=== PATIENT | female | born 1930 | race American Indian/Alaskan Native ===

== ENCOUNTER 2020-08-28 14:15 | Inpatient (IN) | payer MEDICARE ==
--- NOTE | 2020-08-28 14:42 | Emergency Department Report ---
ED General Adult HPI - General Chief complaint: Recheck/Abnormal Lab/Rx Stated complaint: COUMANDIN LEVEL HIGH Time Seen by Provider: 08/28/20 14:30 Source: patient, family Mode of arrival: Wheelchair Limitations: No Limitations - History of Present Illness Initial comments: Patient is 89 years old female with history of hypertension, Congestive heart failure and atrial fibrillation, dementia and heart valve replacement patient is currently on Coumadin. Patient brought to the emergency room by her son after patient found to have an INR of 8. Son reported that she fell twice last week. He reported that patient always confused however she became more confused recently. He denied any fever or chills. Patient is unable to communicate well because of her altered mental status and dementia. Patient found to have a heart rate of 148. Severity scale (0 -10): 0 - Related Data Home Medications Medication Instructions Recorded Confirmed Last Taken AtorvaSTATin [Lipitor] 40 mg PO QHS 08/29/20 08/29/20 Unknown Escitalopram [Lexapro Oral Liqd] 10 mg PO QDAY 08/29/20 08/29/20 Unknown Furosemide [Lasix TAB] 40 mg PO QDAY 08/29/20 08/29/20 Unknown Gabapentin [Neurontin] 100 mg PO Q8HR 08/29/20 08/29/20 Unknown Lisinopril [Zestril] 5 mg PO QDAY 08/29/20 08/29/20 Unknown Metoprolol Succinate [Kapsp[place] 100 mg PO QDAY 08/29/20 08/29/20 Unknown Sprinkle] Omeprazole 40 mg PO QDAY 08/29/20 08/29/20 Unknown Potassium Citrate [Potassium 10 meq PO QDAY 08/29/20 08/29/20 Unknown Citrate ER] Warfarin [Coumadin] 5 mg PO QDAY 08/29/20 08/29/20 Unknown traMADoL [Ultram] 50 mg PO Q6HR PRN 08/29/20 08/29/20 Unknown traZODone [Desyrel] 50 mg PO QHS 08/29/20 08/29/20 Unknown Allergies Allergy/AdvReac Type Severity Reaction Status Date / Time No Known Allergies Allergy Unverified 08/28/20 14:17 ED Review of Systems ROS: Stated complaint: COUMANDIN LEVEL HIGH Other details as noted in HPI Comment: All other systems reviewed and negative Constitutional: denies: chills, fever Respiratory: shortness of breath. denies: cough, orthopnea Cardiovascular: palpitations. denies: chest pain Gastrointestinal: denies: abdominal pain, nausea, vomiting Neurological: confusion. denies: weakness ED Past Medical Hx - Past Medical History Previous Medical History?: Yes Hx Hypertension: Yes Hx of Cancer: Yes (breast) Hx Dementia: Yes Additional medical history: afib - Surgical History Past Surgical History?: Yes Additional Surgical History: heart surgery for valves - Medications Home Medications: Home Medications Medication Instructions Recorded Confirmed Last Taken Type AtorvaSTATin [Lipitor] 40 mg PO QHS 08/29/20 08/29/20 Unknown History Escitalopram [Lexapro Oral Liqd] 10 mg PO QDAY 08/29/20 08/29/20 Unknown History Furosemide [Lasix TAB] 40 mg PO QDAY 08/29/20 08/29/20 Unknown History Gabapentin [Neurontin] 100 mg PO Q8HR 08/29/20 08/29/20 Unknown History Lisinopril [Zestril] 5 mg PO QDAY 08/29/20 08/29/20 Unknown History Metoprolol Succinate [Kapspargo 100 mg PO QDAY 08/29/20 08/29/20 Unknown History Sprinkle] Omeprazole 40 mg PO QDAY 08/29/20 08/29/20 Unknown History Potassium Citrate [Potassium 10 meq PO QDAY 08/29/20 08/29/20 Unknown History Citrate ER] Warfarin [Coumadin] 5 mg PO QDAY 08/29/20 08/29/20 Unknown History traMADoL [Ultram] 50 mg PO Q6HR PRN 08/29/20 08/29/20 Unknown History traZODone [Desyrel] 50 mg PO QHS 08/29/20 08/29/20 Unknown History ED Physical Exam - General Limitations: No Limitations General appearance: alert, in no apparent distress - Head Head exam: Present: atraumatic, normocephalic, normal inspection - Eye Eye exam: Present: normal appearance, PERRL - ENT ENT exam: Present: normal exam, normal orophraynx, mucous membranes moist - Neck Neck exam: Present: normal inspection, full ROM. Absent: tenderness, meningi smus - Respiratory Respiratory exam: Present: normal lung sounds bilaterally - Cardiovascular Cardiovascular Exam: Present: regular rate, normal rhythm, normal heart sounds - GI/Abdominal GI/Abdominal exam: Present: soft, normal bowel sounds. Absent: distended, tenderness, guarding, rebound, rigid, organomegaly, mass, bruit, pulsatile mass, hernia - Extremities Exam Extremities exam: Present: normal inspection, full ROM, normal capillary refill. Absent: tenderness - Back Exam Back exam: Present: normal inspection, full ROM. Absent: CVA tenderness (R), CVA tenderness (L) - Neurological Exam Neurological exam: Present: alert, altered, CN II-XII intact. Absent: motor sensory deficit - Psychiatric Psychiatric exam: Present: normal mood - Skin Skin exam: Present: warm, intact, normal color ED Course Vital Signs 08/28/20 08/28/20 08/28/20 14:25 14:31 14:45 Temperature 98.4 F Pulse Rate 69 148 H Respiratory 14 20 Rate Blood Pressure 106/84 Blood Pressure 108/79 [Right] O2 Sat by Pulse 71 L 70 L Oximetry 08/28/20 08/28/20 08/28/20 15:01 15:03 15:15 Temperature 98.2 F Pulse Rate 142 H 148 H 154 H Respiratory 22 18 18 Rate Blood Pressure 106/84 160/84 106/84 Blood Pressure [Right] O2 Sat by Pulse 100 Oximetry 08/28/20 08/28/20 08/28/20 15:31 15:45 15:54 Temperature Pulse Rate 130 H 142 H 137 H Respiratory 20 21 Rate Blood Pressure 106/84 106/86 106/83 Blood Pressure [Right] O2 Sat by Pulse Oximetry 08/28/20 08/28/20 08/28/20 16:01 16:15 16:31 Temperature Pulse Rate 109 H 124 H 112 H Respiratory 20 13 19 Rate Blood Pressure 106/86 101/71 101/71 Blood Pressure [Right] O2 Sat by Pulse 79 L Oximetry 08/28/20 08/28/20 08/28/20 16:45 17:01 17:15 Temperature Pulse Rate 113 H 110 H 94 H Respiratory 22 20 19 Rate Blood Pressure 101/71 101/71 50/25 Blood Pressure [Right] O2 Sat by Pulse 88 76 L Oximetry 08/28/20 08/28/20 08/28/20 17:31 17:45 18:01 Temperature Pulse Rate 106 H 99 H 96 H Respiratory 12 16 18 Rate Blood Pressure 50/25 98/80 98/80 Blood Pressure [Right] O2 Sat by Pulse 99 93 84 Oximetry 08/28/20 08/28/20 08/28/20 18:15 18:31 18:45 Temperature Pulse Rate 115 H 112 H 115 H Respiratory 15 19 16 Rate Blood Pressure 104/83 104/83 128/107 Blood Pressure [Right] O2 Sat by Pulse 89 82 L Oximetry 08/28/20 08/28/20 08/28/20 19:01 19:15 19:31 Temperature Pulse Rate 110 H 100 H 98 H Respiratory 21 18 19 Rate Blood Pressure 128/107 120/83 120/83 Blood Pressure [Right] O2 Sat by Pulse 45 L Oximetry 08/28/20 08/28/20 08/28/20 19:45 20:01 20:15 Temperature Pulse Rate 113 H 120 H 110 H Respiratory 17 15 17 Rate Blood Pressure 108/82 108/82 113/89 Blood Pressure [Right] O2 Sat by Pulse 85 93 Oximetry 08/28/20 08/28/20 08/28/20 20:31 20:45 21:01 Temperature Pulse Rate 109 H 115 H 95 H Respiratory 18 22 22 Rate Blood Pressure 113/89 113/89 112/80 Blood Pressure [Right] O2 Sat by Pulse 96 96 Oximetry 08/28/20 08/28/20 08/28/20 21:15 21:31 21:45 Temperature Pulse Rate 107 H 102 H 102 H Respiratory 20 18 19 Rate Blood Pressure 111/76 111/76 120/74 Blood Pressure [Right] O2 Sat by Pulse 93 74 L Oximetry 08/28/20 08/28/20 08/28/20 22:01 22:15 22:31 Temperature Pulse Rate 93 H 100 H 111 H Respiratory 15 15 20 Rate Blood Pressure 120/74 100/77 100/77 Blood Pressure [Right] O2 Sat by Pulse Oximetry 08/28/20 08/28/20 08/28/20 22:45 22:49 23:01 Temperature Pulse Rate 105 H 88 Respiratory 22 98 H 18 Rate Blood Pressure 100/77 100/77 Blood Pressure [Right] O2 Sat by Pulse 100 Oximetry 08/28/20 08/28/20 08/28/20 23:15 23:31 23:45 Temperature Pulse Rate 101 H 102 H 90 Respiratory 19 17 13 Rate Blood Pressure 113/80 113/80 113/80 Blood Pressure [Right] O2 Sat by Pulse 93 100 100 Oximetry 08/28/20 08/29/20 08/29/20 23:50 00:01 00:15 Temperature Pulse Rate 104 H 113 H 100 H Respiratory 16 14 15 Rate Blood Pressure 100/77 113/80 114/61 Blood Pressure [Right] O2 Sat by Pulse 100 Oximetry 08/29/20 08/29/20 08/29/20 00:31 00:45 01:00 Temperature Pulse Rate 95 H 95 H 94 H Respiratory 16 14 Rate Blood Pressure 114/61 120/72 120/72 Blood Pressure [Right] O2 Sat by Pulse 91 94 Oximetry 08/29/20 08/29/20 08/29/20 01:01 01:15 01:31 Temperature Pulse Rate 104 H 104 H 101 H Respiratory 13 24 17 Rate Blood Pressure 120/72 100/80 100/80 Blood Pressure [Right] O2 Sat by Pulse 81 L 92 Oximetry 08/29/20 08/29/20 08/29/20 01:45 02:01 02:15 Temperature Pulse Rate 104 H 109 H 96 H Respiratory 20 17 15 Rate Blood Pressure 110/62 110/62 101/64 Blood Pressure [Right] O2 Sat by Pulse 100 100 100 Oximetry 08/29/20 08/29/20 08/29/20 02:30 02:45 03:01 Temperature Pulse Rate 85 103 H 93 H Respiratory 15 15 13 Rate Blood Pressure 100/80 108/65 101/64 Blood Pressure [Right] O2 Sat by Pulse 100 100 Oximetry 08/29/20 08/29/20 08/29/20 03:15 03:31 03:45 Temperature Pulse Rate 87 98 H 104 H Respiratory 19 17 19 Rate Blood Pressure 114/70 114/70 117/72 Blood Pressure [Right] O2 Sat by Pulse 100 Oximetry 08/29/20 08/29/20 08/29/20 04:01 04:15 04:31 Temperature Pulse Rate 87 109 H 96 H Respiratory 21 21 24 Rate Blood Pressure 117/72 149/117 149/117 Blood Pressure [Right] O2 Sat by Pulse 100 100 Oximetry 08/29/20 08/29/20 08/29/20 04:45 05:01 05:15 Temperature Pulse Rate 113 H 101 H Respiratory 17 17 16 Rate Blood Pressure 149/117 98/77 108/54 Blood Pressure [Right] O2 Sat by Pulse 100 Oximetry 08/29/20 08/29/20 08/29/20 05:31 05:45 06:01 Temperature Pulse Rate 122 H Respiratory 16 18 19 Rate Blood Pressure 108/54 101/81 101/81 Blood Pressure [Right] O2 Sat by Pulse 100 100 81 L Oximetry 08/29/20 08/29/20 08/29/20 06:15 06:30 06:41 Temperature Pulse Rate 96 H 101 H 102 H Respiratory 21 21 11 L Rate Blood Pressure 109/86 109/86 Blood Pressure [Right] O2 Sat by Pulse 99 100 100 Oximetry 08/29/20 08/29/20 08/29/20 06:51 07:01 07:11 Temperature Pulse Rate 91 H 100 H 95 H Respiratory 21 18 19 Rate Blood Pressure 116/78 116/78 107/74 Blood Pressure [Right] O2 Sat by Pulse 100 100 90 Oximetry 08/29/20 08/29/20 08/29/20 07:15 07:45 07:51 Temperature Pulse Rate 106 H 95 H 103 H Respiratory 20 24 16 Rate Blood Pressure 107/74 110/68 110/68 Blood Pressure [Right] O2 Sat by Pulse 94 100 Oximetry 08/29/20 08:01 Temperature Pulse Rate 94 H Respiratory 22 Rate Blood Pressure 110/68 Blood Pressure [Right] O2 Sat by Pulse 100 Oximetry ED Medical Decision Making - Lab Data Result diagrams: 08/29/20 02:27 08/29/20 02:27 - EKG Data -: EKG Interpreted by Me - Radiology Data Radiology results: report reviewed Atrial fibrillation with RVR heart rate of 131. - Medical Decision Making Patient is 89 years old female with history of hypertension, Congestive heart failure and atrial fibrillation, dementia and heart valve replacement patient is currently on Coumadin. Patient brought to the emergency room by her son after patient found to have an INR of 8. Son reported that she fell twice last week. He reported that patient always confused however she became more confused recently. He denied any fever or chills. Patient is unable to communicate well because of her altered mental status and dementia. Patient found to have a heart rate of 148. EKG showed atrial fibrillation with RVR heart rate of 1 PAD. Patient started on Cardizem with improvement heart rate. INR is 10.6. Patient received vitamin K [address] brain showed no evidence of intracranial bleed or any other acute abnormalities. I discussed the patient with Dr. Leal, he agreed to admit the patient to medical service for further management. Critical Care Time: Yes Critical care time in (mins) excluding proc time.: 30 Critical care attestation.: If time is entered above; I have spent that time in minutes in the direct care of this critically ill patient, excluding procedure time. ED Disposition Clinical Impression: Atrial fibrillation with RVR, Acute hypernatremia, Lactic acidosis Coumadin toxicity Qualifiers: Encounter type: initial encounter Disposition: OP ADMIT IP TO THIS HOSP Is pt being admited?: Yes Condition: Stable
[2020-08-28] MEDS ORDERED: dilTIAZem 25 MG/5 ML INJ IV ONE (14:55)
[2020-08-28] MEDS: dilTIAZem/D5W 100 MG/100 ML BAG IV SCH (15:37)
[2020-08-28 15:50] LABS: Calcium 9.1 mg/dL (8.4-10.2)
--- NOTE | 2020-08-28 15:51 | Cat Scan Report ---
CT BRAIN: 08/28/2020 INDICATION / CLINICAL INFORMATION: MAIN. COMPARISON: None available. FINDINGS: BRAIN/INTRACRANIAL STRUCTURES: Unenhanced CT images of the brain demonstrate no evidence of acute int racranial abnormality. Ventricles and sulci are prominent in size, consistent with pronounced age-related atrophic change. E xtensive chronic white matter hypoattenuation is present. There is a small area of encephalomalacia in involving the inferior aspect of the right cerebellar he misphere. There is no evidence of acute ischemic injury, hemorrhage, or mass. There are no abnormal extra-axial fluid collections. Atherosclerotic vascular calcifications are present in the distal internal carotid arteries and verte bral arteries. EXTRACRANIAL STRUCTURES: Unremarkable. IMPRESSION: No acute abnormality. Extensive chronic and age-related changes. All CT scans at this location are performed using dose reduction to ALARA by means of automated expos ure control. Signer Name: Steve Ballesteros MD Signed: 08/28/2020 3:46 PM Workstation Name: [id number]
[2020-08-28 15:52] LABS: Albumin 3.7 g/dL (3.9-5); Bilirubin,Direct 1.4 mg/dL (0-0.2)
[2020-08-28] MEDS ORDERED: SODIUM CHLORIDE 0.9% 500 ML 500 ML IV ONE (15:56)
--- NOTE | 2020-08-28 16:18 | XRay Report ---
CHEST 1 VIEW 08/28/2020 3:10 PM INDICATION / CLINICAL INFORMATION: Altered Mental Status. COMPARISON: None available. FINDINGS: SUPPORT DEVICES: None. HEART / MEDIASTINUM: Normal heart size. Previous median sternotomy and aortic valve replacement. LUNGS / PLEURA: No significant pulmonary or pleural abnormality. No pneumothorax. ADDITIONAL FINDINGS: No significant additional findings. IMPRESSION: 1. No acute findings. Signer Name: Larry Leigh MD Signed: 08/28/2020 4:13 PM Workstation Name: [id number]
[2020-08-28 16:23] LABS: Partial Thromboplastin Time 48.8 Sec. (24.2-36.6)
[2020-08-28] MEDS ORDERED: PHYTONADIONE 10 MG/1 ML (ADULT ONLY)*INJECTION SUB-Q ONE (16:48)
[2020-08-28 16:52] LABS: INR 10.69 (0.87-1.13)
[2020-08-28 17:04] LABS: Hematocrit 39.5 % (30.3-42.9); Hemoglobin 12.4 gm/dl (10.1-14.3); Mean Corpuscular HGB Conc 32 % (30-34); Mean Corpuscular Volume 108 fl (79-97); Platelet Count 198 K/mm3 (140-440); Red Blood Count 3.67 M/mm3 (3.65-5.03); Red Cell Distribution Width 17.4 % (13.2-15.2)
[2020-08-28 17:46] LABS: Anisocytosis Few; Hypochromasia Few; Total Cells Counted 100
[2020-08-28 17:49] LABS: Bacteria,Urine 4+ /HPF (Negative); Bilirubin,Urine NEG (Negative); Blood,Urine MOD (Negative); Color,Urine Amber (Yellow); Hyaline Casts,Urine 20 /LPF; Mucus,Urine 3+ /HPF
--- NOTE | 2020-08-28 21:48 | History and Physical Report ---
History of Present Illness Date of examination: 08/28/20 Date of admission: 08/28/20 18:30 Chief complaint: Palpitations since a.m. High Coumadin level with high INR of work 8-10 History of present illness: 89-year-old female with history of hypertension, congestive heart failure dementia, atrial fibrillation and aortic valve replacement brought in by her son because of high Coumadin level with INR of 8. Also patient has been falling repeatedly. Further work 2 times per day for 1 week. Patient states that she has weakness in both lower extremities. Patient also more confused secondary to her dementia. No fever or chills. Patient is unable currently communicative because of her progressive dementia. In the emergency room patient was found to be in atrial fibrillation with rapid ventricular rate. - Past Medical History --Hypertension: Yes --Hx of Cancer: Yes (breast) --Dementia: Yes Additional medical history: afib - Surgical History Past Surgical History?: Yes -Social history no smoking or alcohol Review of Systems ROS: Constitutional no weight loss or weight gain no fever or chills HEENT no sore throat no post nasal drip no diplopia Neck no neck stiffness no lymph gland enlargement Chest and lungs no shortness of breath cough or wheezing CVS palpitations present GI no nausea no vomiting no diarrhea Genitourinary system no dysuria no flank pain Musculoskeletal system no muscle pains no joint pains [employer] no syncope no seizures Skin no rash no itching Psychiatric no depression no homicidal or suicidal tendencies Hematologic no lymphedema or bruising Endocrine no polydipsia no polyuria no cold intolerance no heat intolerance Medications and Allergies Allergies Allergy/AdvReac Type Severity Reaction Status Date / Time No Known Allergies Allergy Unverified 08/28/20 14:17 Active Meds: Active Medications Diltiazem HCl (Cardizem/D5w 100mg/100ml) 100 mg in 100 mls @ 5 mls/hr IV TITR [place]; Protocol Last Titration: 08/28/20 18:07 Dose: 15 mg/hr, 15 mls/hr Documented by: Exam - Constitutional Vitals: Temp Pulse Resp BP Pulse Ox 98.2 F 102 H 18 111/76 93 08/28/20 15:03 08/28/20 21:31 08/28/20 21:31 08/28/20 21:31 08/28/20 21:31 General appearance: Present: mild distress, well-nourished - EENT Eyes: Present: PERRL ENT: hearing intact, clear oral mucosa - Neck Neck: Present: supple, normal ROM - Respiratory Respiratory effort: normal Respiratory: bilateral: CTA - Cardiovascular Heart rate: 148 Rhythm: irregularly irregular Heart Sounds: Present: S1 & S2. Absent: rub, click - Extremities Extremities: pulses symmetrical, No edema Peripheral Pulses: within normal limits - Abdominal General gastrointestinal: Present: soft, non-tender, non-distended, normal bowel sounds Female genitourinary: Present: normal - Integumentary Integumentary: Present: clear, warm, dry - Musculoskeletal Musculoskeletal: gait normal, strength equal bilaterally - Psychiatric Psychiatric: appropriate mood/affect, intact judgment & insight - Neurologic Neurologic: CNII-XII intact, moves all extremities HEART Score - HEART Score History: Moderately suspicious Age: > 65 Risk factors: > 3 risk factors or hx of atherosclerotic disease Troponin: Troponin T 0.010 ng/mL (0.00-0.029) 08/28/20 17:27 Troponin: < normal limit - Critical Actions Critical Actions: 4-6 pts:12-16.6% risk of adverse cardiac event. Should be admitted Results - Labs CBC & Chem 7: 08/29/20 02:27 08/29/20 02:27 Labs: Laboratory Last Values WBC 5.9 K/mm3 (4.5-11.0) 08/28/20 15:07 RBC 3.67 M/mm3 (3.65-5.03) 08/28/20 15:07 Hgb 12.4 gm/dl (10.1-14.3) 08/28/20 15:07 Hct 39.5 % (30.3-42.9) 08/28/20 15:07 MCV 108 fl (79-97) H 08/28/20 15:07 MCH 34 pg (28-32) H 08/28/20 15:07 MCHC 32 % (30-34) 08/28/20 15:07 RDW 17.4 % (13.2-15.2) H 08/28/20 15:07 Plt Count 198 K/mm3 (140-440) 08/28/20 15:07 Add Manual Diff Complete 08/28/20 15:07 Total Counted 100 08/28/20 15:07 Seg Neuts % (Manual) 64.0 % (40.0-70.0) 08/28/20 15:07 Lymphocytes % (Manual) 23.0 % (13.4-35.0) 08/28/20 15:07 Monocytes % (Manual) 10.0 % (0.0-7.3) H 08/28/20 15:07 Eosinophils % (Manual) 2.0 % (0.0-4.3) 08/28/20 15:07 Basophils % (Manual) 1.0 % (0.0-1.8) 08/28/20 15:07 Nucleated RBC % Not Reportable 08/28/20 15:07 Seg Neutrophils # Man 3.8 K/mm3 (1.8-7.7) 08/28/20 15:07 Band Neutrophils # 0.0 K/mm3 08/28/20 15:07 Lymphocytes # (Manual) 1.4 K/mm3 (1.2-5.4) 08/28/20 15:07 Abs React Lymphs (Man) 0.0 K/mm3 08/28/20 15:07 Monocytes # (Manual) 0.6 K/mm3 (0.0-0.8) 08/28/20 15:07 Eosinophils # (Manual) 0.1 K/mm3 (0.0-0.4) 08/28/20 15:07 Basophils # (Manual) 0.1 K/mm3 (0.0-0.1) 08/28/20 15:07 Metamyelocytes # 0.0 K/mm3 08/28/20 15:07 Myelocytes # 0.0 K/mm3 08/28/20 15:07 Promyelocytes # 0.0 K/mm3 08/28/20 15:07 Blast Cells # 0.0 K/mm3 08/28/20 15:07 WBC Morphology Not Reportable 08/28/20 15:07 Hypersegmented Neuts Not Reportable 08/28/20 15:07 Hyposegmented Neuts Not Reportable 08/28/20 15:07 Hypogranular Neuts Not Reportable 08/28/20 15:07 Smudge Cells Not Reportable 08/28/20 15:07 Toxic Granulation Not Reportable 08/28/20 15:07 Toxic Vacuolation Not Reportable 08/28/20 15:07 Dohle Bodies Not Reportable 08/28/20 15:07 Pelger-Huet Anomaly Not Reportable 08/28/20 15:07 Heri Rods Not Reportable 08/28/20 15:07 Platelet Estimate Not Reportable 08/28/20 15:07 Clumped Platelets Not Reportable 08/28/20 15:07 Plt Clumps, EDTA Not Reportable 08/28/20 15:07 Large Platelets Not Reportable 08/28/20 15:07 Giant Platelets Not Reportable 08/28/20 15:07 Platelet Satelliting Not Reportable 08/28/20 15:07 Plt Morphology Comment Not Reportable 08/28/20 15:07 RBC Morphology Not Reportable 08/28/20 15:07 Dimorphic RBCs Not Reportable 08/28/20 15:07 Polychromasia Not Reportable 08/28/20 15:07 Hypochromasia Few 08/28/20 15:07 Poikilocytosis Not Reportable 08/28/20 15:07 Anisocytosis Few 08/28/20 15:07 Microcytosis Rare 08/28/20 15:07 Macrocytosis Not Reportable 08/28/20 15:07 Spherocytes Not Reportable 08/28/20 15:07 Pappenheimer Bodies Not Reportable 08/28/20 15:07 Sickle Cells Not Reportable 08/28/20 15:07 Target Cells Not Reportable 08/28/20 15:07 Tear Drop Cells Not Reportable 08/28/20 15:07 Ovalocytes Not Reportable 08/28/20 15:07 Helmet Cells Not Reportable 08/28/20 15:07 [place] Bodies Not Reportable 08/28/20 15:07 [place] Rings Not Reportable 08/28/20 15:07 [place] Cells Not Reportable 08/28/20 15:07 Bite Cells Not Reportable 08/28/20 15:07 Crenated Cell Not Reportable 08/28/20 15:07 Elliptocytes Not Reportable 08/28/20 15:07 Acanthocytes (Spur) Not Reportable 08/28/20 15:07 Rouleaux Not Reportable 08/28/20 15:07 Hemoglobin C Crystals Not Reportable 08/28/20 15:07 Schistocytes Not Reportable 08/28/20 15:07 Malaria parasites Not Reportable 08/28/20 15:07 Fercho Bodies Not Reportable 08/28/20 15:07 Hem Pathologist Commnt No 08/28/20 15:07 PT 87.2 Sec. (12.2-14.9) H 08/28/20 15:07 INR 10.69 (0.87-1.13) H* 08/28/20 15:07 APTT 48.8 Sec. (24.2-36.6) H 08/28/20 15:07 Sodium 148 mmol/L (137-145) H 08/28/20 15:07 Potassium 4.8 mmol/L (3.6-5.0) 08/28/20 15:07 Chloride 112.6 mmol/L (98-107) H 08/28/20 15:07 Carbon Dioxide 20 mmol/L (22-30) L 08/28/20 15:07 Anion Gap 20 mmol/L 08/28/20 15:07 BUN 33 mg/dL (7-17) H 08/28/20 15:07 Creatinine 1.4 mg/dL (0.6-1.2) H 08/28/20 15:07 Estimated GFR 43 ml/min 08/28/20 15:07 BUN/Creatinine Ratio 24 % 08/28/20 15:07 Glucose 152 mg/dL (65-100) H 08/28/20 15:07 Lactic Acid 4.70 mmol/L (0.7-2.0) H* 08/28/20 15:07 Calcium 9.1 mg/dL (8.4-10.2) 08/28/20 15:07 Total Bilirubin 3.20 mg/dL (0.1-1.2) H 08/28/20 15:07 Direct Bilirubin 1.4 mg/dL (0-0.2) H 08/28/20 15:07 Indirect Bilirubin 1.8 mg/dL 08/28/20 15:07 AST 432 units/L (5-40) H 08/28/20 15:07 ALT 367 units/L (7-56) H 08/28/20 15:07 Alkaline Phosphatase 189 units/L (35-129) H 08/28/20 15:07 Troponin T 0.010 ng/mL (0.00-0.029) 08/28/20 17:27 NT-Pro-B Natriuret Pep 7039 pg/mL (0-900) H 08/28/20 15:07 Total Protein 8.2 g/dL (6.3-8.2) 08/28/20 15:07 Albumin 3.7 g/dL (3.9-5) L 08/28/20 15:07 Albumin/Globulin Ratio 0.8 % 08/28/20 15:07 Urine Color Alison (Yellow) 08/28/20 Unknown Urine Turbidity Cloudy (Clear) 08/28/20 Unknown Urine pH 5.0 (5.0-7.0) 08/28/20 Unknown Ur Specific [place] 1.019 (1.003-1.030) 08/28/20 Unknown Urine Protein 100 mg/dl mg/dL (Negative) 08/28/20 Unknown Urine Glucose (UA) Neg mg/dL (Negative) 08/28/20 Unknown Urine Ketones Neg mg/dL (Negative) 08/28/20 Unknown Urine Blood Mod (Negative) 08/28/20 Unknown Urine Nitrite Neg (Negative) 08/28/20 Unknown Urine Bilirubin Neg (Negative) 08/28/20 Unknown Urine Urobilinogen 4.0 mg/dL (<2.0) 08/28/20 Unknown Ur Leukocyte Esterase Mod (Negative) 08/28/20 Unknown Urine WBC (Auto) 65.0 /HPF (0.0-6.0) H 08/28/20 Unknown Urine RBC (Auto) 12.0 /HPF (0.0-6.0) 08/28/20 Unknown Urine Bacteria (Auto) 4+ /HPF (Negative) 08/28/20 Unknown Urine WBC Clumps 2+ /HPF 08/28/20 Unknown Hyaline Casts 20 /LPF 08/28/20 Unknown Urine Mucus 3+ /HPF 08/28/20 Unknown Urine Yeast (Budding) 2+ /HPF 08/28/20 Unknown Short CBC 08/28/20 08/29/20 Range/Units 15:07 02:27 WBC 5.9 7.0 (4.5-11.0) K/mm3 Hgb 12.4 11.6 (10.1-14.3) gm/dl Hct 39.5 35.0 (30.3-42.9) % Plt Count 198 160 (140-440) K/mm3 BMP 08/28/20 08/29/20 15:07 02:27 Sodium 148 H 149 H Potassium 4.8 4.0 Chloride 112.6 H 114.1 H Carbon Dioxide 20 L 19 L BUN 33 H 31 H Creatinine 1.4 H 1.2 Glucose 152 H 130 H Calcium 9.1 9.0 Cardiac Enzymes 08/28/20 08/28/20 08/28/20 Range/Units 15:07 15:07 17:27 Troponin T 0.019 0.012 0.010 (0.00-0.029) ng/mL Liver Function 08/28/20 08/29/20 Range/Units 15:07 02:27 Total Bilirubin 3.20 H 3.10 H (0.1-1.2) mg/dL Direct Bilirubin 1.4 H (0-0.2) mg/dL AST 432 H 451 H (5-40) units/L ALT 367 H 386 H (7-56) units/L Alkaline Phosphatase 189 H 179 H (35-129) units/L Albumin 3.7 L 3.7 L (3.9-5) g/dL Urine 08/28/20 Range/Units Unknown Urine Color [place]ison (Yellow) Urine pH 5.0 (5.0-7.0) Ur Specific [place] 1.019 (1.003-1.030) Urine Protein 100 mg/dl (Negative) mg/dL Urine Glucose (UA) Neg (Negative) mg/dL Microbiology: Microbiology 08/28/20 15:07 Peripheral/Venous Blood Culture - Preliminary Culture in Progress 08/28/20 15:07 Peripheral/Venous Blood Culture - Preliminary Culture in Progress - Imaging and Cardiology EKG: report reviewed (Atrial fibrillation with RVR) Chest x-ray: report reviewed (No acute findings) Assessment and Plan Advance Directives: Yes (Full code) VTE prophylaxis?: Chemical Plan of care discussed with patient/family: Yes - Patient Problems (1) Atrial fibrillation with RVR Current Visit: Yes Status: Acute Plan to address problem: Patient on diltiazem drip IV No titration Diltiazem CD 120 mg added Cardiology consult requested (2) CHF (congestive heart failure) Current Visit: Yes Status: Chronic Qualifiers: Heart failure type: combined systolic and diastolic Plan to address problem: Echocardiogram for ejection fraction (3) Acute hypernatremia Current Visit: Yes Status: Acute Plan to address problem: Gentle IV hydration because of the CHF (4) Coumadin toxicity Current Visit: Yes Status: Acute Qualifiers: Encounter type: initial encounter Plan to address problem: Vitamin K given in the emergency room Check pro time Patient may benefit from switching to Eliquis will defer to cardiology (5) JAMI (acute kidney injury) Current Visit: Yes Status: Acute Plan to address problem: Secondary to vasomotor nephropathy Gentle IV hydration (6) DVT prophylaxis Current Visit: Yes Status: Acute Plan to address problem: Heparin and GI prophylaxis
[2020-08-28] MEDS ORDERED: MORPHINE 2 MG/1 ML INJ IV PRN (21:49)
[2020-08-28] MEDS ORDERED: ONDANSETRON 4 MG/2 ML INJ IV PRN (21:49)
[2020-08-28] MEDS ORDERED: oxyCODONE /ACETAMINOPHEN 5-325MG TAB PO PRN (21:49)
[2020-08-28] MEDS ORDERED: ACETAMINOPHEN 325 MG TAB PO PRN (21:49)
[2020-08-28] MEDS ORDERED: FAMOTIDINE 20 MG TAB PO SCH (22:00)
[2020-08-28] MEDS: FAMOTIDINE 10 MG TAB PO SCH (22:16)
[2020-08-28] MEDS: FUROSEMIDE 40 MG/4 ML INJ IV SCH (22:36)
[2020-08-29] MEDS: dilTIAZem/D5W 100 MG/100 ML BAG IV SCH ×2 (01:00→07:25)
[2020-08-29 03:10] LABS: Basophils % (Auto) 0.7 % (0.0-1.8); Eosinophils # (Auto) 0.2 K/mm3 (0.0-0.4); Eosinophils % (Auto) 2.3 % (0.0-4.3); Hemoglobin 11.6 gm/dl (10.1-14.3); Lymphocytes # (Auto) 1.2 K/mm3 (1.2-5.4); Lymphocytes % (Auto) 17.3 % (13.4-35.0); Mean Corpuscular HGB Conc 33 % (30-34); Mean Corpuscular Volume 105 fl (79-97); Monocytes # (Auto) 0.6 K/mm3 (0.0-0.8); Monocytes % (Auto) 9.3 % (0.0-7.3); Platelet Count 160 K/mm3 (140-440); Red Blood Count 3.33 M/mm3 (3.65-5.03); Red Cell Distribution Width 16.5 % (13.2-15.2)
[2020-08-29 03:35] LABS: Albumin 3.7 g/dL (3.9-5)
--- NOTE | 2020-08-29 08:51 | Progress Note ---
Assessment and Plan Assessment and plan: 89-year-old female with history of hypertension, congestive heart failure dementia, atrial fibrillation and aortic valve replacement brought in by her son because of high Coumadin level with INR of 8. Also patient has been falling repeatedly. Further work 2 times per day for 1 week. Patient states that she has weakness in both lower extremities. Patient also more confused secondary to her dementia. No fever or chills. Patient is unable currently communicative because of her progressive dementia. In the emergency room patient was found to be in atrial fibrillation with rapid ventricular rate. CT scan of the head shows no acute abnormality. 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 Will monitor INR. Agree with cardiology on discontinuing Coumadin/anticoagulation at this time. Continue to monitor renal function DVT and GI prophylaxis Anticipate discharge in 24 to 48 hours PT OT evaluation I tried calling the son but no one picked up. History Interval history: Patient seen and examined this morning remains a little lethargic but answering questions. Hospitalist Physical - Physical exam Narrative exam: VITAL SIGNS: Reviewed. GENERAL: The patient appears cachectic and extremely frail, Vital signs as documented. HEAD: No signs of head trauma. EYES: Pupils are equal. Extraocular motions intact. EARS: Hearing grossly intact. MOUTH: Oropharynx is normal. NECK: No adenopathy, no JVD. CHEST: Chest with clear breath sounds bilaterally. No wheezes, rales, or rhonchi. CARDIAC: Irregularly irregular. S1 and S2, without murmurs, gallops, or rubs. VASCULAR: No Edema. Peripheral pulses normal and equal in all extremities. ABDOMEN: Soft, non tender and non distended. No rebound or guarding, and no masses palpated. Bowel Sounds normal. MUSCULOSKELETAL: Good range of motion of all major joints. Extremities without clubbing, cyanosis or edema. NEUROLOGIC EXAM: Awake oriented to person lethargic no focal sensory or strength deficits. Speech normal. Follows commands. PSYCHIATRIC: Mood normal. SKIN: detail exam as documented in skin assessment - Constitutional Vitals: Temp Pulse Resp BP Pulse Ox 98.2 F 94 H 22 110/68 100 08/28/20 15:03 08/29/20 08:01 08/29/20 08:01 08/29/20 08:01 08/29/20 08:01 General appearance: Present: mild distress, well-nourished HEART Score - HEART Score Age: > 65 Risk factors: > 3 risk factors or hx of atherosclerotic disease Troponin: Troponin T 0.010 ng/mL (0.00-0.029) 08/28/20 17:27 Troponin: < normal limit - Critical Actions Critical Actions: 4-6 pts:12-16.6% risk of adverse cardiac event. Should be admitted Results - Labs CBC & Chem 7: 08/29/20 02:27 08/29/20 02:27 Labs: Laboratory Last Values WBC 7.0 K/mm3 (4.5-11.0) 08/29/20 02:27 RBC 3.33 M/mm3 (3.65-5.03) L 08/29/20 02:27 Hgb 11.6 gm/dl (10.1-14.3) 08/29/20 02:27 Hct 35.0 % (30.3-42.9) 08/29/20 02:27 MCV 105 fl (79-97) H 08/29/20 02:27 MCH 35 pg (28-32) H 08/29/20 02:27 MCHC 33 % (30-34) 08/29/20 02:27 RDW 16.5 % (13.2-15.2) H 08/29/20 02:27 Plt Count 160 K/mm3 (140-440) 08/29/20 02:27 Lymph % (Auto) 17.3 % (13.4-35.0) 08/29/20 02:27 [place] % (Auto) 9.3 % (0.0-7.3) H 08/29/20 02:27 Eos % (Auto) 2.3 % (0.0-4.3) 08/29/20 02:27 Baso % (Auto) 0.7 % (0.0-1.8) 08/29/20 02:27 Lymph # (Auto) 1.2 K/mm3 (1.2-5.4) 08/29/20 02:27 [place] # (Auto) 0.6 K/mm3 (0.0-0.8) 08/29/20 02:27 Eos # (Auto) 0.2 K/mm3 (0.0-0.4) 08/29/20 02:27 Baso # (Auto) 0.0 K/mm3 (0.0-0.1) 08/29/20 02:27 Add Manual Diff Complete 08/28/20 15:07 Total Counted 100 08/28/20 15:07 Seg Neutrophils % 70.4 % (40.0-70.0) H 08/29/20 02:27 Seg Neuts % (Manual) 64.0 % (40.0-70.0) 08/28/20 15:07 Lymphocytes % (Manual) 23.0 % (13.4-35.0) 08/28/20 15:07 Monocytes % (Manual) 10.0 % (0.0-7.3) H 08/28/20 15:07 Eosinophils % (Manual) 2.0 % (0.0-4.3) 08/28/20 15:07 Basophils % (Manual) 1.0 % (0.0-1.8) 08/28/20 15:07 Nucleated RBC % Not Reportable 08/28/20 15:07 Seg Neutrophils # 4.9 K/mm3 (1.8-7.7) 08/29/20 02:27 Seg Neutrophils # Man 3.8 K/mm3 (1.8-7.7) 08/28/20 15:07 Band Neutrophils # 0.0 K/mm3 08/28/20 15:07 Lymphocytes # (Manual) 1.4 K/mm3 (1.2-5.4) 08/28/20 15:07 Abs React Lymphs (Man) 0.0 K/mm3 08/28/20 15:07 Monocytes # (Manual) 0.6 K/mm3 (0.0-0.8) 08/28/20 15:07 Eosinophils # (Manual) 0.1 K/mm3 (0.0-0.4) 08/28/20 15:07 Basophils # (Manual) 0.1 K/mm3 (0.0-0.1) 08/28/20 15:07 Metamyelocytes # 0.0 K/mm3 08/28/20 15:07 Myelocytes # 0.0 K/mm3 08/28/20 15:07 Promyelocytes # 0.0 K/mm3 08/28/20 15:07 Blast Cells # 0.0 K/mm3 08/28/20 15:07 WBC Morphology Not Reportable 08/28/20 15:07 Hypersegmented Neuts Not Reportable 08/28/20 15:07 Hyposegmented Neuts Not Reportable 08/28/20 15:07 Hypogranular Neuts Not Reportable 08/28/20 15:07 Smudge Cells Not Reportable 08/28/20 15:07 Toxic Granulation Not Reportable 08/28/20 15:07 Toxic Vacuolation Not Reportable 08/28/20 15:07 Dohle Bodies Not Reportable 08/28/20 15:07 Pelger-Huet Anomaly Not Reportable 08/28/20 15:07 Heri Rods Not Reportable 08/28/20 15:07 Platelet Estimate Not Reportable 08/28/20 15:07 Clumped Platelets Not Reportable 08/28/20 15:07 Plt Clumps, EDTA Not Reportable 08/28/20 15:07 Large Platelets Not Reportable 08/28/20 15:07 Giant Platelets Not Reportable 08/28/20 15:07 Platelet Satelliting Not Reportable 08/28/20 15:07 Plt Morphology Comment Not Reportable 08/28/20 15:07 RBC Morphology Not Reportable 08/28/20 15:07 Dimorphic RBCs Not Reportable 08/28/20 15:07 Polychromasia Not Reportable 08/28/20 15:07 Hypochromasia Few 08/28/20 15:07 Poikilocytosis Not Reportable 08/28/20 15:07 Anisocytosis Few 08/28/20 15:07 Microcytosis Rare 08/28/20 15:07 Macrocytosis Not Reportable 08/28/20 15:07 Spherocytes Not Reportable 08/28/20 15:07 Pappenheimer Bodies Not Reportable 08/28/20 15:07 Sickle Cells Not Reportable 08/28/20 15:07 Target Cells Not Reportable 08/28/20 15:07 Tear Drop Cells Not Reportable 08/28/20 15:07 Ovalocytes Not Reportable 08/28/20 15:07 Helmet Cells Not Reportable 08/28/20 15:07 [place] Bodies Not Reportable 08/28/20 15:07 [place] Rings Not Reportable 08/28/20 15:07 [place] Cells Not Reportable 08/28/20 15:07 Bite Cells Not Reportable 08/28/20 15:07 Crenated Cell Not Reportable 08/28/20 15:07 Elliptocytes Not Reportable 08/28/20 15:07 Acanthocytes (Spur) Not Reportable 08/28/20 15:07 Rouleaux Not Reportable 08/28/20 15:07 Hemoglobin C Crystals Not Reportable 08/28/20 15:07 Schistocytes Not Reportable 08/28/20 15:07 Malaria parasites Not Reportable 08/28/20 15:07 Fercho Bodies Not Reportable 08/28/20 15:07 Hem Pathologist Commnt No 08/28/20 15:07 PT 87.2 Sec. (12.2-14.9) H 08/28/20 15:07 INR 10.69 (0.87-1.13) H* 08/28/20 15:07 APTT 48.8 Sec. (24.2-36.6) H 08/28/20 15:07 Sodium 149 mmol/L (137-145) H 08/29/20 02:27 Potassium 4.0 mmol/L (3.6-5.0) 08/29/20 02:27 Chloride 114.1 mmol/L (98-107) H 08/29/20 02:27 Carbon Dioxide 19 mmol/L (22-30) L 08/29/20 02:27 Anion Gap 20 mmol/L 08/29/20 02:27 BUN 31 mg/dL (7-17) H 08/29/20 02:27 Creatinine 1.2 mg/dL (0.6-1.2) 08/29/20 02:27 Estimated GFR 51 ml/min 08/29/20 02:27 BUN/Creatinine Ratio 26 % 08/29/20 02:27 Glucose 130 mg/dL (65-100) H 08/29/20 02:27 Hemoglobin A1c 5.2 % (4-6) 08/29/20 02:27 Lactic Acid 4.70 mmol/L (0.7-2.0) H* 08/28/20 15:07 Calcium 9.0 mg/dL (8.4-10.2) 08/29/20 02:27 Total Bilirubin 3.10 mg/dL (0.1-1.2) H 08/29/20 02:27 Direct Bilirubin 1.4 mg/dL (0-0.2) H 08/28/20 15:07 Indirect Bilirubin 1.8 mg/dL 08/28/20 15:07 AST 451 units/L (5-40) H 08/29/20 02:27 ALT 386 units/L (7-56) H 08/29/20 02:27 Alkaline Phosphatase 179 units/L (35-129) H 08/29/20 02:27 Troponin T 0.010 ng/mL (0.00-0.029) 08/28/20 17:27 NT-Pro-B Natriuret Pep 7039 pg/mL (0-900) H 08/28/20 15:07 Total Protein 7.6 g/dL (6.3-8.2) 08/29/20 02:27 Albumin 3.7 g/dL (3.9-5) L 08/29/20 02:27 Albumin/Globulin Ratio 0.9 % 08/29/20 02:27 Urine Color [place] (Yellow) 08/28/20 Unknown Urine Turbidity Cloudy (Clear) 08/28/20 Unknown Urine pH 5.0 (5.0-7.0) 08/28/20 Unknown Ur Specific [place] 1.019 (1.003-1.030) 08/28/20 Unknown Urine Protein 100 mg/dl mg/dL (Negative) 08/28/20 Unknown Urine Glucose (UA) Neg mg/dL (Negative) 08/28/20 Unknown Urine Ketones Neg mg/dL (Negative) 08/28/20 Unknown Urine Blood Mod (Negative) 08/28/20 Unknown Urine Nitrite Neg (Negative) 08/28/20 Unknown Urine Bilirubin Neg (Negative) 08/28/20 Unknown Urine Urobilinogen 4.0 mg/dL (<2.0) 08/28/20 Unknown Ur Leukocyte Esterase Mod (Negative) 08/28/20 Unknown Urine WBC (Auto) 65.0 /HPF (0.0-6.0) H 08/28/20 Unknown Urine RBC (Auto) 12.0 /HPF (0.0-6.0) 08/28/20 Unknown Urine Bacteria (Auto) 4+ /HPF (Negative) 08/28/20 Unknown Urine WBC Clumps 2+ /HPF 08/28/20 Unknown Hyaline Casts 20 /LPF 08/28/20 Unknown Urine Mucus 3+ /HPF 08/28/20 Unknown Urine Yeast (Budding) 2+ /HPF 08/28/20 Unknown Microbiology: Microbiology 08/28/20 15:07 Peripheral/Venous Blood Culture - Preliminary Culture in Progress 08/28/20 15:07 Peripheral/Venous Blood Culture - Preliminary Culture in Progress Active Medications - Current Medications Current Medications: Generic Name Dose Route Start Last Admin Trade Name Freq PRN Reason Stop Dose Admin Acetaminophen 650 mg 08/28/20 21:49 Acetaminophen 325 Mg Tab PO Q4H PRN Pain MILD(1-3)/Fever >100.5/MOELLER Famotidine 10 mg 08/28/20 22:00 08/28/20 22:16 Famotidine 10 Mg Tab PO 10 mg BID [place] Administration Furosemide 40 mg 08/28/20 23:00 08/28/20 22:36 Furosemide 40 Mg/4 Ml Inj IV 40 mg QDAY [place] Administration Diltiazem HCl 100 mg in 100 mls @ 5 mls/hr 08/28/20 15:00 08/29/20 07:25 Cardizem/D5w 100mg/100ml IV 15 mg/hr TITR [place] 15 mls/hr Administration Protocol 5 MG/HR Ceftriaxone Sodium 2 gm in 100 mls @ 200 mls/hr 08/29/20 10:00 Rocephin/Ns 2 Gm/100 Ml IV Q24HR [facility] Protocol Morphine Sulfate 2 mg 08/28/20 21:49 Morphine 2 Mg/1 Ml Inj IV Q4H PRN Pain, Moderate (4-6) Ondansetron HCl 4 mg 08/28/20 21:49 Ondansetron 4 Mg/2 Ml Inj IV Q8H PRN Nausea And Vomiting Oxycodone/Acetaminophen 1 tab 08/28/20 21:49 Oxycodone /Acetaminophen 5-325mg Tab PO Q6H PRN Pain, Moderate (4-6) Potassium Chloride 20 meq 08/29/20 10:00 Potassium Chloride Er 20 Meq Tab PO QDAY [facility] Sodium Chloride 10 ml 08/28/20 22:00 08/28/20 22:36 Sodium Chloride 0.9% 10 Ml Flush Syringe IV 10 ml BID [place] Administration Sodium Chloride 10 ml 08/28/20 21:49 Sodium Chloride 0.9% 10 Ml Flush Syringe IV PRN PRN LINE FLUSH
[2020-08-29] MEDS ORDERED: dilTIAZem CD 120 MG CAP PO SCH (10:00)
[2020-08-29] MEDS ORDERED: METOPROLOL TARTRATE 100 MG TAB PO SCH (10:00)
--- NOTE | 2020-08-29 11:16 | Consultation ---
History of Present Illness Consult date: 08/29/20 Consult reason: atrial fibrillation, other (warfarin toxicity) History of present illness: This is a frail, 89 year old woman who is admitted with coumadin toxicity. The INR was 10.69 on presentation and she received vitamin K in the emergency room. She is on warfarin therapy for chronic atrial fibrillation and is on rate control strategy. She has a history of valvular heart disease and has a bio- prosthetic AVR. She has a history of coronary artery disease with bypass grafts and ischemic cardiomyopathy. A cardiac cath in 2018 reports patent circumflex stent and patent saphenous vein graft to right coronary artery. In 2019 a thallium stress test showed a normal perfusion scan. Serial echocardiograms have demonstrated a decrease left ventricular systolic function, ejection fraction 25%. In addition to severe coagulopathy, the patient multiple metabolic abnormalities including elevated liver enzymes and elevated serum bilirubin. Her H&H is stable. Head CT scan reports no acute abnormality. Chest x-ray showed no evidence of interstitial edema. Past History Past Medical History: atrial fib, CAD, heart failure, hypertension Past Surgical History: CABG, Other (AVR) Medications and Allergies Allergies Allergy/AdvReac Type Severity Reaction Status Date / Time No Known Allergies Allergy Unverified 08/28/20 14:17 Home Medications Medication Instructions Recorded Confirmed Last Taken Type AtorvaSTATin [Lipitor] 40 mg PO QHS 08/29/20 08/29/20 Unknown History Escitalopram [Lexapro Oral Liqd] 10 mg PO QDAY 08/29/20 08/29/20 Unknown History Furosemide [Lasix TAB] 40 mg PO QDAY 08/29/20 08/29/20 Unknown History Gabapentin [Neurontin] 100 mg PO Q8HR 08/29/20 08/29/20 Unknown History Lisinopril [Zestril] 5 mg PO QDAY 08/29/20 08/29/20 Unknown History Metoprolol Succinate [Kapspargo 100 mg PO QDAY 08/29/20 08/29/20 Unknown History Sprinkle] Omeprazole 40 mg PO QDAY 08/29/20 08/29/20 Unknown History Potassium Citrate [Potassium 10 meq PO QDAY 08/29/20 08/29/20 Unknown History Citrate ER] Warfarin [Coumadin] 5 mg PO QDAY 08/29/20 08/29/20 Unknown History traMADoL [Ultram] 50 mg PO Q6HR PRN 08/29/20 08/29/20 Unknown History traZODone [Desyrel] 50 mg PO QHS 08/29/20 08/29/20 Unknown History Active Meds: Active Medications Acetaminophen (Acetaminophen 325 Mg Tab) 650 mg PO Q4H PRN PRN Reason: Pain MILD(1-3)/Fever >100.5/MOELLER Atorvastatin Calcium (Atorvastatin 40 Mg Tab) 40 mg PO QHS [facility] Famotidine (Famotidine 10 Mg Tab) 10 mg PO BID [facility] Last Admin: 08/28/20 22:16 Dose: 10 mg Documented by: Furosemide (Furosemide 40 Mg/4 Ml Inj) 40 mg IV QDAY [facility] Last Admin: 08/28/20 22:36 Dose: 40 mg Documented by: Diltiazem HCl (Cardizem/D5w 100mg/100ml) 100 mg in 100 mls @ 5 mls/hr IV TITR [facility]; Protocol Last Admin: 08/29/20 07:25 Dose: 15 mg/hr, 15 mls/hr Documented by: Ceftriaxone Sodium (Rocephin/Ns 2 Gm/100 Ml) 2 gm in 100 mls @ 200 mls/hr IV Q24HR [facility]; Protocol Metoprolol Tartrate (Metoprolol Tartrate 100 Mg Tab) 100 mg PO QDAY [facility] Morphine Sulfate (Morphine 2 Mg/1 Ml Inj) 2 mg IV Q4H PRN PRN Reason: Pain, Moderate (4-6) Ondansetron HCl (Ondansetron 4 Mg/2 Ml Inj) 4 mg IV Q8H PRN PRN Reason: Nausea And Vomiting Oxycodone/Acetaminophen (Oxycodone /Acetaminophen 5-325mg Tab) 1 tab PO Q6H PRN PRN Reason: Pain, Moderate (4-6) Potassium Chloride (Potassium Chloride Er 20 Meq Tab) 20 meq PO QDAY [facility] Sodium Chloride (Sodium Chloride 0.9% 10 Ml Flush Syringe) 10 ml IV BID [facility] Last Admin: 08/28/20 22:36 Dose: 10 ml Documented by: Sodium Chloride (Sodium Chloride 0.9% 10 Ml Flush Syringe) 10 ml IV PRN PRN PRN Reason: LINE FLUSH Trazodone HCl (Trazodone 50 Mg Tab) 50 mg PO QHS [facility] Review of Systems ROS unobtainable: due to mental status Physical Examination Vital Signs Temp Pulse Resp BP Pulse Ox 98.4 F 69 14 108/79 71 L 08/28/20 14:25 08/28/20 14:25 08/28/20 14:25 08/28/20 14:25 08/28/20 14:25 General appearance: no acute distress HEENT: Positive: PERRL Neck: Positive: trachea midline Cardiac: Positive: irregularly irregular Lungs: Positive: Decreased Breath Sounds Results 08/29/20 02:27 08/29/20 02:27 Cardiac Enzymes 08/28/20 08/29/20 Range/Units 15:07 02:27 AST 432 H 451 H (5-40) units/L Coagulation 08/28/20 Range/Units 15:07 PT 87.2 H (12.2-14.9) Sec. INR 10.69 H* (0.87-1.13) APTT 48.8 H (24.2-36.6) Sec. CBC 08/28/20 08/29/20 Range/Units 15:07 02:27 WBC 5.9 7.0 (4.5-11.0) K/mm3 RBC 3.67 3.33 L (3.65-5.03) M/mm3 Hgb 12.4 11.6 (10.1-14.3) gm/dl Hct 39.5 35.0 (30.3-42.9) % Plt Count 198 160 (140-440) K/mm3 Lymph # (Auto) 1.2 (1.2-5.4) K/mm3 [place] # (Auto) 0.6 (0.0-0.8) K/mm3 Eos # (Auto) 0.2 (0.0-0.4) K/mm3 Baso # (Auto) 0.0 (0.0-0.1) K/mm3 Comprehensive Metabolic Panel 08/28/20 08/28/20 08/29/20 Range/Units 15:07 15:07 02:27 Sodium 148 H 149 H (137-145) mmol/L Potassium 4.8 4.0 (3.6-5.0) mmol/L Chloride 112.6 H 114.1 H (98-107) mmol/L Carbon Dioxide 20 L 19 L (22-30) mmol/L BUN 33 H 31 H (7-17) mg/dL Creatinine 1.4 H 1.2 (0.6-1.2) mg/dL Glucose 152 H 130 H (65-100) mg/dL Calcium 9.1 9.0 (8.4-10.2) mg/dL Direct Bilirubin 1.4 H (0-0.2) mg/dL Indirect Bilirubin 1.8 mg/dL AST 432 H 451 H (5-40) units/L ALT 367 H 386 H (7-56) units/L Alkaline Phosphatase 189 H 179 H (35-129) units/L Total Protein 8.2 7.6 (6.3-8.2) g/dL Albumin 3.7 L 3.7 L (3.9-5) g/dL Assessment and Plan Severe coagulopathy, INR 10.69 on presentation s/p vitamin K Elevated liver enzymes Hypernatremia Chronic atrial fibrillation, rate control strategy Hx of CAD with prior CABG Hx of Ischemic CMP previously declined AICD Presence of bioprosthetic AVR in 2009
[2020-08-29] MEDS: FAMOTIDINE 10 MG TAB PO SCH ×2 (12:03→22:30)
[2020-08-29] MEDS: POTASSIUM CHLORIDE ER 20 MEQ TAB PO SCH (12:03)
[2020-08-29] MEDS: FUROSEMIDE 40 MG/4 ML INJ IV SCH (12:04)
[2020-08-29] MEDS ORDERED: DIGOXIN 0.5 MG/2 ML INJ IV ONE (13:14)
[2020-08-29 15:16] LABS: INR 2.7 (0.87-1.13)
[2020-08-29] MEDS: METOPROLOL TARTRATE 50 MG TAB PO SCH ×2 (16:01→22:30)
[2020-08-29] MEDS: cefTRIAXone/NS 2 GM/100 ML 2 GM/100 ML BAG IV SCH (17:19)
[2020-08-29] MEDS: SODIUM CHLORIDE 0.9% 1000 ML 1,000 ML IV SCH (17:34)
[2020-08-29] MEDS: traZODone 50 MG TAB PO SCH (22:30)
[2020-08-30 05:27] LABS: Hematocrit 40.1 % (30.3-42.9); Hemoglobin 13.1 gm/dl (10.1-14.3); Mean Corpuscular HGB Conc 33 % (30-34); Mean Corpuscular Volume 107 fl (79-97); Platelet Count 175 K/mm3 (140-440); Red Blood Count 3.76 M/mm3 (3.65-5.03); Red Cell Distribution Width 16.5 % (13.2-15.2)
[2020-08-30 05:45] LABS: Albumin 3.5 g/dL (3.9-5); Calcium 9.4 mg/dL (8.4-10.2)
[2020-08-30] MEDS: METOPROLOL TARTRATE 50 MG TAB PO SCH ×3 (06:18→22:38)
[2020-08-30] MEDS: SODIUM CHLORIDE 0.9% 1000 ML 1,000 ML IV SCH (06:18)
--- NOTE | 2020-08-30 09:44 | Ultrasound Report ---
LIMITED RUQ ABDOMINAL ULTRASOUND INDICATION: elevated liver enzymes. COMPARISON: No relevant prior imaging study available. FINDINGS: Pancreas: Visualized portions show no significant abnormality. Abdominal Aorta: The aorta is normal caliber although mild to moderate plaques are noted proximally. IVC: No significant abnormality. Liver: The liver measures 15.4 cm in length. There is an approximate 5 cm unilocular cyst near the l iver hilum. It is unclear if this is within the liver parenchyma or within the luis hepatis. It is j ust anterior to the intrahepatic IVC. A slightly lobulated 2.5 cm cyst is noted in the posterior righ t hepatic lobe. Normal hepatopedal blood flow in the main portal vein. Gallbladder: No significant abnormality. Bile ducts: No significant abnormality. Common bile duct measures 4.0 mm. Right kidney: No significant abnormality visualized. Free fluid: None. Additional Findings: None. IMPRESSION: Liver cysts as described above. No parenchymal liver disease or focal mass is appreciated. If further evaluation is needed CT with contrast is recommended. No evidence for cholelithiasis or biliary dilatation. Moderate atherosclerotic disease in the proximal abdominal aorta.. Signer Name: Raymond Love Jr, MD Signed: 08/30/2020 9:39 AM Workstation Name: [id number]
[2020-08-30] MEDS: DIGOXIN 0.125 MG TAB PO SCH (10:10)
[2020-08-30] MEDS: cefTRIAXone/NS 2 GM/100 ML 2 GM/100 ML BAG IV SCH (10:12)
[2020-08-30] MEDS: POTASSIUM CHLORIDE ER 20 MEQ TAB PO SCH (10:12)
[2020-08-30] MEDS: FAMOTIDINE 10 MG TAB PO SCH ×2 (10:16→22:33)
--- NOTE | 2020-08-30 10:28 | Progress Note ---
Assessment and Plan Assessment and plan: 89-year-old female with history of hypertension, congestive heart failure dementia, atrial fibrillation and aortic valve replacement brought in by her son because of high Coumadin level with INR of 8. Also patient has been falling repeatedly. Further work 2 times per day for 1 week. Patient states that she has weakness in both lower extremities. Patient also more confused secondary to her dementia. No fever or chills. Patient is unable currently communicative because of her progressive dementia. In the emergency room patient was found to be in atrial fibrillation with rapid ventricular rate. CT scan of the head shows no acute abnormality. 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 We will also obtain a CT of the abdomen and pelvis with dialysis opinion discussed with her clinical condition and risk of any surgical intervention he replies "what ever it takes". We will also obtain acute hepatitis panel although doubt that this is the cause. INR is improved Rehab recommendation for SNF on discharge. Continue supportive care Cardiology input noted Continue Diltiazem Will obtain ultrasound of the liver Continue antibiotics and follow urine culture Gentle IV hydration because of the CHF Patient received vitamin K. Will monitor INR. Agree with cardiology on discontinuing Coumadin/anticoagulation at this time. Continue to monitor renal function DVT and GI prophylaxis Anticipate discharge in 24 to 48 hours PT OT evaluation I tried calling the son but no one picked up. History Interval history: Patient seen and examined this morning more awake today, denies any nausea vomiting or abdominal pain Hospitalist Physical - Physical exam Narrative exam: VITAL SIGNS: Reviewed. GENERAL: The patient appears cachectic and extremely frail, Vital signs as documented. HEAD: No signs of head trauma. EYES: Pupils are equal. Extraocular motions intact. EARS: Hearing grossly intact. MOUTH: Oropharynx is normal. NECK: No adenopathy, no JVD. CHEST: Chest with clear breath sounds bilaterally. No wheezes, rales, or rhonchi. CARDIAC: Irregularly irregular. S1 and S2, without murmurs, gallops, or rubs. VASCULAR: No Edema. Peripheral pulses normal and equal in all extremities. ABDOMEN: Soft, non tender and non distended. No rebound or guarding, and no masses palpated. Bowel Sounds normal. MUSCULOSKELETAL: Good range of motion of all major joints. Extremities without clubbing, cyanosis. trace edema. NEUROLOGIC EXAM: Awake oriented to person lethargic no focal sensory or strength deficits. Speech normal. Follows commands. PSYCHIATRIC: Mood normal. SKIN: detail exam as documented in skin assessment - Constitutional Vitals: Temp Pulse Resp BP Pulse Ox 98.2 F 83 18 105/50 96 08/30/20 08:59 08/30/20 10:10 08/30/20 08:59 08/30/20 10:10 08/30/20 08:59 General appearance: Present: mild distress, well-nourished HEART Score - HEART Score Age: > 65 Risk factors: > 3 risk factors or hx of atherosclerotic disease Troponin: Troponin T 0.010 ng/mL (0.00-0.029) 08/28/20 17:27 Troponin: < normal limit - Critical Actions Critical Actions: 4-6 pts:12-16.6% risk of adverse cardiac event. Should be admitted Results - Labs CBC & Chem 7: 08/30/20 04:46 08/30/20 04:46 Labs: Laboratory Last Values WBC 6.5 K/mm3 (4.5-11.0) 08/30/20 04:46 RBC 3.76 M/mm3 (3.65-5.03) 08/30/20 04:46 Hgb 13.1 gm/dl (10.1-14.3) 08/30/20 04:46 Hct 40.1 % (30.3-42.9) 08/30/20 04:46 MCV 107 fl (79-97) H 08/30/20 04:46 MCH 35 pg (28-32) H 08/30/20 04:46 MCHC 33 % (30-34) 08/30/20 04:46 RDW 16.5 % (13.2-15.2) H 08/30/20 04:46 Plt Count 175 K/mm3 (140-440) 08/30/20 04:46 Lymph % (Auto) 17.3 % (13.4-35.0) 08/29/20 02:27 [place] % (Auto) 9.3 % (0.0-7.3) H 08/29/20 02:27 Eos % (Auto) 2.3 % (0.0-4.3) 08/29/20 02: Baso % (Auto) 0.7 % (0.0-1.8) 08/29/20 02:27 Lymph # (Auto) 1.2 K/mm3 (1.2-5.4) 08/29/20 02: [place] # (Auto) 0.6 K/mm3 (0.0-0.8) 08/29/20 02: Eos # (Auto) 0.2 K/mm3 (0.0-0.4) 08/29/20 02: Baso # (Auto) 0.0 K/mm3 (0.0-0.1) 08/29/20 02: Add Manual Diff Complete 08/28/20 15:07 Total Counted 100 08/28/20 15:07 Seg Neutrophils % 70.4 % (40.0-70.0) H 08/29/20 02: Seg Neuts % (Manual) 64.0 % (40.0-70.0) 08/28/20 15:07 Lymphocytes % (Manual) 23.0 % (13.4-35.0) 08/28/20 15:07 Monocytes % (Manual) 10.0 % (0.0-7.3) H 08/28/20 15:07 Eosinophils % (Manual) 2.0 % (0.0-4.3) 08/28/20 15:07 Basophils % (Manual) 1.0 % (0.0-1.8) 08/28/20 15:07 Nucleated RBC % Not Reportable 08/28/20 15:07 Seg Neutrophils # 4.9 K/mm3 (1.8-7.7) 08/29/20 02: Seg Neutrophils # Man 3.8 K/mm3 (1.8-7.7) 08/28/20 15:07 Band Neutrophils # 0.0 K/mm3 08/28/20 15:07 Lymphocytes # (Manual) 1.4 K/mm3 (1.2-5.4) 08/28/20 15:07 Abs React Lymphs (Man) 0.0 K/mm3 08/28/20 15:07 Monocytes # (Manual) 0.6 K/mm3 (0.0-0.8) 08/28/20 15:07 Eosinophils # (Manual) 0.1 K/mm3 (0.0-0.4) 08/28/20 15:07 Basophils # (Manual) 0.1 K/mm3 (0.0-0.1) 08/28/20 15:07 Metamyelocytes # 0.0 K/mm3 08/28/20 15:07 Myelocytes # 0.0 K/mm3 08/28/20 15:07 Promyelocytes # 0.0 K/mm3 08/28/20 15:07 Blast Cells # 0.0 K/mm3 08/28/20 15:07 WBC Morphology Not Reportable 08/28/20 15:07 Hypersegmented Neuts Not Reportable 08/28/20 15:07 Hyposegmented Neuts Not Reportable 08/28/20 15:07 Hypogranular Neuts Not Reportable 08/28/20 15:07 Smudge Cells Not Reportable 08/28/20 15:07 Toxic Granulation Not Reportable 08/28/20 15:07 Toxic Vacuolation Not Reportable 08/28/20 15:07 Dohle Bodies Not Reportable 08/28/20 15:07 Pelger-Huet Anomaly Not Reportable 08/28/20 15:07 Heri Rods Not Reportable 08/28/20 15:07 Platelet Estimate Not Reportable 08/28/20 15:07 Clumped Platelets Not Reportable 08/28/20 15:07 Plt Clumps, EDTA Not Reportable 08/28/20 15:07 Large Platelets Not Reportable 08/28/20 15:07 Giant Platelets Not Reportable 08/28/20 15:07 Platelet Satelliting Not Reportable 08/28/20 15:07 Plt Morphology Comment Not Reportable 08/28/20 15:07 RBC Morphology Not Reportable 08/28/20 15:07 Dimorphic RBCs Not Reportable 08/28/20 15:07 Polychromasia Not Reportable 08/28/20 15:07 Hypochromasia Few 08/28/20 15:07 Poikilocytosis Not Reportable 08/28/20 15:07 Anisocytosis Few 08/28/20 15:07 Microcytosis Rare 08/28/20 15:07 Macrocytosis Not Reportable 08/28/20 15:07 Spherocytes Not Reportable 08/28/20 15:07 Pappenheimer Bodies Not Reportable 08/28/20 15:07 Sickle Cells Not Reportable 08/28/20 15:07 Target Cells Not Reportable 08/28/20 15:07 Tear Drop Cells Not Reportable 08/28/20 15:07 Ovalocytes Not Reportable 08/28/20 15:07 Helmet Cells Not Reportable 08/28/20 15:07 Sosa-[place] Bodies Not Reportable 08/28/20 15:07 [place] Rings Not Reportable 08/28/20 15:07 Doreen Cells Not Reportable 08/28/20 15:07 Bite Cells Not Reportable 08/28/20 15:07 Crenated Cell Not Reportable 08/28/20 15:07 Elliptocytes Not Reportable 08/28/20 15:07 Acanthocytes (Spur) Not Reportable 08/28/20 15:07 Rouleaux Not Reportable 08/28/20 15:07 Hemoglobin C Crystals Not Reportable 08/28/20 15:07 Schistocytes Not Reportable 08/28/20 15:07 Malaria parasites Not Reportable 08/28/20 15:07 Fercho Bodies Not Reportable 08/28/20 15:07 Hem Pathologist Commnt No 08/28/20 15:07 PT 29.0 Sec. (12.2-14.9) H 08/29/20 13:40 INR 2.70 (0.87-1.13) H 08/29/20 13:40 APTT 48.8 Sec. (24.2-36.6) H 08/28/20 15:07 Sodium 147 mmol/L (137-145) H 08/30/20 04:46 Potassium 3.6 mmol/L (3.6-5.0) 08/30/20 04:46 Chloride 107.7 mmol/L (98-107) H 08/30/20 04:46 Carbon Dioxide 28 mmol/L (22-30) D 08/30/20 04:46 Anion Gap 15 mmol/L 08/30/20 04:46 BUN 22 mg/dL (7-17) H 08/30/20 04:46 Creatinine 1.1 mg/dL (0.6-1.2) 08/30/20 04:46 Estimated GFR 57 ml/min 08/30/20 04:46 BUN/Creatinine Ratio 20 % 08/30/20 04:46 Glucose 115 mg/dL (65-100) H 08/30/20 04:46 Hemoglobin A1c 5.2 % (4-6) 08/29/20 02:27 Lactic Acid 4.70 mmol/L (0.7-2.0) H* 08/28/20 15:07 Calcium 9.4 mg/dL (8.4-10.2) 08/30/20 04:46 Total Bilirubin 3.20 mg/dL (0.1-1.2) H 08/30/20 04:46 Direct Bilirubin 1.4 mg/dL (0-0.2) H 08/28/20 15:07 Indirect Bilirubin 1.8 mg/dL 08/28/20 15:07 AST 488 units/L (5-40) H 08/30/20 04:46 ALT 448 units/L (7-56) H 08/30/20 04:46 Alkaline Phosphatase 201 units/L (35-129) H 08/30/20 04:46 Troponin T 0.010 ng/mL (0.00-0.029) 08/28/20 17:27 NT-Pro-B Natriuret Pep 7039 pg/mL (0-900) H 08/28/20 15:07 Total Protein 8.0 g/dL (6.3-8.2) 08/30/20 04:46 Albumin 3.5 g/dL (3.9-5) L 08/30/20 04:46 Albumin/Globulin Ratio 0.8 % 08/30/20 04:46 Urine Color [place] (Yellow) 08/28/20 Unknown Urine Turbidity Cloudy (Clear) 08/28/20 Unknown Urine pH 5.0 (5.0-7.0) 08/28/20 Unknown Ur Specific [place] 1.019 (1.003-1.030) 08/28/20 Unknown Urine Protein 100 mg/dl mg/dL (Negative) 08/28/20 Unknown Urine Glucose (UA) Neg mg/dL (Negative) 08/28/20 Unknown Urine Ketones Neg mg/dL (Negative) 08/28/20 Unknown Urine Blood Mod (Negative) 08/28/20 Unknown Urine Nitrite Neg (Negative) 08/28/20 Unknown Urine Bilirubin Neg (Negative) 08/28/20 Unknown Urine Urobilinogen 4.0 mg/dL (<2.0) 08/28/20 Unknown Ur Leukocyte Esterase Mod (Negative) 08/28/20 Unknown Urine WBC (Auto) 65.0 /HPF (0.0-6.0) H 08/28/20 Unknown Urine RBC (Auto) 12.0 /HPF (0.0-6.0) 08/28/20 Unknown Urine Bacteria (Auto) 4+ /HPF (Negative) 08/28/20 Unknown Urine WBC Clumps 2+ /HPF 08/28/20 Unknown Hyaline Casts 20 /LPF 08/28/20 Unknown Urine Mucus 3+ /HPF 08/28/20 Unknown Urine Yeast (Budding) 2+ /HPF 08/28/20 Unknown Microbiology: Microbiology 08/28/20 15:07 Peripheral/Venous Blood Culture - Preliminary NO GROWTH AFTER 24 HOURS 08/28/20 15:07 Peripheral/Venous Blood Culture - Preliminary NO GROWTH AFTER 24 HOURS Kraus/IV: Voiding Method Bedpan Active Medications - Current Medications Current Medications: Generic Name Dose Route Start Last Admin Trade Name Freq PRN Reason Stop Dose Admin Acetaminophen 650 mg 08/28/20 21:49 Acetaminophen 325 Mg Tab PO Q4H PRN Pain MILD(1-3)/Fever >100.5/MOELLER Digoxin 0.125 mg 08/30/20 10:00 08/30/20 10:10 Digoxin 0.125 Mg Tab PO 0.125 mg DAILY [facility] Administration Famotidine 10 mg 08/28/20 22:00 08/30/20 10:16 Famotidine 10 Mg Tab PO 10 mg BID [facility] Administration Furosemide 40 mg 08/28/20 23:00 08/29/20 12:04 Furosemide 40 Mg/4 Ml Inj IV 40 mg QDAY [facility] Administration Ceftriaxone Sodium 2 gm in 100 mls @ 200 mls/hr 08/29/20 10:00 08/30/20 10:12 Rocephin/Ns 2 Gm/100 Ml IV 200 mls/hr Q24HR [facility] Administration Protocol Sodium Chloride 1,000 mls @ 100 mls/hr 08/29/20 13:00 08/30/20 06:18 Nacl 0.9% 1000 Ml IV 100 mls/hr DIRECT [facility] Administration Metoprolol Tartrate 50 mg 08/29/20 13:00 08/30/20 06:18 Metoprolol Tartrate 50 Mg Tab PO 50 mg Q8HR [facility] Administration Morphine Sulfate 2 mg 08/28/20 21:49 Morphine 2 Mg/1 Ml Inj IV Q4H PRN Pain, Moderate (4-6) Ondansetron HCl 4 mg 08/28/20 21:49 Ondansetron 4 Mg/2 Ml Inj IV Q8H PRN Nausea And Vomiting Potassium Chloride 20 meq 08/29/20 10:00 08/30/20 10:12 Potassium Chloride Er 20 Meq Tab PO 20 meq QDAY [facility] Administration Sodium Chloride 10 ml 08/28/20 22:00 08/30/20 10:16 Sodium Chloride 0.9% 10 Ml Flush Syringe IV 10 ml BID [facility] Administration Sodium Chloride 10 ml 08/28/20 21:49 Sodium Chloride 0.9% 10 Ml Flush Syringe IV PRN PRN LINE FLUSH Trazodone HCl 50 mg 08/29/20 22:00 08/29/20 22:30 Trazodone 50 Mg Tab PO 50 mg QHS [facility] Administration Nutrition/Malnutrition Assess - Dietary Evaluation Nutrition/Malnutrition Findings: Nutrition Notes Start: 08/30/20 08:24 Freq: Status: Active Protocol: Document 08/30/20 08:24 CW (Rec: 08/30/20 08:36 CW [id number]) Nutrition Notes Initial or Follow up Assessment Current Diagnosis Acute Kidney Injury,Coronary Artery Disease,Hypertension, Heart Failure Other Pertinent Diagnosis Coumadin Toxicity, Lactic Acidosis, Dementia Current Diet Cardiac Labs/Tests Na 147 BUN 22 Pertinent Medications NS at 100 ml/h Height 5 ft 7 in Weight 77.111 kg [place] Body Weight (kg) 61.36 BMI 26.6 Weight Status Appropriate Percent of energy/protein needs met: MD consult for for PO intake. Per consult, pt may need downgraded diet. Will discuss with nursing staff. PO intake for breakfast was 50%. Burn Absent Trauma Absent GI Symptoms None Current % PO Fair (50-74%) #1 Nutrition Diagnosis Predicted suboptimal energy intake Etiology advanced age, dementia As Evidenced by Signs and Symptoms PO intake of 50% of breakfast Is patient on ventilator? No Is Patient Ambulatory and/or Out of Bed Yes REE-(Cambridge-St. Jeor-ambulatory/OOB) [ 1610.349 [id number]] Calculation Used for Recommendations [place]-St Jeor Additional Notes protein needs: 71 - 93g (1 - 1 .2 g/kgBW) kcal needs: 1500 - 1900 ml/day Nutrition Intervention Change Diet Order: Continue Cardiac Diet Goal #1 PO intake that meets at least 75% of kcal needs Anticipated Discharge Needs: Cardiac Diet with ONS PRN Additional Comments F/U intakes and ONS need
--- NOTE | 2020-08-30 10:30 | Progress Note ---
Assessment and Plan Severe coagulopathy, INR 10.69 on presentation s/p vitamin K; H&H is stable warfarin discontinued Elevated liver transaminases statin therapy discontinued Hypernatremia Chronic atrial fibrillation, rate control strategy Hx of CAD with prior CABG Hx of Ischemic CMP previously declined AICD Presence of bioprosthetic AVR in 2010 Recommendations: Continue rate controlling agents for chronic atrial fibrillation rate control. Due to patient's advanced age, frailty and attendant high bleeding risk she is now considered not a candidate for anticoagulation. Continue GDMT for ischemic cardiomyopathy and coronary artery disease as tolerated. Otherwise, conservative cardiac management with guideline directed medical therapy for underlying coronary artery disease. Subjective Date of service: 08/30/20 Interval history: No interval cardiac changes. Atrial fibrillation with a well controlled ventricular rate on telemetry. Objective Vital Signs Temp Pulse Pulse Pulse Resp BP BP 08/30/20 10:10 83 105/50 08/30/20 08:59 98.2 F 77 18 120/83 08/30/20 06:18 103 H 08/30/20 04:33 97.6 F 106 H 18 120/91 08/30/20 00:05 97.8 F 69 18 110/71 08/29/20 22:30 99 H 08/29/20 22:10 08/29/20 19:47 97.5 F L 89 18 102/73 08/29/20 18:42 93 H 93 H 08/29/20 16:29 97.0 F L 56 L 12 124/69 08/29/20 16:01 92 H 08/29/20 15:53 92 H 08/29/20 14:42 98 H 08/29/20 12:03 110 H 08/29/20 10:53 97.7 F Pulse Ox 08/30/20 10:10 08/30/20 08:59 96 08/30/20 06:18 08/30/20 04:33 93 08/30/20 00:05 90 08/29/20 22:30 08/29/20 22:10 96 08/29/20 19:47 93 08/29/20 18:42 08/29/20 16:29 100 08/29/20 16:01 08/29/20 15:53 08/29/20 14:42 08/29/20 12:03 08/29/20 10:53 - Physical Examination General: No Apparent Distress HEENT: Positive: PERRL Neck: Positive: trachea midline Cardiac: Positive: irregularly irregular - Labs and Meds Cardiac Enzymes 08/30/20 Range/Units 04:46 AST 488 H (5-40) units/L Coagulation 08/29/20 Range/Units 13:40 PT 29.0 H (12.2-14.9) Sec. INR 2.70 H (0.87-1.13) CBC 08/30/20 Range/Units 04:46 WBC 6.5 (4.5-11.0) K/mm3 RBC 3.76 (3.65-5.03) M/mm3 Hgb 13.1 (10.1-14.3) gm/dl Hct 40.1 (30.3-42.9) % Plt Count 175 (140-440) K/mm3 Comprehensive Metabolic Panel 08/30/20 Range/Units 04:46 Sodium 147 H (137-145) mmol/L Potassium 3.6 (3.6-5.0) mmol/L Chloride 107.7 H (98-107) mmol/L Carbon Dioxide 28 D (22-30) mmol/L BUN 22 H (7-17) mg/dL Creatinine 1.1 (0.6-1.2) mg/dL Glucose 115 H (65-100) mg/dL Calcium 9.4 (8.4-10.2) mg/dL AST 488 H (5-40) units/L ALT 448 H (7-56) units/L Alkaline Phosphatase 201 H (35-129) units/L Total Protein 8.0 (6.3-8.2) g/dL Albumin 3.5 L (3.9-5) g/dL
[2020-08-30 11:48] LABS: Hepatitis B Surface Antigen Non-Reactive (Negative); Hepatitis C Virus Antibody Non-Reactive (NonReactive)
[2020-08-30] MEDS: FUROSEMIDE 40 MG/4 ML INJ IV SCH (14:23)
[2020-08-30] MEDS: traZODone 50 MG TAB PO SCH (22:32)
[2020-08-31] MEDS: SODIUM CHLORIDE 0.9% 1000 ML 1,000 ML IV SCH ×2 (00:21→12:19)
[2020-08-31 05:39] LABS: Alanine Aminotransferase 427 units/L (7-56); Albumin 3.3 g/dL (3.9-5); BUN/Creatinine Ratio 22; Blood Urea Nitrogen 20 mg/dL (7-17); Calcium 8.9 mg/dL (8.4-10.2); Hemolysis Index 8
[2020-08-31] MEDS: METOPROLOL TARTRATE 50 MG TAB PO SCH ×4 (07:05→22:07)
--- NOTE | 2020-08-31 07:54 | Gastroenterology Consultation ---
History of Present Illness - Reason for Consult Consult date: 08/31/20 Elevated liver enzymes Requesting physician: ELIS LOZANO - History of Present Illness This a pleasant 89-year-old female history dementia hypertension CHF A. fib and aortic valve replacement, admitted for confusion and elevated Coumadin level and falls and found to be in A. fib with RVR GI consulted for elevated liver enzymes Patient not responding and unable to provide history, history obtained from chart - Past Medical History --Hypertension: Yes --Hx of Cancer: Yes (breast) --Dementia: Yes Additional medical history: afib - Surgical History Past Surgical History?: Yes -Social history no smoking or alcohol Obtained/updated/reviewed patient's current medications Past History Past Medical History: atrial fib, CAD, heart failure, hypertension Past Surgical History: CABG, Other (AVR) Medications and Allergies Allergies Allergy/AdvReac Type Severity Reaction Status Date / Time No Known Allergies Allergy Unverified 08/28/20 14:17 Home Medications Medication Instructions Recorded Confirmed Last Taken Type AtorvaSTATin [Lipitor] 40 mg PO QHS 08/29/20 08/29/20 Unknown History Escitalopram [Lexapro Oral Liqd] 10 mg PO QDAY 08/29/20 08/29/20 Unknown History Furosemide [Lasix TAB] 40 mg PO QDAY 08/29/20 08/29/20 Unknown History Gabapentin [Neurontin] 100 mg PO Q8HR 08/29/20 08/29/20 Unknown History Lisinopril [Zestril] 5 mg PO QDAY 08/29/20 08/29/20 Unknown History Metoprolol Succinate [Kapspargo 100 mg PO QDAY 08/29/20 08/29/20 Unknown History Sprinkle] Omeprazole 40 mg PO QDAY 08/29/20 08/29/20 Unknown History Potassium Citrate [Potassium 10 meq PO QDAY 08/29/20 08/29/20 Unknown History Citrate ER] Warfarin [Coumadin] 5 mg PO QDAY 08/29/20 08/29/20 Unknown History traMADoL [Ultram] 50 mg PO Q6HR PRN 08/29/20 08/29/20 Unknown History traZODone [Desyrel] 50 mg PO QHS 08/29/20 08/29/20 Unknown History Active Meds: Active Medications Acetaminophen (Acetaminophen 325 Mg Tab) 650 mg PO Q4H PRN PRN Reason: Pain MILD(1-3)/Fever >100.5/MOELLER Aspirin (Aspirin Ec 81 Mg Tab) 81 mg PO QDAY [facility] Digoxin (Digoxin 0.125 Mg Tab) 0.125 mg PO DAILY [facility] Last Admin: 08/30/20 10:10 Dose: 0.125 mg Documented by: Famotidine (Famotidine 10 Mg Tab) 10 mg PO BID [facility] Last Admin: 08/30/20 22:33 Dose: 10 mg Documented by: Furosemide (Furosemide 20 Mg Tab) 20 mg PO QDAY [facility] Ceftriaxone Sodium (Rocephin/Ns 2 Gm/100 Ml) 2 gm in 100 mls @ 200 mls/hr IV Q24HR [facility]; Protocol Last Admin: 08/30/20 10:12 Dose: 200 mls/hr Documented by: Sodium Chloride (Nacl 0.9% 1000 Ml) 1,000 mls @ 100 mls/hr IV DIRECT [facility] Last Admin: 08/31/20 00:21 Dose: 100 mls/hr Documented by: Metoprolol Tartrate (Metoprolol Tartrate 50 Mg Tab) 50 mg PO Q8HR [facility] Last Admin: 08/31/20 07:05 Dose: 50 mg Documented by: Morphine Sulfate (Morphine 2 Mg/1 Ml Inj) 2 mg IV Q4H PRN PRN Reason: Pain, Moderate (4-6) Ondansetron HCl (Ondansetron 4 Mg/2 Ml Inj) 4 mg IV Q8H PRN PRN Reason: Nausea And Vomiting Potassium Chloride (Potassium Chloride Er 20 Meq Tab) 20 meq PO QDAY [facility] Last Admin: 08/30/20 10:12 Dose: 20 meq Documented by: Sodium Chloride (Sodium Chloride 0.9% 10 Ml Flush Syringe) 10 ml IV BID [facility] Last Admin: 08/30/20 22:00 Dose: Not Given Documented by: Sodium Chloride (Sodium Chloride 0.9% 10 Ml Flush Syringe) 10 ml IV PRN PRN PRN Reason: LINE FLUSH Trazodone HCl (Trazodone 50 Mg Tab) 50 mg PO QHS [facility] Last Admin: 08/30/20 22:32 Dose: 50 mg Documented by: Review of Systems - Review of Systems ROS unobtainable: due to mental status Exam - Constitutional Vital Signs: Temp Pulse Resp BP Pulse Ox 98 F 89 18 132/87 97 08/31/20 04:14 08/31/20 07:05 08/31/20 04:14 08/31/20 07:05 08/31/20 04:14 General appearance: other (Mildly contracted) - EENT Eyes: EOM intact ENT: other (Patient responded to verbal command still unable to assess) - Respiratory Respiratory effort: normal - Cardiovascular Rhythm: irregularly irregular - Gastrointestinal General gastrointestinal: Present: soft, non-tender - Integumentary Integumentary: Present: dry - Neurologic Neurological: other (Not responding to verbal commands) - Psychiatric Psychiatric: other (Not responding to verbal commands) - Labs CBC & Chem 7: 08/30/20 04:46 08/31/20 04:45 Lab Results: Laboratory Results - last 24 hr 08/30/20 08/31/20 10:56 04:45 Sodium 148 H Potassium 3.8 Chloride 110.2 H Carbon Dioxide 25 Anion Gap 17 BUN 20 H Creatinine 0.9 Estimated GFR > 60 BUN/Creatinine Ratio 22 Glucose 107 H Calcium 8.9 Total Bilirubin 3.20 H AST 407 H ALT 427 H Alkaline Phosphatase 221 H Total Protein 8.1 Albumin 3.3 L Albumin/Globulin Ratio 0.7 Hepatitis A IgM Ab Non-reactive Hep Bs Antigen Non-reactive Hep B Core IgM Ab Non-reactive Hepatitis C Antibody Non-reactive Assessment and Plan Negative acute hepatitis panel. Unclear etiology and we do not have baseline LFTs. Given the elevation of alkaline phosphatase and bilirubin need to rule out obstruction that was missed on prior imaging therefore ordering MRCP; additi onally with a somewhat mixed pattern could be underlying liver lesion so ordering MRI liver at the same time. Also the differential diagnosis is mild shock liver though unless there is underlying liver injury would expect the transaminases to be trended down quicker - Patient Problems (1) Abnormal liver enzymes Current Visit: Yes Status: Acute
[2020-08-31] MEDS: FAMOTIDINE 10 MG TAB PO SCH ×2 (09:02→22:06)
[2020-08-31] MEDS: ASPIRIN EC 81 MG TAB PO SCH (09:02)
[2020-08-31] MEDS: POTASSIUM CHLORIDE ER 20 MEQ TAB PO SCH (09:02)
[2020-08-31] MEDS: cefTRIAXone/NS 2 GM/100 ML 2 GM/100 ML BAG IV SCH (09:02)
[2020-08-31] MEDS: FUROSEMIDE 20 MG TAB PO SCH (09:02)
[2020-08-31] MEDS: DIGOXIN 0.125 MG TAB PO SCH (09:02)
--- NOTE | 2020-08-31 09:47 | Progress Note ---
Assessment and Plan Severe coagulopathy, INR 10.69 on presentation s/p vitamin K; H&H is stable warfarin discontinued Elevated liver transaminases statin therapy discontinued Hypernatremia Chronic atrial fibrillation, rate control strategy d/t advanced age and extreme frailty, she has high bleeding risk which contraindicates further treatment with long-term oral anticoagulation. 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 Continue GDMT for ischemic cardiomyopathy and coronary artery disease as tolerated. Otherwise, conservative cardiac management. Subjective Date of service: 08/31/20 Interval history: No interval cardiac changes. Atrial fibrillation with a well controlled ventricular rate on telemetry. Objective Vital Signs Temp Pulse Resp BP BP Pulse Ox 08/31/20 08:10 98.0 F 87 16 121/83 95 08/31/20 07:05 89 132/87 08/31/20 04:14 98 F 92 H 18 132/88 97 08/31/20 00:30 67 95 08/30/20 23:03 98.6 F 17 106/78 08/30/20 22:38 89 127/81 08/30/20 19:26 98.7 F 68 16 114/79 100 08/30/20 16:26 96.9 F L 45 L 18 119/81 41 L 08/30/20 14:55 91 H 122/70 08/30/20 14:00 89 08/30/20 10:10 83 105/50 - Physical Examination General: No Apparent Distress HEENT: Positive: PERRL Neck: Positive: trachea midline Cardiac: Positive: irregularly irregular - Labs and Meds Cardiac Enzymes 08/31/20 Range/Units 04:45 AST 407 H (5-40) units/L Comprehensive Metabolic Panel 08/31/20 Range/Units 04:45 Sodium 148 H (137-145) mmol/L Potassium 3.8 (3.6-5.0) mmol/L Chloride 110.2 H (98-107) mmol/L Carbon Dioxide 25 (22-30) mmol/L BUN 20 H (7-17) mg/dL Creatinine 0.9 (0.6-1.2) mg/dL Glucose 107 H (65-100) mg/dL Calcium 8.9 (8.4-10.2) mg/dL AST 407 H (5-40) units/L ALT 427 H (7-56) units/L Alkaline Phosphatase 221 H (35-129) units/L Total Protein 8.1 (6.3-8.2) g/dL Albumin 3.3 L (3.9-5) g/dL
--- NOTE | 2020-08-31 11:57 | Progress Note ---
Assessment and Plan Assessment and plan: 89-year-old female with history of hypertension, congestive heart failure dementia, atrial fibrillation and aortic valve replacement brought in by her son because of high Coumadin level with INR of 8. Also patient has been falling repeatedly. Further work 2 times per day for 1 week. Patient states that she has weakness in both lower extremities. Patient also more confused secondary to her dementia. No fever or chills. Patient is unable currently communicative because of her progressive dementia. In the emergency room patient was found to be in atrial fibrillation with rapid ventricular rate. CT scan of the head shows no acute abnormality. 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 We will also obtain a CT of the abdomen and pelvis with dialysis opinion discussed with her clinical condition and risk of any surgical intervention he replies "what ever it takes". We will also obtain acute hepatitis panel although doubt that this is the cause. INR is improved 08/31: GI input noted await for MRI of the abdomen to evaluate liver and also MRCP. Will change diet to pured diet. We will also check ammonia level due to intermittent altered sensorium in the setting of elevated liver enzymes. Rehab recommendation for SNF on discharge. Continue supportive care Cardiology input noted Continue Diltiazem Will obtain ultrasound of the liver Continue antibiotics and follow urine culture Gentle IV hydration because of the CHF Patient received vitamin K. Will monitor INR. Agree with cardiology on discontinuing Coumadin/anticoagulation at this time. Continue to monitor renal function DVT and GI prophylaxis Anticipate discharge in 24 to 48 hours PT OT evaluation I tried calling the son but no one picked up. History Interval history: Patient seen and examined this morning was being fed by the nurse patient sometimes opens her mouth sometimes does not. Hospitalist Physical - Physical exam Narrative exam: VITAL SIGNS: Reviewed. GENERAL: The patient appears cachectic and extremely frail, remains lethargic vital signs as documented. HEAD: No signs of head trauma. EYES: Pupils are equal. Extraocular motions intact. EARS: Hearing grossly intact. MOUTH: Oropharynx is normal. NECK: No adenopathy, no JVD. CHEST: Chest with clear breath sounds bilaterally. No wheezes, rales, or rhonchi. CARDIAC: Irregularly irregular. S1 and S2, without murmurs, gallops, or rubs. VASCULAR: No Edema. Peripheral pulses normal and equal in all extremities. ABDOMEN: Soft, non tender and non distended. No rebound or guarding, and no masses palpated. Bowel Sounds normal. MUSCULOSKELETAL: Good range of motion of all major joints. Extremities without clubbing, cyanosis. trace edema. NEUROLOGIC EXAM: Awake oriented to person lethargic no focal sensory or strength deficits. Speech slow. Follows commands. PSYCHIATRIC: Mood normal. SKIN: detail exam as documented in skin assessment - Constitutional Vitals: Temp Pulse Resp BP Pulse Ox 98.0 F 87 16 121/83 95 08/31/20 08:10 08/31/20 08:10 08/31/20 08:10 08/31/20 08:10 08/31/20 08:10 General appearance: Present: mild distress, well-nourished HEART Score - HEART Score Age: > 65 Risk factors: > 3 risk factors or hx of atherosclerotic disease Troponin: Troponin T 0.010 ng/mL (0.00-0.029) 08/28/20 17:27 Troponin: < normal limit - Critical Actions Critical Actions: 4-6 pts:12-16.6% risk of adverse cardiac event. Should be admitted Results - Labs CBC & Chem 7: 08/30/20 04:46 08/31/20 04:45 Labs: Laboratory Last Values WBC 6.5 K/mm3 (4.5-11.0) 08/30/20 04:46 RBC 3.76 M/mm3 (3.65-5.03) 08/30/20 04:46 Hgb 13.1 gm/dl (10.1-14.3) 08/30/20 04:46 Hct 40.1 % (30.3-42.9) 08/30/20 04:46 MCV 107 fl (79-97) H 08/30/20 04:46 MCH 35 pg (28-32) H 08/30/20 04:46 MCHC 33 % (30-34) 08/30/20 04:46 RDW 16.5 % (13.2-15.2) H 08/30/20 04:46 Plt Count 175 K/mm3 (140-440) 08/30/20 04:46 Lymph % (Auto) 17.3 % (13.4-35.0) 08/29/20 02:27 Glenn % (Auto) 9.3 % (0.0-7.3) H 08/29/20 02:27 Eos % (Auto) 2.3 % (0.0-4.3) 08/29/20 02:27 Baso % (Auto) 0.7 % (0.0-1.8) 08/29/20 02:27 Lymph # (Auto) 1.2 K/mm3 (1.2-5.4) 08/29/20 02:27 Glenn # (Auto) 0.6 K/mm3 (0.0-0.8) 08/29/20 02:27 Eos # (Auto) 0.2 K/mm3 (0.0-0.4) 08/29/20 02: Baso # (Auto) 0.0 K/mm3 (0.0-0.1) 08/29/20 02:27 Add Manual Diff Complete 08/28/20 15:07 Total Counted 100 08/28/20 15:07 Seg Neutrophils % 70.4 % (40.0-70.0) H 08/29/20 02:27 Seg Neuts % (Manual) 64.0 % (40.0-70.0) 08/28/20 15:07 Lymphocytes % (Manual) 23.0 % (13.4-35.0) 08/28/20 15:07 Monocytes % (Manual) 10.0 % (0.0-7.3) H 08/28/20 15:07 Eosinophils % (Manual) 2.0 % (0.0-4.3) 08/28/20 15:07 Basophils % (Manual) 1.0 % (0.0-1.8) 08/28/20 15:07 Nucleated RBC % Not Reportable 08/28/20 15:07 Seg Neutrophils # 4.9 K/mm3 (1.8-7.7) 08/29/20 02:27 Seg Neutrophils # Man 3.8 K/mm3 (1.8-7.7) 08/28/20 15:07 Band Neutrophils # 0.0 K/mm3 08/28/20 15:07 Lymphocytes # (Manual) 1.4 K/mm3 (1.2-5.4) 08/28/20 15:07 Abs React Lymphs (Man) 0.0 K/mm3 08/28/20 15:07 Monocytes # (Manual) 0.6 K/mm3 (0.0-0.8) 08/28/20 15:07 Eosinophils # (Manual) 0.1 K/mm3 (0.0-0.4) 08/28/20 15:07 Basophils # (Manual) 0.1 K/mm3 (0.0-0.1) 08/28/20 15:07 Metamyelocytes # 0.0 K/mm3 08/28/20 15:07 Myelocytes # 0.0 K/mm3 08/28/20 15:07 Promyelocytes # 0.0 K/mm3 08/28/20 15:07 Blast Cells # 0.0 K/mm3 08/28/20 15:07 WBC Morphology Not Reportable 08/28/20 15:07 Hypersegmented Neuts Not Reportable 08/28/20 15:07 Hyposegmented Neuts Not Reportable 08/28/20 15:07 Hypogranular Neuts Not Reportable 08/28/20 15:07 Smudge Cells Not Reportable 08/28/20 15:07 Toxic Granulation Not Reportable 08/28/20 15:07 Toxic Vacuolation Not Reportable 08/28/20 15:07 Dohle Bodies Not Reportable 08/28/20 15:07 Pelger-Huet Anomaly Not Reportable 08/28/20 15:07 Heri Rods Not Reportable 08/28/20 15:07 Platelet Estimate Not Reportable 08/28/20 15:07 Clumped Platelets Not Reportable 08/28/20 15:07 Plt Clumps, EDTA Not Reportable 08/28/20 15:07 Large Platelets Not Reportable 08/28/20 15:07 Giant Platelets Not Reportable 08/28/20 15:07 Platelet Satelliting Not Reportable 08/28/20 15:07 Plt Morphology Comment Not Reportable 08/28/20 15:07 RBC Morphology Not Reportable 08/28/20 15:07 Dimorphic RBCs Not Reportable 08/28/20 15:07 Polychromasia Not Reportable 08/28/20 15:07 Hypochromasia Few 03/15/21 15:07 Poikilocytosis Not Reportable 08/28/20 15:07 Anisocytosis Few 08/28/20 15:07 Microcytosis Rare 08/28/20 15:07 Macrocytosis Not Reportable 08/28/20 15:07 Spherocytes Not Reportable 08/28/20 15:07 Pappenheimer Bodies Not Reportable 08/28/20 15:07 Sickle Cells Not Reportable 08/28/20 15:07 Target Cells Not Reportable 08/28/20 15:07 Tear Drop Cells Not Reportable 08/28/20 15:07 Ovalocytes Not Reportable 08/28/20 15:07 Helmet Cells Not Reportable 08/28/20 15:[address] [place] Bodies Not Reportable 08/28/20 15:07 [place] Rings Not Reportable 08/28/20 15:07 [place] Cells Not Reportable 08/28/20 15:07 Bite Cells Not Reportable 08/28/20 15:07 Crenated Cell Not Reportable 08/28/20 15:07 Elliptocytes Not Reportable 08/28/20 15:07 Acanthocytes (Spur) Not Reportable 08/28/20 15:07 Rouleaux Not Reportable 08/28/20 15:07 Hemoglobin C Crystals Not Reportable 08/28/20 15:07 Schistocytes Not Reportable 08/28/20 15:07 Malaria parasites Not Reportable 08/28/20 15:07 Fercho Bodies Not Reportable 08/28/20 15:07 Hem Pathologist Commnt No 08/28/20 15:07 PT 29.0 Sec. (12.2-14.9) H 08/29/20 13:40 INR 2.70 (0.87-1.13) H 08/29/20 13:40 APTT 48.8 Sec. (24.2-36.6) H 08/28/20 15:07 Sodium 148 mmol/L (137-145) H 08/31/20 04:45 Potassium 3.8 mmol/L (3.6-5.0) 08/31/20 04:45 Chloride 110.2 mmol/L (98-107) H 08/31/20 04:45 Carbon Dioxide 25 mmol/L (22-30) 08/31/20 04:45 Anion Gap 17 mmol/L 08/31/20 04:45 BUN 20 mg/dL (7-17) H 08/31/20 04:45 Creatinine 0.9 mg/dL (0.6-1.2) 08/31/20 04:45 Estimated GFR > 60 ml/min 08/31/20 04:45 BUN/Creatinine Ratio 22 % 08/31/20 04:45 Glucose 107 mg/dL (65-100) H 08/31/20 04:45 Hemoglobin A1c 5.2 % (4-6) 08/29/20 02:27 Lactic Acid 4.70 mmol/L (0.7-2.0) H* 08/28/20 15:07 Calcium 8.9 mg/dL (8.4-10.2) 08/31/20 04:45 Total Bilirubin 3.20 mg/dL (0.1-1.2) H 08/31/20 04:45 Direct Bilirubin 1.4 mg/dL (0-0.2) H 08/28/20 15:07 Indirect Bilirubin 1.8 mg/dL 08/28/20 15:07 AST 407 units/L (5-40) H 08/31/20 04:45 ALT 427 units/L (7-56) H 08/31/20 04:45 Alkaline Phosphatase 221 units/L (35-129) H 08/31/20 04:45 Troponin T 0.010 ng/mL (0.00-0.029) 08/28/20 17:27 NT-Pro-B Natriuret Pep 7039 pg/mL (0-900) H 08/28/20 15:07 Total Protein 8.1 g/dL (6.3-8.2) 08/31/20 04:45 Albumin 3.3 g/dL (3.9-5) L 08/31/20 04:45 Albumin/Globulin Ratio 0.7 % 08/31/20 04:45 Urine Color Alison (Yellow) 08/28/20 Unknown Urine Turbidity Cloudy (Clear) 08/28/20 Unknown Urine pH 5.0 (5.0-7.0) 08/28/20 Unknown Ur Specific [place] 1.019 (1.003-1.030) 08/28/20 Unknown Urine Protein 100 mg/dl mg/dL (Negative) 08/28/20 Unknown Urine Glucose (UA) Neg mg/dL (Negative) 08/28/20 Unknown Urine Ketones Neg mg/dL (Negative) 08/28/20 Unknown Urine Blood Mod (Negative) 08/28/20 Unknown Urine Nitrite Neg (Negative) 08/28/20 Unknown Urine Bilirubin Neg (Negative) 08/28/20 Unknown Urine Urobilinogen 4.0 mg/dL (<2.0) 08/28/20 Unknown Ur Leukocyte Esterase Mod (Negative) 08/28/20 Unknown Urine WBC (Auto) 65.0 /HPF (0.0-6.0) H 08/28/20 Unknown Urine RBC (Auto) 12.0 /HPF (0.0-6.0) 08/28/20 Unknown Urine Bacteria (Auto) 4+ /HPF (Negative) 08/28/20 Unknown Urine WBC Clumps 2+ /HPF 08/28/20 Unknown Hyaline Casts 20 /LPF 08/28/20 Unknown Urine Mucus 3+ /HPF 08/28/20 Unknown Urine Yeast (Budding) 2+ /HPF 08/28/20 Unknown Hepatitis A IgM Ab Non-reactive (NonReactive) 08/30/20 10:56 Hep Bs Antigen Non-reactive (Negative) 08/30/20 10:56 Hep B Core IgM Ab Non-reactive (NonReactive) 08/30/20 10:56 Hepatitis C Antibody Non-reactive (NonReactive) 08/30/20 10:56 Microbiology: Microbiology 08/28/20 15:07 Peripheral/Venous Blood Culture - Preliminary NO GROWTH AFTER 48 HOURS 08/28/20 15:07 Peripheral/Venous Blood Culture - Preliminary NO GROWTH AFTER 48 HOURS 08/28/20 Unknown Urine,Clean Catch Urine Culture - Final Kraus/IV: Voiding Method External Female Catheter Active Medications - Current Medications Current Medications: Generic Name Dose Route Start Last Admin Trade Name Freq PRN Reason Stop Dose Admin Acetaminophen 650 mg 08/28/20 21:49 Acetaminophen 325 Mg Tab PO Q4H PRN Pain MILD(1-3)/Fever >100.5/MOELLER Aspirin 81 mg 08/31/20 10:00 08/31/20 09:02 Aspirin Ec 81 Mg Tab PO 81 mg QDAY [facility] Administration Digoxin 0.125 mg 08/30/20 10:00 08/31/20 09:02 Digoxin 0.125 Mg Tab PO 0.125 mg DAILY [facility] Administration Famotidine 10 mg 08/28/20 22:00 08/31/20 09:02 Famotidine 10 Mg Tab PO 10 mg BID [facility] Administration Furosemide 20 mg 08/31/20 10:00 08/31/20 09:02 Furosemide 20 Mg Tab PO 20 mg QDAY [facility] Administration Ceftriaxone Sodium 2 gm in 100 mls @ 200 mls/hr 08/29/20 10:00 08/31/20 09:02 Rocephin/Ns 2 Gm/100 Ml IV 09/02/20 10:29 200 mls/hr Q24HR [facility] Administration Protocol Sodium Chloride 1,000 mls @ 100 mls/hr 08/29/20 13:00 08/31/20 00:21 Nacl 0.9% 1000 Ml IV 100 mls/hr DIRECT [facility] Administration Metoprolol Tartrate 50 mg 08/29/20 13:00 08/31/20 07:05 Metoprolol Tartrate 50 Mg Tab PO 50 mg Q8HR [facility] Administration Morphine Sulfate 2 mg 08/28/20 21:49 Morphine 2 Mg/1 Ml Inj IV Q4H PRN Pain, Moderate (4-6) Ondansetron HCl 4 mg 08/28/20 21:49 Ondansetron 4 Mg/2 Ml Inj IV Q8H PRN Nausea And Vomiting Potassium Chloride 20 meq 08/29/20 10:00 08/31/20 09:02 Potassium Chloride Er 20 Meq Tab PO 20 meq QDAY [facility] Administration Sodium Chloride 10 ml 08/28/20 22:00 08/31/20 09:03 Sodium Chloride 0.9% 10 Ml Flush Syringe IV Not Given BID [facility] Sodium Chloride 10 ml 08/28/20 21:49 Sodium Chloride 0.9% 10 Ml Flush Syringe IV PRN PRN LINE FLUSH Trazodone HCl 50 mg 08/29/20 22:00 08/30/20 22:32 Trazodone 50 Mg Tab PO 50 mg QHS [facility] Administration Nutrition/Malnutrition Assess - Dietary Evaluation Nutrition/Malnutrition Findings: Nutrition Notes Start: 08/30/20 08:24 Freq: Status: Active Protocol: Document 08/30/20 08:24 CW (Rec: 08/30/20 08:36 CW [email or web address]) Nutrition Notes Initial or Follow up Assessment Current Diagnosis Acute Kidney Injury,Coronary Artery Disease,Hypertension, Heart Failure Other Pertinent Diagnosis Coumadin Toxicity, Lactic Acidosis, Dementia Current Diet Cardiac Labs/Tests Na 147 BUN 22 Pertinent Medications NS at 100 ml/h Height 5 ft 7 in Weight 77.111 kg [place] Body Weight (kg) 61.36 BMI 26.6 Weight Status Appropriate Subjective/Other Information MD consult for for PO intake. Per consult, pt may need downgraded diet. RN and tech both agree that pt would benefit from diet downgrade to mechanical soft foods d/t cognition. PO intake for breakfast was 50%. Offered pt ONS and pt consumed some of it . Recommend ONS BID to improve intake. NFPE conducted; signs of slight temporal wasting, severe upper arm wasting, and interosseous wasting. Percent of energy/protein needs met: 23%/20% Burn Absent Trauma Absent GI Symptoms None Difficulty In Chewing Current % PO Negligible Minimum of two criteria Yes Body Fat Depletion Moderate depletion (severe) Muscle Mass Mild Depletion (non-severe) #1 Nutrition Diagnosis Inadequate oral intake Etiology advanced age, dementia As Evidenced by Signs and Symptoms PO intake of 50% of breakfast Is patient on ventilator? No Is Patient Ambulatory and/or Out of Bed Yes REE-([place]-St. Jeor-ambulatory/OOB) [ 1610.349 [id number]] Calculation Used for Recommendations [place]-St Jeor Additional Notes protein needs: 71 - 93g (1 - 1 .2 g/kgBW) kcal needs: 1500 - 1900 ml/day Nutrition Intervention Change Diet Order: Continue Cardiac Diet Change diet to Mechanical soft diet Add Supplement/Snack (indicate name/kcal Ensure Enlive BID /protein ) Provides kCal: 700 Provides Protein (gm) 40 Goal #1 PO intake that meets at least 75% of kcal needs Anticipated Discharge Needs: Cardiac Diet with ONS BID Follow-Up By: 09/01/20 Additional Comments F/U intakes and ONS tolerance
--- NOTE | 2020-08-31 12:51 | Magnetic Resonance Report ---
MR ABDOMEN WITH AND WITHOUT CONTRAST MR ABDOMEN MRCP HISTORY: Abnormal liver function tests, liver and gallbladder disease TECHNIQUE: Multisequence, multiplanar MRI before and after 12 cc of IV gadolinium. COMPARISON: Ultrasound right upper quadrant 08/30/2020 FINDINGS: The liver is normal size, contour and signal. No significant parenchymal liver disease is appreciated . No focal mass. Approximately 4 liver cysts are identified. The largest cyst arises from the caudate lobe and measures 5 cm in diameter. There are 3 cysts in the right hepatic lobe measuring 0.5 cm, 1. 1 cm and 2.1 cm. There is no evidence for cholelithiasis or biliary dilatation. MRCP images demonstrate a normal commo n bile duct measuring less than 5 mm. The pancreas, spleen and adrenal glands are unremarkable. The kidneys are normal size and position. There are scattered renal cysts bilaterally with the larges t measuring 1.2 cm and the left kidney. No hydronephrosis. The aorta and vascular structures appear patent and unremarkable. No evidence for bowel obstruction, free fluid or free air. No adenopathy. Normal bone marrow signal i n the visualized osseous structures. IMPRESSION: Scattered liver cysts as described. No parenchymal liver disease or biliary abnormality is appreciate d. Few scattered simple renal cysts. Otherwise unremarkable exam. Signer Name: Raymond Love Jr, MD Signed: 08/31/2020 12:46 PM Workstation Name: [id number]
[2020-08-31 16:50] LABS: C-Reactive Protein 4.6 mg/dL (0.00-1.30)
--- NOTE | 2020-08-31 17:11 | Cat Scan Report ---
CT OF THE ABDOMEN AND PELVIS WITHOUT CONTRAST INDICATION / CLINICAL INFORMATION: Abnormal liver function tests. Liver and gallbladder disease. TECHNIQUE: All CT scans at this location are performed using CT dose reduction for ALARA by means of automated exposure control. COMPARISON: Right upper quadrant ultrasound 08/30/2020. MRI/MRCP of the abdomen today. FINDINGS: ABDOMEN: There is a 4.2 cm ovoid irregular solid mass in the mid to lower left breast which abuts the chest wall. There are multiple simple hepatic cysts, the largest of which measures 5.1 cm in the cau date lobe. The gallbladder, bile ducts, pancreas, spleen, adrenal glands and right kidney are normal. There are a couple of simple cyst-appearing lesions in the left kidney. The bowel is unremarkable. T here are marked atherosclerotic calcifications involving the aorta without aneurysm. Mild bibasilar s ubsegmental atelectasis is present. PELVIS: Generalized increased density of the urinary bladder is related to prior gadolinium administr ation. The uterus and ovaries are normal. A normal appendix is present and there is no evidence of di verticulitis. No abnormal mass or fluid collection is seen. I do not identify a hernia. There is inte rnal fixation of the proximal left femur. A severe compression fracture of the T12 vertebral body is of uncertain age. A mildly retropulsed fragment is present superiorly. IMPRESSION: 1. Incidental 4.2 cm mass in the left breast is highly suspicious for breast cancer. Correlation with mammography and left breast ultrasound is recommended. 2. Severe compression fracture of the T12 vertebral body with a mildly retropulsed fragment is of unc ertain age. 3. Several simple hepatic cysts. Signer Name: Ludwig Landers MD Signed: 08/31/2020 5:06 PM Workstation Name: [id number]
[2020-08-31] MEDS: traZODone 50 MG TAB PO SCH (22:06)
[2020-08-31] MEDS: DEXAMETHASONE 4 MG TAB PO SCH (22:06)
[2020-08-31 22:13] LABS: ABG Base Excess -1.4 mmol/L (-2.0-3.0); ABG HCO3 23.8 mmol/L (20.0-26.0); ABG Methemoglobin 0.5 % (0.0-1.5); ABG Oxygen Saturation 98.7 % (95.0-99.0); ABG PCO2 41.9 mm Hg; ABG PH 7.372 pH Units (7.350-7.450); ABG PO2 139.5 mm Hg (80.0-90.0)
[2020-09-01] MEDS: METOPROLOL TARTRATE 50 MG TAB PO SCH ×3 (05:49→21:25)
--- NOTE | 2020-09-01 08:34 | Gastroenterology Progress Note ---
Assessment and Plan Negative acute hepatitis panel. Unclear etiology and we do not have baseline LFTs. MRI and MRCP are negative Given that the patient's coronavirus test came back positive, and her other underlying medical comorbidities, at this juncture highest on the differential diagnosis now is multifactorial etiology due to underlying coronavirus infection and underlying medical comorbidities Therefore GI will sign off with the following recommendations: While patient remains inpatient recommend trending hepatic function test and INR daily As long as the labs are stable or continue to gradually improve no further testing/treatment required patient can just follow-up with us as an outpatient If the liver enzymes or the INR begin trending up significantly please call us back and we will reassess - Patient Problems (1) Abnormal liver enzymes Current Visit: Yes Status: Acute Subjective Date of service: 09/01/20 Principal diagnosis: abnormal lft Interval history: Patient much more talkative today She reports not feeling well overall though she cannot provide me with more information about why she is not feeling well She is somewhat confused though She denies abdominal pain neg MRI/mrcp and pos. Coronovirus test noted No resulted LFT's yet today Objective - Constitutional Vitals: Temp Pulse Resp BP Pulse Ox 97.4 F L 113 H 16 133/98 100 09/01/20 04:35 09/01/20 06:15 09/01/20 04:35 09/01/20 05:49 09/01/20 06:15 General appearance: no acute distress - EENT ENT: hearing intact - Gastrointestinal General gastrointestinal: Present: soft, non-tender - Labs CBC & Chem 7: 08/30/20 04:46 08/31/20 15:52 Labs: Laboratory Results - last 24 hr 08/31/20 08/31/20 08/31/20 13:44 15:52 15:52 D-Dimer 7683.92 H ABG pH ABG pCO2 ABG pO2 ABG HCO3 ABG O2 Saturation ABG O2 Content ABG Base Excess ABG Hemoglobin ABG Carboxyhemoglobin ABG Methemoglobin Oxyhemoglobin FiO2 Glucose 85 Ferritin Ammonia 29.0 Lactate Dehydrogenase 564 H C-Reactive Protein 4.60 H Coronavirus (PCR) 08/31/20 08/31/20 08/31/20 15:52 21:50 Unknown D-Dimer ABG pH 7.372 ABG pCO2 41.9 ABG pO2 139.5 H ABG HCO3 23.8 ABG O2 Saturation 98.7 ABG O2 Content 20.8 ABG Base Excess -1.4 ABG Hemoglobin 15.3 ABG Carboxyhemoglobin 1.9 ABG Methemoglobin 0.5 Oxyhemoglobin 96.3 FiO2 28 Glucose Ferritin 1027.0 H Ammonia Lactate Dehydrogenase C-Reactive Protein Coronavirus (PCR) Positive A
[2020-09-01 09:34] LABS: Hematocrit 43.3 % (30.3-42.9); Hemoglobin 14.2 gm/dl (10.1-14.3); Mean Corpuscular HGB Conc 33 % (30-34); Mean Corpuscular Volume 107 fl (79-97); Platelet Count 169 K/mm3 (140-440); Red Blood Count 4.04 M/mm3 (3.65-5.03); Red Cell Distribution Width 16.6 % (13.2-15.2)
--- NOTE | 2020-09-01 09:53 | Progress Note ---
Assessment and Plan Severe coagulopathy, INR 10.69 on presentation s/p vitamin K; H&H is stable warfarin discontinued Elevated liver transaminases statin therapy discontinued Hypernatremia Chronic atrial fibrillation, rate control strategy d/t advanced age and extreme frailty, she has high bleeding risk which contraindicates further treatment with long-term oral anticoagulation. 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 Continue GDMT for ischemic cardiomyopathy and coronary artery disease as tolerated. Otherwise, conservative cardiac management. Subjective Date of service: 09/01/20 Principal diagnosis: abnormal lft Interval history: Patient tested positive for COVID 19. No distress noted. Atrial fibrillation with a well controlled ventricular rate on telemetry. Objective Vital Signs Temp Pulse Pulse Resp BP BP Pulse Ox 09/01/20 06:15 113 H 100 09/01/20 05:49 113 H 133/98 09/01/20 05:00 113 H 09/01/20 04:35 97.4 F L 16 133/98 08/31/20 22:07 120 H 123/72 08/31/20 21:56 122 H 17 123/72 92 08/31/20 21:05 97.7 F 16 145/96 08/31/20 20:55 110 H 19 93 08/31/20 20:06 90 08/31/20 20:05 97.9 F 60 16 111/84 74 L 08/31/20 13:10 121 H 08/31/20 12:26 98 H 150/97 08/31/20 12:25 97.8 F 98 H 19 150/97 95 - Physical Examination Narrative exam: Deferred due to isolation protocol. General: No Apparent Distress Cardiac: Positive: irregularly irregular - Labs and Meds Cardiac Enzymes 08/31/20 Range/Units 15:52 Lactate Dehydrogenase 564 H (91-180) units/L CBC 09/01/20 Range/Units 08:25 WBC 5.4 (4.5-11.0) K/mm3 RBC 4.04 (3.65-5.03) M/mm3 Hgb 14.2 (10.1-14.3) gm/dl Hct 43.3 H (30.3-42.9) % Plt Count 169 (140-440) K/mm3 Comprehensive Metabolic Panel 08/31/20 Range/Units 15:52 Glucose 85 (65-100) mg/dL
[2020-09-01 10:03] LABS: Alanine Aminotransferase 358 units/L (7-56); Albumin 3.1 g/dL (3.9-5); Blood Urea Nitrogen 20 mg/dL (7-17); Calcium 9.1 mg/dL (8.4-10.2); Hemolysis Index 242
[2020-09-01 10:24] LABS: BUN/Creatinine Ratio 40
[2020-09-01] MEDS: SODIUM CHLORIDE 0.9% 1000 ML 1,000 ML IV SCH (10:29)
[2020-09-01] MEDS: FUROSEMIDE 20 MG TAB PO SCH (10:30)
[2020-09-01] MEDS: cefTRIAXone/NS 2 GM/100 ML 2 GM/100 ML BAG IV SCH (10:30)
[2020-09-01] MEDS: DIGOXIN 0.125 MG TAB PO SCH (10:30)
[2020-09-01] MEDS: ASPIRIN EC 81 MG TAB PO SCH (10:30)
[2020-09-01] MEDS: DEXAMETHASONE 4 MG TAB PO SCH (10:30)
[2020-09-01] MEDS: POTASSIUM CHLORIDE ER 20 MEQ TAB PO SCH (10:30)
--- NOTE | 2020-09-01 10:47 | Progress Note ---
Assessment and Plan Assessment and plan: 89-year-old female with history of hypertension, congestive heart failure dementia, atrial fibrillation and aortic valve replacement brought in by her son because of high Coumadin level with INR of 8. Also patient has been falling repeatedly. Further work 2 times per day for 1 week. Patient states that she has weakness in both lower extremities. Patient also more confused secondary to her dementia. No fever or chills. Patient is unable currently communicative because of her progressive dementia. In the emergency room patient was found to be in atrial fibrillation with rapid ventricular rate. CT scan of the head shows no acute abnormality. 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 We will also obtain a CT of the abdomen and pelvis with dialysis opinion discussed with her clinical condition and risk of any surgical intervention he replies "what ever it takes". We will also obtain acute hepatitis panel although doubt that this is the cause. INR is improved 08/31: GI input noted await for MRI of the abdomen to evaluate liver and also MRCP. Will change diet to pured diet. We will also check ammonia level due to intermittent altered sensorium in the setting of elevated liver enzymes. 09/01: Patients son notifed about the covid diagnosis. Patient noted with hypoxia also was started on steroids yesterday ID is consulted today. She is on 4 L of oxygen at this time. On discussion with the son I understand that her breast cancer was diagnosed about a month ago she was deemed not a candidate for chemotherapy but the son states that she was being worked up for surgery. She is quite weak and lethargic for surgery at this time I did make this note to the son although this can change. Ideally we had agreed on discontinuing anticoagulation but considering active cancer and risk for CVA now superimposed on COVID-19 will likely recommend putting her on low-dose Eliquis will discuss with cardiology on this matter. She is also noted to have hyperkalemia we will discontinue her potassium replacement pills at this time. Rehab recommendation for SNF on discharge. Continue supportive care Cardiology input noted Continue Diltiazem Will obtain ultrasound of the liver Continue antibiotics and follow urine culture Gentle IV hydration because of the CHF Patient received vitamin K. Will monitor INR. Agree with cardiology on discontinuing Coumadin/anticoagulation at this time. Continue to monitor renal function DVT and GI prophylaxis PT OT evaluation Prognosis is guarded History Interval history: Patient seen and examined this morning remains lethargic, discuses Hospitalist Physical - Physical exam Narrative exam: VITAL SIGNS: Reviewed. GENERAL: The patient appears cachectic and extremely frail, remains lethargic vital signs as documented. HEAD: No signs of head trauma. EYES: Pupils are equal. Extraocular motions intact. EARS: Hearing grossly intact. MOUTH: Oropharynx is normal. NECK: No adenopathy, no JVD. CHEST: Chest with clear breath sounds bilaterally. No wheezes, rales, or rhonchi. CARDIAC: Irregularly irregular. S1 and S2, without murmurs, gallops, or rubs. VASCULAR: No Edema. Peripheral pulses normal and equal in all extremities. ABDOMEN: Soft, non tender and non distended. No rebound or guarding, and no masses palpated. Bowel Sounds normal. MUSCULOSKELETAL: Good range of motion of all major joints. Extremities without clubbing, cyanosis. trace edema. NEUROLOGIC EXAM: Awake oriented to person lethargic no focal sensory or strength deficits. Speech slow. Follows commands. PSYCHIATRIC: Mood normal. SKIN: detail exam as documented in skin assessment - Constitutional Vitals: Temp Pulse Resp BP Pulse Ox 97.4 F L 113 H 16 133/98 100 09/01/20 04:35 09/01/20 06:15 09/01/20 04:35 09/01/20 05:49 09/01/20 06:15 General appearance: Present: mild distress, well-nourished HEART Score - HEART Score Age: > 65 Risk factors: > 3 risk factors or hx of atherosclerotic disease Troponin: Troponin T 0.010 ng/mL (0.00-0.029) 08/28/20 17:27 Troponin: < normal limit - Critical Actions Critical Actions: 4-6 pts:12-16.6% risk of adverse cardiac event. Should be admitted Results - Labs CBC & Chem 7: 09/01/20 08:25 09/01/20 08:25 Labs: Laboratory Last Values WBC 5.4 K/mm3 (4.5-11.0) 09/01/20 08:25 RBC 4.04 M/mm3 (3.65-5.03) 09/01/20 08:25 Hgb 14.2 gm/dl (10.1-14.3) 09/01/20 08:25 Hct 43.3 % (30.3-42.9) H 09/01/20 08:25 MCV 107 fl (79-97) H 09/01/20 08:25 MCH 35 pg (28-32) H 09/01/20 08:25 MCHC 33 % (30-34) 09/01/20 08:25 RDW 16.6 % (13.2-15.2) H 09/01/20 08:25 Plt Count 169 K/mm3 (140-440) 09/01/20 08:25 Lymph % (Auto) 17.3 % (13.4-35.0) 08/29/20 02:27 [place] % (Auto) 9.3 % (0.0-7.3) H 08/29/20 02:27 Eos % (Auto) 2.3 % (0.0-4.3) 08/29/20 02:27 Baso % (Auto) 0.7 % (0.0-1.8) 08/29/20 02:27 Lymph # (Auto) 1.2 K/mm3 (1.2-5.4) 08/29/20 02:27 [place] # (Auto) 0.6 K/mm3 (0.0-0.8) 08/29/20 02:27 Eos # (Auto) 0.2 K/mm3 (0.0-0.4) 08/29/20 02:27 Baso # (Auto) 0.0 K/mm3 (0.0-0.1) 08/29/20 02:27 Add Manual Diff Complete 08/28/20 15:07 Total Counted 100 08/28/20 15:07 Seg Neutrophils % 70.4 % (40.0-70.0) H 08/29/20 02:27 Seg Neuts % (Manual) 64.0 % (40.0-70.0) 08/28/20 15:07 Lymphocytes % (Manual) 23.0 % (13.4-35.0) 08/28/20 15:07 Monocytes % (Manual) 10.0 % (0.0-7.3) H 08/28/20 15:07 Eosinophils % (Manual) 2.0 % (0.0-4.3) 08/28/20 15:07 Basophils % (Manual) 1.0 % (0.0-1.8) 08/28/20 15:07 Nucleated RBC % Not Reportable 08/28/20 15:07 Seg Neutrophils # 4.9 K/mm3 (1.8-7.7) 08/29/20 02:27 Seg Neutrophils # Man 3.8 K/mm3 (1.8-7.7) 08/28/20 15:07 Band Neutrophils # 0.0 K/mm3 08/28/20 15:07 Lymphocytes # (Manual) 1.4 K/mm3 (1.2-5.4) 08/28/20 15:07 Abs React Lymphs (Man) 0.0 K/mm3 08/28/20 15:07 Monocytes # (Manual) 0.6 K/mm3 (0.0-0.8) 08/28/20 15:07 Eosinophils # (Manual) 0.1 K/mm3 (0.0-0.4) 08/28/20 15:07 Basophils # (Manual) 0.1 K/mm3 (0.0-0.1) 08/28/20 15:07 Metamyelocytes # 0.0 K/mm3 08/28/20 15:07 Myelocytes # 0.0 K/mm3 08/28/20 15:07 Promyelocytes # 0.0 K/mm3 08/28/20 15:07 Blast Cells # 0.0 K/mm3 08/28/20 15:07 WBC Morphology Not Reportable 08/28/20 15:07 Hypersegmented Neuts Not Reportable 08/28/20 15:07 Hyposegmented Neuts Not Reportable 08/28/20 15:07 Hypogranular Neuts Not Reportable 08/28/20 15:07 Smudge Cells Not Reportable 08/28/20 15:07 Toxic Granulation Not Reportable 08/28/20 15:07 Toxic Vacuolation Not Reportable 08/28/20 15:07 Dohle Bodies Not Reportable 08/28/20 15:07 Pelger-Huet Anomaly Not Reportable 08/28/20 15:07 Heri Rods Not Reportable 08/28/20 15:07 Platelet Estimate Not Reportable 08/28/20 15:07 Clumped Platelets Not Reportable 08/28/20 15:07 Plt Clumps, EDTA Not Reportable 08/28/20 15:07 Large Platelets Not Reportable 08/28/20 15:07 Giant Platelets Not Reportable 08/28/20 15:07 Platelet Satelliting Not Reportable 08/28/20 15:07 Plt Morphology Comment Not Reportable 08/28/20 15:07 RBC Morphology Not Reportable 08/28/20 15:07 Dimorphic RBCs Not Reportable 08/28/20 15:07 Polychromasia Not Reportable 08/28/20 15:07 Hypochromasia Few 08/28/20 15:07 Poikilocytosis Not Reportable 08/28/20 15:07 Anisocytosis Few 08/28/20 15:07 Microcytosis Rare 08/28/20 15:07 Macrocytosis Not Reportable 08/28/20 15:07 Spherocytes Not Reportable 08/28/20 15:07 Pappenheimer Bodies Not Reportable 08/28/20 15:07 Sickle Cells Not Reportable 08/28/20 15:07 Target Cells Not Reportable 08/28/20 15:07 Tear Drop Cells Not Reportable 08/28/20 15:07 Ovalocytes Not Reportable 08/28/20 15:07 Helmet Cells Not Reportable 08/28/20 15:07 [place] Bodies Not Reportable 08/28/20 15:07 Ranger Rings Not Reportable 08/28/20 15:07 Doreen Cells Not Reportable 08/28/20 15:07 Bite Cells Not Reportable 08/28/20 15:07 Crenated Cell Not Reportable 08/28/20 15:07 Elliptocytes Not Reportable 08/28/20 15:07 Acanthocytes (Spur) Not Reportable 08/28/20 15:07 Rouleaux Not Reportable 08/28/20 15:07 Hemoglobin C Crystals Not Reportable 08/28/20 15:07 Schistocytes Not Reportable 08/28/20 15:07 Malaria parasites Not Reportable 08/28/20 15:07 Fercho Bodies Not Reportable 08/28/20 15:07 Hem Pathologist Commnt No 08/28/20 15:07 PT 29.0 Sec. (12.2-14.9) H 08/29/20 13:40 INR 2.70 (0.87-1.13) H 08/29/20 13:40 APTT 48.8 Sec. (24.2-36.6) H 08/28/20 15:07 D-Dimer 7683.92 ng/mlDDU (0-234) H 08/31/20 15:52 ABG pH 7.372 pH Units (7.350-7.450) 08/31/20 21:50 ABG pCO2 41.9 mm Hg 08/31/20 21:50 ABG pO2 139.5 mm Hg (80.0-90.0) H 08/31/20 21:50 ABG HCO3 23.8 mmol/L (20.0-26.0) 08/31/20 21:50 ABG O2 Saturation 98.7 % (95.0-99.0) 08/31/20 21:50 ABG O2 Content 20.8 (0.0-44) 08/31/20 21:50 ABG Base Excess -1.4 mmol/L (-2.0-3.0) 08/31/20 21:50 ABG Hemoglobin 15.3 gm/dl (12.0-16.0) 08/31/20 21:50 ABG Carboxyhemoglobin 1.9 % (0.0-5.0) 08/31/20 21:50 ABG Methemoglobin 0.5 % (0.0-1.5) 08/31/20 21:50 Oxyhemoglobin 96.3 % (95.0-99.0) 08/31/20 21:50 FiO2 28 % 08/31/20 21:50 Sodium 144 mmol/L (137-145) 09/01/20 08:25 Potassium 5.2 mmol/L (3.6-5.0) H D 09/01/20 08:25 Chloride 110.2 mmol/L (98-107) H 09/01/20 08:25 Carbon Dioxide 22 mmol/L (22-30) 09/01/20 08:25 Anion Gap 17 mmol/L 09/01/20 08:25 BUN 20 mg/dL (7-17) H 09/01/20 08:25 Creatinine 0.5 mg/dL (0.6-1.2) L 09/01/20 08:25 Estimated GFR > 60 ml/min 09/01/20 08:25 BUN/Creatinine Ratio 40 % 09/01/20 08:25 Glucose 122 mg/dL (65-100) H 09/01/20 08:25 Hemoglobin A1c 5.2 % (4-6) 08/29/20 02:27 Lactic Acid 4.70 mmol/L (0.7-2.0) H* 08/28/20 15:07 Calcium 9.1 mg/dL (8.4-10.2) 09/01/20 08:25 Ferritin 1027.0 ng/mL (10.0-200.0) H 08/31/20 15:52 Total Bilirubin 3.70 mg/dL (0.1-1.2) H 09/01/20 08:25 Direct Bilirubin 1.4 mg/dL (0-0.2) H 08/28/20 15:07 Indirect Bilirubin 1.8 mg/dL 08/28/20 15:07 AST 272 units/L (5-40) H 09/01/20 08:25 ALT 358 units/L (7-56) H 09/01/20 08:25 Alkaline Phosphatase 197 units/L (35-129) H 09/01/20 08:25 Ammonia 29.0 umol/L (25-60) 08/31/20 13:44 Lactate Dehydrogenase 564 units/L (91-180) H 08/31/20 15:52 Troponin T 0.010 ng/mL (0.00-0.029) 08/28/20 17:27 C-Reactive Protein 4.60 mg/dL (0.00-1.30) H 08/31/20 15:52 NT-Pro-B Natriuret Pep 7039 pg/mL (0-900) H 08/28/20 15:07 Total Protein 7.9 g/dL (6.3-8.2) 09/01/20 08:25 Albumin 3.1 g/dL (3.9-5) L 09/01/20 08:25 Albumin/Globulin Ratio 0.6 % 09/01/20 08:25 Urine Color Alison (Yellow) 08/28/20 Unknown Urine Turbidity Cloudy (Clear) 08/28/20 Unknown Urine pH 5.0 (5.0-7.0) 08/28/20 Unknown Ur Specific [place] 1.019 (1.003-1.030) 08/28/20 Unknown Urine Protein 100 mg/dl mg/dL (Negative) 08/28/20 Unknown Urine Glucose (UA) Neg mg/dL (Negative) 08/28/20 Unknown Urine Ketones Neg mg/dL (Negative) 08/28/20 Unknown Urine Blood Mod (Negative) 08/28/20 Unknown Urine Nitrite Neg (Negative) 08/28/20 Unknown Urine Bilirubin Neg (Negative) 08/28/20 Unknown Urine Urobilinogen 4.0 mg/dL (<2.0) 08/28/20 Unknown Ur Leukocyte Esterase Mod (Negative) 08/28/20 Unknown Urine WBC (Auto) 65.0 /HPF (0.0-6.0) H 08/28/20 Unknown Urine RBC (Auto) 12.0 /HPF (0.0-6.0) 08/28/20 Unknown Urine Bacteria (Auto) 4+ /HPF (Negative) 08/28/20 Unknown Urine WBC Clumps 2+ /HPF 08/28/20 Unknown Hyaline Casts 20 /LPF 08/28/20 Unknown Urine Mucus 3+ /HPF 08/28/20 Unknown Urine Yeast (Budding) 2+ /HPF 08/28/20 Unknown Coronavirus (PCR) Positive (Negative) A 08/31/20 Unknown Hepatitis A IgM Ab Non-reactive (NonReactive) 08/30/20 10:56 Hep Bs Antigen Non-reactive (Negative) 08/30/20 10:56 Hep B Core IgM Ab Non-reactive (NonReactive) 08/30/20 10:56 Hepatitis C Antibody Non-reactive (NonReactive) 08/30/20 10:56 Microbiology: Microbiology 08/28/20 15:07 Peripheral/Venous Blood Culture - Preliminary NO GROWTH AFTER 72 HOURS 08/28/20 15:07 Peripheral/Venous Blood Culture - Preliminary NO GROWTH AFTER 72 HOURS Kraus/IV: Voiding Method Incontinent Active Medications - Current Medications Current Medications: Generic Name Dose Route Start Last Admin Trade Name Freq PRN Reason Stop Dose Admin Acetaminophen 650 mg 08/28/20 21:49 Acetaminophen 325 Mg Tab PO Q4H PRN Pain MILD(1-3)/Fever >100.5/MOELLER Aspirin 81 mg 08/31/20 10:00 09/01/20 10:30 Aspirin Ec 81 Mg Tab PO 81 mg QDAY PARIS Administration Dexamethasone 6 mg 08/31/20 16:00 09/01/20 10:30 Dexamethasone 4 Mg Tab PO 09/09/20 10:01 6 mg DAILY PARIS Administration Digoxin 0.125 mg 08/30/20 10:00 09/01/20 10:30 Digoxin 0.125 Mg Tab PO 0.125 mg DAILY PARIS Administration Famotidine 10 mg 08/28/20 22:00 08/31/20 22:06 Famotidine 10 Mg Tab PO 10 mg BID PARIS Administration Furosemide 20 mg 08/31/20 10:00 09/01/20 10:30 Furosemide 20 Mg Tab PO 20 mg QDAY PARIS Administration Ceftriaxone Sodium 2 gm in 100 mls @ 200 mls/hr 08/29/20 10:00 09/01/20 10:30 Rocephin/Ns 2 Gm/100 Ml IV 09/02/20 10:29 200 mls/hr Q24HR PARIS Administration Protocol Sodium Chloride 1,000 mls @ 100 mls/hr 08/29/20 13:00 09/01/20 10:29 Nacl 0.9% 1000 Ml IV 100 mls/hr DIRECT PARIS Administration Metoprolol Tartrate 50 mg 08/29/20 13:00 09/01/20 05:49 Metoprolol Tartrate 50 Mg Tab PO 50 mg Q8HR PARIS Administration Morphine Sulfate 2 mg 08/28/20 21:49 Morphine 2 Mg/1 Ml Inj IV Q4H PRN Pain, Moderate (4-6) Ondansetron HCl 4 mg 08/28/20 21:49 Ondansetron 4 Mg/2 Ml Inj IV Q8H PRN Nausea And Vomiting Potassium Chloride 20 meq 08/29/20 10:00 09/01/20 10:30 Potassium Chloride Er 20 Meq Tab PO 20 meq QDAY PARIS Administration Sodium Chloride 10 ml 08/28/20 22:00 09/01/20 03:46 Sodium Chloride 0.9% 10 Ml Flush Syringe IV Not Given BID PARIS Sodium Chloride 10 ml 08/28/20 21:49 Sodium Chloride 0.9% 10 Ml Flush Syringe IV PRN PRN LINE FLUSH Sodium Polystyrene Sulfonate 15 gm 09/01/20 10:46 Sodium Polystyrene 15 Gm/60 Ml Oral Liqd PO 09/01/20 10:47 ONCE ONE Trazodone HCl 50 mg 08/29/20 22:00 08/31/20 22:06 Trazodone 50 Mg Tab PO 50 mg QHS PARIS Administration Nutrition/Malnutrition Assess - Dietary Evaluation Nutrition/Malnutrition Findings: Nutrition Notes Start: 08/30/20 08:24 Freq: Status: Active Protocol: Document 08/30/20 08:24 CW (Rec: 08/30/20 08:36 CW [id number]) Nutrition Notes Initial or Follow up Assessment Current Diagnosis Acute Kidney Injury,Coronary Artery Disease,Hypertension, Heart Failure Other Pertinent Diagnosis Coumadin Toxicity, Lactic Acidosis, Dementia Current Diet Cardiac Labs/Tests Na 147 BUN 22 Pertinent Medications NS at 100 ml/h Height 5 ft 7 in Weight 77.111 kg [place] Body Weight (kg) 61.36 BMI 26.6 Weight Status Appropriate Subjective/Other Information MD consult for for PO intake. Per consult, pt may need downgraded diet. RN and tech both agree that pt would benefit from diet downgrade to mechanical soft foods d/t cognition. PO intake for breakfast was 50%. Offered pt ONS and pt consumed some of it . Recommend ONS BID to improve intake. NFPE conducted; signs of slight temporal wasting, severe upper arm wasting, and interosseous wasting. Percent of energy/protein needs met: 23%/20% Burn Absent Trauma Absent GI Symptoms None Difficulty In Chewing Current % PO Negligible Minimum of two criteria Yes Body Fat Depletion Moderate depletion (severe) Muscle Mass Mild Depletion (non-severe) #1 Nutrition Diagnosis Inadequate oral intake Etiology advanced age, dementia As Evidenced by Signs and Symptoms PO intake of 50% of breakfast Is patient on ventilator? No Is Patient Ambulatory and/or Out of Bed Yes REE-([place]-St. Jeor-ambulatory/OOB) [ 1610.349 [id number]] Cal[facility] Additional Notes protein needs: 93 - 116g (1.2 - 1.5 g/kgBW) kcal needs: 1500 - 1900 ml/day Nutrition Intervention Change Diet Order: Continue Cardiac Diet Change diet to Mechanical soft diet Add Supplement/Snack (indicate name/kcal Ensure Enlive BID /protein ) Provides kCal: 700 Provides Protein (gm) 40 Goal #1 PO intake that meets at least 75% of kcal needs Anticipated Discharge Needs: Cardiac Diet with ONS BID Follow-Up By: 09/01/20 Additional Comments F/U intakes and ONS tolerance
[2020-09-01] MEDS: FAMOTIDINE 10 MG TAB PO SCH ×2 (10:59→21:25)
[2020-09-01] MEDS ORDERED: SODIUM POLYSTYRENE 15 GM/60 ML ORAL LIQD PO SCH (11:00)
--- NOTE | 2020-09-01 14:19 | Consultation ---
History of Present Illness - Reason for Consult Consult date: 09/01/20 - History of Present Illness 89-year-old female past medical history hypertension, CHF, dementia, A. fib, prior aortic valve replacement brought to the hospital due to supratherapeutic INR. She had had several falls at home, and she was brought to the hospital by her son. She complains of bilateral lower extremity weakness. History is obtained from the chart due to her dementia. She is found to have elevated liver enzymes, Covid found to be positive as such we are consulted. With a normal white count. Covid positive. Hepatitis screen negative. Normal renal function, procalcitonin 0.22. Improving liver enzymes Imaging personally reviewed: Abdominal MRI: Scattered liver cysts, no parenchymal disease CXR: No acute findings. Review of systems: Deferred due to PPE conservation strategy. Past History Past Medical History: atrial fib, CAD, heart failure, hypertension Past Surgical History: CABG, Other (AVR) Medications and Allergies Allergies Allergy/AdvReac Type Severity Reaction Status Date / Time No Known Allergies Allergy Unverified 08/28/20 14:17 Home Medications Medication Instructions Recorded Confirmed Last Taken Type AtorvaSTATin [Lipitor] 40 mg PO QHS 08/29/20 08/29/20 Unknown History Escitalopram [Lexapro Oral Liqd] 10 mg PO QDAY 08/29/20 08/29/20 Unknown History Furosemide [Lasix TAB] 40 mg PO QDAY 08/29/20 08/29/20 Unknown History Gabapentin [Neurontin] 100 mg PO Q8HR 08/29/20 08/29/20 Unknown History Lisinopril [Zestril] 5 mg PO QDAY 08/29/20 08/29/20 Unknown History Metoprolol Succinate [Kapspargo 100 mg PO QDAY 08/29/20 08/29/20 Unknown History Sprinkle] Omeprazole 40 mg PO QDAY 08/29/20 08/29/20 Unknown History Potassium Citrate [Potassium 10 meq PO QDAY 08/29/20 08/29/20 Unknown History Citrate ER] Warfarin [Coumadin] 5 mg PO QDAY 08/29/20 08/29/20 Unknown History traMADoL [Ultram] 50 mg PO Q6HR PRN 08/29/20 08/29/20 Unknown History traZODone [Desyrel] 50 mg PO QHS 08/29/20 08/29/20 Unknown History Active Meds: Active Medications Acetaminophen (Acetaminophen 325 Mg Tab) 650 mg PO Q4H PRN PRN Reason: Pain MILD(1-3)/Fever >100.5/MOELLER Aspirin (Aspirin Ec 81 Mg Tab) 81 mg PO QDAY [facility] Last Admin: 09/01/20 10:30 Dose: 81 mg Documented by: Dexamethasone (Dexamethasone 4 Mg Tab) 6 mg PO DAILY [facility] Stop: 09/09/20 10:01 Last Admin: 09/01/20 10:30 Dose: 6 mg Documented by: Digoxin (Digoxin 0.125 Mg Tab) 0.125 mg PO DAILY [facility] Last Admin: 09/01/20 10:30 Dose: 0.125 mg Documented by: Famotidine (Famotidine 10 Mg Tab) 10 mg PO BID [facility] Last Admin: 09/01/20 10:59 Dose: 10 mg Documented by: Furosemide (Furosemide 20 Mg Tab) 20 mg PO QDAY [facility] Last Admin: 09/01/20 10:30 Dose: 20 mg Documented by: Ceftriaxone Sodium (Rocephin/Ns 2 Gm/100 Ml) 2 gm in 100 mls @ 200 mls/hr IV Q24HR [facility]; Protocol Stop: 09/02/20 10:29 Last Admin: 09/01/20 10:30 Dose: 200 mls/hr Documented by: Sodium Chloride (Nacl 0.9% 1000 Ml) 1,000 mls @ 100 mls/hr IV DIRECT [facility] Last Admin: 09/01/20 10:29 Dose: 100 mls/hr Documented by: Metoprolol Tartrate (Metoprolol Tartrate 50 Mg Tab) 50 mg PO Q8HR [facility] Last Admin: 09/01/20 13:31 Dose: 50 mg Documented by: Morphine Sulfate (Morphine 2 Mg/1 Ml Inj) 2 mg IV Q4H PRN PRN Reason: Pain, Moderate (4-6) Ondansetron HCl (Ondansetron 4 Mg/2 Ml Inj) 4 mg IV Q8H PRN PRN Reason: Nausea And Vomiting Sodium Chloride (Sodium Chloride 0.9% 10 Ml Flush Syringe) 10 ml IV BID [facility] Last Admin: 09/01/20 10:59 Dose: Not Given Documented by: Sodium Chloride (Sodium Chloride 0.9% 10 Ml Flush Syringe) 10 ml IV PRN PRN PRN Reason: LINE FLUSH Sodium Polystyrene Sulfonate (Sodium Polystyrene 15 Gm/60 Ml Oral Liqd) 15 gm PO ONCE [place] Stop: 09/01/20 16:00 Last Admin: 09/01/20 10:59 Dose: 15 gm Documented by: Trazodone HCl (Trazodone 50 Mg Tab) 50 mg PO QHS [facility] Last Admin: 08/31/20 22:06 Dose: 50 mg Documented by: Physical Examination - Physical Exam Narrative exam: Physical exam deferred due to PPE conservation strategy. Please refer to primary team's note. - Constitutional Vitals: Vital Signs Temp Pulse Resp BP Pulse Ox 98.7 F 96 H 16 107/82 94 09/01/20 14:02 09/01/20 14:03 09/01/20 14:02 09/01/20 14:02 09/01/20 14:03 Temperature -Last 24 Hours Temperature 98.7 F Temperature 97.1 F Temperature 97.4 F Temperature 97.7 F Temperature 97.9 F Results - Labs CBC & Chem 7: 09/01/20 08:25 09/01/20 08:25 Labs: Abnormal lab results 08/31/20 08/31/20 08/31/20 Range/Units 15:52 15:52 15:52 Hct (30.3-42.9) % MCV (79-97) fl MCH (28-32) pg RDW (13.2-15.2) % D-Dimer 7683.92 H (0-234) ng/mlDDU ABG pO2 (80.0-90.0) mm Hg Potassium (3.6-5.0) mmol/L Chloride (98-107) mmol/L BUN (7-17) mg/dL Creatinine (0.6-1.2) mg/dL Glucose (65-100) mg/dL Ferritin 1027.0 H (10.0-200.0) ng/mL Total Bilirubin (0.1-1.2) mg/dL AST (5-40) units/L ALT (7-56) units/L Alkaline Phosphatase (35-129) units/L Lactate Dehydrogenase 564 H (91-180) units/L C-Reactive Protein 4.60 H (0.00-1.30) mg/dL Albumin (3.9-5) g/dL Coronavirus (PCR) (Negative) 08/31/20 08/31/20 09/01/20 Range/Units 21:50 Unknown 08:25 Hct 43.3 H (30.3-42.9) % MCV 107 H (79-97) fl MCH 35 H (28-32) pg RDW 16.6 H (13.2-15.2) % D-Dimer (0-234) ng/mlDDU ABG pO2 139.5 H (80.0-90.0) mm Hg Potassium (3.6-5.0) mmol/L Chloride (98-107) mmol/L BUN (7-17) mg/dL Creatinine (0.6-1.2) mg/dL Glucose (65-100) mg/dL Ferritin (10.0-200.0) ng/mL Total Bilirubin (0.1-1.2) mg/dL AST (5-40) units/L ALT (7-56) units/L Alkaline Phosphatase (35-129) units/L Lactate Dehydrogenase (91-180) units/L C-Reactive Protein (0.00-1.30) mg/dL Albumin (3.9-5) g/dL Coronavirus (PCR) Positive A (Negative) 09/01/20 Range/Units 08:25 Hct (30.3-42.9) % MCV (79-97) fl MCH (28-32) pg RDW (13.2-15.2) % D-Dimer (0-234) ng/mlDDU ABG pO2 (80.0-90.0) mm Hg Potassium 5.2 H D (3.6-5.0) mmol/L Chloride 110.2 H (98-107) mmol/L BUN 20 H (7-17) mg/dL Creatinine 0.5 L (0.6-1.2) mg/dL Glucose 122 H (65-100) mg/dL Ferritin (10.0-200.0) ng/mL Total Bilirubin 3.70 H (0.1-1.2) mg/dL AST 272 H (5-40) units/L ALT 358 H (7-56) units/L Alkaline Phosphatase 197 H (35-129) units/L Lactate Dehydrogenase (91-180) units/L C-Reactive Protein (0.00-1.30) mg/dL Albumin 3.1 L (3.9-5) g/dL Coronavirus (PCR) (Negative) Assessment and Plan Cultures: Blood culture 08/28/2020 no growth Urine culture 08/28/2020 no growth A/P: 89-year-old female past medical history hypertension, CHF, dementia, A. fib, prior aortic valve replacement admitted with supratherapeutic INR, found to have COVID-19. #COVID-19: No pneumonia noted, currently on room air. Elevated inflammatory markers, low procalcitonin. She was previously hypoxic, currently on dexamethasone. #Elevated liver enzymes: Possibly secondary to COVID-19, normal abdominal imaging aside from some hepatic cyst. Negative hepatitis viral panel. Currentl y improving. #Breast cancer: Recent diagnosed, not a candidate for chemotherapy. #Dementia: Acute on chronic altered mental status. Recs: -Dexamethasone 6 mg IV/PO daily for 10 days -Obtain q48-72h inflammatory markers - ferritin, Ddimer, CRP, LDH -If she requires chronic oxygen supplementation, please start remdesivir. -Stopped antibiotics due to low procalcitonin. -Anticoagulation per primary team on the basis of supratherapeutic INR. Thank you for the consult, we will continue to follow. Dr. Coon taking over tomorrow. MD [facility] O: [phone] F: [phone]
[2020-09-01] MEDS: traZODone 50 MG TAB PO SCH (21:25)
[2020-09-02] MEDS: SODIUM CHLORIDE 0.9% 1000 ML 1,000 ML IV SCH ×2 (00:33→13:22)
[2020-09-02] MEDS: METOPROLOL TARTRATE 50 MG TAB PO SCH ×3 (05:22→22:01)
--- NOTE | 2020-09-02 09:50 | Progress Note ---
Assessment and Plan COVID infection Severe coagulopathy, INR 10.69 on presentation s/p vitamin K; H&H is stable warfarin discontinued Elevated liver transaminases statin therapy discontinued Hypernatremia Chronic atrial fibrillation, rate control strategy d/t advanced age and extreme frailty, she has high bleeding risk and will defer further treatment with long-term oral anticoagulation. 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 Continue GDMT for ischemic cardiomyopathy and coronary artery disease as tolerated. Otherwise, conservative cardiac management. Subjective Date of service: 09/02/20 Principal diagnosis: abnormal lft Interval history: Pt noted to be covid positive Objective Vital Signs Temp Pulse Resp BP Pulse Ox 09/02/20 05:22 84 09/02/20 04:57 96.5 F L 18 128/94 09/01/20 23:48 97.6 F 17 133/93 09/01/20 21:25 97 H 09/01/20 20:00 94 H 09/01/20 14:03 96 H 94 09/01/20 14:02 98.7 F 16 107/82 09/01/20 10:52 112 H 96 09/01/20 10:44 97.1 F L 17 144/105 - Labs and Meds Cardiac Enzymes 09/01/20 Range/Units 08:25 AST 272 H (5-40) units/L Comprehensive Metabolic Panel 09/01/20 Range/Units 08:25 Sodium 144 (137-145) mmol/L Potassium 5.2 H D (3.6-5.0) mmol/L Chloride 110.2 H (98-107) mmol/L Carbon Dioxide 22 (22-30) mmol/L BUN 20 H (7-17) mg/dL Creatinine 0.5 L (0.6-1.2) mg/dL Glucose 122 H (65-100) mg/dL Calcium 9.1 (8.4-10.2) mg/dL AST 272 H (5-40) units/L ALT 358 H (7-56) units/L Alkaline Phosphatase 197 H (35-129) units/L Total Protein 7.9 (6.3-8.2) g/dL Albumin 3.1 L (3.9-5) g/dL - Imaging and Cardiology EKG: report reviewed (Atrial fibrillation with RVR)
[2020-09-02] MEDS: FAMOTIDINE 10 MG TAB PO SCH ×2 (09:59→22:01)
[2020-09-02] MEDS: DEXAMETHASONE 4 MG TAB PO SCH (09:59)
[2020-09-02] MEDS: DIGOXIN 0.125 MG TAB PO SCH (09:59)
[2020-09-02] MEDS: FUROSEMIDE 20 MG TAB PO SCH (10:00)
[2020-09-02] MEDS: ASPIRIN EC 81 MG TAB PO SCH (10:00)
--- NOTE | 2020-09-02 12:06 | Cat Scan Report ---
CTA CHEST WITH IV CONTRAST INDICATION / CLINICAL INFORMATION: Covid TECHNIQUE: Axial CT images were obtained through the chest after injection of 100 cc Omnipaque 300 milligrams pe rcent IV contrast. 3 plane MIP and/or 3D reconstructions were produced. All CT scans at this location are performed using CT dose reduction for ALARA by means of automated exposure control. COMPARISON: None available. FINDINGS: PULMONARY ARTERIES: No pulmonary emboli. THORACIC AORTA: Dilatation of the ascending thoracic aorta as noted measuring 4.65 cm at the level of the shasha HEART: Moderate cardiac enlargement CORONARY ARTERIES: No significant calcification. PLEURA: No pleural effusion. No pneumothorax. LYMPH NODES: No significant adenopathy. LUNGS: No acute air space or interstitial disease. ADDITIONAL FINDINGS: 4 cm left breast mass recommend mammography-ultrasound further evaluation on an outpatient basis. UPPER ABDOMEN: Multiple hepatic cyst SKELETAL STRUCTURES: No significant osseous abnormality. IMPRESSION: 1. No CT evidence for pulmonary embolism. 2. Left breast mass -most consistent with left breast carcinoma 3. Cardiac enlargement Signer Name: Sean Rocha MD Signed: 09/02/2020 12:01 PM Workstation Name: [id number]
--- NOTE | 2020-09-02 14:18 | Progress Note ---
Assessment and Plan Assessment and plan: 89-year-old female with history of hypertension, congestive heart failure dementia, atrial fibrillation and aortic valve replacement brought in by her son because of high Coumadin level with INR of 8. Also patient has been falling repeatedly. Further work 2 times per day for 1 week. Patient states that she has weakness in both lower extremities. Patient also more confused secondary to her dementia. No fever or chills. Patient is unable currently communicative because of her progressive dementia. In the emergency room patient was found to be in atrial fibrillation with rapid ventricular rate. CT scan of the head shows no acute abnormality. 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 We will also obtain a CT of the abdomen and pelvis with dialysis opinion discussed with her clinical condition and risk of any surgical intervention he replies "what ever it takes". We will also obtain acute hepatitis panel although doubt that this is the cause. INR is improved 08/31: GI input noted await for MRI of the abdomen to evaluate liver and also MRCP. Will change diet to pured diet. We will also check ammonia level due to intermittent altered sensorium in the setting of elevated liver enzymes. 09/01: Patients son notifed about the covid diagnosis. Patient noted with hypoxia also was started on steroids yesterday ID is consulted today. She is on 4 L of oxygen at this time. On discussion with the son I understand that her breast cancer was diagnosed about a month ago she was deemed not a candidate for chemotherapy but the son states that she was being worked up for surgery. She is quite weak and lethargic for surgery at this time I did make this note to the son although this can change. Ideally we had agreed on discontinuing anticoagulation but considering active cancer and risk for CVA now superimposed on COVID-19 will likely recommend putting her on low-dose Eliquis will discuss with cardiology on this matter. She is also noted to have hyperkalemia we will discontinue her potassium replacement pills at this time. 09/02: Patient clinically improving. Mental status is improved area of infil tration in the right upper extremity has completely resolved. Pulses are intact. Anticipate discharge on Friday as the residential facility is not accepting admissions over the weekend. Continue to wean oxygen as tolerated Rehab recommendation for SNF on discharge. Continue supportive care Cardiology input noted Continue Diltiazem Will obtain ultrasound of the liver Continue antibiotics and follow urine culture Gentle IV hydration because of the CHF Patient received vitamin K. Will monitor INR. Agree with cardiology on discontinuing Coumadin/anticoagulation at this time. Continue to monitor renal function DVT and GI prophylaxis PT OT evaluation Prognosis is guarded History Interval history: Patient seen and examined this morning more awake today. Hospitalist Physical - Physical exam Narrative exam: VITAL SIGNS: Reviewed. GENERAL: The patient appears cachectic and extremely frail, awake and verbal vital signs as documented. HEAD: No signs of head trauma. EYES: Pupils are equal. Extraocular motions intact. EARS: Hearing grossly intact. MOUTH: Oropharynx is normal. NECK: No adenopathy, no JVD. CHEST: Chest with clear breath sounds bilaterally. No wheezes, rales, or rhonchi. CARDIAC: Irregularly irregular. S1 and S2, without murmurs, gallops, or rubs. VASCULAR: No Edema. Peripheral pulses normal and equal in all extremities. ABDOMEN: Soft, non tender and non distended. No rebound or guarding, and no masses palpated. Bowel Sounds normal. MUSCULOSKELETAL: Good range of motion of all major joints. Extremities without clubbing, cyanosis. trace edema. NEUROLOGIC EXAM: Awake oriented to person no focal sensory or strength defici ts. Speech much improved. Follows commands. PSYCHIATRIC: Mood normal. SKIN: detail exam as documented in skin assessment - Constitutional Vitals: Temp Pulse Resp BP Pulse Ox 97.7 F 81 18 145/80 97 09/02/20 12:52 09/02/20 13:00 09/02/20 12:52 09/02/20 12:52 09/02/20 13:00 General appearance: Present: mild distress, well-nourished HEART Score - HEART Score Age: > 65 Risk factors: > 3 risk factors or hx of atherosclerotic disease Troponin: Troponin T 0.010 ng/mL (0.00-0.029) 08/28/20 17:27 Troponin: < normal limit - Critical Actions Critical Actions: 4-6 pts:12-16.6% risk of adverse cardiac event. Should be admitted Results - Labs CBC & Chem 7: 09/01/20 08:25 09/01/20 08:25 Labs: Laboratory Last Values WBC 5.4 K/mm3 (4.5-11.0) 09/01/20 08:25 RBC 4.04 M/mm3 (3.65-5.03) 09/01/20 08:25 Hgb 14.2 gm/dl (10.1-14.3) 09/01/20 08:25 Hct 43.3 % (30.3-42.9) H 09/01/20 08:25 MCV 107 fl (79-97) H 09/01/20 08:25 MCH 35 pg (28-32) H 09/01/20 08:25 MCHC 33 % (30-34) 09/01/20 08:25 RDW 16.6 % (13.2-15.2) H 09/01/20 08:25 Plt Count 169 K/mm3 (140-440) 09/01/20 08:25 Lymph % (Auto) 17.3 % (13.4-35.0) 08/29/20 02:27 [place] % (Auto) 9.3 % (0.0-7.3) H 08/29/20 02:27 Eos % (Auto) 2.3 % (0.0-4.3) 08/29/20 02:27 Baso % (Auto) 0.7 % (0.0-1.8) 08/29/20 02:27 Lymph # (Auto) 1.2 K/mm3 (1.2-5.4) 08/29/20 02:27 [place] # (Auto) 0.6 K/mm3 (0.0-0.8) 08/29/20 02:27 Eos # (Auto) 0.2 K/mm3 (0.0-0.4) 08/29/20 02:27 Baso # (Auto) 0.0 K/mm3 (0.0-0.1) 08/29/20 02:27 Add Manual Diff Complete 08/28/20 15:07 Total Counted 100 08/28/20 15:07 Seg Neutrophils % 70.4 % (40.0-70.0) H 08/29/20 02:27 Seg Neuts % (Manual) 64.0 % (40.0-70.0) 08/28/20 15:07 Lymphocytes % (Manual) 23.0 % (13.4-35.0) 08/28/20 15:07 Monocytes % (Manual) 10.0 % (0.0-7.3) H 08/28/20 15:07 Eosinophils % (Manual) 2.0 % (0.0-4.3) 08/28/20 15:07 Basophils % (Manual) 1.0 % (0.0-1.8) 08/28/20 15:07 Nucleated RBC % Not Reportable 08/28/20 15:07 Seg Neutrophils # 4.9 K/mm3 (1.8-7.7) 08/29/20 02:27 Seg Neutrophils # Man 3.8 K/mm3 (1.8-7.7) 08/28/20 15:07 Band Neutrophils # 0.0 K/mm3 08/28/20 15:07 Lymphocytes # (Manual) 1.4 K/mm3 (1.2-5.4) 08/28/20 15:07 Abs React Lymphs (Man) 0.0 K/mm3 08/28/20 15:07 Monocytes # (Manual) 0.6 K/mm3 (0.0-0.8) 08/28/20 15:07 Eosinophils # (Manual) 0.1 K/mm3 (0.0-0.4) 08/28/20 15:07 Basophils # (Manual) 0.1 K/mm3 (0.0-0.1) 08/28/20 15:07 Metamyelocytes # 0.0 K/mm3 08/28/20 15:07 Myelocytes # 0.0 K/mm3 08/28/20 15:07 Promyelocytes # 0.0 K/mm3 08/28/20 15:07 Blast Cells # 0.0 K/mm3 08/28/20 15:07 WBC Morphology Not Reportable 08/28/20 15:07 Hypersegmented Neuts Not Reportable 08/28/20 15:07 Hyposegmented Neuts Not Reportable 08/28/20 15:07 Hypogranular Neuts Not Reportable 08/28/20 15:07 Smudge Cells Not Reportable 08/28/20 15:07 Toxic Granulation Not Reportable 08/28/20 15:07 Toxic Vacuolation Not Reportable 08/28/20 15:07 Dohle Bodies Not Reportable 08/28/20 15:07 Pelger-Huet Anomaly Not Reportable 08/28/20 15:07 Heri Rods Not Reportable 08/28/20 15:07 Platelet Estimate Not Reportable 08/28/20 15:07 Clumped Platelets Not Reportable 08/28/20 15:07 Plt Clumps, EDTA Not Reportable 08/28/20 15:07 Large Platelets Not Reportable 08/28/20 15:07 Giant Platelets Not Reportable 08/28/20 15:07 Platelet Satelliting Not Reportable 08/28/20 15:07 Plt Morphology Comment Not Reportable 08/28/20 15:07 RBC Morphology Not Reportable 08/28/20 15:07 Dimorphic RBCs Not Reportable 08/28/20 15:07 Polychromasia Not Reportable 08/28/20 15:07 Hypochromasia Few 08/28/20 15:07 Poikilocytosis Not Reportable 08/28/20 15:07 Anisocytosis Few 08/28/20 15:07 Microcytosis Rare 08/28/20 15:07 Macrocytosis Not Reportable 08/28/20 15:07 Spherocytes Not Reportable 08/28/20 15:07 Pappenheimer Bodies Not Reportable 08/28/20 15:07 Sickle Cells Not Reportable 08/28/20 15:07 Target Cells Not Reportable 08/28/20 15:07 Tear Drop Cells Not Reportable 08/28/20 15:07 Ovalocytes Not Reportable 08/28/20 15:07 Helmet Cells Not Reportable 08/28/20 15:07 [place] Bodies Not Reportable 08/28/20 15:07 [place] Rings Not Reportable 08/28/20 15:07 [place] Cells Not Reportable 08/28/20 15:07 Bite Cells Not Reportable 08/28/20 15:07 Crenated Cell Not Reportable 08/28/20 15:07 Elliptocytes Not Reportable 08/28/20 15:07 Acanthocytes (Spur) Not Reportable 08/28/20 15:07 Rouleaux Not Reportable 08/28/20 15:07 Hemoglobin C Crystals Not Reportable 08/28/20 15:07 Schistocytes Not Reportable 08/28/20 15:07 Malaria parasites Not Reportable 08/28/20 15:07 Fercho Bodies Not Reportable 08/28/20 15:07 Hem Pathologist Commnt No 08/28/20 15:07 PT 29.0 Sec. (12.2-14.9) H 08/29/20 13:40 INR 2.70 (0.87-1.13) H 08/29/20 13:40 APTT 48.8 Sec. (24.2-36.6) H 08/28/20 15:07 D-Dimer 7683.92 ng/mlDDU (0-234) H 08/31/20 15:52 ABG pH 7.372 pH Units (7.350-7.450) 08/31/20 21:50 ABG pCO2 41.9 mm Hg 08/31/20 21:50 ABG pO2 139.5 mm Hg (80.0-90.0) H 08/31/20 21:50 ABG HCO3 23.8 mmol/L (20.0-26.0) 08/31/20 21:50 ABG O2 Saturation 98.7 % (95.0-99.0) 08/31/20 21:50 ABG O2 Content 20.8 (0.0-44) 08/31/20 21:50 ABG Base Excess -1.4 mmol/L (-2.0-3.0) 08/31/20 21:50 ABG Hemoglobin 15.3 gm/dl (12.0-16.0) 08/31/20 21:50 ABG Carboxyhemoglobin 1.9 % (0.0-5.0) 08/31/20 21:50 ABG Methemoglobin 0.5 % (0.0-1.5) 08/31/20 21:50 Oxyhemoglobin 96.3 % (95.0-99.0) 08/31/20 21:50 FiO2 28 % 08/31/20 21:50 Sodium 144 mmol/L (137-145) 09/01/20 08:25 Potassium 5.2 mmol/L (3.6-5.0) H D 09/01/20 08:25 Chloride 110.2 mmol/L (98-107) H 09/01/20 08:25 Carbon Dioxide 22 mmol/L (22-30) 09/01/20 08:25 Anion Gap 17 mmol/L 09/01/20 08:25 BUN 20 mg/dL (7-17) H 09/01/20 08:25 Creatinine 0.5 mg/dL (0.6-1.2) L 09/01/20 08:25 Estimated GFR > 60 ml/min 09/01/20 08:25 BUN/Creatinine Ratio 40 % 09/01/20 08:25 Glucose 122 mg/dL (65-100) H 09/01/20 08:25 POC Glucose 169 mg/dL (70-105) H 09/01/20 23:47 Hemoglobin A1c 5.2 % (4-6) 08/29/20 02:27 Lactic Acid 4.70 mmol/L (0.7-2.0) H* 08/28/20 15:07 Calcium 9.1 mg/dL (8.4-10.2) 09/01/20 08:25 Ferritin 1027.0 ng/mL (10.0-200.0) H 08/31/20 15:52 Total Bilirubin 3.70 mg/dL (0.1-1.2) H 09/01/20 08:25 Direct Bilirubin 1.4 mg/dL (0-0.2) H 08/28/20 15:07 Indirect Bilirubin 1.8 mg/dL 08/28/20 15:07 AST 272 units/L (5-40) H 09/01/20 08:25 ALT 358 units/L (7-56) H 09/01/20 08:25 Alkaline Phosphatase 197 units/L (35-129) H 09/01/20 08:25 Ammonia 29.0 umol/L (25-60) 08/31/20 13:44 Lactate Dehydrogenase 564 units/L (91-180) H 08/31/20 15:52 Troponin T 0.010 ng/mL (0.00-0.029) 08/28/20 17:27 C-Reactive Protein 4.60 mg/dL (0.00-1.30) H 08/31/20 15:52 NT-Pro-B Natriuret Pep 7039 pg/mL (0-900) H 08/28/20 15:07 Total Protein 7.9 g/dL (6.3-8.2) 09/01/20 08:25 Albumin 3.1 g/dL (3.9-5) L 09/01/20 08:25 Albumin/Globulin Ratio 0.6 % 09/01/20 08:25 Procalcitonin 0.22 ng/mL (<0.15) 08/31/20 15:52 Urine Color [place]ison (Yellow) 08/28/20 Unknown Urine Turbidity Cloudy (Clear) 08/28/20 Unknown Urine pH 5.0 (5.0-7.0) 08/28/20 Unknown Ur Specific [place] 1.019 (1.003-1.030) 08/28/20 Unknown Urine Protein 100 mg/dl mg/dL (Negative) 08/28/20 Unknown Urine Glucose (UA) Neg mg/dL (Negative) 08/28/20 Unknown Urine Ketones Neg mg/dL (Negative) 08/28/20 Unknown Urine Blood Mod (Negative) 08/28/20 Unknown Urine Nitrite Neg (Negative) 08/28/20 Unknown Urine Bilirubin Neg (Negative) 08/28/20 Unknown Urine Urobilinogen 4.0 mg/dL (<2.0) 08/28/20 Unknown Ur Leukocyte Esterase Mod (Negative) 08/28/20 Unknown Urine WBC (Auto) 65.0 /HPF (0.0-6.0) H 08/28/20 Unknown Urine RBC (Auto) 12.0 /HPF (0.0-6.0) 08/28/20 Unknown Urine Bacteria (Auto) 4+ /HPF (Negative) 08/28/20 Unknown Urine WBC Clumps 2+ /HPF 08/28/20 Unknown Hyaline Casts 20 /LPF 08/28/20 Unknown Urine Mucus 3+ /HPF 08/28/20 Unknown Urine Yeast (Budding) 2+ /HPF 08/28/20 Unknown Coronavirus (PCR) Positive (Negative) A 08/31/20 Unknown Hepatitis A IgM Ab Non-reactive (NonReactive) 08/30/20 10:56 Hep Bs Antigen Non-reactive (Negative) 08/30/20 10:56 Hep B Core IgM Ab Non-reactive (NonReactive) 08/30/20 10:56 Hepatitis C Antibody Non-reactive (NonReactive) 08/30/20 10:56 Microbiology: Microbiology 08/28/20 15:07 Peripheral/Venous Blood Culture - Preliminary NO GROWTH AFTER 4 DAYS 08/28/20 15:07 Peripheral/Venous Blood Culture - Preliminary NO GROWTH AFTER 4 DAYS Kraus/IV: Voiding Method Incontinent Active Medications - Current Medications Current Medications: Generic Name Dose Route Start Last Admin Trade Name Freq PRN Reason Stop Dose Admin Acetaminophen 650 mg 08/28/20 21:49 Acetaminophen 325 Mg Tab PO Q4H PRN Pain MILD(1-3)/Fever >100.5/MOELLER Aspirin 81 mg 08/31/20 10:00 09/02/20 10:00 Aspirin Ec 81 Mg Tab PO 81 mg QDAY PARIS Administration Dexamethasone 6 mg 08/31/20 16:00 09/02/20 09:59 Dexamethasone 4 Mg Tab PO 09/09/20 10:01 6 mg DAILY PARIS Administration Digoxin 0.125 mg 08/30/20 10:00 09/02/20 09:59 Digoxin 0.125 Mg Tab PO 0.125 mg DAILY PARIS Administration Famotidine 10 mg 08/28/20 22:00 09/02/20 09:59 Famotidine 10 Mg Tab PO 10 mg BID PARIS Administration Furosemide 20 mg 08/31/20 10:00 09/02/20 10:00 Furosemide 20 Mg Tab PO 20 mg QDAY PAR[place] Administration Sodium Chloride 1,000 mls @ 100 mls/hr 08/29/20 13:00 09/02/20 13:22 Nacl 0.9% 1000 Ml IV 100 mls/hr DIRECT PARIS Administration Metoprolol Tartrate 50 mg 08/29/20 13:00 09/02/20 13:20 Metoprolol Tartrate 50 Mg Tab PO 50 mg Q8HR PARIS Administration Morphine Sulfate 2 mg 08/28/20 21:49 Morphine 2 Mg/1 Ml Inj IV Q4H PRN Pain, Moderate (4-6) Ondansetron HCl 4 mg 08/28/20 21:49 Ondansetron 4 Mg/2 Ml Inj IV Q8H PRN Nausea And Vomiting Sodium Chloride 10 ml 08/28/20 22:00 09/02/20 10:00 Sodium Chloride 0.9% 10 Ml Flush Syringe IV Not Given BID PARIS Sodium Chloride 10 ml 08/28/20 21:49 Sodium Chloride 0.9% 10 Ml Flush Syringe IV PRN PRN LINE FLUSH Trazodone HCl 50 mg 08/29/20 22:00 09/01/20 21:25 Trazodone 50 Mg Tab PO 50 mg QHS [place] Administration Nutrition/Malnutrition Assess - Dietary Evaluation Nutrition/Malnutrition Findings: Nutrition Notes Start: 08/30/20 08:24 Freq: Status: Active Protocol: Document 09/01/20 11:05 AB (Rec: 09/01/20 11:17 AB [id number]) Co-Sign 09/01/20 11:05 CW Nutrition Notes Initial or Follow up Reassessment Current Diagnosis Acute Kidney Injury,Coronary Artery Disease,Hypertension, Heart Failure Other Pertinent Diagnosis COVID (+), Coumadin Toxicity, Lactic Acidosis, Dementia Current Diet Mechanical soft + cardiac Labs/Tests K 5.2 BUN 20 Cr 0.5 Pertinent Medications Decadron Lasix K-Dur 20 mEq Height 5 ft 7 in Weight 51.9 kg [place] Body Weight (kg) 61.36 BMI 17.9 Weight change and time frame Unsure of accurate wt Weight Status Underweight Subjective/Other Information MD consult for hx of chewing difficulty. F/U for intakes and ONS tolerance. Unable to speak with patient on phone. Per RN, pt eating 100% and chewing well. Per MD note, wanting to change to pureed diet. RN reported that pt is tolerating ONS. Percent of energy/protein needs met: 182%/134% (meals and 2 ONS included) Burn Absent Trauma Absent GI Symptoms None Difficulty In Chewing Food Allergy No Skin Integrity/Comment Aaron Score: 16 Current % PO Good (75-100%) Minimum of two criteria Yes Body Fat Depletion Moderate depletion (severe) Muscle Mass Mild Depletion (non-severe) #1 Nutrition Diagnosis Inadequate oral intake As Evidenced by Signs and Symptoms Pt eating 100% of meals and ONS, meeting 182%/134% of energy/protein needs Diagnosis Progress(for reassessment Improved documentation) Is patient on ventilator? No Is Patient Ambulatory and/or Out of Bed Yes REE-([facility]-ambulatory/OOB) [ 1282.619 [id number]] Kcal/Kg value to use for calculation 31 Approximate Energy Requirements Using 1609 kcal/Kg Calculation Used for Recommendations [facility] Additional Notes protein needs: 93 - 116g (1.2 - 1.5 g/kgBW) kcal needs: 1500 - 1900 ml/day Nutrition Intervention Change Diet Order: Change to pureed diet Add Supplement/Snack (indicate name/kcal D/C /protein ) Goal #1 PO intake that meets at least 75% of kcal needs Anticipated Discharge Needs: Cardiac diet with ONS PRN Follow-Up By: 09/05/20 Additional Comments F/U for diet change toleration and intakes
[2020-09-02] MEDS: traZODone 50 MG TAB PO SCH (22:01)
[2020-09-03] MEDS: LORazepam 2 MG/ML VIAL IV PRN (03:08)
[2020-09-03] MEDS: METOPROLOL TARTRATE 50 MG TAB PO SCH ×3 (05:19→21:51)
[2020-09-03] MEDS: SODIUM CHLORIDE 0.9% 1000 ML 1,000 ML IV SCH ×2 (05:19→21:51)
[2020-09-03 05:38] LABS: Hematocrit 34.7 % (30.3-42.9); Hemoglobin 11.2 gm/dl (10.1-14.3); Mean Corpuscular HGB Conc 32 % (30-34); Mean Corpuscular Volume 106 fl (79-97); Platelet Count 148 K/mm3 (140-440); Red Blood Count 3.28 M/mm3 (3.65-5.03); Red Cell Distribution Width 16.6 % (13.2-15.2)
[2020-09-03 06:04] LABS: Alanine Aminotransferase 295 units/L (7-56); Albumin 2.7 g/dL (3.9-5); Blood Urea Nitrogen 28 mg/dL (7-17); Calcium 8.1 mg/dL (8.4-10.2); Hemolysis Index 6
[2020-09-03 06:17] LABS: BUN/Creatinine Ratio 47
--- NOTE | 2020-09-03 08:24 | Progress Note ---
Assessment and Plan Assessment and plan: 89-year-old female with history of hypertension, congestive heart failure dementia, atrial fibrillation and aortic valve replacement brought in by her son because of high Coumadin level with INR of 8. Also patient has been falling repeatedly. Further work 2 times per day for 1 week. Patient states that she has weakness in both lower extremities. Patient also more confused secondary to her dementia. No fever or chills. Patient is unable currently communicative because of her progressive dementia. In the emergency room patient was found to be in atrial fibrillation with rapid ventricular rate. CT scan of the head shows no acute abnormality. 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 We will also obtain a CT of the abdomen and pelvis with dialysis opinion discussed with her clinical condition and risk of any surgical intervention he replies "what ever it takes". We will also obtain acute hepatitis panel although doubt that this is the cause. INR is improved 08/31: GI input noted await for MRI of the abdomen to evaluate liver and also MRCP. Will change diet to pured diet. We will also check ammonia level due to intermittent altered sensorium in the setting of elevated liver enzymes. 09/01: Patients son notifed about the covid diagnosis. Patient noted with hypoxia also was started on steroids yesterday ID is consulted today. She is on 4 L of oxygen at this time. On discussion with the son I understand that her breast cancer was diagnosed about a month ago she was deemed not a candidate for chemotherapy but the son states that she was being worked up for surgery. She is quite weak and lethargic for surgery at this time I did make this note to the son although this can change. Ideally we had agreed on discontinuing anticoag ulation but considering active cancer and risk for CVA now superimposed on COVID-19 will likely recommend putting her on low-dose Eliquis will discuss with cardiology on this matter. She is also noted to have hyperkalemia we will discontinue her potassium replacement pills at this time. 09/02: Patient clinically improving. Mental status is improved area of infiltration in the right upper extremity has completely resolved. Pulses are intact. Anticipate discharge on Friday as the [facility] facility is not accepting admissions over the weekend. Continue to wean oxygen as tolerated 09/03: Patient clinically stable. Continue supportive care, complete steroids, noted leukocytosis secondary to steroids. Continue to monitor. Rehab recommendation for SNF on discharge. Continue supportive care Cardiology input noted Continue Diltiazem Will obtain ultrasound of the liver Continue antibiotics and follow urine culture Gentle IV hydration because of the CHF Patient received vitamin K. Will monitor INR. Agree with cardiology on discontinuing Coumadin/anticoagulation at this time. Continue to monitor renal function DVT and GI prophylaxis PT OT evaluation Prognosis is guarded History Interval history: Patient seen and examined this morning awake today. Hospitalist Physical - Physical exam Narrative exam: VITAL SIGNS: Reviewed. GENERAL: The patient appears cachectic and extremely frail, awake and verbal vital signs as documented. HEAD: No signs of head trauma. EYES: Pupils are equal. Extraocular motions intact. EARS: Hearing grossly intact. MOUTH: Oropharynx is normal. NECK: No adenopathy, no JVD. CHEST: Chest with clear breath sounds bilaterally. No wheezes, rales, or rhonchi. CARDIAC: Irregularly irregular. S1 and S2, without murmurs, gallops, or rubs. VASCULAR: No Edema. Peripheral pulses normal and equal in all extremities. ABDOMEN: Soft, non tender and non distended. No rebound or guarding, and no masses palpated. Bowel Sounds normal. MUSCULOSKELETAL: Good range of motion of all major joints. Extremities without clubbing, cyanosis. trace edema. NEUROLOGIC EXAM: Awake oriented to person no focal sensory or strength de ficits. Speech much improved. Follows commands. PSYCHIATRIC: Mood normal. SKIN: detail exam as documented in skin assessment - Constitutional Vitals: Temp Pulse Resp BP Pulse Ox 97.5 F L 109 H 14 111/73 100 09/03/20 04:40 09/03/20 05:19 09/03/20 04:40 09/03/20 04:40 09/03/20 04:40 General appearance: Present: mild distress, well-nourished HEART Score - HEART Score Age: > 65 Risk factors: > 3 risk factors or hx of atherosclerotic disease Troponin: Troponin T 0.010 ng/mL (0.00-0.029) 08/28/20 17:27 Troponin: < normal limit - Critical Actions Critical Actions: 4-6 pts:12-16.6% risk of adverse cardiac event. Should be admitted Results - Labs CBC & Chem 7: 09/03/20 04:26 09/03/20 04:26 Labs: Laboratory Last Values WBC 12.5 K/mm3 (4.5-11.0) H 09/03/20 04:26 RBC 3.28 M/mm3 (3.65-5.03) L 09/03/20 04:26 Hgb 11.2 gm/dl (10.1-14.3) D 09/03/20 04:26 Hct 34.7 % (30.3-42.9) D 09/03/20 04:26 MCV 106 fl (79-97) H 09/03/20 04:26 MCH 34 pg (28-32) H 09/03/20 04:26 MCHC 32 % (30-34) 09/03/20 04:26 RDW 16.6 % (13.2-15.2) H 09/03/20 04:26 Plt Count 148 K/mm3 (140-440) 09/03/20 04:26 Lymph % (Auto) 17.3 % (13.4-35.0) 08/29/20 02:27 Dolores % (Auto) 9.3 % (0.0-7.3) H 08/29/20 02:27 Eos % (Auto) 2.3 % (0.0-4.3) 08/29/20 02:27 Baso % (Auto) 0.7 % (0.0-1.8) 08/29/20 02:27 Lymph # (Auto) 1.2 K/mm3 (1.2-5.4) 08/29/20 02:27 [place]ores # (Auto) 0.6 K/mm3 (0.0-0.8) 08/29/20 02:27 Eos # (Auto) 0.2 K/mm3 (0.0-0.4) 08/29/20 02:27 Baso # (Auto) 0.0 K/mm3 (0.0-0.1) 08/29/20 02:27 Add Manual Diff Complete 08/28/20 15:07 Total Counted 100 08/28/20 15:07 Seg Neutrophils % 70.4 % (40.0-70.0) H 08/29/20 02:27 Seg Neuts % (Manual) 64.0 % (40.0-70.0) 08/28/20 15:07 Lymphocytes % (Manual) 23.0 % (13.4-35.0) 08/28/20 15:07 Monocytes % (Manual) 10.0 % (0.0-7.3) H 08/28/20 15:07 Eosinophils % (Manual) 2.0 % (0.0-4.3) 08/28/20 15:07 Basophils % (Manual) 1.0 % (0.0-1.8) 08/28/20 15:07 Nucleated RBC % Not Reportable 08/28/20 15:07 Seg Neutrophils # 4.9 K/mm3 (1.8-7.7) 08/29/20 02:27 Seg Neutrophils # Man 3.8 K/mm3 (1.8-7.7) 08/28/20 15:07 Band Neutrophils # 0.0 K/mm3 08/28/20 15:07 Lymphocytes # (Manual) 1.4 K/mm3 (1.2-5.4) 08/28/20 15:07 Abs React Lymphs (Man) 0.0 K/mm3 08/28/20 15:07 Monocytes # (Manual) 0.6 K/mm3 (0.0-0.8) 08/28/20 15:07 Eosinophils # (Manual) 0.1 K/mm3 (0.0-0.4) 08/28/20 15:07 Basophils # (Manual) 0.1 K/mm3 (0.0-0.1) 08/28/20 15:07 Metamyelocytes # 0.0 K/mm3 08/28/20 15:07 Myelocytes # 0.0 K/mm3 08/28/20 15:07 Promyelocytes # 0.0 K/mm3 08/28/20 15:07 Blast Cells # 0.0 K/mm3 08/28/20 15:07 WBC Morphology Not Reportable 08/28/20 15:07 Hypersegmented Neuts Not Reportable 08/28/20 15:07 Hyposegmented Neuts Not Reportable 08/28/20 15:07 Hypogranular Neuts Not Reportable 08/28/20 15:07 Smudge Cells Not Reportable 08/28/20 15:07 Toxic Granulation Not Reportable 08/28/20 15:07 Toxic Vacuolation Not Reportable 08/28/20 15:07 Dohle Bodies Not Reportable 08/28/20 15:07 Pelger-Huet Anomaly Not Reportable 08/28/20 15:07 Heri Rods Not Reportable 08/28/20 15:07 Platelet Estimate Not Reportable 08/28/20 15:07 Clumped Platelets Not Reportable 08/28/20 15:07 Plt Clumps, EDTA Not Reportable 08/28/20 15:07 Large Platelets Not Reportable 08/28/20 15:07 Giant Platelets Not Reportable 08/28/20 15:07 Platelet Satelliting Not Reportable 08/28/20 15:07 Plt Morphology Comment Not Reportable 08/28/20 15:07 RBC Morphology Not Reportable 08/28/20 15:07 Dimorphic RBCs Not Reportable 08/28/20 15:07 Polychromasia Not Reportable 08/28/20 15:07 Hypochromasia Few 08/28/20 15:07 Poikilocytosis Not Reportable 08/28/20 15:07 Anisocytosis Few 08/28/20 15:07 Microcytosis Rare 08/28/20 15:07 Macrocytosis Not Reportable 08/28/20 15:07 Spherocytes Not Reportable 08/28/20 15:07 Pappenheimer Bodies Not Reportable 08/28/20 15:07 Sickle Cells Not Reportable 08/28/20 15:07 Target Cells Not Reportable 08/28/20 15:07 Tear Drop Cells Not Reportable 08/28/20 15:07 Ovalocytes Not Reportable 08/28/20 15:07 Helmet Cells Not Reportable 08/28/20 15:07 [place] Bodies Not Reportable 08/28/20 15:07 [place] Rings Not Reportable 08/28/20 15:07 [place] Cells Not Reportable 08/28/20 15:07 Bite Cells Not Reportable 08/28/20 15:07 Crenated Cell Not Reportable 08/28/20 15:07 Elliptocytes Not Reportable 08/28/20 15:07 Acanthocytes (Spur) Not Reportable 08/28/20 15:07 Rouleaux Not Reportable 08/28/20 15:07 Hemoglobin C Crystals Not Reportable 08/28/20 15:07 Schistocytes Not Reportable 08/28/20 15:07 Malaria parasites Not Reportable 08/28/20 15:07 Fercho Bodies Not Reportable 08/28/20 15:07 Hem Pathologist Commnt No 08/28/20 15:07 PT 29.0 Sec. (12.2-14.9) H 08/29/20 13:40 INR 2.70 (0.87-1.13) H 08/29/20 13:40 APTT 48.8 Sec. (24.2-36.6) H 08/28/20 15:07 D-Dimer 7683.92 ng/mlDDU (0-234) H 08/31/20 15:52 ABG pH 7.372 pH Units (7.350-7.450) 08/31/20 21:50 ABG pCO2 41.9 mm Hg 08/31/20 21:50 ABG pO2 139.5 mm Hg (80.0-90.0) H 08/31/20 21:50 ABG HCO3 23.8 mmol/L (20.0-26.0) 08/31/20 21:50 ABG O2 Saturation 98.7 % (95.0-99.0) 08/31/20 21:50 ABG O2 Content 20.8 (0.0-44) 08/31/20 21:50 ABG Base Excess -1.4 mmol/L (-2.0-3.0) 08/31/20 21:50 ABG Hemoglobin 15.3 gm/dl (12.0-16.0) 08/31/20 21:50 ABG Carboxyhemoglobin 1.9 % (0.0-5.0) 08/31/20 21:50 ABG Methemoglobin 0.5 % (0.0-1.5) 08/31/20 21:50 Oxyhemoglobin 96.3 % (95.0-99.0) 08/31/20 21:50 FiO2 28 % 08/31/20 21:50 Sodium 152 mmol/L (137-145) H D 09/03/20 04:26 Potassium 3.3 mmol/L (3.6-5.0) L D 09/03/20 04:26 Chloride 115.9 mmol/L (98-107) H 09/03/20 04:26 Carbon Dioxide 27 mmol/L (22-30) 09/03/20 04:26 Anion Gap 12 mmol/L 09/03/20 04:26 BUN 28 mg/dL (7-17) H 09/03/20 04:26 Creatinine 0.6 mg/dL (0.6-1.2) 09/03/20 04:26 Estimated GFR > 60 ml/min 09/03/20 04:26 BUN/Creatinine Ratio 47 % 09/03/20 04:26 Glucose 135 mg/dL (65-100) H 09/03/20 04:26 POC Glucose 169 mg/dL (70-105) H 09/01/20 23:47 Hemoglobin A1c 5.2 % (4-6) 08/29/20 02:27 Lactic Acid 4.70 mmol/L (0.7-2.0) H* 08/28/20 15:07 Calcium 8.1 mg/dL (8.4-10.2) L 09/03/20 04:26 Ferritin 1027.0 ng/mL (10.0-200.0) H 08/31/20 15:52 Total Bilirubin 2.30 mg/dL (0.1-1.2) H 09/03/20 04:26 Direct Bilirubin 1.4 mg/dL (0-0.2) H 08/28/20 15:07 Indirect Bilirubin 1.8 mg/dL 08/28/20 15:07 AST 201 units/L (5-40) H 09/03/20 04:26 ALT 295 units/L (7-56) H 09/03/20 04:26 Alkaline Phosphatase 181 units/L (35-129) H 09/03/20 04:26 Ammonia 29.0 umol/L (25-60) 08/31/20 13:44 Lactate Dehydrogenase 564 units/L (91-180) H 08/31/20 15:52 Troponin T 0.010 ng/mL (0.00-0.029) 08/28/20 17:27 C-Reactive Protein 4.60 mg/dL (0.00-1.30) H 08/31/20 15:52 NT-Pro-B Natriuret Pep 7039 pg/mL (0-900) H 08/28/20 15:07 Total Protein 6.2 g/dL (6.3-8.2) L D 09/03/20 04:26 Albumin 2.7 g/dL (3.9-5) L 09/03/20 04:26 Albumin/Globulin Ratio 0.8 % 09/03/20 04:26 Procalcitonin 0.22 ng/mL (<0.15) 08/31/20 15:52 Urine Color Alison (Yellow) 08/28/20 Unknown Urine Turbidity Cloudy (Clear) 08/28/20 Unknown Urine pH 5.0 (5.0-7.0) 08/28/20 Unknown Ur Specific [place] 1.019 (1.003-1.030) 08/28/20 Unknown Urine Protein 100 mg/dl mg/dL (Negative) 08/28/20 Unknown Urine Glucose (UA) Neg mg/dL (Negative) 08/28/20 Unknown Urine Ketones Neg mg/dL (Negative) 08/28/20 Unknown Urine Blood Mod (Negative) 08/28/20 Unknown Urine Nitrite Neg (Negative) 08/28/20 Unknown Urine Bilirubin Neg (Negative) 08/28/20 Unknown Urine Urobilinogen 4.0 mg/dL (<2.0) 08/28/20 Unknown Ur Leukocyte Esterase Mod (Negative) 08/28/20 Unknown Urine WBC (Auto) 65.0 /HPF (0.0-6.0) H 08/28/20 Unknown Urine RBC (Auto) 12.0 /HPF (0.0-6.0) 08/28/20 Unknown Urine Bacteria (Auto) 4+ /HPF (Negative) 08/28/20 Unknown Urine WBC Clumps 2+ /HPF 08/28/20 Unknown Hyaline Casts 20 /LPF 08/28/20 Unknown Urine Mucus 3+ /HPF 08/28/20 Unknown Urine Yeast (Budding) 2+ /HPF 08/28/20 Unknown Coronavirus (PCR) Positive (Negative) A 08/31/20 Unknown Hepatitis A IgM Ab Non-reactive (NonReactive) 08/30/20 10:56 Hep Bs Antigen Non-reactive (Negative) 08/30/20 10:56 Hep B Core IgM Ab Non-reactive (NonReactive) 08/30/20 10:56 Hepatitis C Antibody Non-reactive (NonReactive) 08/30/20 10:56 Microbiology: Microbiology 08/28/20 15:07 Peripheral/Venous Blood Culture - Final NO GROWTH AFTER 5 DAYS 08/28/20 15:07 Peripheral/Venous Blood Culture - Final NO GROWTH AFTER 5 DAYS Kraus/IV: Voiding Method Incontinent Active Medications - Current Medications Current Medications: Generic Name Dose Route Start Last Admin Trade Name Freq PRN Reason Stop Dose Admin Acetaminophen 650 mg 08/28/20 21:49 Acetaminophen 325 Mg Tab PO Q4H PRN Pain MILD(1-3)/Fever >100.5/MOELLER Aspirin 81 mg 08/31/20 10:00 09/02/20 10:00 Aspirin Ec 81 Mg Tab PO 81 mg QDAY PARIS Administration Dexamethasone 6 mg 08/31/20 16:00 09/02/20 09:59 Dexamethasone 4 Mg Tab PO 09/09/20 10:01 6 mg DAILY PARIS Administration Digoxin 0.125 mg 08/30/20 10:00 09/02/20 09:59 Digoxin 0.125 Mg Tab PO 0.125 mg DAILY PARIS Administration Famotidine 10 mg 08/28/20 22:00 09/02/20 22:01 Famotidine 10 Mg Tab PO 10 mg BID PARIS Administration Furosemide 20 mg 08/31/20 10:00 09/02/20 10:00 Furosemide 20 Mg Tab PO 20 mg QDAY PARIS Administration Sodium Chloride 1,000 mls @ 100 mls/hr 08/29/20 13:00 09/03/20 05:19 Nacl 0.9% 1000 Ml IV 100 mls/hr DIRECT PARIS Administration Lorazepam 0.5 mg 09/02/20 19:23 09/03/20 03:08 Lorazepam 2 Mg/Ml Vial IV 0.5 mg Q6H PRN Administration Agitation Metoprolol Tartrate 50 mg 08/29/20 13:00 09/03/20 05:19 Metoprolol Tartrate 50 Mg Tab PO 50 mg Q8HR PARIS Administration Morphine Sulfate 2 mg 08/28/20 21:49 Morphine 2 Mg/1 Ml Inj IV Q4H PRN Pain, Moderate (4-6) Ondansetron HCl 4 mg 08/28/20 21:49 Ondansetron 4 Mg/2 Ml Inj IV Q8H PRN Nausea And Vomiting Sodium Chloride 10 ml 08/28/20 22:00 09/02/20 22:01 Sodium Chloride 0.9% 10 Ml Flush Syringe IV 10 ml BID PARIS Administration Sodium Chloride 10 ml 08/28/20 21:49 Sodium Chloride 0.9% 10 Ml Flush Syringe IV PRN PRN LINE FLUSH Trazodone HCl 50 mg 08/29/20 22:00 09/02/20 22:01 Trazodone 50 Mg Tab PO 50 mg QHS PARIS Administration Nutrition/Malnutrition Assess - Dietary Evaluation Nutrition/Malnutrition Findings: Nutrition Notes Start: 08/30/20 08:24 Freq: Status: Active Protocol: Document 09/01/20 11:05 AB (Rec: 09/01/20 11:17 AB [id number]) Co-Sign 09/01/20 11:05 CW Nutrition Notes Initial or Follow up Reassessment Current Diagnosis Acute Kidney Injury,Coronary Artery Disease,Hypertension, Heart Failure Other Pertinent Diagnosis COVID (+), Coumadin Toxicity, Lactic Acidosis, Dementia Current Diet Mechanical soft + cardiac Labs/Tests K 5.2 BUN 20 Cr 0.5 Pertinent Medications Decadron Lasix K-Dur 20 mEq Height 5 ft 7 in Weight 51.9 kg [place] Body Weight (kg) 61.36 BMI 17.9 Weight change and time frame Unsure of accurate wt Weight Status Underweight Subjective/Other Information MD consult for hx of chewing difficulty. F/U for intakes and ONS tolerance. Unable to speak with patient on phone. Per RN, pt eating 100% and chewing well. Per MD note, wanting to change to pureed diet. RN reported that pt is tolerating ONS. Percent of energy/protein needs met: 182%/134% (meals and 2 ONS included) Burn Absent Trauma Absent GI Symptoms None Difficulty In Chewing Food Allergy No Skin Integrity/Comment Aaron Score: 16 Current % PO Good (75-100%) Minimum of two criteria Yes Body Fat Depletion Moderate depletion (severe) Muscle Mass Mild Depletion (non-severe) #1 Nutrition Diagnosis Inadequate oral intake As Evidenced by Signs and Symptoms Pt eating 100% of meals and ONS, meeting 182%/134% of energy/protein needs Diagnosis Progress(for reassessment Improved documentation) Is patient on ventilator? No Is Patient Ambulatory and/or Out of Bed Yes REE-([facility]-ambulatory/OOB) [ 1282.619 [id number]] Kcal/Kg value to use for calculation 31 Approximate Energy Requirements Using 1609 kcal/Kg Calculation Used for Recommendations [facility] Additional Notes protein needs: 93 - 116g (1.2 - 1.5 g/kgBW) kcal needs: 1500 - 1900 ml/day Nutrition Intervention Change Diet Order: Change to pureed diet Add Supplement/Snack (indicate name/kcal D/C /protein ) Goal #1 PO intake that meets at least 75% of kcal needs Anticipated Discharge Needs: Cardiac diet with ONS PRN Follow-Up By: 09/05/20 Additional Comments F/U for diet change toleration and intakes
[2020-09-03] MEDS: POTASSIUM CHLORIDE 10 MEQ 10 MEQ/100 ML BAG IV SCH ×4 (10:13→16:07)
[2020-09-03] MEDS: DEXAMETHASONE 4 MG TAB PO SCH (10:15)
[2020-09-03] MEDS: FAMOTIDINE 10 MG TAB PO SCH ×2 (10:15→21:50)
[2020-09-03] MEDS: FUROSEMIDE 20 MG TAB PO SCH (10:15)
[2020-09-03] MEDS: ASPIRIN EC 81 MG TAB PO SCH (10:15)
[2020-09-03] MEDS: DIGOXIN 0.125 MG TAB PO SCH (10:23)
--- NOTE | 2020-09-03 12:46 | Progress Note ---
Assessment and Plan COVID infection Severe coagulopathy, INR 10.69 on presentation s/p vitamin K; H&H is stable warfarin discontinued Elevated liver transaminases statin therapy discontinued Hypernatremia Chronic atrial fibrillation, rate control strategy d/t advanced age and extreme frailty, she has high bleeding risk and will defer further treatment with long-term oral anticoagulation. 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 Continue GDMT for ischemic cardiomyopathy and coronary artery disease as tolerated. Otherwise, conservative cardiac management. Subjective Date of service: 09/03/20 Principal diagnosis: abnormal lft Interval history: No acute events Objective Vital Signs Temp Pulse Resp BP Pulse Ox 09/03/20 10:23 90 120/70 09/03/20 05:19 109 H 09/03/20 04:40 97.5 F L 30 L 14 111/73 100 09/02/20 23:08 98.2 F 120 H 15 130/83 98 09/02/20 22:01 98 H 09/02/20 20:10 111 H 09/02/20 18:05 120/78 09/02/20 13:00 81 97 09/02/20 12:52 97.7 F 18 145/80 - Physical Examination General: No Apparent Distress HEENT: Positive: PERRL Neck: Positive: trachea midline Cardiac: Positive: Irregularly Regular Lungs: Positive: clear to auscultation - Labs and Meds Cardiac Enzymes 09/03/20 Range/Units 04:26 AST 201 H (5-40) units/L CBC 09/03/20 Range/Units 04:26 WBC 12.5 H (4.5-11.0) K/mm3 RBC 3.28 L (3.65-5.03) M/mm3 Hgb 11.2 D (10.1-14.3) gm/dl Hct 34.7 D (30.3-42.9) % Plt Count 148 (140-440) K/mm3 Comprehensive Metabolic Panel 09/03/20 Range/Units 04:26 Sodium 152 H D (137-145) mmol/L Potassium 3.3 L D (3.6-5.0) mmol/L Chloride 115.9 H (98-107) mmol/L Carbon Dioxide 27 (22-30) mmol/L BUN 28 H (7-17) mg/dL Creatinine 0.6 (0.6-1.2) mg/dL Glucose 135 H (65-100) mg/dL Calcium 8.1 L (8.4-10.2) mg/dL AST 201 H (5-40) units/L ALT 295 H (7-56) units/L Alkaline Phosphatase 181 H (35-129) units/L Total Protein 6.2 L D (6.3-8.2) g/dL Albumin 2.7 L (3.9-5) g/dL - Imaging and Cardiology EKG: report reviewed (Atrial fibrillation with RVR)
[2020-09-03] MEDS: traZODone 50 MG TAB PO SCH (21:50)
[2020-09-04 06:20] LABS: Hematocrit 36.1 % (30.3-42.9); Hemoglobin 11.9 gm/dl (10.1-14.3); Mean Corpuscular HGB Conc 33 % (30-34); Mean Corpuscular Volume 104 fl (79-97); Platelet Count 150 K/mm3 (140-440); Red Blood Count 3.47 M/mm3 (3.65-5.03); Red Cell Distribution Width 16.2 % (13.2-15.2)
[2020-09-04] MEDS: METOPROLOL TARTRATE 50 MG TAB PO SCH ×3 (06:23→21:33)
[2020-09-04 06:40] LABS: Alanine Aminotransferase 242 units/L (7-56); Albumin 3.2 g/dL (3.9-5); Blood Urea Nitrogen 20 mg/dL (7-17); Calcium 8.3 mg/dL (8.4-10.2); Hemolysis Index 1
[2020-09-04 06:46] LABS: BUN/Creatinine Ratio 40
[2020-09-04] MEDS: DEXAMETHASONE 4 MG TAB PO SCH (09:20)
[2020-09-04] MEDS: DIGOXIN 0.125 MG TAB PO SCH (09:20)
[2020-09-04] MEDS: ASPIRIN EC 81 MG TAB PO SCH (09:21)
[2020-09-04] MEDS: FUROSEMIDE 20 MG TAB PO SCH (09:21)
[2020-09-04] MEDS: FAMOTIDINE 10 MG TAB PO SCH ×2 (09:21→21:33)
--- NOTE | 2020-09-04 09:26 | Progress Note ---
Assessment and Plan Cultures: Blood culture 08/28/2020 no growth Urine culture 08/28/2020 10-100,000 CFU mixed bacteria A/P: 89-year-old female past medical history hypertension, CHF, dementia, A. fib, prior aortic valve replacement admitted with supratherapeutic INR, found to have COVID-19. #COVID-19: No pneumonia noted. CT chest shows no PE no consolidation. Elevated inflammatory markers, low procalcitonin. Markers elevated, D-dimer 7683, f erritin 1027 #Intermittent hypoxia: Currently on 2 L. #Elevated liver enzymes: Possibly secondary to COVID-19, normal abdominal imaging aside from some hepatic cyst. Negative hepatitis viral panel. Currently improving. MRI shows liver cyst. #Breast cancer: Recent diagnosed, not a candidate for chemotherapy. #Dementia: Acute on chronic altered mental status. #UTI: Urine culture grew 10 200,000 CFU mixed bacteria #Elevated D-dimer: No pulmonary embolism seen. Recs: -Macrobid 100 mg p.o. twice daily for 5 days for UTI -Continue dexamethasone 6 mg IV/PO daily for 10 days -Obtain q48-72h inflammatory markers - ferritin, Ddimer, CRP, LDH, ordered markers today -Anticoagulation per primary team on the basis of supratherapeutic INR. Karen Coon MD [facility], [place], [facility] ([facility]) Office [phone] Subjective Date of service: 09/04/20 Principal diagnosis: abnormal lft Interval history: Remains on 2 L nasal cannula, no acute events reported. Objective - Exam Narrative Exam: Physical exam deferred to minimize COVID-19 transmission during pandemic. ER and internal medicine physical examination notes reviewed. - Constitutional Vitals: Vital Signs Temp Pulse Resp BP Pulse Ox 98.0 F 72 14 146/85 96 09/04/20 06:04 09/04/20 06:04 09/04/20 06:04 09/04/20 06:23 09/04/20 06:04 Temperature -Last 24 Hours Temperature 98.0 F Temperature 97.6 F Temperature 98.1 F Temperature 97.8 F - Labs CBC & Chem 7: 09/04/20 05:34 09/04/20 05:34 Labs: Abnormal lab results 09/04/20 09/04/20 Range/Units 05:34 05:34 RBC 3.47 L (3.65-5.03) M/mm3 MCV 104 H (79-97) fl MCH 34 H (28-32) pg RDW 16.2 H (13.2-15.2) % BUN 20 H (7-17) mg/dL Creatinine 0.5 L (0.6-1.2) mg/dL Glucose 104 H (65-100) mg/dL Calcium 8.3 L (8.4-10.2) mg/dL Total Bilirubin 3.60 H (0.1-1.2) mg/dL AST 114 H (5-40) units/L ALT 242 H (7-56) units/L Alkaline Phosphatase 182 H (35-129) units/L Albumin 3.2 L (3.9-5) g/dL
--- NOTE | 2020-09-04 09:54 | Discharge Summary ---
Providers - Providers Date of Admission: 08/28/20 18:30 Attending physician: ELIS LOZANO MD 08/28/20 21:49 Consult to Physician [CONS] Routine Comment: Consulting Provider: HERMES FREEDMAN Physician Instructions: Reason For Exam: A. fib with RVR 08/29/20 09:04 Physical Therapy Evaluation and Treat [CONS] Routine Comment: Reason For Exam: debility 08/29/20 09:05 Occupational Therapy Evaluate and Treat [CONS] Routine Comment: Reason For Exam: debililty 08/30/20 09:00 Consult to Dietitian/Nutrition [CONS] Routine Physician Instructions: Reason For Exam: Might need soft/puree diet Reason for Consult: Poor oral intake 08/30/20 10:23 Consult to Physician [CONS] Routine Comment: Consulting Provider: HASEEB TORREZ Physician Instructions: Reason For Exam: elevated LFT 09/01/20 12:57 Consult to Physician [CONS] Routine Comment: Consulting Provider: LUIS GONSALES Physician Instructions: Reason For Exam: covid 09/01/20 18:42 Midline [Consult to PICC Line RN] [CONS] Stat Reason For Exam: access for CTA Type Line:: Midline Primary care physician: JULIAN ROJO Hospitalization Reason for admission: repeated falls Condition: Stable Hospital course: 89-year-old female with history of hypertension, congestive heart failure dementia, atrial fibrillation and aortic valve replacement brought in by her son because of high Coumadin level with INR of 8. Also patient has been falling repeatedly. Further work 2 times per day for 1 week. Patient states that she has weakness in both lower extremities. Patient also more confused secondary to her dementia. No fever or chills. Patient is unable currently communicative because of her progressive dementia. In the emergency room patient was found to be in atrial fibrillation with rapid ventricular rate. CT scan of the head shows no acute abnormality. 08/30: Discussed case with the son will obtain GI evaluation in the setting of hyperbilirubinemia and elevated AST and ALT levels. We will also obtain a CT of the abdomen and pelvis with dialysis opinion discussed with her clinical condition and risk of any surgical intervention he replies "what ever it takes". We will also obtain acute hepatitis panel although doubt that this is the cause. INR is improved 08/31: GI input noted await for MRI of the abdomen to evaluate liver and also MRCP. Will change diet to pured diet. We will also check ammonia level due to intermittent altered sensorium in the setting of elevated liver enzymes. 09/01: Patients son notifed about the covid diagnosis. Patient noted with hypoxia also was started on steroids yesterday ID is consulted today. She is on 4 L of oxygen at this time. On discussion with the son I understand that her breast cancer was diagnosed about a month ago she was deemed not a candidate for chemotherapy but the son states that she was being worked up for surgery. She is quite weak and lethargic for surgery at this time I did make this note to the son although this can change. Ideally we had agreed on discontinuing anticoagulation but considering active cancer and risk for CVA now superimposed on COVID-19 will likely recommend putting her on low-dose Eliquis will discuss with cardiology on this matter. She is also noted to have hyperkalemia we will discontinue her potassium replacement pills at this time. 09/02: Patient clinically improving. Mental status is improved area of infiltration in the right upper extremity has completely resolved. Pulses are intact. Anticipate discharge on Friday as the [facility] facility is not accepting admissions over the weekend. Continue to wean oxygen as tolerated 09/03: Patient clinically stable. Continue supportive care, complete steroids, noted leukocytosis secondary to steroids. Continue to monitor. 09/04: Patient clinically stable today, no new complaints, still with, Intermittent confusion probably secondary to underlying Dementia. plan for discharge to SNF with home o2 and anticipate the Home o2 is short term. 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 COVID-19 Left breast CA Acute hypoxic respiratory failure secondary to COVID-19 Hyperkalemia Acute hypernatremia Acute metabolic encephalopathy-POA Lactic Acidosis Hyperbilirubinemia- Secondary to COVID19- Improving Transaminitis secondary to COVID 19- IMPROVING Acute Cystitis Acute kidney injury secondary to vasomotor nephropathy Aortic valve replacement Advanced age Dementia Disposition: DC/[place]-03 SNF W [facility] CERT Final Discharge Diagnosis (Prints w/discharge instructions): Acute hypoxic respiratory failure secondary to COVID-19 Time spent for discharge: 35 MINS Core Measure Documentation - Palliative Care Palliative Care/ Comfort Measures: Not Applicable - Core Measures Any of the following diagnoses?: none Exam - Physical Exam Narrative exam: VITAL SIGNS: Reviewed. GENERAL: The patient appears cachectic and extremely frail, awake and verbal vital signs as documented. HEAD: No signs of head trauma. EYES: Pupils are equal. Extraocular motions intact. EARS: Hearing grossly intact. MOUTH: Oropharynx is normal. NECK: No adenopathy, no JVD. CHEST: Chest with clear breath sounds bilaterally. No wheezes, rales, or rhonchi. CARDIAC: Irregularly irregular. S1 and S2, without murmurs, gallops, or rubs. VASCULAR: No Edema. Peripheral pulses normal and equal in all extremities. ABDOMEN: Soft, non tender and non distended. No rebound or guarding, and no masses palpated. Bowel Sounds normal. MUSCULOSKELETAL: Good range of motion of all major joints. Extremities without clubbing, cyanosis. trace edema. NEUROLOGIC EXAM: Awake oriented to person no focal sensory or strength deficits. Speech much improved. Follows commands. PSYCHIATRIC: Mood normal. SKIN: detail exam as documented in skin assessment - Constitutional Vitals: Temp Pulse Resp BP Pulse Ox 98.0 F 72 14 146/85 96 09/04/20 06:04 09/04/20 06:04 09/04/20 06:04 09/04/20 06:23 09/04/20 06:04 Plan Activity: advance as tolerated, fall precautions Diet: low fat Special Instructions: record daily weights, record daily BP diary, physical therapy, occupational therapy, home oxygen via (nasal cannula @ 2 liters per minute) Follow up with: JULIAN ROJO JR, MD [Primary Care Provider] - 3-5 Days DAGOBERTO ALEJANDRA MD [Staff Physician] - 7 Days Prescriptions: dexAMETHasone [Dexamethasone] 6 mg PO DAILY #6 tablet Apixaban [Eliquis] 2.5 mg PO BID #30 tablet Aspirin EC [Halfprin EC] 81 mg PO QDAY #30 tablet Digoxin [Lanoxin] 0.125 mg PO DAILY #30 tablet Nitrofurantoin [place]/M-Cryst [Macrobid CAP] 100 mg PO Q12HR #10 capsule traMADoL [Ultram 50 MG tab] 50 mg PO Q6HR PRN #10 PRN Reason: Pain
--- NOTE | 2020-09-04 11:44 | Progress Note ---
Assessment and Plan - Patient Problems (1) Chronic atrial fibrillation Current Visit: Yes Status: Acute Plan to address problem: Rate control strategy of chronic atrial fibrillation. Patient has been determined a poor risk for long-term oral anticoagulation due to frailty, advanced age and propensity for falls. Subjective Date of service: 09/04/20 Principal diagnosis: abnormal lft Interval history: No new cardiac complaints, discharge planning is in progress. Objective Vital Signs Temp Pulse Resp BP BP Pulse Ox 09/04/20 11:23 97.1 F L 73 18 136/98 73 L 09/04/20 06:23 146/85 09/04/20 06:22 149/85 09/04/20 06:04 98.0 F 72 14 146/109 96 09/03/20 23:36 97.6 F 52 L 17 138/82 100 09/03/20 22:00 100 09/03/20 21:51 96 H 148/85 09/03/20 17:29 91 09/03/20 17:22 98.1 F 20 166/99 09/03/20 14:32 92 H 130/87 09/03/20 11:49 97.8 F 16 151/98 - Physical Examination General: No Apparent Distress HEENT: Positive: PERRL Neck: Positive: trachea midline Cardiac: Positive: irregularly irregular Lungs: Positive: Decreased Breath Sounds Neuro: Positive: Grossly Intact Abdomen: Positive: Soft Skin: Positive: Clear Extremities: Present: normal - Labs and Meds Cardiac Enzymes 09/04/20 Range/Units 05:34 AST 114 H (5-40) units/L CBC 09/04/20 Range/Units 05:34 WBC 8.5 (4.5-11.0) K/mm3 RBC 3.47 L (3.65-5.03) M/mm3 Hgb 11.9 (10.1-14.3) gm/dl Hct 36.1 (30.3-42.9) % Plt Count 150 (140-440) K/mm3 Comprehensive Metabolic Panel 09/04/20 Range/Units 05:34 Sodium 141 D (137-145) mmol/L Potassium 3.6 (3.6-5.0) mmol/L Chloride 104.5 (98-107) mmol/L Carbon Dioxide 27 (22-30) mmol/L BUN 20 H (7-17) mg/dL Creatinine 0.5 L (0.6-1.2) mg/dL Glucose 104 H (65-100) mg/dL Calcium 8.3 L (8.4-10.2) mg/dL AST 114 H (5-40) units/L ALT 242 H (7-56) units/L Alkaline Phosphatase 182 H (35-129) units/L Total Protein 6.3 (6.3-8.2) g/dL Albumin 3.2 L (3.9-5) g/dL - Imaging and Cardiology EKG: report reviewed (Atrial fibrillation with RVR)
[2020-09-04] MEDS: NITROFURANTOIN MONOHYD/M-CRYST 100 MG CAP PO SCH ×2 (11:51→21:33)
[2020-09-04] MEDS: SODIUM CHLORIDE 0.9% 1000 ML 1,000 ML IV SCH (13:53)
[2020-09-04 15:36] LABS: C-Reactive Protein 1.2 mg/dL (0.00-1.30)
[2020-09-04] MEDS: traZODone 50 MG TAB PO SCH (21:33)
[2020-09-05] MEDS: LORazepam 2 MG/ML VIAL IV PRN (04:06)
[2020-09-05] MEDS: SODIUM CHLORIDE 0.9% 1000 ML 1,000 ML IV SCH ×2 (04:06→23:02)
[2020-09-05] MEDS: METOPROLOL TARTRATE 50 MG TAB PO SCH ×3 (06:55→22:51)
[2020-09-05] MEDS: ASPIRIN EC 81 MG TAB PO SCH (09:14)
[2020-09-05] MEDS: FAMOTIDINE 10 MG TAB PO SCH ×2 (09:14→22:51)
[2020-09-05] MEDS: FUROSEMIDE 20 MG TAB PO SCH (09:14)
[2020-09-05] MEDS: DEXAMETHASONE 4 MG TAB PO SCH (09:14)
[2020-09-05] MEDS: NITROFURANTOIN MONOHYD/M-CRYST 100 MG CAP PO SCH ×2 (09:19→22:51)
[2020-09-05] MEDS: DIGOXIN 0.125 MG TAB PO SCH (09:19)
--- NOTE | 2020-09-05 09:38 | Progress Note ---
Assessment and Plan Cultures: Blood culture 08/28/2020 no growth Urine culture 08/28/2020 10-100,000 CFU mixed bacteria A/P: 89-year-old female past medical history hypertension, CHF, dementia, A. fib, prior aortic valve replacement admitted with supratherapeutic INR, found to have COVID-19. #COVID-19: No pneumonia noted. CT chest shows no PE no consolidation. Elevated inflammatory markers, low procalcitonin. Markers elevated, D-dimer improving #Intermittent hypoxia: Now on 3 L #Elevated liver enzymes: Possibly secondary to COVID-19, normal abdominal imaging aside from some hepatic cyst. Negative hepatitis viral panel. Currently improving. MRI shows liver cyst. #Breast cancer: Recent diagnosed, not a candidate for chemotherapy. #Dementia: Acute on chronic altered mental status. #UTI: Urine culture grew 10 200,000 CFU mixed bacteria #Elevated D-dimer: No pulmonary embolism seen. Recs: -Macrobid 100 mg p.o. twice daily for 5 days for UTI -Continue dexamethasone 6 mg IV/PO daily for 10 days -Anticoagulation per primary team on the basis of supratherapeutic INR. -Monitor oxygenation discussed with attending consideration of starting remdesivir Karen Coon MD [facility] ([facility]) Office [phone] Subjective Date of service: 09/05/20 Principal diagnosis: abnormal lft Interval history: Remains on 3 L nasal cannula, desaturated to 83% overnight. Objective - Exam Narrative Exam: Physical exam deferred to minimize COVID-19 transmission during pandemic. ER and internal medicine physical examination notes reviewed. - Constitutional Vitals: Vital Signs Temp Pulse Resp BP Pulse Ox 98.0 F 110 H 18 149/110 100 09/05/20 04:30 09/05/20 09:19 09/05/20 06:54 09/05/20 09:19 09/05/20 09:35 Temperature -Last 24 Hours Temperature 98.0 F Temperature 97.8 F Temperature 98.0 F Temperature 97.1 F - Labs CBC & Chem 7: 09/04/20 05:34 09/04/20 05:34 Labs: Abnormal lab results 09/04/20 09/04/20 09/04/20 Range/Units 14:30 14:30 14:30 D-Dimer 4137.51 H (0-234) ng/mlDDU Ferritin 1981.0 H (10.0-200.0) ng/mL Lactate Dehydrogenase 430 H (91-180) units/L
--- NOTE | 2020-09-05 10:22 | Progress Note ---
Assessment and Plan Assessment and plan: 89-year-old female with history of hypertension, congestive heart failure dementia, atrial fibrillation and aortic valve replacement brought in by her son because of high Coumadin level with INR of 8. Also patient has been falling repeatedly. Further work 2 times per day for 1 week. Patient states that she has weakness in both lower extremities. Patient also more confused secondary to her dementia. No fever or chills. Patient is unable currently communicative because of her progressive dementia. In the emergency room patient was found to be in atrial fibrillation with rapid ventricular rate. CT scan of the head shows no acute abnormality. 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 We will also obtain a CT of the abdomen and pelvis with dialysis opinion discussed with her clinical condition and risk of any surgical intervention he replies "what ever it takes". We will also obtain acute hepatitis panel although doubt that this is the cause. INR is improved 08/31: GI input noted await for MRI of the abdomen to evaluate liver and also MRCP. Will change diet to pured diet. We will also check ammonia level due to intermittent altered sensorium in the setting of elevated liver enzymes. 09/01: Patients son notifed about the covid diagnosis. Patient noted with hypoxia also was started on steroids yesterday ID is consulted today. She is on 4 L of oxygen at this time. On discussion with the son I understand that her breast cancer was diagnosed about a month ago she was deemed not a candidate for chemotherapy but the son states that she was being worked up for surgery. She is quite weak and lethargic for surgery at this time I did make this note to the son although this can change. Ideally we had agreed on discontinuing anticoa gulation but considering active cancer and risk for CVA now superimposed on COVID-19 will likely recommend putting her on low-dose Eliquis will discuss with cardiology on this matter. She is also noted to have hyperkalemia we will discontinue her potassium replacement pills at this time. 09/02: Patient clinically improving. Mental status is improved area of infiltration in the right upper extremity has completely resolved. Pulses are intact. Anticipate discharge on Friday as the half-way facility is not accepting admissions over the weekend. Continue to wean oxygen as tolerated 09/03: Patient clinically stable. Continue supportive care, complete steroids, noted leukocytosis secondary to steroids. Continue to monitor. 09/05. Remains on steroids. On 2 L of oxygen. She may need remdesivir given hypoxia. ABG ordered. Discussed with ID Disposition Rehab recommendation for SNF on discharge. Continue supportive care Cardiology input noted Continue Diltiazem Will obtain ultrasound of the liver Continue antibiotics and follow urine culture Gentle IV hydration because of the CHF Patient received vitamin K. Will monitor INR. Agree with cardiology on discontinuing Coumadin/anticoagulation at this time. Continue to monitor renal function DVT and GI prophylaxis PT OT evaluation Prognosis is guarded History Interval history: Patient seen and examined at bedside this morning. On 3 L of oxygen. Hospitalist Physical - Physical exam Narrative exam: VITAL SIGNS: Reviewed. GENERAL: Awake HEAD: No signs of head trauma. EYES: Pupils are equal. Extraocular motions intact. MOUTH: Oropharynx is normal. NECK: No adenopathy, no JVD. CHEST: Chest with diminished breath sounds bilaterally. No wheezes, rales, or rhonchi. CARDIAC: normal S1 and S2, without murmurs, gallops, or rubs. ABDOMEN: Soft, non tender and non distended. No rebound or guarding, and no masses palpated. Bowel Sounds normal. MUSCULOSKELETAL: No edema NEUROLOGIC EXAM: Alert. SKIN: No obvious lesions - Constitutional Vitals: Temp Pulse Resp BP Pulse Ox 98.0 F 110 H 18 149/110 100 09/05/20 04:30 09/05/20 09:19 09/05/20 06:54 09/05/20 09:19 09/05/20 09:35 HEART Score - HEART Score Age: > 65 Risk factors: > 3 risk factors or hx of atherosclerotic disease Troponin: Troponin T 0.010 ng/mL (0.00-0.029) 08/28/20 17:27 Troponin: < normal limit - Critical Actions Critical Actions: 4-6 pts:12-16.6% risk of adverse cardiac event. Should be admitted Results - Labs CBC & Chem 7: 09/04/20 05:34 09/04/20 05:34 Labs: Laboratory Last Values WBC 8.5 K/mm3 (4.5-11.0) 09/04/20 05:34 RBC 3.47 M/mm3 (3.65-5.03) L 09/04/20 05:34 Hgb 11.9 gm/dl (10.1-14.3) 09/04/20 05:34 Hct 36.1 % (30.3-42.9) 09/04/20 05:34 MCV 104 fl (79-97) H 09/04/20 05:34 MCH 34 pg (28-32) H 09/04/20 05:34 MCHC 33 % (30-34) 09/04/20 05:34 RDW 16.2 % (13.2-15.2) H 09/04/20 05:34 Plt Count 150 K/mm3 (140-440) 09/04/20 05:34 Lymph % (Auto) 17.3 % (13.4-35.0) 08/29/20 02:27 Stafford % (Auto) 9.3 % (0.0-7.3) H 08/29/20 02:27 Eos % (Auto) 2.3 % (0.0-4.3) 08/29/20 02:27 Baso % (Auto) 0.7 % (0.0-1.8) 08/29/20 02:27 Lymph # (Auto) 1.2 K/mm3 (1.2-5.4) 08/29/20 02:27 Stafford # (Auto) 0.6 K/mm3 (0.0-0.8) 08/29/20 02:27 Eos # (Auto) 0.2 K/mm3 (0.0-0.4) 08/29/20 02:27 Baso # (Auto) 0.0 K/mm3 (0.0-0.1) 08/29/20 02:27 Add Manual Diff Complete 08/28/20 15:07 Total Counted 100 08/28/20 15:07 Seg Neutrophils % 70.4 % (40.0-70.0) H 08/29/20 02:27 Seg Neuts % (Manual) 64.0 % (40.0-70.0) 08/28/20 15:07 Lymphocytes % (Manual) 23.0 % (13.4-35.0) 08/28/20 15:07 Monocytes % (Manual) 10.0 % (0.0-7.3) H 08/28/20 15:07 Eosinophils % (Manual) 2.0 % (0.0-4.3) 08/28/20 15:07 Basophils % (Manual) 1.0 % (0.0-1.8) 08/28/20 15:07 Nucleated RBC % Not Reportable 08/28/20 15:07 Seg Neutrophils # 4.9 K/mm3 (1.8-7.7) 08/29/20 02:27 Seg Neutrophils # Man 3.8 K/mm3 (1.8-7.7) 08/28/20 15:07 Band Neutrophils # 0.0 K/mm3 08/28/20 15:07 Lymphocytes # (Manual) 1.4 K/mm3 (1.2-5.4) 08/28/20 15:07 Abs React Lymphs (Man) 0.0 K/mm3 08/28/20 15:07 Monocytes # (Manual) 0.6 K/mm3 (0.0-0.8) 08/28/20 15:07 Eosinophils # (Manual) 0.1 K/mm3 (0.0-0.4) 08/28/20 15:07 Basophils # (Manual) 0.1 K/mm3 (0.0-0.1) 08/28/20 15:07 Metamyelocytes # 0.0 K/mm3 08/28/20 15:07 Myelocytes # 0.0 K/mm3 08/28/20 15:07 Promyelocytes # 0.0 K/mm3 08/28/20 15:07 Blast Cells # 0.0 K/mm3 08/28/20 15:07 WBC Morphology Not Reportable 08/28/20 15:07 Hypersegmented Neuts Not Reportable 08/28/20 15:07 Hyposegmented Neuts Not Reportable 08/28/20 15:07 Hypogranular Neuts Not Reportable 08/28/20 15:07 Smudge Cells Not Reportable 08/28/20 15:07 Toxic Granulation Not Reportable 08/28/20 15:07 Toxic Vacuolation Not Reportable 08/28/20 15:07 Dohle Bodies Not Reportable 08/28/20 15:07 Pelger-Huet Anomaly Not Reportable 08/28/20 15:07 Heri Rods Not Reportable 08/28/20 15:07 Platelet Estimate Not Reportable 08/28/20 15:07 Clumped Platelets Not Reportable 08/28/20 15:07 Plt Clumps, EDTA Not Reportable 08/28/20 15:07 Large Platelets Not Reportable 08/28/20 15:07 Giant Platelets Not Reportable 08/28/20 15:07 Platelet Satelliting Not Reportable 08/28/20 15:07 Plt Morphology Comment Not Reportable 08/28/20 15:07 RBC Morphology Not Reportable 08/28/20 15:07 Dimorphic RBCs Not Reportable 08/28/20 15:07 Polychromasia Not Reportable 08/28/20 15:07 Hypochromasia Few 08/28/20 15:07 Poikilocytosis Not Reportable 08/28/20 15:07 Anisocytosis Few 08/28/20 15:07 Microcytosis Rare 08/28/20 15:07 Macrocytosis Not Reportable 08/28/20 15:07 Spherocytes Not Reportable 08/28/20 15:07 Pappenheimer Bodies Not Reportable 08/28/20 15:07 Sickle Cells Not Reportable 08/28/20 15:07 Target Cells Not Reportable 08/28/20 15:07 Tear Drop Cells Not Reportable 08/28/20 15:07 Ovalocytes Not Reportable 08/28/20 15:07 Helmet Cells Not Reportable 08/28/20 15:07 Sosa-Doland Bodies Not Reportable 08/28/20 15:07 Perry Rings Not Reportable 08/28/20 15:07 Doreen Cells Not Reportable 08/28/20 15:07 Bite Cells Not Reportable 08/28/20 15:07 Crenated Cell Not Reportable 08/28/20 15:07 Elliptocytes Not Reportable 08/28/20 15:07 Acanthocytes (Spur) Not Reportable 08/28/20 15:07 Rouleaux Not Reportable 08/28/20 15:07 Hemoglobin C Crystals Not Reportable 08/28/20 15:07 Schistocytes Not Reportable 08/28/20 15:07 Malaria parasites Not Reportable 08/28/20 15:07 Fercho Bodies Not Reportable 08/28/20 15:07 Hem Pathologist Commnt No 08/28/20 15:07 PT 29.0 Sec. (12.2-14.9) H 08/29/20 13:40 INR 2.70 (0.87-1.13) H 08/29/20 13:40 APTT 48.8 Sec. (24.2-36.6) H 08/28/20 15:07 D-Dimer 4137.51 ng/mlDDU (0-234) H 09/04/20 14:30 ABG pH 7.372 pH Units (7.350-7.450) 08/31/20 21:50 ABG pCO2 41.9 mm Hg 08/31/20 21:50 ABG pO2 139.5 mm Hg (80.0-90.0) H 08/31/20 21:50 ABG HCO3 23.8 mmol/L (20.0-26.0) 08/31/20 21:50 ABG O2 Saturation 98.7 % (95.0-99.0) 08/31/20 21:50 ABG O2 Content 20.8 (0.0-44) 08/31/20 21:50 ABG Base Excess -1.4 mmol/L (-2.0-3.0) 08/31/20 21:50 ABG Hemoglobin 15.3 gm/dl (12.0-16.0) 08/31/20 21:50 ABG Carboxyhemoglobin 1.9 % (0.0-5.0) 08/31/20 21:50 ABG Methemoglobin 0.5 % (0.0-1.5) 08/31/20 21:50 Oxyhemoglobin 96.3 % (95.0-99.0) 08/31/20 21:50 FiO2 28 % 08/31/20 21:50 Sodium 141 mmol/L (137-145) D 09/04/20 05:34 Potassium 3.6 mmol/L (3.6-5.0) 09/04/20 05:34 Chloride 104.5 mmol/L (98-107) 09/04/20 05:34 Carbon Dioxide 27 mmol/L (22-30) 09/04/20 05:34 Anion Gap 13 mmol/L 09/04/20 05:34 BUN 20 mg/dL (7-17) H 09/04/20 05:34 Creatinine 0.5 mg/dL (0.6-1.2) L 09/04/20 05:34 Estimated GFR > 60 ml/min 09/04/20 05:34 BUN/Creatinine Ratio 40 % 09/04/20 05:34 Glucose 104 mg/dL (65-100) H 09/04/20 05:34 POC Glucose 169 mg/dL (70-105) H 09/01/20 23:47 Hemoglobin A1c 5.2 % (4-6) 08/29/20 02:27 Lactic Acid 4.70 mmol/L (0.7-2.0) H* 08/28/20 15:07 Calcium 8.3 mg/dL (8.4-10.2) L 09/04/20 05:34 Ferritin 1981.0 ng/mL (10.0-200.0) H 09/04/20 14:30 Total Bilirubin 3.60 mg/dL (0.1-1.2) H 09/04/20 05:34 Direct Bilirubin 1.4 mg/dL (0-0.2) H 08/28/20 15:07 Indirect Bilirubin 1.8 mg/dL 08/28/20 15:07 AST 114 units/L (5-40) H 09/04/20 05:34 ALT 242 units/L (7-56) H 09/04/20 05:34 Alkaline Phosphatase 182 units/L (35-129) H 09/04/20 05:34 Ammonia 29.0 umol/L (25-60) 08/31/20 13:44 Lactate Dehydrogenase 430 units/L (91-180) H 09/04/20 14:30 Troponin T 0.010 ng/mL (0.00-0.029) 08/28/20 17:27 C-Reactive Protein 1.20 mg/dL (0.00-1.30) 09/04/20 14:30 NT-Pro-B Natriuret Pep 7039 pg/mL (0-900) H 08/28/20 15:07 Total Protein 6.3 g/dL (6.3-8.2) 09/04/20 05:34 Albumin 3.2 g/dL (3.9-5) L 09/04/20 05:34 Albumin/Globulin Ratio 1.0 % 09/04/20 05:34 Procalcitonin 0.22 ng/mL (<0.15) 08/31/20 15:52 Urine Color Alison (Yellow) 08/28/20 Unknown Urine Turbidity Cloudy (Clear) 08/28/20 Unknown Urine pH 5.0 (5.0-7.0) 08/28/20 Unknown Ur Specific Ironside 1.019 (1.003-1.030) 08/28/20 Unknown Urine Protein 100 mg/dl mg/dL (Negative) 08/28/20 Unknown Urine Glucose (UA) Neg mg/dL (Negative) 08/28/20 Unknown Urine Ketones Neg mg/dL (Negative) 08/28/20 Unknown Urine Blood Mod (Negative) 08/28/20 Unknown Urine Nitrite Neg (Negative) 08/28/20 Unknown Urine Bilirubin Neg (Negative) 08/28/20 Unknown Urine Urobilinogen 4.0 mg/dL (<2.0) 08/28/20 Unknown Ur Leukocyte Esterase Mod (Negative) 08/28/20 Unknown Urine WBC (Auto) 65.0 /HPF (0.0-6.0) H 08/28/20 Unknown Urine RBC (Auto) 12.0 /HPF (0.0-6.0) 08/28/20 Unknown Urine Bacteria (Auto) 4+ /HPF (Negative) 08/28/20 Unknown Urine WBC Clumps 2+ /HPF 08/28/20 Unknown Hyaline Casts 20 /LPF 08/28/20 Unknown Urine Mucus 3+ /HPF 08/28/20 Unknown Urine Yeast (Budding) 2+ /HPF 08/28/20 Unknown Coronavirus (PCR) Positive (Negative) A 08/31/20 Unknown Hepatitis A IgM Ab Non-reactive (NonReactive) 08/30/20 10:56 Hep Bs Antigen Non-reactive (Negative) 08/30/20 10:56 Hep B Core IgM Ab Non-reactive (NonReactive) 08/30/20 10:56 Hepatitis C Antibody Non-reactive (NonReactive) 08/30/20 10:56 Kraus/IV: Voiding Method Incontinent Active Medications - Current Medications Current Medications: Generic Name Dose Route Start Last Admin Trade Name Freq PRN Reason Stop Dose Admin Acetaminophen 650 mg 08/28/20 21:49 Acetaminophen 325 Mg Tab PO Q4H PRN Pain MILD(1-3)/Fever >100.5/MOELLER Aspirin 81 mg 08/31/20 10:00 09/05/20 09:14 Aspirin Ec 81 Mg Tab PO 81 mg QDAY PARIS Administration Dexamethasone 6 mg 08/31/20 16:00 09/05/20 09:14 Dexamethasone 4 Mg Tab PO 09/09/20 10:01 6 mg DAILY PARIS Administration Digoxin 0.125 mg 08/30/20 10:00 09/05/20 09:19 Digoxin 0.125 Mg Tab PO 0.125 mg DAILY PARIS Administration Famotidine 10 mg 08/28/20 22:00 09/05/20 09:14 Famotidine 10 Mg Tab PO 10 mg BID PARIS Administration Furosemide 20 mg 08/31/20 10:00 09/05/20 09:14 Furosemide 20 Mg Tab PO 20 mg QDAY PARIS Administration Sodium Chloride 1,000 mls @ 100 mls/hr 08/29/20 13:00 09/05/20 04:06 Nacl 0.9% 1000 Ml IV 100 mls/hr DIRECT PARIS Administration Lorazepam 0.5 mg 09/02/20 19:23 09/05/20 04:06 Lorazepam 2 Mg/Ml Vial IV 0.5 mg Q6H PRN Administration Agitation Metoprolol Tartrate 50 mg 08/29/20 13:00 09/05/20 06:55 Metoprolol Tartrate 50 Mg Tab PO 50 mg Q8HR PARIS Administration Morphine Sulfate 2 mg 08/28/20 21:49 Morphine 2 Mg/1 Ml Inj IV Q4H PRN Pain, Moderate (4-6) Nitrofurantoin Macrocrystals 100 mg 09/04/20 10:00 09/05/20 09:19 Nitrofurantoin Monohyd/M-Cryst 100 Mg Cap PO 09/08/20 22:01 100 mg Q12HR PARIS Administration Ondansetron HCl 4 mg 08/28/20 21:49 Ondansetron 4 Mg/2 Ml Inj IV Q8H PRN Nausea And Vomiting Sodium Chloride 10 ml 08/28/20 22:00 09/05/20 09:15 Sodium Chloride 0.9% 10 Ml Flush Syringe IV 10 ml BID PARIS Administration Sodium Chloride 10 ml 08/28/20 21:49 09/05/20 04:06 Sodium Chloride 0.9% 10 Ml Flush Syringe IV 10 ml PRN PRN Administration LINE FLUSH Trazodone HCl 50 mg 08/29/20 22:00 09/04/20 21:33 Trazodone 50 Mg Tab PO 50 mg QHS PARIS Administration Nutrition/Malnutrition Assess - Dietary Evaluation Nutrition/Malnutrition Findings: Nutrition Notes Start: 08/30/20 08:24 Freq: Status: Active Protocol: Document 09/01/20 11:05 AB (Rec: 09/01/20 11:17 AB [id number]) Co-Sign 09/01/20 11:05 CW Nutrition Notes Initial or Follow up Reassessment Current Diagnosis Acute Kidney Injury,Coronary Artery Disease,Hypertension, Heart Failure Other Pertinent Diagnosis COVID (+), Coumadin Toxicity, Lactic Acidosis, Dementia Current Diet Mechanical soft + cardiac Labs/Tests K 5.2 BUN 20 Cr 0.5 Pertinent Medications Decadron Lasix K-Dur 20 mEq Height 5 ft 7 in Weight 51.9 kg [place] Body Weight (kg) 61.36 BMI 17.9 Weight change and time frame Unsure of accurate wt Weight Status Underweight Subjective/Other Information MD consult for hx of chewing difficulty. F/U for intakes and ONS tolerance. Unable to speak with patient on phone. Per RN, pt eating 100% and chewing well. Per MD note, wanting to change to pureed diet. RN reported that pt is tolerating ONS. Percent of energy/protein needs met: 182%/134% (meals and 2 ONS included) Burn Absent Trauma Absent GI Symptoms None Difficulty In Chewing Food Allergy No Skin Integrity/Comment Aaron Score: 16 Current % PO Good (75-100%) Minimum of two criteria Yes Body Fat Depletion Moderate depletion (severe) Muscle Mass Mild Depletion (non-severe) #1 Nutrition Diagnosis Inadequate oral intake As Evidenced by Signs and Symptoms Pt eating 100% of meals and ONS, meeting 182%/134% of energy/protein needs Diagnosis Progress(for reassessment Improved documentation) Is patient on ventilator? No Is Patient Ambulatory and/or Out of Bed Yes REE-([place]-ambulatory/OOB) [ 1282.619 [id number]] Kcal/Kg value to use for calculation 31 Approximate Energy Requirements Using 1609 kcal/Kg Calculation Used for Recommendations Lida Baird Additional Notes protein needs: 93 - 116g (1.2 - 1.5 g/kgBW) kcal needs: 1500 - 1900 ml/day Nutrition Intervention Change Diet Order: Change to pureed diet Add Supplement/Snack (indicate name/kcal D/C /protein ) Goal #1 PO intake that meets at least 75% of kcal needs Anticipated Discharge Needs: Cardiac diet with ONS PRN Follow-Up By: 09/05/20 Additional Comments F/U for diet change toleration and intakes
--- NOTE | 2020-09-05 11:29 | Progress Note ---
Assessment and Plan Severe coagulopathy, INR 10.69 on presentation s/p vitamin K; H&H is stable warfarin discontinued Elevated liver transaminases statin therapy discontinued Hypernatremia Chronic atrial fibrillation, rate control strategy patient has been determined a poor risk for continued long-term oral anticoagulation due to frailty, advanced age and propensity for falls. 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 Continue GDMT for ischemic cardiomyopathy and coronary artery disease as tolerated. Otherwise, conservative cardiac management. Subjective Date of service: 09/05/20 Principal diagnosis: abnormal lft Interval history: Atrial fibrillation with a well controlled ventricular rate on telemetry. Objective Vital Signs Temp Pulse Resp BP BP Pulse Ox 09/05/20 09:35 100 09/05/20 09:19 110 H 149/110 09/05/20 06:54 110 H 18 150/97 100 09/05/20 06:52 89 18 93 09/05/20 05:49 29 L 18 92 09/05/20 04:30 98.0 F 91 H 16 149/110 83 L 09/05/20 00:31 46 L 18 145/88 95 09/04/20 22:00 100 09/04/20 21:25 97.8 F 130 H 16 137/87 100 09/04/20 15:58 98.0 F 65 18 130/95 81 L - Physical Examination Narrative exam: Deferred due to isolation protocol. Cardiac: Positive: irregularly irregular - Labs and Meds Cardiac Enzymes 09/04/20 Range/Units 14:30 Lactate Dehydrogenase 430 H (91-180) units/L
[2020-09-05] MEDS ORDERED: REMDESIVIR 200 MG in SODIUM CHLORIDE 0.9% 250ML 250 ML IV ONE (18:30)
[2020-09-05] MEDS ORDERED: REMDESIVIR 100 MG VIAL IV ONE (18:30)
[2020-09-05] MEDS: SODIUM CHLORIDE 0.9% 50 ML IVPB IV SCH ×2 (20:41→22:50)
[2020-09-05] MEDS: traZODone 50 MG TAB PO SCH (22:51)
[2020-09-06 03:12] LABS: Alanine Aminotransferase 216 units/L (7-56); Albumin 2.9 g/dL (3.9-5); Blood Urea Nitrogen 22 mg/dL (7-17); Calcium 7.8 mg/dL (8.4-10.2); Hemolysis Index 1
[2020-09-06 03:17] LABS: BUN/Creatinine Ratio 31
[2020-09-06] MEDS: METOPROLOL TARTRATE 50 MG TAB PO SCH ×3 (06:05→21:46)
[2020-09-06] MEDS: POTASSIUM CHLORIDE 10 MEQ 10 MEQ/100 ML BAG IV SCH ×4 (09:00→14:29)
[2020-09-06] MEDS: ASPIRIN EC 81 MG TAB PO SCH (09:00)
[2020-09-06] MEDS: FAMOTIDINE 10 MG TAB PO SCH ×2 (09:00→21:46)
[2020-09-06] MEDS: FUROSEMIDE 20 MG TAB PO SCH (09:00)
[2020-09-06] MEDS: DEXAMETHASONE 4 MG TAB PO SCH (09:01)
[2020-09-06] MEDS: NITROFURANTOIN MONOHYD/M-CRYST 100 MG CAP PO SCH ×2 (09:01→21:47)
[2020-09-06] MEDS: DIGOXIN 0.125 MG TAB PO SCH (09:01)
--- NOTE | 2020-09-06 09:59 | Progress Note ---
Assessment and Plan Assessment and plan: 89-year-old female with history of hypertension, congestive heart failure dementia, atrial fibrillation and aortic valve replacement brought in by her son because of high Coumadin level with INR of 8. Also patient has been falling repeatedly. Further work 2 times per day for 1 week. Patient states that she has weakness in both lower extremities. Patient also more confused secondary to her dementia. No fever or chills. Patient is unable currently communicative because of her progressive dementia. In the emergency room patient was found to be in atrial fibrillation with rapid ventricular rate. CT scan of the head shows no acute abnormality. 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 We will also obtain a CT of the abdomen and pelvis with dialysis opinion discussed with her clinical condition and risk of any surgical intervention he replies "what ever it takes". We will also obtain acute hepatitis panel although doubt that this is the cause. INR is improved 08/31: GI input noted await for MRI of the abdomen to evaluate liver and also MRCP. Will change diet to pured diet. We will also check ammonia level due to intermittent altered sensorium in the setting of elevated liver enzymes. 09/01: Patients son notifed about the covid diagnosis. Patient noted with hypoxia also was started on steroids yesterday ID is consulted today. She is on 4 L of oxygen at this time. On discussion with the son I understand that her breast cancer was diagnosed about a month ago she was deemed not a candidate for chemotherapy but the son states that she was being worked up for surgery. She is quite weak and lethargic for surgery at this time I did make this note to the son although this can change. Ideally we had agreed on discontinuing anticoa gulation but considering active cancer and risk for CVA now superimposed on COVID-19 will likely recommend putting her on low-dose Eliquis will discuss with cardiology on this matter. She is also noted to have hyperkalemia we will discontinue her potassium replacement pills at this time. 09/02: Patient clinically improving. Mental status is improved area of infiltration in the right upper extremity has completely resolved. Pulses are intact. Anticipate discharge on Friday as the alf facility is not accepting admissions over the weekend. Continue to wean oxygen as tolerated 09/03: Patient clinically stable. Continue supportive care, complete steroids, noted leukocytosis secondary to steroids. Continue to monitor. 09/05. Remains on steroids. On 2 L of oxygen. She may need remdesivir given hypoxia. ABG ordered. Discussed with ID 09/06: Blood gas shows hypoxia. Started on remdesivir. Disposition - Rehab recommendation for SNF on discharge. Continue supportive care Cardiology input noted Continue Diltiazem Patient received vitamin K. Will monitor INR. Agree with cardiology on discontinuing Coumadin/anticoagulation at this time. Started on remdesivir Continue to monitor renal function DVT and GI prophylaxis PT OT evaluation Prognosis is guarded History Interval history: Patient seen and examined at bedside this morning. Started on remdesivir yesterday Hospitalist Physical - Physical exam Narrative exam: VITAL SIGNS: Reviewed. GENERAL: Awake HEAD: No signs of head trauma. EYES: Pupils are equal. Extraocular motions intact. MOUTH: Oropharynx is normal. NECK: No adenopathy, no JVD. CHEST: Chest with diminished breath sounds bilaterally. No wheezes, rales, or rhonchi. CARDIAC: normal S1 and S2, without murmurs, gallops, or rubs. ABDOMEN: Soft, non tender and non distended. No rebound or guarding, and no masses palpated. Bowel Sounds normal. MUSCULOSKELETAL: No edema NEUROLOGIC EXAM: Alert. SKIN: No obvious lesions - Constitutional Vitals: Temp Pulse Resp BP Pulse Ox 97.4 F L 93 H 16 145/92 100 09/06/20 04:42 09/06/20 09:01 09/06/20 04:42 09/06/20 09:01 09/06/20 04:42 HEART Score - HEART Score Age: > 65 Risk factors: > 3 risk factors or hx of atherosclerotic disease Troponin: Troponin T 0.010 ng/mL (0.00-0.029) 08/28/20 17:27 Troponin: < normal limit - Critical Actions Critical Actions: 4-6 pts:12-16.6% risk of adverse cardiac event. Should be admitted Results - Labs CBC & Chem 7: 09/04/20 05:34 09/06/20 02:30 Labs: Laboratory Last Values WBC 8.5 K/mm3 (4.5-11.0) 09/04/20 05:34 RBC 3.47 M/mm3 (3.65-5.03) L 09/04/20 05:34 Hgb 11.9 gm/dl (10.1-14.3) 09/04/20 05:34 Hct 36.1 % (30.3-42.9) 09/04/20 05:34 MCV 104 fl (79-97) H 09/04/20 05:34 MCH 34 pg (28-32) H 09/04/20 05:34 MCHC 33 % (30-34) 09/04/20 05:34 RDW 16.2 % (13.2-15.2) H 09/04/20 05:34 Plt Count 150 K/mm3 (140-440) 09/04/20 05:34 Lymph % (Auto) 17.3 % (13.4-35.0) 08/29/20 02:27 [place] % (Auto) 9.3 % (0.0-7.3) H 08/29/20 02:27 Eos % (Auto) 2.3 % (0.0-4.3) 08/29/20 02:27 Baso % (Auto) 0.7 % (0.0-1.8) 08/29/20 02:27 Lymph # (Auto) 1.2 K/mm3 (1.2-5.4) 08/29/20 02:27 [place] # (Auto) 0.6 K/mm3 (0.0-0.8) 08/29/20 02:27 Eos # (Auto) 0.2 K/mm3 (0.0-0.4) 08/29/20 02:27 Baso # (Auto) 0.0 K/mm3 (0.0-0.1) 08/29/20 02:27 Add Manual Diff Complete 08/28/20 15:07 Total Counted 100 08/28/20 15:07 Seg Neutrophils % 70.4 % (40.0-70.0) H 08/29/20 02:27 Seg Neuts % (Manual) 64.0 % (40.0-70.0) 08/28/20 15:07 Lymphocytes % (Manual) 23.0 % (13.4-35.0) 08/28/20 15:07 Monocytes % (Manual) 10.0 % (0.0-7.3) H 08/28/20 15:07 Eosinophils % (Manual) 2.0 % (0.0-4.3) 08/28/20 15:07 Basophils % (Manual) 1.0 % (0.0-1.8) 08/28/20 15:07 Nucleated RBC % Not Reportable 08/28/20 15:07 Seg Neutrophils # 4.9 K/mm3 (1.8-7.7) 08/29/20 02:27 Seg Neutrophils # Man 3.8 K/mm3 (1.8-7.7) 08/28/20 15:07 Band Neutrophils # 0.0 K/mm3 08/28/20 15:07 Lymphocytes # (Manual) 1.4 K/mm3 (1.2-5.4) 08/28/20 15:07 Abs React Lymphs (Man) 0.0 K/mm3 08/28/20 15:07 Monocytes # (Manual) 0.6 K/mm3 (0.0-0.8) 08/28/20 15:07 Eosinophils # (Manual) 0.1 K/mm3 (0.0-0.4) 08/28/20 15:07 Basophils # (Manual) 0.1 K/mm3 (0.0-0.1) 08/28/20 15:07 Metamyelocytes # 0.0 K/mm3 08/28/20 15:07 Myelocytes # 0.0 K/mm3 08/28/20 15:07 Promyelocytes # 0.0 K/mm3 08/28/20 15:07 Blast Cells # 0.0 K/mm3 08/28/20 15:07 WBC Morphology Not Reportable 08/28/20 15:07 Hypersegmented Neuts Not Reportable 08/28/20 15:07 Hyposegmented Neuts Not Reportable 08/28/20 15:07 Hypogranular Neuts Not Reportable 08/28/20 15:07 Smudge Cells Not Reportable 08/28/20 15:07 Toxic Granulation Not Reportable 08/28/20 15:07 Toxic Vacuolation Not Reportable 08/28/20 15:07 Dohle Bodies Not Reportable 08/28/20 15:07 Pelger-Huet Anomaly Not Reportable 08/28/20 15:07 Heri Rods Not Reportable 08/28/20 15:07 Platelet Estimate Not Reportable 08/28/20 15:07 Clumped Platelets Not Reportable 08/28/20 15:07 Plt Clumps, EDTA Not Reportable 08/28/20 15:07 Large Platelets Not Reportable 08/28/20 15:07 Giant Platelets Not Reportable 08/28/20 15:07 Platelet Satelliting Not Reportable 08/28/20 15:07 Plt Morphology Comment Not Reportable 08/28/20 15:07 RBC Morphology Not Reportable 08/28/20 15:07 Dimorphic RBCs Not Reportable 08/28/20 15:07 Polychromasia Not Reportable 08/28/20 15:07 Hypochromasia Few 08/28/20 15:07 Poikilocytosis Not Reportable 08/28/20 15:07 Anisocytosis Few 08/28/20 15:07 Microcytosis Rare 08/28/20 15:07 Macrocytosis Not Reportable 08/28/20 15:07 Spherocytes Not Reportable 08/28/20 15:07 Pappenheimer Bodies Not Reportable 08/28/20 15:07 Sickle Cells Not Reportable 08/28/20 15:07 Target Cells Not Reportable 08/28/20 15:07 Tear Drop Cells Not Reportable 08/28/20 15:07 Ovalocytes Not Reportable 08/28/20 15:07 Helmet Cells Not Reportable 08/28/20 15:07 [place] Bodies Not Reportable 08/28/20 15:07 [place] Rings Not Reportable 08/28/20 15:07 Doreen Cells Not Reportable 08/28/20 15:07 Bite Cells Not Reportable 08/28/20 15:07 Crenated Cell Not Reportable 08/28/20 15:07 Elliptocytes Not Reportable 08/28/20 15:07 Acanthocytes (Spur) Not Reportable 08/28/20 15:07 Rouleaux Not Reportable 08/28/20 15:07 Hemoglobin C Crystals Not Reportable 08/28/20 15:07 Schistocytes Not Reportable 08/28/20 15:07 Malaria parasites Not Reportable 08/28/20 15:07 Fercho Bodies Not Reportable 08/28/20 15:07 Hem Pathologist Commnt No 08/28/20 15:07 PT 29.0 Sec. (12.2-14.9) H 08/29/20 13:40 INR 2.70 (0.87-1.13) H 08/29/20 13:40 APTT 48.8 Sec. (24.2-36.6) H 08/28/20 15:07 D-Dimer 3381.97 ng/mlDDU (0-234) H 09/05/20 23:25 ABG pH 7.482 (7.320-7.450) H 09/05/20 12:11 POC ABG pCO2 39.6 mmHg (32.0-48.0) 09/05/20 12:11 ABG pCO2 41.9 mm Hg 08/31/20 21:50 POC ABG pO2 73.7 mmHg (83-108) L 09/05/20 12:11 ABG pO2 139.5 mm Hg (80.0-90.0) H 08/31/20 21:50 POC ABG HCO3 29.0 09/05/20 12:11 ABG HCO3 23.8 mmol/L (20.0-26.0) 08/31/20 21:50 ABG O2 Saturation 95.2 (0-100) 09/05/20 12:11 ABG O2 Content 20.8 (0.0-44) 08/31/20 21:50 POC ABG Base Excess 5.2 09/05/20 12:11 ABG Base Excess -1.4 mmol/L (-2.0-3.0) 08/31/20 21:50 ABG Hemoglobin 12.9 (12.0-17.5) 09/05/20 12:11 ABG Oxyhemoglobin 93.8 (94-98) L 09/05/20 12:11 ABG Carboxyhemoglobin 1.9 % (0.0-5.0) 08/31/20 21:50 ABG Methemoglobin 0.3 (0.0-1.5) 09/05/20 12:11 ABG Sodium 137.4 mmol/L (136.0-145.0) 09/05/20 12:11 ABG Potassium 3.2 mmol/L (3.40-4.50) L 09/05/20 12:11 ABG Chloride 104.0 mmol/L (98-107) 09/05/20 12:11 ABG Glucose 114 mg/dL (65-95) H 09/05/20 12:11 Oxyhemoglobin 96.3 % (95.0-99.0) 08/31/20 21:50 Carboxyhemoglobin 1.2 (0.5-1.5) 09/05/20 12:11 FiO2 28 % 08/31/20 21:50 FiO2 % 21.0 09/05/20 12:11 Sodium 137 mmol/L (137-145) 09/06/20 02:30 Potassium 3.5 mmol/L (3.6-5.0) L 09/06/20 02:30 Chloride 100.7 mmol/L (98-107) 09/06/20 02:30 Carbon Dioxide 24 mmol/L (22-30) 09/06/20 02:30 Anion Gap 16 mmol/L 09/06/20 02:30 BUN 22 mg/dL (7-17) H 09/06/20 02:30 Creatinine 0.7 mg/dL (0.6-1.2) 09/06/20 02:30 Estimated GFR > 60 ml/min 09/06/20 02:30 BUN/Creatinine Ratio 31 % 09/06/20 02:30 Glucose 144 mg/dL (65-100) H 09/06/20 02:30 POC Glucose 169 mg/dL (70-105) H 09/01/20 23:47 Hemoglobin A1c 5.2 % (4-6) 08/29/20 02:27 Lactic Acid 4.70 mmol/L (0.7-2.0) H* 08/28/20 15:07 Calcium 7.8 mg/dL (8.4-10.2) L 09/06/20 02:30 Ferritin 1981.0 ng/mL (10.0-200.0) H 09/04/20 14:30 Total Bilirubin 3.10 mg/dL (0.1-1.2) H 09/06/20 02:30 Direct Bilirubin 1.4 mg/dL (0-0.2) H 08/28/20 15:07 Indirect Bilirubin 1.8 mg/dL 08/28/20 15:07 AST 121 units/L (5-40) H 09/06/20 02:30 ALT 216 units/L (7-56) H 09/06/20 02:30 Alkaline Phosphatase 193 units/L (35-129) H 09/06/20 02:30 Ammonia 29.0 umol/L (25-60) 08/31/20 13:44 Lactate Dehydrogenase 430 units/L (91-180) H 09/04/20 14:30 Troponin T 0.010 ng/mL (0.00-0.029) 08/28/20 17:27 C-Reactive Protein 1.20 mg/dL (0.00-1.30) 09/04/20 14:30 NT-Pro-B Natriuret Pep 7039 pg/mL (0-900) H 08/28/20 15:07 Total Protein 6.0 g/dL (6.3-8.2) L 09/06/20 02:30 Albumin 2.9 g/dL (3.9-5) L 09/06/20 02:30 Albumin/Globulin Ratio 0.9 % 09/06/20 02:30 Procalcitonin 0.22 ng/mL (<0.15) 08/31/20 15:52 Arterial Blood Glucose 114 mg/dL (65-95) H 09/05/20 12:11 Arterial Blood Ionized Calcium 4.6 mg/dL (4.6-5.3) 09/05/20 12:11 Urine Color Alison (Yellow) 08/28/20 Unknown Urine Turbidity Cloudy (Clear) 08/28/20 Unknown Urine pH 5.0 (5.0-7.0) 08/28/20 Unknown Ur Specific [place] 1.019 (1.003-1.030) 08/28/20 Unknown Urine Protein 100 mg/dl mg/dL (Negative) 08/28/20 Unknown Urine Glucose (UA) Neg mg/dL (Negative) 08/28/20 Unknown Urine Ketones Neg mg/dL (Negative) 08/28/20 Unknown Urine Blood Mod (Negative) 08/28/20 Unknown Urine Nitrite Neg (Negative) 08/28/20 Unknown Urine Bilirubin Neg (Negative) 08/28/20 Unknown Urine Urobilinogen 4.0 mg/dL (<2.0) 08/28/20 Unknown Ur Leukocyte Esterase Mod (Negative) 08/28/20 Unknown Urine WBC (Auto) 65.0 /HPF (0.0-6.0) H 08/28/20 Unknown Urine RBC (Auto) 12.0 /HPF (0.0-6.0) 08/28/20 Unknown Urine Bacteria (Auto) 4+ /HPF (Negative) 08/28/20 Unknown Urine WBC Clumps 2+ /HPF 08/28/20 Unknown Hyaline Casts 20 /LPF 08/28/20 Unknown Urine Mucus 3+ /HPF 08/28/20 Unknown Urine Yeast (Budding) 2+ /HPF 08/28/20 Unknown Coronavirus (PCR) Positive (Negative) A 08/31/20 Unknown Hepatitis A IgM Ab Non-reactive (NonReactive) 08/30/20 10:56 Hep Bs Antigen Non-reactive (Negative) 08/30/20 10:56 Hep B Core IgM Ab Non-reactive (NonReactive) 08/30/20 10:56 Hepatitis C Antibody Non-reactive (NonReactive) 08/30/20 10:56 Kraus/IV: Voiding Method Incontinent Active Medications - Current Medications Current Medications: Generic Name Dose Route Start Last Admin Trade Name Freq PRN Reason Stop Dose Admin Acetaminophen 650 mg 08/28/20 21:49 Acetaminophen 325 Mg Tab PO Q4H PRN Pain MILD(1-3)/Fever >100.5/MOELLER Aspirin 81 mg 08/31/20 10:00 09/06/20 09:00 Aspirin Ec 81 Mg Tab PO 81 mg QDAY PARIS Administration Dexamethasone 6 mg 08/31/20 16:00 09/06/20 09:01 Dexamethasone 4 Mg Tab PO 09/09/20 10:01 6 mg DAILY PARIS Administration Digoxin 0.125 mg 08/30/20 10:00 09/06/20 09:01 Digoxin 0.125 Mg Tab PO 0.125 mg DAILY PARIS Administration Famotidine 10 mg 08/28/20 22:00 09/06/20 09:00 Famotidine 10 Mg Tab PO 10 mg BID PARIS Administration Furosemide 20 mg 08/31/20 10:00 09/06/20 09:00 Furosemide 20 Mg Tab PO 20 mg QDAY PARIS Administration Sodium Chloride 1,000 mls @ 100 mls/hr 08/29/20 13:00 09/05/20 23:02 Nacl 0.9% 1000 Ml IV 100 mls/hr DIRECT PARIS Administration REMDESIVIR 100 mg/ Sodium 250 mls @ 500 mls/hr 09/06/20 21:00 Chloride IV 09/09/20 21:29 Q24HR@2100 PARIS Potassium Chloride 10 meq in 100 mls @ 100 mls/hr 09/06/20 09:00 09/06/20 09:00 Kcl 10meq/100ml IV 09/06/20 12:59 100 mls/hr Q1H [place] Administration Lorazepam 0.5 mg 09/02/20 19:23 09/05/20 04:06 Lorazepam 2 Mg/Ml Vial IV 0.5 mg Q6H PRN Administration Agitation Metoprolol Tartrate 50 mg 08/29/20 13:00 09/06/20 06:05 Metoprolol Tartrate 50 Mg Tab PO 50 mg Q8HR PARIS Administration Morphine Sulfate 2 mg 08/28/20 21:49 Morphine 2 Mg/1 Ml Inj IV Q4H PRN Pain, Moderate (4-6) Nitrofurantoin Macrocrystals 100 mg 09/04/20 10:00 09/06/20 09:01 Nitrofurantoin Monohyd/M-Cryst 100 Mg Cap PO 09/08/20 22:01 100 mg Q12HR PARIS Administration Ondansetron HCl 4 mg 08/28/20 21:49 Ondansetron 4 Mg/2 Ml Inj IV Q8H PRN Nausea And Vomiting Sodium Chloride 10 ml 08/28/20 22:00 09/06/20 09:01 Sodium Chloride 0.9% 10 Ml Flush Syringe IV 10 ml BID PARIS Administration Sodium Chloride 10 ml 08/28/20 21:49 09/05/20 04:06 Sodium Chloride 0.9% 10 Ml Flush Syringe IV 10 ml PRN PRN Administration LINE FLUSH Sodium Chloride 50 ml 09/05/20 18:30 09/05/20 22:50 Sodium Chloride 0.9% 50 Ml Ivpb IV 09/08/20 21:01 50 ml Q24HR@2100 [place] Administration Trazodone HCl 50 mg 08/29/20 22:00 09/05/20 22:51 Trazodone 50 Mg Tab PO 50 mg QHS PARIS Administration Nutrition/Malnutrition Assess - Dietary Evaluation Nutrition/Malnutrition Findings: Nutrition Notes Start: 08/30/20 08:24 Freq: Status: Active Protocol: Document 09/05/20 11:56 CW (Rec: 09/05/20 12:08 CW [id number]) Nutrition Notes Initial or Follow up Reassessment Current Diagnosis Acute Kidney Injury,Coronary Artery Disease,Hypertension, Heart Failure Other Pertinent Diagnosis COVID (+), Coumadin Toxicity, Lactic Acidosis, Dementia Current Diet Pureed Diet Labs/Tests 09/04/2020 BUN 20 Cr 0.5 AST: 114 ALT: 242 Pertinent Medications Lasix Decadron NS at 100 ml/hr Height 5 ft 7 in Weight 49.6 kg [place] Body Weight (kg) 61.36 BMI 17.1 Weight change and time frame Weight change since 09/01 may be related to lasix usage Weight change on 08/30 likely inaccurate Weight Status Underweight Subjective/Other Information F/U for Diet toleration, intakes, and ONS. Per RN pt drinking very little of the ONS.Change ONS from Very High Protein to Ensure enlive to provide increased caloric intake. PO intake of meals is poor at this time. Burn Absent Trauma Absent GI Symptoms None Difficulty In Chewing Food Allergy No Current % PO Negligible Minimum of two criteria Yes Body Fat Depletion Moderate depletion (severe) Muscle Mass Mild Depletion (non-severe) #1 Nutrition Diagnosis Inadequate oral intake As Evidenced by Signs and Symptoms PO intake of <25% of meals provided Diagnosis Progress(for reassessment Worsened documentation) Is patient on ventilator? No Is Patient Ambulatory and/or Out of Bed Yes REE-([place]-ambulatory/OOB) [ 1252.719 [id number]] Kcal/Kg value to use for calculation 32 Approximate Energy Requirements Using 1587 kcal/Kg Calculation Used for Recommendations Kcal/kg Additional Notes protein needs: 93 - 116g (1.2 - 1.5 g/kgBW) kcal needs: 1500 - 1900 ml/day Nutrition Intervention Change Diet Order: Continue Pureed diet Add Supplement/Snack (indicate name/kcal d/c Ensure High Protein TID /protein ) Initiate Ensure Enlive TID Provides kCal: 1,050 Provides Protein (gm) 60 Goal #1 PO intake that meets at least 75% of kcal needs Anticipated Discharge Needs: Pureed Cardiac diet with ONS PRN Follow-Up By: 09/07/20 Additional Comments F/U for intakes and ONS tolerance
--- NOTE | 2020-09-06 10:43 | Progress Note ---
Assessment and Plan Severe coagulopathy, INR 10.69 on presentation s/p vitamin K; H&H is stable warfarin discontinued Elevated liver transaminases statin therapy discontinued Hypernatremia Chronic atrial fibrillation, rate control strategy patient has been determined a poor risk for continued long-term oral anticoagulation due to frailty, advanced age and propensity for falls. 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 Continue GDMT for ischemic cardiomyopathy and coronary artery disease as tolerated. Conservative cardiac management. Subjective Date of service: 09/06/20 Principal diagnosis: abnormal lft Interval history: No acute cardiac events reported. Atrial fibrillation with a well controlled ventricular rate on telemetry. Objective Vital Signs Temp Pulse Resp BP Pulse Ox 09/06/20 09:01 93 H 145/92 09/06/20 06:05 93 H 145/92 09/06/20 04:42 97.4 F L 93 H 16 145/92 100 09/05/20 23:00 82 09/05/20 21:53 97 09/05/20 21:32 98.5 F 82 16 121/70 98 09/05/20 17:37 98.6 F 79 18 128/84 100 09/05/20 15:00 110 H 09/05/20 14:44 110 H 149/110 - Physical Examination Narrative exam: Deferred due to isolation protocol. General: No Apparent Distress Cardiac: Positive: irregularly irregular - Labs and Meds Cardiac Enzymes 09/06/20 Range/Units 02:30 AST 121 H (5-40) units/L Comprehensive Metabolic Panel 09/06/20 Range/Units 02:30 Sodium 137 (137-145) mmol/L Potassium 3.5 L (3.6-5.0) mmol/L Chloride 100.7 (98-107) mmol/L Carbon Dioxide 24 (22-30) mmol/L BUN 22 H (7-17) mg/dL Creatinine 0.7 (0.6-1.2) mg/dL Glucose 144 H (65-100) mg/dL Calcium 7.8 L (8.4-10.2) mg/dL AST 121 H (5-40) units/L ALT 216 H (7-56) units/L Alkaline Phosphatase 193 H (35-129) units/L Total Protein 6.0 L (6.3-8.2) g/dL Albumin 2.9 L (3.9-5) g/dL
--- NOTE | 2020-09-06 12:32 | Progress Note ---
Assessment and Plan Cultures: Blood culture 08/28/2020 no growth Urine culture 08/28/2020 10-100,000 CFU mixed bacteria A/P: 89-year-old female past medical history hypertension, CHF, dementia, A. fib, prior aortic valve replacement admitted with supratherapeutic INR, found to have COVID-19. #COVID-19: No pneumonia noted. CT chest shows no PE no consolidation. Elevated inflammatory markers, low procalcitonin. Markers elevated, D-dimer improving #Acute hypoxemic respiratory failure: Currently on 2 L nasal cannula. Desaturated yesterday down to 83%, PaO2 73 #Elevated liver enzymes: Possibly secondary to COVID-19, normal abdominal imaging aside from some hepatic cyst. Negative hepatitis viral panel. Currently improving. MRI shows liver cyst. #Breast cancer: Recent diagnosed, not a candidate for chemotherapy. #Dementia: Acute on chronic altered mental status. #UTI: Urine culture grew 10 200,000 CFU mixed bacteria #Elevated D-dimer: No pulmonary embolism seen. #Transaminitis: Slowly coming down. Recs: -Continue remdesivir for 5 days D2 of 5 -Continue dexamethasone 6 mg IV/PO daily for 10 days -Macrobid 100 mg p.o. twice daily for 5 days for UTI -Anticoagulation per primary team on the basis of supratherapeutic INR. Karen Coon MD [facility] ([facility]) Office [phone] Subjective Date of service: 09/06/20 Principal diagnosis: abnormal lft Objective - Constitutional Vitals: Vital Signs Temp Pulse Resp BP Pulse Ox 97.4 F L 93 H 16 145/92 99 09/06/20 04:42 09/06/20 09:01 09/06/20 04:42 09/06/20 09:01 09/06/20 10:00 Temperature -Last 24 Hours Temperature 97.4 F Temperature 98.5 F Temperature 98.6 F - Labs CBC & Chem 7: 09/04/20 05:34 09/06/20 02:30 Labs: Abnormal lab results 09/05/20 09/05/20 09/06/20 Range/Units 12:11 23:25 02:30 D-Dimer 3381.97 H (0-234) ng/mlDDU ABG pH 7.482 H (7.320-7.450) POC ABG pO2 73.7 L (83-108) mmHg ABG Oxyhemoglobin 93.8 L (94-98) ABG Potassium 3.2 L (3.40-4.50) mmol/L ABG Glucose 114 H (65-95) mg/dL Potassium 3.5 L (3.6-5.0) mmol/L BUN 22 H (7-17) mg/dL Glucose 144 H (65-100) mg/dL Calcium 7.8 L (8.4-10.2) mg/dL Total Bilirubin 3.10 H (0.1-1.2) mg/dL AST 121 H (5-40) units/L ALT 216 H (7-56) units/L Alkaline Phosphatase 193 H (35-129) units/L Total Protein 6.0 L (6.3-8.2) g/dL Albumin 2.9 L (3.9-5) g/dL Arterial Blood Glucose 114 H (65-95) mg/dL
[2020-09-06] MEDS: traZODone 50 MG TAB PO SCH (21:46)
[2020-09-06] MEDS: SODIUM CHLORIDE 0.9% 50 ML IVPB IV SCH (21:46)
[2020-09-06] MEDS: REMDESIVIR 100 MG in SODIUM CHLORIDE 0.9% 250ML 250 ML IV SCH (21:46)
[2020-09-07] MEDS: METOPROLOL TARTRATE 50 MG TAB PO SCH ×3 (07:23→21:45)
[2020-09-07] MEDS: DEXAMETHASONE 4 MG TAB PO SCH (09:08)
[2020-09-07] MEDS: ASPIRIN EC 81 MG TAB PO SCH (09:08)
[2020-09-07] MEDS: FAMOTIDINE 10 MG TAB PO SCH ×2 (09:08→21:44)
[2020-09-07] MEDS: FUROSEMIDE 20 MG TAB PO SCH (09:08)
[2020-09-07] MEDS: DIGOXIN 0.125 MG TAB PO SCH (09:12)
[2020-09-07] MEDS: NITROFURANTOIN MONOHYD/M-CRYST 100 MG CAP PO SCH ×2 (09:12→21:44)
--- NOTE | 2020-09-07 09:17 | Progress Note ---
Assessment and Plan Assessment and plan: 89-year-old female with history of hypertension, congestive heart failure dementia, atrial fibrillation and aortic valve replacement brought in by her son because of high Coumadin level with INR of 8. Also patient has been falling repeatedly. Further work 2 times per day for 1 week. Patient states that she has weakness in both lower extremities. Patient also more confused secondary to her dementia. No fever or chills. Patient is unable currently communicative because of her progressive dementia. In the emergency room patient was found to be in atrial fibrillation with rapid ventricular rate. CT scan of the head shows no acute abnormality. 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 We will also obtain a CT of the abdomen and pelvis with dialysis opinion discussed with her clinical condition and risk of any surgical intervention he replies "what ever it takes". We will also obtain acute hepatitis panel although doubt that this is the cause. INR is improved 08/31: GI input noted await for MRI of the abdomen to evaluate liver and also MRCP. Will change diet to pured diet. We will also check ammonia level due to intermittent altered sensorium in the setting of elevated liver enzymes. 09/01: Patients son notifed about the covid diagnosis. Patient noted with hypoxia also was started on steroids yesterday ID is consulted today. She is on 4 L of oxygen at this time. On discussion with the son I understand that her breast cancer was diagnosed about a month ago she was deemed not a candidate for chemotherapy but the son states that she was being worked up for surgery. She is quite weak and lethargic for surgery at this time I did make this note to the son although this can change. Ideally we had agreed on discontinuing anticoa gulation but considering active cancer and risk for CVA now superimposed on COVID-19 will likely recommend putting her on low-dose Eliquis will discuss with cardiology on this matter. She is also noted to have hyperkalemia we will discontinue her potassium replacement pills at this time. 09/02: Patient clinically improving. Mental status is improved area of infiltration in the right upper extremity has completely resolved. Pulses are intact. Anticipate discharge on Friday [facility]. Continue to wean oxygen as tolerated 09/03: Patient clinically stable. Continue supportive care, complete steroids, noted leukocytosis secondary to steroids. Continue to monitor. 09/05. Remains on steroids. On 2 L of oxygen. She may need remdesivir given hypoxia. ABG ordered. Discussed with ID 09/06: Blood gas shows hypoxia. Started on remdesivir. 09/07. She is doing well. Discussed with son - patient already has hospice services ([facility]). Disposition - Rehab recommendation for SNF on discharge. Continue supportive care Cardiology input noted Continue Diltiazem Agree with cardiology on discontinuing Coumadin/anticoagulation at this time. Continue remdesivir Continue to monitor renal function DVT and GI prophylaxis PT OT evaluation Prognosis is guarded History Interval history: Patient seen and examined at bedside this morning. Discussed with son. Patient already has hospice services with [facility] Hospitalist Physical - Physical exam Narrative exam: VITAL SIGNS: Reviewed. GENERAL: Awake HEAD: No signs of head trauma. EYES: Pupils are equal. Extraocular motions intact. MOUTH: Oropharynx is normal. NECK: No adenopathy, no JVD. CHEST: Chest with diminished breath sounds bilaterally. No wheezes, rales, or rhonchi. CARDIAC: normal S1 and S2, without murmurs, gallops, or rubs. ABDOMEN: Soft, non tender and non distended. No rebound or guarding, and no masses palpated. Bowel Sounds normal. MUSCULOSKELETAL: No edema NEUROLOGIC EXAM: Alert. SKIN: No obvious lesions - Constitutional Vitals: Temp Pulse Resp BP Pulse Ox 97.7 F 88 16 141/86 98 09/07/20 05:43 09/07/20 09:12 09/07/20 05:43 09/07/20 09:12 09/07/20 05:43 HEART Score - HEART Score Age: > 65 Risk factors: > 3 risk factors or hx of atherosclerotic disease Troponin: Troponin T 0.010 ng/mL (0.00-0.029) 08/28/20 17:27 Troponin: < normal limit - Critical Actions Critical Actions: 4-6 pts:12-16.6% risk of adverse cardiac event. Should be admi tted Results - Labs CBC & Chem 7: 09/04/20 05:34 09/08/20 05:53 Labs: Laboratory Last Values WBC 8.5 K/mm3 (4.5-11.0) 09/04/20 05:34 RBC 3.47 M/mm3 (3.65-5.03) L 09/04/20 05:34 Hgb 11.9 gm/dl (10.1-14.3) 09/04/20 05:34 Hct 36.1 % (30.3-42.9) 09/04/20 05:34 MCV 104 fl (79-97) H 09/04/20 05:34 MCH 34 pg (28-32) H 09/04/20 05:34 MCHC 33 % (30-34) 09/04/20 05:34 RDW 16.2 % (13.2-15.2) H 09/04/20 05:34 Plt Count 150 K/mm3 (140-440) 09/04/20 05:34 Lymph % (Auto) 17.3 % (13.4-35.0) 08/29/20 02:27 Bennett % (Auto) 9.3 % (0.0-7.3) H 08/29/20 02:27 Eos % (Auto) 2.3 % (0.0-4.3) 08/29/20 02:27 Baso % (Auto) 0.7 % (0.0-1.8) 08/29/20 02:27 Lymph # (Auto) 1.2 K/mm3 (1.2-5.4) 08/29/20 02:27 Bennett # (Auto) 0.6 K/mm3 (0.0-0.8) 08/29/20 02:27 Eos # (Auto) 0.2 K/mm3 (0.0-0.4) 08/29/20 02:27 Baso # (Auto) 0.0 K/mm3 (0.0-0.1) 08/29/20 02:27 Add Manual Diff Complete 08/28/20 15:07 Total Counted 100 08/28/20 15:07 Seg Neutrophils % 70.4 % (40.0-70.0) H 08/29/20 02:27 Seg Neuts % (Manual) 64.0 % (40.0-70.0) 08/28/20 15:07 Lymphocytes % (Manual) 23.0 % (13.4-35.0) 08/28/20 15:07 Monocytes % (Manual) 10.0 % (0.0-7.3) H 08/28/20 15:07 Eosinophils % (Manual) 2.0 % (0.0-4.3) 08/28/20 15:07 Basophils % (Manual) 1.0 % (0.0-1.8) 08/28/20 15:07 Nucleated RBC % Not Reportable 08/28/20 15:07 Seg Neutrophils # 4.9 K/mm3 (1.8-7.7) 08/29/20 02:27 Seg Neutrophils # Man 3.8 K/mm3 (1.8-7.7) 08/28/20 15:07 Band Neutrophils # 0.0 K/mm3 08/28/20 15:07 Lymphocytes # (Manual) 1.4 K/mm3 (1.2-5.4) 08/28/20 15:07 Abs React Lymphs (Man) 0.0 K/mm3 08/28/20 15:07 Monocytes # (Manual) 0.6 K/mm3 (0.0-0.8) 08/28/20 15:07 Eosinophils # (Manual) 0.1 K/mm3 (0.0-0.4) 08/28/20 15:07 Basophils # (Manual) 0.1 K/mm3 (0.0-0.1) 08/28/20 15:07 Metamyelocytes # 0.0 K/mm3 08/28/20 15:07 Myelocytes # 0.0 K/mm3 08/28/20 15:07 Promyelocytes # 0.0 K/mm3 08/28/20 15:07 Blast Cells # 0.0 K/mm3 08/28/20 15:07 WBC Morphology Not Reportable 08/28/20 15:07 Hypersegmented Neuts Not Reportable 08/28/20 15:07 Hyposegmented Neuts Not Reportable 08/28/20 15:07 Hypogranular Neuts Not Reportable 08/28/20 15:07 Smudge Cells Not Reportable 08/28/20 15:07 Toxic Granulation Not Reportable 08/28/20 15:07 Toxic Vacuolation Not Reportable 08/28/20 15:07 Dohle Bodies Not Reportable 08/28/20 15:07 Pelger-Huet Anomaly Not Reportable 08/28/20 15:07 Heri Rods Not Reportable 08/28/20 15:07 Platelet Estimate Not Reportable 08/28/20 15:07 Clumped Platelets Not Reportable 08/28/20 15:07 Plt Clumps, EDTA Not Reportable 08/28/20 15:07 Large Platelets Not Reportable 08/28/20 15:07 Giant Platelets Not Reportable 08/28/20 15:07 Platelet Satelliting Not Reportable 08/28/20 15:07 Plt Morphology Comment Not Reportable 08/28/20 15:07 RBC Morphology Not Reportable 08/28/20 15:07 Dimorphic RBCs Not Reportable 08/28/20 15:07 Polychromasia Not Reportable 08/28/20 15:07 Hypochromasia Few 08/28/20 15:07 Poikilocytosis Not Reportable 08/28/20 15:07 Anisocytosis Few 08/28/20 15:07 Microcytosis Rare 08/28/20 15:07 Macrocytosis Not Reportable 08/28/20 15:07 Spherocytes Not Reportable 08/28/20 15:07 Pappenheimer Bodies Not Reportable 08/28/20 15:07 Sickle Cells Not Reportable 08/28/20 15:07 Target Cells Not Reportable 08/28/20 15:07 Tear Drop Cells Not Reportable 08/28/20 15:07 Ovalocytes Not Reportable 08/28/20 15:07 Helmet Cells Not Reportable 08/28/20 15:07 [place] Bodies Not Reportable 08/28/20 15:07 [place] Rings Not Reportable 08/28/20 15:07 Doreen Cells Not Reportable 08/28/20 15:07 Bite Cells Not Reportable 08/28/20 15:07 Crenated Cell Not Reportable 08/28/20 15:07 Elliptocytes Not Reportable 08/28/20 15:07 Acanthocytes (Spur) Not Reportable 08/28/20 15:07 Rouleaux Not Reportable 08/28/20 15:07 Hemoglobin C Crystals Not Reportable 08/28/20 15:07 Schistocytes Not Reportable 08/28/20 15:07 Malaria parasites Not Reportable 08/28/20 15:07 Fercho Bodies Not Reportable 08/28/20 15:07 Hem Pathologist Commnt No 08/28/20 15:07 PT 29.0 Sec. (12.2-14.9) H 08/29/20 13:40 INR 2.70 (0.87-1.13) H 08/29/20 13:40 APTT 48.8 Sec. (24.2-36.6) H 08/28/20 15:07 D-Dimer 3381.97 ng/mlDDU (0-234) H 09/05/20 23:25 ABG pH 7.482 (7.320-7.450) H 09/05/20 12:11 POC ABG pCO2 39.6 mmHg (32.0-48.0) 09/05/20 12:11 ABG pCO2 41.9 mm Hg 08/31/20 21:50 POC ABG pO2 73.7 mmHg (83-108) L 09/05/20 12:11 ABG pO2 139.5 mm Hg (80.0-90.0) H 08/31/20 21:50 POC ABG HCO3 29.0 09/05/20 12:11 ABG HCO3 23.8 mmol/L (20.0-26.0) 08/31/20 21:50 ABG O2 Saturation 95.2 (0-100) 09/05/20 12:11 ABG O2 Content 20.8 (0.0-44) 08/31/20 21:50 POC ABG Base Excess 5.2 09/05/20 12:11 ABG Base Excess -1.4 mmol/L (-2.0-3.0) 08/31/20 21:50 ABG Hemoglobin 12.9 (12.0-17.5) 09/05/20 12:11 ABG Oxyhemoglobin 93.8 (94-98) L 09/05/20 12:11 ABG Carboxyhemoglobin 1.9 % (0.0-5.0) 08/31/20 21:50 ABG Methemoglobin 0.3 (0.0-1.5) 09/05/20 12:11 ABG Sodium 137.4 mmol/L (136.0-145.0) 09/05/20 12:11 ABG Potassium 3.2 mmol/L (3.40-4.50) L 09/05/20 12:11 ABG Chloride 104.0 mmol/L (98-107) 09/05/20 12:11 ABG Glucose 114 mg/dL (65-95) H 09/05/20 12:11 Oxyhemoglobin 96.3 % (95.0-99.0) 08/31/20 21:50 Carboxyhemoglobin 1.2 (0.5-1.5) 09/05/20 12:11 FiO2 28 % 08/31/20 21:50 FiO2 % 21.0 09/05/20 12:11 Sodium 137 mmol/L (137-145) 09/06/20 02:30 Potassium 3.5 mmol/L (3.6-5.0) L 09/06/20 02:30 Chloride 100.7 mmol/L (98-107) 09/06/20 02:30 Carbon Dioxide 24 mmol/L (22-30) 09/06/20 02:30 Anion Gap 16 mmol/L 09/06/20 02:30 BUN 22 mg/dL (7-17) H 09/06/20 02:30 Creatinine 0.7 mg/dL (0.6-1.2) 09/06/20 02:30 Estimated GFR > 60 ml/min 09/06/20 02:30 BUN/Creatinine Ratio 31 % 09/06/20 02:30 Glucose 144 mg/dL (65-100) H 09/06/20 02:30 POC Glucose 169 mg/dL (70-105) H 09/01/20 23:47 Hemoglobin A1c 5.2 % (4-6) 08/29/20 02:27 Lactic Acid 4.70 mmol/L (0.7-2.0) H* 08/28/20 15:07 Calcium 7.8 mg/dL (8.4-10.2) L 09/06/20 02:30 Ferritin 1981.0 ng/mL (10.0-200.0) H 09/04/20 14:30 Total Bilirubin 3.10 mg/dL (0.1-1.2) H 09/06/20 02:30 Direct Bilirubin 1.4 mg/dL (0-0.2) H 08/28/20 15:07 Indirect Bilirubin 1.8 mg/dL 08/28/20 15:07 AST 121 units/L (5-40) H 09/06/20 02:30 ALT 216 units/L (7-56) H 09/06/20 02:30 Alkaline Phosphatase 193 units/L (35-129) H 09/06/20 02:30 Ammonia 29.0 umol/L (25-60) 08/31/20 13:44 Lactate Dehydrogenase 430 units/L (91-180) H 09/04/20 14:30 Troponin T 0.010 ng/mL (0.00-0.029) 08/28/20 17:27 C-Reactive Protein 1.20 mg/dL (0.00-1.30) 09/04/20 14:30 NT-Pro-B Natriuret Pep 7039 pg/mL (0-900) H 08/28/20 15:07 Total Protein 6.0 g/dL (6.3-8.2) L 09/06/20 02:30 Albumin 2.9 g/dL (3.9-5) L 09/06/20 02:30 Albumin/Globulin Ratio 0.9 % 09/06/20 02:30 Procalcitonin 0.22 ng/mL (<0.15) 08/31/20 15:52 Arterial Blood Glucose 114 mg/dL (65-95) H 09/05/20 12:11 Arterial Blood Ionized Calcium 4.6 mg/dL (4.6-5.3) 09/05/20 12:11 Urine Color Alison (Yellow) 08/28/20 Unknown Urine Turbidity Cloudy (Clear) 08/28/20 Unknown Urine pH 5.0 (5.0-7.0) 08/28/20 Unknown Ur Specific [place] 1.019 (1.003-1.030) 08/28/20 Unknown Urine Protein 100 mg/dl mg/dL (Negative) 08/28/20 Unknown Urine Glucose (UA) Neg mg/dL (Negative) 08/28/20 Unknown Urine Ketones Neg mg/dL (Negative) 08/28/20 Unknown Urine Blood Mod (Negative) 08/28/20 Unknown Urine Nitrite Neg (Negative) 08/28/20 Unknown Urine Bilirubin Neg (Negative) 08/28/20 Unknown Urine Urobilinogen 4.0 mg/dL (<2.0) 08/28/20 Unknown Ur Leukocyte Esterase Mod (Negative) 08/28/20 Unknown Urine WBC (Auto) 65.0 /HPF (0.0-6.0) H 08/28/20 Unknown Urine RBC (Auto) 12.0 /HPF (0.0-6.0) 08/28/20 Unknown Urine Bacteria (Auto) 4+ /HPF (Negative) 08/28/20 Unknown Urine WBC Clumps 2+ /HPF 08/28/20 Unknown Hyaline Casts 20 /LPF 08/28/20 Unknown Urine Mucus 3+ /HPF 08/28/20 Unknown Urine Yeast (Budding) 2+ /HPF 08/28/20 Unknown Coronavirus (PCR) Positive (Negative) A 08/31/20 Unknown Hepatitis A IgM Ab Non-reactive (NonReactive) 08/30/20 10:56 Hep Bs Antigen Non-reactive (Negative) 08/30/20 10:56 Hep B Core IgM Ab Non-reactive (NonReactive) 08/30/20 10:56 Hepatitis C Antibody Non-reactive (NonReactive) 08/30/20 10:56 Kraus/IV: Voiding Method Incontinent Active Medications - Current Medications Current Medications: Generic Name Dose Route Start Last Admin Trade Name Freq PRN Reason Stop Dose Admin Acetaminophen 650 mg 08/28/20 21:49 Acetaminophen 325 Mg Tab PO Q4H PRN Pain MILD(1-3)/Fever >100.5/MOELLER Aspirin 81 mg 08/31/20 10:00 09/07/20 09:08 Aspirin Ec 81 Mg Tab PO 81 mg QDAY PARIS Administration Dexamethasone 6 mg 08/31/20 16:00 09/07/20 09:08 Dexamethasone 4 Mg Tab PO 09/09/20 10:01 6 mg DAILY PARIS Administration Digoxin 0.125 mg 08/30/20 10:00 09/07/20 09:12 Digoxin 0.125 Mg Tab PO 0.125 mg DAILY PARIS Administration Famotidine 10 mg 08/28/20 22:00 09/07/20 09:08 Famotidine 10 Mg Tab PO 10 mg BID PARIS Administration Furosemide 20 mg 08/31/20 10:00 09/07/20 09:08 Furosemide 20 Mg Tab PO 20 mg QDAY PARIS Administration Sodium Chloride 1,000 mls @ 100 mls/hr 08/29/20 13:00 09/05/20 23:02 Nacl 0.9% 1000 Ml IV 100 mls/hr DIRECT PARIS Administration REMDESIVIR 100 mg/ Sodium 250 mls @ 500 mls/hr 09/06/20 21:00 09/06/20 21:46 Chloride IV 09/09/20 21:29 500 mls/hr Q24HR@2100 PARIS Administration Lorazepam 0.5 mg 09/02/20 19:23 09/05/20 04:06 Lorazepam 2 Mg/Ml Vial IV 0.5 mg Q6H PRN Administration Agitation Metoprolol Tartrate 50 mg 08/29/20 13:00 09/07/20 07:23 Metoprolol Tartrate 50 Mg Tab PO Not Given Q8HR PARIS Morphine Sulfate 2 mg 08/28/20 21:49 Morphine 2 Mg/1 Ml Inj IV Q4H PRN Pain, Moderate (4-6) Nitrofurantoin Macrocrystals 100 mg 09/04/20 10:00 09/07/20 09:12 Nitrofurantoin Monohyd/M-Cryst 100 Mg Cap PO 09/08/20 22:01 100 mg Q12HR PARIS Administration Ondansetron HCl 4 mg 08/28/20 21:49 Ondansetron 4 Mg/2 Ml Inj IV Q8H PRN Nausea And Vomiting Sodium Chloride 10 ml 08/28/20 22:00 09/07/20 09:09 Sodium Chloride 0.9% 10 Ml Flush Syringe IV 10 ml BID PARIS Administration Sodium Chloride 10 ml 08/28/20 21:49 09/05/20 04:06 Sodium Chloride 0.9% 10 Ml Flush Syringe IV 10 ml PRN PRN Administration LINE FLUSH Sodium Chloride 50 ml 09/05/20 18:30 09/06/20 21:46 Sodium Chloride 0.9% 50 Ml Ivpb IV 09/08/20 21:01 50 ml Q24HR@2100 PARIS Administration Trazodone HCl 50 mg 08/29/20 22:00 09/06/20 21:46 Trazodone 50 Mg Tab PO 50 mg QHS PARIS Administration Nutrition/Malnutrition Assess - Dietary Evaluation Nutrition/Malnutrition Findings: Nutrition Notes Start: 08/30/20 08:24 Freq: Status: Active Protocol: Document 09/05/20 11:56 CW (Rec: 09/05/20 12:08 CW [email or web address]) Nutrition Notes Initial or Follow up Reassessment Current Diagnosis Acute Kidney Injury,Coronary Artery Disease,Hypertension, Heart Failure Other Pertinent Diagnosis COVID (+), Coumadin Toxicity, Lactic Acidosis, Dementia Current Diet Pureed Diet Labs/Tests 09/04/2020 BUN 20 Cr 0.5 AST: 114 ALT: 242 Pertinent Medications Lasix Decadron NS at 100 ml/hr Height 5 ft 7 in Weight 49.6 kg [place] Body Weight (kg) 61.36 BMI 17.1 Weight change and time frame Weight change since 09/01 may be related to lasix usage Weight change on 08/30 likely inaccurate Weight Status Underweight Subjective/Other Information F/U for Diet toleration, intakes, and ONS. Per RN pt drinking very little of the ONS.Change ONS from Very High Protein to Ensure enlive to provide increased caloric intake. PO intake of meals is poor at this time. Burn Absent Trauma Absent GI Symptoms None Difficulty In Chewing Food Allergy No Current % PO Negligible Minimum of two criteria Yes Body Fat Depletion Moderate depletion (severe) Muscle Mass Mild Depletion (non-severe) #1 Nutrition Diagnosis Inadequate oral intake As Evidenced by Signs and Symptoms PO intake of <25% of meals provided Diagnosis Progress(for reassessment Worsened documentation) Is patient on ventilator? No Is Patient Ambulatory and/or Out of Bed Yes REE-([place]-ambulatory/OOB) [ 1252.719 [id number]] Kcal/Kg value to use for calculation 32 Approximate Energy Requirements Using 1587 kcal/Kg Calculation Used for Recommendations Kcal/kg Additional Notes protein needs: 93 - 116g (1.2 - 1.5 g/kgBW) kcal needs: 1500 - 1900 ml/day Nutrition Intervention Change Diet Order: Continue Pureed diet Add Supplement/Snack (indicate name/kcal d/c Ensure High Protein TID /protein ) Initiate Ensure Enlive TID Provides kCal: 1,050 Provides Protein (gm) 60 Goal #1 PO intake that meets at least 75% of kcal needs Anticipated Discharge Needs: Pureed Cardiac diet with ONS PRN Follow-Up By: 09/07/20 Additional Comments F/U for intakes and ONS tolerance
--- NOTE | 2020-09-07 12:12 | Progress Note ---
Assessment and Plan Cultures: Blood culture 08/28/2020 no growth Urine culture 08/28/2020 10-100,000 CFU mixed bacteria A/P: 89-year-old female past medical history hypertension, CHF, dementia, A. fib, prior aortic valve replacement admitted with supratherapeutic INR, found to have COVID-19. #COVID-19: No pneumonia noted. CT chest shows no PE no consolidation. Elevated inflammatory markers, low procalcitonin. Markers elevated, D-dimer improving #Acute hypoxemic respiratory failure: Currently on 2 L nasal cannula. Desaturated 09/05 down to 83%, PaO2 73 Now on Room air #Elevated liver enzymes: Possibly secondary to COVID-19, normal abdominal imaging aside from some hepatic cyst. Negative hepatitis viral panel. Currently improving. MRI shows liver cyst. #Breast cancer: Recent diagnosed, not a candidate for chemotherapy. #Dementia: Acute on chronic altered mental status. #UTI: Urine culture grew 10 200,000 CFU mixed bacteria #Elevated D-dimer: No pulmonary embolism seen. #Transaminitis: Slowly coming down. Recs: -Continue remdesivir for 5 days D3 of 5 -Continue dexamethasone 6 mg IV/PO daily for 10 days -Macrobid 100 mg p.o. twice daily for 5 days for UTI -Anticoagulation per primary team on the basis of supratherapeutic INR. -Check 6-minute walking test, if passes okay to discharge, she does not need to complete 5-day remdesivir if on room air Karen Coon MD [facility] ([facility]) Office [phone] Subjective Date of service: 09/07/20 Principal diagnosis: abnormal lft Interval history: Patient is now acute events Objective - Exam Narrative Exam: Physical exam deferred to minimize COVID-19 transmission during pandemic. ER and internal medicine physical examination notes reviewed. - Constitutional Vitals: Vital Signs Temp Pulse Resp BP Pulse Ox 97.7 F 88 16 141/86 100 09/07/20 05:43 09/07/20 09:12 09/07/20 05:43 09/07/20 09:12 09/07/20 09:52 Temperature -Last 24 Hours Temperature 97.7 F Temperature 97.8 F Temperature 98.9 F Temperature 97.9 F - Labs CBC & Chem 7: 09/04/20 05:34 09/06/20 02:30
[2020-09-07 12:49] LABS: Alanine Aminotransferase 177 units/L (7-56); Albumin 3.1 g/dL (3.9-5); Blood Urea Nitrogen 19 mg/dL (7-17); Calcium 8.3 mg/dL (8.4-10.2); Hemolysis Index 9
[2020-09-07 12:51] LABS: BUN/Creatinine Ratio 32
[2020-09-07 16:45] LABS: INR 1.39 (0.87-1.13)
[2020-09-07] MEDS: traZODone 50 MG TAB PO SCH (21:44)
[2020-09-07] MEDS: REMDESIVIR 100 MG in SODIUM CHLORIDE 0.9% 250ML 250 ML IV SCH (21:44)
[2020-09-07] MEDS: SODIUM CHLORIDE 0.9% 50 ML IVPB IV SCH (21:44)
[2020-09-07] MEDS ORDERED: ENOXAPARIN 40 MG/0.4 ML INJ SUB-Q SCH (22:00)
[2020-09-08] MEDS: LORazepam 2 MG/ML VIAL IV PRN (00:04)
[2020-09-08] MEDS: METOPROLOL TARTRATE 50 MG TAB PO SCH ×3 (05:38→23:55)
[2020-09-08 08:24] LABS: Blood Urea Nitrogen 21 mg/dL (7-17)
[2020-09-08 08:25] LABS: Alanine Aminotransferase 124 units/L (7-56); Albumin 2.7 g/dL (3.9-5); BUN/Creatinine Ratio 42; Calcium 8.3 mg/dL (8.4-10.2); Hemolysis Index 20
--- NOTE | 2020-09-08 10:17 | Progress Note ---
Assessment and Plan Assessment and plan: 89-year-old female with history of hypertension, congestive heart failure dementia, atrial fibrillation and aortic valve replacement brought in by her son because of high Coumadin level with INR of 8. Also patient has been falling repeatedly. Further work 2 times per day for 1 week. Patient states that she has weakness in both lower extremities. Patient also more confused secondary to her dementia. No fever or chills. Patient is unable currently communicative because of her progressive dementia. In the emergency room patient was found to be in atrial fibrillation with rapid ventricular rate. CT scan of the head shows no acute abnormality. 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 We will also obtain a CT of the abdomen and pelvis with dialysis opinion discussed with her clinical condition and risk of any surgical intervention he replies "what ever it takes". We will also obtain acute hepatitis panel although doubt that this is the cause. INR is improved 08/31: GI input noted await for MRI of the abdomen to evaluate liver and also MRCP. Will change diet to pured diet. We will also check ammonia level due to intermittent altered sensorium in the setting of elevated liver enzymes. 09/01: Patients son notifed about the covid diagnosis. Patient noted with hypoxia also was started on steroids yesterday ID is consulted today. She is on 4 L of oxygen at this time. On discussion with the son I understand that her breast cancer was diagnosed about a month ago she was deemed not a candidate for chemotherapy but the son states that she was being worked up for surgery. She is quite weak and lethargic for surgery at this time I did make this note to the son although this can change. Ideally we had agreed on discontinuing a nticoagulation but considering active cancer and risk for CVA now superimposed on COVID-19 will likely recommend putting her on low-dose Eliquis will discuss with cardiology on this matter. She is also noted to have hyperkalemia we will discontinue her potassium replacement pills at this time. 09/02: Patient clinically improving. Mental status is improved area of infiltration in the right upper extremity has completely resolved. Pulses are intact. Anticipate discharge on Friday as the alf facility is not accepting admissions over the weekend. Continue to wean oxygen as tolerated 09/03: Patient clinically stable. Continue supportive care, complete steroids, noted leukocytosis secondary to steroids. Continue to monitor. 09/05. Remains on steroids. On 2 L of oxygen. She may need remdesivir given hypoxia. ABG ordered. Discussed with ID 09/06: Blood gas shows hypoxia. Started on remdesivir. 09/07. She is doing well. Discussed with son - patient already has hospice se rvices ([facility]). 09/08. Stable for discharge. Awaiting placement. Disposition - Rehab recommendation for SNF on discharge. Continue supportive care Cardiology input noted Continue Diltiazem Agree with cardiology on discontinuing Coumadin/anticoagulation at this time. Continue remdesivir Continue to monitor renal function Apixaban resumed as she has breast cancer and has has risk of DVT with covid infection DVT and GI prophylaxis PT OT evaluation Prognosis is guarded History Interval history: Patient seen and examined at bedside this morning. Dc planning. Needs placement. Hospitalist Physical - Physical exam Narrative exam: VITAL SIGNS: Reviewed. GENERAL: Awake HEAD: No signs of head trauma. EYES: Pupils are equal. Extraocular motions intact. MOUTH: Oropharynx is normal. NECK: No adenopathy, no JVD. CHEST: Chest with diminished breath sounds bilaterally. No wheezes, rales, or rhonchi. CARDIAC: normal S1 and S2, without murmurs, gallops, or rubs. ABDOMEN: Soft, non tender and non distended. No rebound or guarding, and no masses palpated. Bowel Sounds normal. MUSCULOSKELETAL: No edema NEUROLOGIC EXAM: Alert. SKIN: No obvious lesions - Constitutional Vitals: Temp Pulse Resp BP Pulse Ox 97.0 F L 70 16 119/88 99 09/08/20 05:21 09/08/20 07:00 09/08/20 05:21 09/08/20 05:21 09/08/20 05:21 HEART Score - HEART Score Age: > 65 Risk factors: > 3 risk factors or hx of atherosclerotic disease Troponin: Troponin T 0.010 ng/mL (0.00-0.029) 08/28/20 17:27 Troponin: < normal limit - Critical Actions Critical Actions: 4-6 pts:12-16.6% risk of adverse cardiac event. Should be adm itted Results - Labs CBC & Chem 7: 09/04/20 05:34 09/08/20 05:53 Labs: Laboratory Last Values WBC 8.5 K/mm3 (4.5-11.0) 09/04/20 05:34 RBC 3.47 M/mm3 (3.65-5.03) L 09/04/20 05:34 Hgb 11.9 gm/dl (10.1-14.3) 09/04/20 05:34 Hct 36.1 % (30.3-42.9) 09/04/20 05:34 MCV 104 fl (79-97) H 09/04/20 05:34 MCH 34 pg (28-32) H 09/04/20 05:34 MCHC 33 % (30-34) 09/04/20 05:34 RDW 16.2 % (13.2-15.2) H 09/04/20 05:34 Plt Count 150 K/mm3 (140-440) 09/04/20 05:34 Lymph % (Auto) 17.3 % (13.4-35.0) 08/29/20 02:27 Dawes % (Auto) 9.3 % (0.0-7.3) H 08/29/20 02:27 Eos % (Auto) 2.3 % (0.0-4.3) 08/29/20 02:27 Baso % (Auto) 0.7 % (0.0-1.8) 08/29/20 02:27 Lymph # (Auto) 1.2 K/mm3 (1.2-5.4) 08/29/20 02:27 Dawes # (Auto) 0.6 K/mm3 (0.0-0.8) 08/29/20 02:27 Eos # (Auto) 0.2 K/mm3 (0.0-0.4) 08/29/20 02:27 Baso # (Auto) 0.0 K/mm3 (0.0-0.1) 08/29/20 02:27 Add Manual Diff Complete 08/28/20 15:07 Total Counted 100 08/28/20 15:07 Seg Neutrophils % 70.4 % (40.0-70.0) H 08/29/20 02:27 Seg Neuts % (Manual) 64.0 % (40.0-70.0) 08/28/20 15:07 Lymphocytes % (Manual) 23.0 % (13.4-35.0) 08/28/20 15:07 Monocytes % (Manual) 10.0 % (0.0-7.3) H 08/28/20 15:07 Eosinophils % (Manual) 2.0 % (0.0-4.3) 08/28/20 15:07 Basophils % (Manual) 1.0 % (0.0-1.8) 08/28/20 15:07 Nucleated RBC % Not Reportable 08/28/20 15:07 Seg Neutrophils # 4.9 K/mm3 (1.8-7.7) 08/29/20 02:27 Seg Neutrophils # Man 3.8 K/mm3 (1.8-7.7) 08/28/20 15:07 Band Neutrophils # 0.0 K/mm3 08/28/20 15:07 Lymphocytes # (Manual) 1.4 K/mm3 (1.2-5.4) 08/28/20 15:07 Abs React Lymphs (Man) 0.0 K/mm3 08/28/20 15:07 Monocytes # (Manual) 0.6 K/mm3 (0.0-0.8) 08/28/20 15:07 Eosinophils # (Manual) 0.1 K/mm3 (0.0-0.4) 08/28/20 15:07 Basophils # (Manual) 0.1 K/mm3 (0.0-0.1) 08/28/20 15:07 Metamyelocytes # 0.0 K/mm3 08/28/20 15:07 Myelocytes # 0.0 K/mm3 08/28/20 15:07 Promyelocytes # 0.0 K/mm3 08/28/20 15:07 Blast Cells # 0.0 K/mm3 08/28/20 15:07 WBC Morphology Not Reportable 08/28/20 15:07 Hypersegmented Neuts Not Reportable 08/28/20 15:07 Hyposegmented Neuts Not Reportable 08/28/20 15:07 Hypogranular Neuts Not Reportable 08/28/20 15:07 Smudge Cells Not Reportable 08/28/20 15:07 Toxic Granulation Not Reportable 08/28/20 15:07 Toxic Vacuolation Not Reportable 08/28/20 15:07 Dohle Bodies Not Reportable 08/28/20 15:07 Pelger-Huet Anomaly Not Reportable 08/28/20 15:07 Heri Rods Not Reportable 08/28/20 15:07 Platelet Estimate Not Reportable 08/28/20 15:07 Clumped Platelets Not Reportable 08/28/20 15:07 Plt Clumps, EDTA Not Reportable 08/28/20 15:07 Large Platelets Not Reportable 08/28/20 15:07 Giant Platelets Not Reportable 08/28/20 15:07 Platelet Satelliting Not Reportable 08/28/20 15:07 Plt Morphology Comment Not Reportable 08/28/20 15:07 RBC Morphology Not Reportable 08/28/20 15:07 Dimorphic RBCs Not Reportable 08/28/20 15:07 Polychromasia Not Reportable 08/28/20 15:07 Hypochromasia Few 08/28/20 15:07 Poikilocytosis Not Reportable 08/28/20 15:07 Anisocytosis Few 08/28/20 15:07 Microcytosis Rare 08/28/20 15:07 Macrocytosis Not Reportable 08/28/20 15:07 Spherocytes Not Reportable 08/28/20 15:07 Pappenheimer Bodies Not Reportable 08/28/20 15:07 Sickle Cells Not Reportable 08/28/20 15:07 Target Cells Not Reportable 08/28/20 15:07 Tear Drop Cells Not Reportable 08/28/20 15:07 Ovalocytes Not Reportable 08/28/20 15:07 Helmet Cells Not Reportable 08/28/20 15:07 [place] Bodies Not Reportable 08/28/20 15:07 [place] Rings Not Reportable 08/28/20 15:07 Doreen Cells Not Reportable 08/28/20 15:07 Bite Cells Not Reportable 08/28/20 15:07 Crenated Cell Not Reportable 08/28/20 15:07 Elliptocytes Not Reportable 08/28/20 15:07 Acanthocytes (Spur) Not Reportable 08/28/20 15:07 Rouleaux Not Reportable 08/28/20 15:07 Hemoglobin C Crystals Not Reportable 08/28/20 15:07 Schistocytes Not Reportable 08/28/20 15:07 Malaria parasites Not Reportable 08/28/20 15:07 Fercho Bodies Not Reportable 08/28/20 15:07 Hem Pathologist Commnt No 08/28/20 15:07 PT 17.0 Sec. (12.2-14.9) H 09/07/20 15:56 INR 1.39 (0.87-1.13) H 09/07/20 15:56 APTT 48.8 Sec. (24.2-36.6) H 08/28/20 15:07 D-Dimer 3381.97 ng/mlDDU (0-234) H 09/05/20 23:25 ABG pH 7.482 (7.320-7.450) H 09/05/20 12:11 POC ABG pCO2 39.6 mmHg (32.0-48.0) 09/05/20 12:11 ABG pCO2 41.9 mm Hg 08/31/20 21:50 POC ABG pO2 73.7 mmHg (83-108) L 09/05/20 12:11 ABG pO2 139.5 mm Hg (80.0-90.0) H 08/31/20 21:50 POC ABG HCO3 29.0 09/05/20 12:11 ABG HCO3 23.8 mmol/L (20.0-26.0) 08/31/20 21:50 ABG O2 Saturation 95.2 (0-100) 09/05/20 12:11 ABG O2 Content 20.8 (0.0-44) 08/31/20 21:50 POC ABG Base Excess 5.2 09/05/20 12:11 ABG Base Excess -1.4 mmol/L (-2.0-3.0) 08/31/20 21:50 ABG Hemoglobin 12.9 (12.0-17.5) 09/05/20 12:11 ABG Oxyhemoglobin 93.8 (94-98) L 09/05/20 12:11 ABG Carboxyhemoglobin 1.9 % (0.0-5.0) 08/31/20 21:50 ABG Methemoglobin 0.3 (0.0-1.5) 09/05/20 12:11 ABG Sodium 137.4 mmol/L (136.0-145.0) 09/05/20 12:11 ABG Potassium 3.2 mmol/L (3.40-4.50) L 09/05/20 12:11 ABG Chloride 104.0 mmol/L (98-107) 09/05/20 12:11 ABG Glucose 114 mg/dL (65-95) H 09/05/20 12:11 Oxyhemoglobin 96.3 % (95.0-99.0) 08/31/20 21:50 Carboxyhemoglobin 1.2 (0.5-1.5) 09/05/20 12:11 FiO2 28 % 08/31/20 21:50 FiO2 % 21.0 09/05/20 12:11 Sodium 136 mmol/L (137-145) L 09/08/20 05:53 Potassium 3.6 mmol/L (3.6-5.0) 09/08/20 05:53 Chloride 101.2 mmol/L (98-107) 09/08/20 05:53 Carbon Dioxide 26 mmol/L (22-30) 09/08/20 05:53 Anion Gap 12 mmol/L 09/08/20 05:53 BUN 21 mg/dL (7-17) H 09/08/20 05:53 Creatinine 0.5 mg/dL (0.6-1.2) L 09/08/20 05:53 Estimated GFR > 60 ml/min 09/08/20 05:53 BUN/Creatinine Ratio 42 % 09/08/20 05:53 Glucose 94 mg/dL (65-100) 09/08/20 05:53 POC Glucose 169 mg/dL (70-105) H 09/01/20 23:47 Hemoglobin A1c 5.2 % (4-6) 08/29/20 02:27 Lactic Acid 4.70 mmol/L (0.7-2.0) H* 08/28/20 15:07 Calcium 8.3 mg/dL (8.4-10.2) L 09/08/20 05:53 Ferritin 1981.0 ng/mL (10.0-200.0) H 09/04/20 14:30 Total Bilirubin 4.50 mg/dL (0.1-1.2) H 09/08/20 05:53 Direct Bilirubin 1.4 mg/dL (0-0.2) H 08/28/20 15:07 Indirect Bilirubin 1.8 mg/dL 08/28/20 15:07 AST 53 units/L (5-40) H 09/08/20 05:53 ALT 124 units/L (7-56) H 09/08/20 05:53 Alkaline Phosphatase 164 units/L (35-129) H 09/08/20 05:53 Ammonia 29.0 umol/L (25-60) 08/31/20 13:44 Lactate Dehydrogenase 430 units/L (91-180) H 09/04/20 14:30 Troponin T 0.010 ng/mL (0.00-0.029) 08/28/20 17:27 C-Reactive Protein 1.20 mg/dL (0.00-1.30) 09/04/20 14:30 NT-Pro-B Natriuret Pep 7039 pg/mL (0-900) H 08/28/20 15:07 Total Protein 6.2 g/dL (6.3-8.2) L 09/08/20 05:53 Albumin 2.7 g/dL (3.9-5) L 09/08/20 05:53 Albumin/Globulin Ratio 0.8 % 09/08/20 05:53 Procalcitonin 0.22 ng/mL (<0.15) 08/31/20 15:52 Arterial Blood Glucose 114 mg/dL (65-95) H 09/05/20 12:11 Arterial Blood Ionized Calcium 4.6 mg/dL (4.6-5.3) 09/05/20 12:11 Urine Color Alison (Yellow) 08/28/20 Unknown Urine Turbidity Cloudy (Clear) 08/28/20 Unknown Urine pH 5.0 (5.0-7.0) 08/28/20 Unknown Ur Specific [place] 1.019 (1.003-1.030) 08/28/20 Unknown Urine Protein 100 mg/dl mg/dL (Negative) 08/28/20 Unknown Urine Glucose (UA) Neg mg/dL (Negative) 08/28/20 Unknown Urine Ketones Neg mg/dL (Negative) 08/28/20 Unknown Urine Blood Mod (Negative) 08/28/20 Unknown Urine Nitrite Neg (Negative) 08/28/20 Unknown Urine Bilirubin Neg (Negative) 08/28/20 Unknown Urine Urobilinogen 4.0 mg/dL (<2.0) 08/28/20 Unknown Ur Leukocyte Esterase Mod (Negative) 08/28/20 Unknown Urine WBC (Auto) 65.0 /HPF (0.0-6.0) H 08/28/20 Unknown Urine RBC (Auto) 12.0 /HPF (0.0-6.0) 08/28/20 Unknown Urine Bacteria (Auto) 4+ /HPF (Negative) 08/28/20 Unknown Urine WBC Clumps 2+ /HPF 08/28/20 Unknown Hyaline Casts 20 /LPF 08/28/20 Unknown Urine Mucus 3+ /HPF 08/28/20 Unknown Urine Yeast (Budding) 2+ /HPF 08/28/20 Unknown Coronavirus (PCR) Positive (Negative) A 08/31/20 Unknown Hepatitis A IgM Ab Non-reactive (NonReactive) 08/30/20 10:56 Hep Bs Antigen Non-reactive (Negative) 08/30/20 10:56 Hep B Core IgM Ab Non-reactive (NonReactive) 08/30/20 10:56 Hepatitis C Antibody Non-reactive (NonReactive) 08/30/20 10:56 Kraus/IV: Voiding Method External Female Catheter Active Medications - Current Medications Current Medications: Generic Name Dose Route Start Last Admin Trade Name Freq PRN Reason Stop Dose Admin Acetaminophen 650 mg 08/28/20 21:49 Acetaminophen 325 Mg Tab PO Q4H PRN Pain MILD(1-3)/Fever >100.5/MOELLER Apixaban 2.5 mg 09/08/20 10:00 Apixaban 2.5 Mg Tab PO Q12HR PARIS Protocol Aspirin 81 mg 08/31/20 10:00 09/07/20 09:08 Aspirin Ec 81 Mg Tab PO 81 mg QDAY PARIS Administration Dexamethasone 6 mg 08/31/20 16:00 09/07/20 09:08 Dexamethasone 4 Mg Tab PO 09/09/20 10:01 6 mg DAILY PARIS Administration Digoxin 0.125 mg 08/30/20 10:00 09/07/20 09:12 Digoxin 0.125 Mg Tab PO 0.125 mg DAILY PARIS Administration Famotidine 10 mg 08/28/20 22:00 09/07/20 21:44 Famotidine 10 Mg Tab PO 10 mg BID PARIS Administration Furosemide 20 mg 08/31/20 10:00 09/07/20 09:08 Furosemide 20 Mg Tab PO 20 mg QDAY PAR[facility] Administration Sodium Chloride 1,000 mls @ 100 mls/hr 08/29/20 13:00 09/05/20 23:02 Nacl 0.9% 1000 Ml IV 100 mls/hr DIRECT PARIS Administration REMDESIVIR 100 mg/ Sodium 250 mls @ 500 mls/hr 09/06/20 21:00 09/07/20 21:44 Chloride IV 09/09/20 21:29 500 mls/hr Q24HR@2100 [facility] Administration Lorazepam 0.5 mg 09/02/20 19:23 09/08/20 00:04 Lorazepam 2 Mg/Ml Vial IV 0.5 mg Q6H PRN Administration Agitation Metoprolol Tartrate 50 mg 08/29/20 13:00 09/08/20 05:38 Metoprolol Tartrate 50 Mg Tab PO 50 mg Q8HR PARIS Administration Morphine Sulfate 2 mg 08/28/20 21:49 Morphine 2 Mg/1 Ml Inj IV Q4H PRN Pain, Moderate (4-6) Nitrofurantoin Macrocrystals 100 mg 09/04/20 10:00 09/07/20 21:44 Nitrofurantoin Monohyd/M-Cryst 100 Mg Cap PO 09/08/20 22:01 100 mg Q12HR PARIS Administration Ondansetron HCl 4 mg 08/28/20 21:49 Ondansetron 4 Mg/2 Ml Inj IV Q8H PRN Nausea And Vomiting Sodium Chloride 10 ml 08/28/20 22:00 09/07/20 21:45 Sodium Chloride 0.9% 10 Ml Flush Syringe IV 10 ml BID [place]IS Administration Sodium Chloride 10 ml 08/28/20 21:49 09/05/20 04:06 Sodium Chloride 0.9% 10 Ml Flush Syringe IV 10 ml PRN PRN Administration LINE FLUSH Sodium Chloride 50 ml 09/05/20 18:30 09/07/20 21:44 Sodium Chloride 0.9% 50 Ml Ivpb IV 09/08/20 21:01 50 ml Q24HR@2100 [place] Administration Trazodone HCl 50 mg 08/29/20 22:00 09/07/20 21:44 Trazodone 50 Mg Tab PO 50 mg QHS PARIS Administration Nutrition/Malnutrition Assess - Dietary Evaluation Nutrition/Malnutrition Findings: Nutrition Notes Start: 08/30/20 08:24 Freq: Status: Active Protocol: Document 09/07/20 13:51 CW (Rec: 09/07/20 14:00 CW [id number]) Nutrition Notes Initial or Follow up Reassessment Current Diagnosis Acute Kidney Injury,Coronary Artery Disease,Hypertension, Heart Failure Other Pertinent Diagnosis COVID (+), Coumadin Toxicity, Lactic Acidosis, Dementia Current Diet Pureed Diet Labs/Tests BUN 19 Pertinent Medications Lasix Decadron NS 50 mL Height 5 ft 7 in Weight 49.6 kg [place] Body Weight (kg) 61.36 BMI 17.1 Weight change and time frame Weight stable Weight Status Underweight Subjective/Other Information F/U intakes and ONS. Per RN, intake has remained the same and pt drinks 25% of ONS. Pt is undergoing hospice treatment. Will encourage PO intake to comfort level. Percent of energy/protein needs met: 34%/20% Burn Absent Trauma Absent GI Symptoms None Difficulty In Chewing Food Allergy No Current % PO Poor (25-49%) Minimum of two criteria Yes Body Fat Depletion Moderate depletion (severe) Muscle Mass Mild Depletion (non-severe) #1 Nutrition Diagnosis Inadequate oral intake Diagnosis Progress(for reassessment Continues documentation) Is patient on ventilator? No Is Patient Ambulatory and/or Out of Bed Yes REE-([place]-St. Jeor-ambulatory/OOB) [ 1252.719 [id number]] Kcal/Kg value to use for calculation 32 Approximate Energy Requirements Using 1587 kcal/Kg Calculation Used for Recommendations Kcal/kg Additional Notes protein needs: 60 - 74g (1.2 - 1.5 g/kgBW) kcal needs: 1500 - 1900 ml/day Nutrition Intervention Change Diet Order: Continue Pureed diet Add Supplement/Snack (indicate name/kcal Initiate Ensure Enlive TID /protein ) Provides kCal: 1,050 Provides Protein (gm) 60 Goal #1 PO intake that meets at least 75% of kcal needs Anticipated Discharge Needs: Pureed Cardiac diet with ONS PRN Follow-Up By: 09/12/20 Additional Comments F/U for intakes, ONS, and POC
[2020-09-08] MEDS: DIGOXIN 0.125 MG TAB PO SCH (10:55)
[2020-09-08] MEDS: FAMOTIDINE 10 MG TAB PO SCH ×2 (10:55→21:57)
[2020-09-08] MEDS: APIXABAN 2.5 MG TAB PO SCH ×2 (10:56→21:35)
[2020-09-08] MEDS: DEXAMETHASONE 4 MG TAB PO SCH (10:56)
[2020-09-08] MEDS: FUROSEMIDE 20 MG TAB PO SCH (10:56)
[2020-09-08] MEDS: NITROFURANTOIN MONOHYD/M-CRYST 100 MG CAP PO SCH ×2 (10:57→23:55)
[2020-09-08] MEDS: ASPIRIN EC 81 MG TAB PO SCH (10:57)
--- NOTE | 2020-09-08 12:50 | Progress Note ---
Assessment and Plan Cultures: Blood culture 08/28/2020 no growth Urine culture 08/28/2020 10-100,000 CFU mixed bacteria A/P: 89-year-old female past medical history hypertension, CHF, dementia, A. fib, prior aortic valve replacement admitted with supratherapeutic INR, found to have COVID-19. #COVID-19: No pneumonia noted. CT chest shows no PE no consolidation. Elevated inflammatory markers, low procalcitonin. Markers elevated, D-dimer improving #Acute hypoxemic respiratory failure: Desaturated on 09/05 down to 83%, PaO2 73 Now on Room air #Elevated liver enzymes: Possibly secondary to COVID-19, normal abdominal imaging aside from some hepatic cyst. Negative hepatitis viral panel. C urrently improving. MRI shows liver cyst. #Breast cancer: Recent diagnosed, not a candidate for chemotherapy. #Dementia: Acute on chronic altered mental status. #UTI: Urine culture grew 10 200,000 CFU mixed bacteria #Elevated D-dimer: No pulmonary embolism seen. #Transaminitis: Slowly coming down. Recs: -Patient is now on room air, okay to discharge if she passes 6-minute walking test is feasible -Continue remdesivir for 5 days D4 of 5 -Continue dexamethasone 6 mg IV/PO daily for 10 days -Macrobid 100 mg p.o. twice daily for 5 days for UTI -Anticoagulation per primary team on the basis of supratherapeutic INR. Dr. Kelley rounding this weekend Karen Coon MD [facility] ([facility]) Office [phone] Subjective Date of service: 09/08/20 Principal diagnosis: abnormal lft Interval history: Patient remains on room air. No fever. No desaturations. Objective - Exam Narrative Exam: Physical exam deferred to minimize COVID-19 transmission during pandemic. ER and internal medicine physical examination notes reviewed. - Constitutional Vitals: Vital Signs Temp Pulse Resp BP Pulse Ox 97.0 F L 80 16 153/95 100 09/08/20 05:21 09/08/20 10:55 09/08/20 05:21 09/08/20 10:55 09/08/20 10:00 Temperature -Last 24 Hours Temperature 97.0 F Temperature 97.2 F - Labs CBC & Chem 7: 09/04/20 05:34 09/08/20 05:53 Labs: Abnormal lab results 09/07/20 09/07/20 09/08/20 Range/Units 05:00 15:56 05:53 PT 17.0 H (12.2-14.9) Sec. INR 1.39 H (0.87-1.13) Sodium 136 L (137-145) mmol/L BUN 19 H 21 H (7-17) mg/dL Creatinine 0.5 L (0.6-1.2) mg/dL Calcium 8.3 L 8.3 L (8.4-10.2) mg/dL Total Bilirubin 4.40 H 4.50 H (0.1-1.2) mg/dL AST 79 H 53 H (5-40) units/L ALT 177 H 124 H (7-56) units/L Alkaline Phosphatase 193 H 164 H (35-129) units/L Total Protein 6.2 L (6.3-8.2) g/dL Albumin 3.1 L 2.7 L (3.9-5) g/dL
--- NOTE | 2020-09-08 14:00 | Discharge Summary ---
Providers - Providers Date of Admission: 08/28/20 18:30 Date of discharge: 09/08/20 Attending physician: DAVID YEE 08/28/20 21:49 Consult to Physician [CONS] Routine Comment: Consulting Provider: HERMES FREEDMAN Physician Instructions: Reason For Exam: A. fib with RVR 08/29/20 09:04 Physical Therapy Evaluation and Treat [CONS] Routine Comment: Reason For Exam: debility 08/29/20 09:05 Occupational Therapy Evaluate and Treat [CONS] Routine Comment: Reason For Exam: debililty 08/30/20 09:00 Consult to Dietitian/Nutrition [CONS] Routine Physician Instructions: Reason For Exam: Might need soft/puree diet Reason for Consult: Poor oral intake 08/30/20 10:23 Consult to Physician [CONS] Routine Comment: Consulting Provider: HASEEB TORREZ Physician Instructions: Reason For Exam: elevated LFT 09/01/20 12:57 Consult to Physician [CONS] Routine Comment: Consulting Provider: LUIS GONSALES Physician Instructions: Reason For Exam: covid 09/01/20 18:42 Midline [Consult to PICC Line RN] [CONS] Stat Reason For Exam: access for CTA Type Line:: Midline Primary care physician: JULIAN ROJO Hospitalization Condition: Stable Hospital course: 89-year-old female with history of hypertension, congestive heart failure dementia, atrial fibrillation and aortic valve replacement brought in by her son because of high Coumadin level with INR of 8. Also patient has been falling repeatedly. Further work 2 times per day for 1 week. Patient states that she has weakness in both lower extremities. Patient also more confused secondary to her dementia. No fever or chills. Patient is unable currently communicative because of her progressive dementia. In the emergency room patient was found to be in atrial fibrillation with rapid ventricular rate. CT scan of the head shows no acute abnormality. 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 We will also obtain a CT of the abdomen and pelvis with dialysis opinion discussed with her clinical condition and risk of any surgical intervention he replies "what ever it takes". We will also obtain acute hepatitis panel although doubt that this is the cause. INR is improved 08/31: GI input noted await for MRI of the abdomen to evaluate liver and also MRCP. Will change diet to pured diet. We will also check ammonia level due to intermittent altered sensorium in the setting of elevated liver enzymes. 09/01: Patients son notifed about the covid diagnosis. Patient noted with hypoxia also was started on steroids yesterday ID is consulted today. She is on 4 L of oxygen at this time. On discussion with the son I understand that her breast cancer was diagnosed about a month ago she was deemed not a candidate for chemotherapy but the son states that she was being worked up for surgery. She is quite weak and lethargic for surgery at this time I did make this note to the son although this can change. Ideally we had agreed on discontinuing anticoagulation but considering active cancer and risk for CVA now superimposed on COVID-19 will likely recommend putting her on low-dose Eliquis will discuss with cardiology on this matter. She is also noted to have hyperkalemia we will discontinue her potassium replacement pills at this time. 09/02: Patient clinically improving. Mental status is improved area of infiltration in the right upper extremity has completely resolved. Pulses are intact. Anticipate discharge on Friday as the [facility] facility is not accepting admissions over the weekend. Continue to wean oxygen as tolerated 09/03: Patient clinically stable. Continue supportive care, complete steroids, noted leukocytosis secondary to steroids. Continue to monitor. 09/05. Remains on steroids. On 2 L of oxygen. She may need remdesivir given hypoxia. ABG ordered. Discussed with ID 09/06: Blood gas shows hypoxia. Started on remdesivir. 09/07. She is doing well. Discussed with son - patient already has hospice services ([facility]). 09/08. Stable for discharge. Awaiting placement. Disposition: DC/[place]-03 SNF W [facility] CERT Final Discharge Diagnosis (Prints w/discharge instructions): COVID pna - Discharge Diagnoses (1) Pneumonia due to COVID-19 virus Status: Acute Comment: POA (2) JAMI (acute kidney injury) Status: Acute (3) Abnormal liver enzymes Status: Acute (4) Acute hypernatremia Status: Acute (5) Atrial fibrillation with RVR Status: Acute (6) Coumadin toxicity Status: Acute Core Measure Documentation - Palliative Care Palliative Care/ Comfort Measures: Hospice Care - Core Measures Any of the following diagnoses?: none Exam - Physical Exam Narrative exam: VITAL SIGNS: Reviewed. GENERAL: Awake HEAD: No signs of head trauma. EYES: Pupils are equal. Extraocular motions intact. MOUTH: Oropharynx is normal. NECK: No adenopathy, no JVD. CHEST: Chest with diminished breath sounds bilaterally. No wheezes, rales, or rhonchi. CARDIAC: normal S1 and S2, without murmurs, gallops, or rubs. ABDOMEN: Soft, non tender and non distended. No rebound or guarding, and no masses palpated. Bowel Sounds normal. MUSCULOSKELETAL: No edema NEUROLOGIC EXAM: Alert. SKIN: No obvious lesions - Constitutional Vitals: Temp Pulse Resp BP Pulse Ox 97.6 F 59 L 15 138/90 98 09/08/20 12:33 09/08/20 12:33 09/08/20 12:33 09/08/20 12:58 09/08/20 12:33 Plan Additional Instructions: Continue medications as prescribed. Follow up with PCP in 2 weeks Follow up with: JULIAN ROJO JR, MD [Primary Care Provider] - 3-5 Days DAGOBERTO ALEJANDRA MD [Staff Physician] - 7 Days Prescriptions: traZODone [Desyrel] 50 mg PO QHS #30 tablet Apixaban [Eliquis] 2.5 mg PO BID #14 tablet Aspirin EC [Halfprin EC] 81 mg PO QDAY #30 tablet Digoxin [Lanoxin] 0.125 mg PO DAILY #30 tablet Furosemide [Lasix TAB] 20 mg PO QDAY #30 tablet Metoprolol [Lopressor TAB] 50 mg PO Q8HR #90 tablet Nitrofurantoin [place]/M-Cryst [Macrobid CAP] 100 mg PO Q12HR #4 capsule traMADoL [Ultram 50 MG tab] 50 mg PO Q6HR PRN #10 PRN Reason: Pain
[2020-09-08] MEDS: REMDESIVIR 100 MG in SODIUM CHLORIDE 0.9% 250ML 250 ML IV SCH (21:26)
[2020-09-08] MEDS: traZODone 50 MG TAB PO SCH (21:30)
[2020-09-08] MEDS: SODIUM CHLORIDE 0.9% 50 ML IVPB IV SCH (21:56)
[2020-09-09] MEDS: LORazepam 2 MG/ML VIAL IV PRN (01:01)
[2020-09-09] MEDS: METOPROLOL TARTRATE 50 MG TAB PO SCH ×3 (06:01→21:35)
[2020-09-09] MEDS: FAMOTIDINE 10 MG TAB PO SCH ×2 (09:01→21:35)
[2020-09-09] MEDS: DEXAMETHASONE 4 MG TAB PO SCH (09:01)
[2020-09-09] MEDS: ASPIRIN EC 81 MG TAB PO SCH (09:02)
[2020-09-09] MEDS: APIXABAN 2.5 MG TAB PO SCH ×2 (09:02→21:36)
--- NOTE | 2020-09-09 09:30 | Progress Note ---
Assessment and Plan Assessment and plan: 89-year-old female with history of hypertension, congestive heart failure dementia, atrial fibrillation and aortic valve replacement brought in by her son because of high Coumadin level with INR of 8. Also patient has been falling repeatedly. Further work 2 times per day for 1 week. Patient states that she has weakness in both lower extremities. Patient also more confused secondary to her dementia. No fever or chills. Patient is unable currently communicative because of her progressive dementia. In the emergency room patient was found to be in atrial fibrillation with rapid ventricular rate. CT scan of the head shows no acute abnormality. 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 We will also obtain a CT of the abdomen and pelvis with dialysis opinion discussed with her clinical condition and risk of any surgical intervention he replies "what ever it takes". We will also obtain acute hepatitis panel although doubt that this is the cause. INR is improved 08/31: GI input noted await for MRI of the abdomen to evaluate liver and also MRCP. Will change diet to pured diet. We will also check ammonia level due to intermittent altered sensorium in the setting of elevated liver enzymes. 09/01: Patients son notifed about the covid diagnosis. Patient noted with hypoxia also was started on steroids yesterday ID is consulted today. She is on 4 L of oxygen at this time. On discussion with the son I understand that her breast cancer was diagnosed about a month ago she was deemed not a candidate for chemotherapy but the son states that she was being worked up for surgery. She is quite weak and lethargic for surgery at this time I did make this note to the son although this can change. Ideally we had agreed on discontinuing a nticoagulation but considering active cancer and risk for CVA now superimposed on COVID-19 will likely recommend putting her on low-dose Eliquis will discuss with cardiology on this matter. She is also noted to have hyperkalemia we will discontinue her potassium replacement pills at this time. 09/02: Patient clinically improving. Mental status is improved area of infiltration in the right upper extremity has completely resolved. Pulses are intact. Anticipate discharge on Friday as the shelter facility is not accepting admissions over the weekend. Continue to wean oxygen as tolerated 09/03: Patient clinically stable. Continue supportive care, complete steroids, noted leukocytosis secondary to steroids. Continue to monitor. 09/05. Remains on steroids. On 2 L of oxygen. She may need remdesivir given hypoxia. ABG ordered. Discussed with ID 09/06: Blood gas shows hypoxia. Started on remdesivir. 09/07. She is doing well. Discussed with son - patient already has hospice se rvices ([facility]). 09/08. Stable for discharge. Awaiting placement. 09/09. No complaints. Could not be discharged yesterday as authorization is still pending. Disposition - Rehab recommendation for SNF on discharge. Continue supportive care Cardiology input noted Continue Diltiazem Agree with cardiology on discontinuing Coumadin/anticoagulation at this time. Continue remdesivir Continue to monitor renal function Apixaban resumed as she has breast cancer and has has risk of DVT with covid infection DVT and GI prophylaxis PT OT evaluation Prognosis is guarded History Interval history: Patient seen and examined at bedside this morning. Has no complaints Dc planning. Needs placement. Hospitalist Physical - Physical exam Narrative exam: VITAL SIGNS: Reviewed. GENERAL: Awake HEAD: No signs of head trauma. EYES: Pupils are equal. Extraocular motions intact. MOUTH: Oropharynx is normal. NECK: No adenopathy, no JVD. CHEST: Chest with diminished breath sounds bilaterally. No wheezes, rales, or rhonchi. CARDIAC: normal S1 and S2, without murmurs, gallops, or rubs. ABDOMEN: Soft, non tender and non distended. No rebound or guarding, and no masses palpated. Bowel Sounds normal. MUSCULOSKELETAL: No edema NEUROLOGIC EXAM: Alert. SKIN: No obvious lesions - Constitutional Vitals: Temp Pulse Resp BP Pulse Ox 97.6 F 62 20 175/81 95 09/09/20 05:29 09/08/20 23:19 09/08/20 23:19 09/09/20 06:01 09/08/20 23:19 HEART Score - HEART Score Age: > 65 Risk factors: > 3 risk factors or hx of atherosclerotic disease Troponin: Troponin T 0.010 ng/mL (0.00-0.029) 08/28/20 17:27 Troponin: < normal limit - Critical Actions Critical Actions: 4-6 pts:12-16.6% risk of adverse cardiac event. Should be admitted Results - Labs CBC & Chem 7: 09/04/20 05:34 09/08/20 05:53 Labs: Laboratory Last Values WBC 8.5 K/mm3 (4.5-11.0) 09/04/20 05:34 RBC 3.47 M/mm3 (3.65-5.03) L 09/04/20 05:34 Hgb 11.9 gm/dl (10.1-14.3) 09/04/20 05:34 Hct 36.1 % (30.3-42.9) 09/04/20 05:34 MCV 104 fl (79-97) H 09/04/20 05:34 MCH 34 pg (28-32) H 09/04/20 05:34 MCHC 33 % (30-34) 09/04/20 05:34 RDW 16.2 % (13.2-15.2) H 09/04/20 05:34 Plt Count 150 K/mm3 (140-440) 09/04/20 05:34 Lymph % (Auto) 17.3 % (13.4-35.0) 08/29/20 02:27 Oliver % (Auto) 9.3 % (0.0-7.3) H 08/29/20 02:27 Eos % (Auto) 2.3 % (0.0-4.3) 08/29/20 02:27 Baso % (Auto) 0.7 % (0.0-1.8) 08/29/20 02:27 Lymph # (Auto) 1.2 K/mm3 (1.2-5.4) 08/29/20 02:27 Oliver # (Auto) 0.6 K/mm3 (0.0-0.8) 08/29/20 02:27 Eos # (Auto) 0.2 K/mm3 (0.0-0.4) 08/29/20 02:27 Baso # (Auto) 0.0 K/mm3 (0.0-0.1) 08/29/20 02:27 Add Manual Diff Complete 08/28/20 15:07 Total Counted 100 08/28/20 15:07 Seg Neutrophils % 70.4 % (40.0-70.0) H 08/29/20 02:27 Seg Neuts % (Manual) 64.0 % (40.0-70.0) 08/28/20 15:07 Lymphocytes % (Manual) 23.0 % (13.4-35.0) 08/28/20 15:07 Monocytes % (Manual) 10.0 % (0.0-7.3) H 08/28/20 15:07 Eosinophils % (Manual) 2.0 % (0.0-4.3) 08/28/20 15:07 Basophils % (Manual) 1.0 % (0.0-1.8) 08/28/20 15:07 Nucleated RBC % Not Reportable 08/28/20 15:07 Seg Neutrophils # 4.9 K/mm3 (1.8-7.7) 08/29/20 02:27 Seg Neutrophils # Man 3.8 K/mm3 (1.8-7.7) 08/28/20 15:07 Band Neutrophils # 0.0 K/mm3 08/28/20 15:07 Lymphocytes # (Manual) 1.4 K/mm3 (1.2-5.4) 08/28/20 15:07 Abs React Lymphs (Man) 0.0 K/mm3 08/28/20 15:07 Monocytes # (Manual) 0.6 K/mm3 (0.0-0.8) 08/28/20 15:07 Eosinophils # (Manual) 0.1 K/mm3 (0.0-0.4) 08/28/20 15:07 Basophils # (Manual) 0.1 K/mm3 (0.0-0.1) 08/28/20 15:07 Metamyelocytes # 0.0 K/mm3 08/28/20 15:07 Myelocytes # 0.0 K/mm3 08/28/20 15:07 Promyelocytes # 0.0 K/mm3 08/28/20 15:07 Blast Cells # 0.0 K/mm3 08/28/20 15:07 WBC Morphology Not Reportable 08/28/20 15:07 Hypersegmented Neuts Not Reportable 08/28/20 15:07 Hyposegmented Neuts Not Reportable 08/28/20 15:07 Hypogranular Neuts Not Reportable 08/28/20 15:07 Smudge Cells Not Reportable 08/28/20 15:07 Toxic Granulation Not Reportable 08/28/20 15:07 Toxic Vacuolation Not Reportable 08/28/20 15:07 Dohle Bodies Not Reportable 08/28/20 15:07 Pelger-Huet Anomaly Not Reportable 08/28/20 15:07 Heri Rods Not Reportable 08/28/20 15:07 Platelet Estimate Not Reportable 08/28/20 15:07 Clumped Platelets Not Reportable 08/28/20 15:07 Plt Clumps, EDTA Not Reportable 08/28/20 15:07 Large Platelets Not Reportable 08/28/20 15:07 Giant Platelets Not Reportable 08/28/20 15:07 Platelet Satelliting Not Reportable 08/28/20 15:07 Plt Morphology Comment Not Reportable 08/28/20 15:07 RBC Morphology Not Reportable 08/28/20 15:07 Dimorphic RBCs Not Reportable 08/28/20 15:07 Polychromasia Not Reportable 08/28/20 15:07 Hypochromasia Few 08/28/20 15:07 Poikilocytosis Not Reportable 08/28/20 15:07 Anisocytosis Few 08/28/20 15:07 Microcytosis Rare 08/28/20 15:07 Macrocytosis Not Reportable 08/28/20 15:07 Spherocytes Not Reportable 08/28/20 15:07 Pappenheimer Bodies Not Reportable 08/28/20 15:07 Sickle Cells Not Reportable 08/28/20 15:07 Target Cells Not Reportable 08/28/20 15:07 Tear Drop Cells Not Reportable 08/28/20 15:07 Ovalocytes Not Reportable 08/28/20 15:07 Helmet Cells Not Reportable 08/28/20 15:07 Sosa-Hilo Bodies Not Reportable 08/28/20 15:07 [place] Rings Not Reportable 08/28/20 15:07 Doreen Cells Not Reportable 08/28/20 15:07 Bite Cells Not Reportable 08/28/20 15:07 Crenated Cell Not Reportable 08/28/20 15:07 Elliptocytes Not Reportable 08/28/20 15:07 Acanthocytes (Spur) Not Reportable 08/28/20 15:07 Rouleaux Not Reportable 08/28/20 15:07 Hemoglobin C Crystals Not Reportable 08/28/20 15:07 Schistocytes Not Reportable 08/28/20 15:07 Malaria parasites Not Reportable 08/28/20 15:07 Fercho Bodies Not Reportable 08/28/20 15:07 Hem Pathologist Commnt No 08/28/20 15:07 PT 17.0 Sec. (12.2-14.9) H 09/07/20 15:56 INR 1.39 (0.87-1.13) H 09/07/20 15:56 APTT 48.8 Sec. (24.2-36.6) H 08/28/20 15:07 D-Dimer 3381.97 ng/mlDDU (0-234) H 09/05/20 23:25 ABG pH 7.482 (7.320-7.450) H 09/05/20 12:11 POC ABG pCO2 39.6 mmHg (32.0-48.0) 09/05/20 12:11 ABG pCO2 41.9 mm Hg 08/31/20 21:50 POC ABG pO2 73.7 mmHg (83-108) L 09/05/20 12:11 ABG pO2 139.5 mm Hg (80.0-90.0) H 08/31/20 21:50 POC ABG HCO3 29.0 09/05/20 12:11 ABG HCO3 23.8 mmol/L (20.0-26.0) 08/31/20 21:50 ABG O2 Saturation 95.2 (0-100) 09/05/20 12:11 ABG O2 Content 20.8 (0.0-44) 08/31/20 21:50 POC ABG Base Excess 5.2 09/05/20 12:11 ABG Base Excess -1.4 mmol/L (-2.0-3.0) 08/31/20 21:50 ABG Hemoglobin 12.9 (12.0-17.5) 09/05/20 12:11 ABG Oxyhemoglobin 93.8 (94-98) L 09/05/20 12:11 ABG Carboxyhemoglobin 1.9 % (0.0-5.0) 08/31/20 21:50 ABG Methemoglobin 0.3 (0.0-1.5) 09/05/20 12:11 ABG Sodium 137.4 mmol/L (136.0-145.0) 09/05/20 12:11 ABG Potassium 3.2 mmol/L (3.40-4.50) L 09/05/20 12:11 ABG Chloride 104.0 mmol/L (98-107) 09/05/20 12:11 ABG Glucose 114 mg/dL (65-95) H 09/05/20 12:11 Oxyhemoglobin 96.3 % (95.0-99.0) 08/31/20 21:50 Carboxyhemoglobin 1.2 (0.5-1.5) 09/05/20 12:11 FiO2 28 % 08/31/20 21:50 FiO2 % 21.0 09/05/20 12:11 Sodium 136 mmol/L (137-145) L 09/08/20 05:53 Potassium 3.6 mmol/L (3.6-5.0) 09/08/20 05:53 Chloride 101.2 mmol/L (98-107) 09/08/20 05:53 Carbon Dioxide 26 mmol/L (22-30) 09/08/20 05:53 Anion Gap 12 mmol/L 09/08/20 05:53 BUN 21 mg/dL (7-17) H 09/08/20 05:53 Creatinine 0.5 mg/dL (0.6-1.2) L 09/08/20 05:53 Estimated GFR > 60 ml/min 09/08/20 05:53 BUN/Creatinine Ratio 42 % 09/08/20 05:53 Glucose 94 mg/dL (65-100) 09/08/20 05:53 POC Glucose 169 mg/dL (70-105) H 09/01/20 23:47 Hemoglobin A1c 5.2 % (4-6) 08/29/20 02:27 Lactic Acid 4.70 mmol/L (0.7-2.0) H* 08/28/20 15:07 Calcium 8.3 mg/dL (8.4-10.2) L 09/08/20 05:53 Ferritin 1981.0 ng/mL (10.0-200.0) H 09/04/20 14:30 Total Bilirubin 4.50 mg/dL (0.1-1.2) H 09/08/20 05:53 Direct Bilirubin 1.4 mg/dL (0-0.2) H 08/28/20 15:07 Indirect Bilirubin 1.8 mg/dL 08/28/20 15:07 AST 53 units/L (5-40) H 09/08/20 05:53 ALT 124 units/L (7-56) H 09/08/20 05:53 Alkaline Phosphatase 164 units/L (35-129) H 09/08/20 05:53 Ammonia 29.0 umol/L (25-60) 08/31/20 13:44 Lactate Dehydrogenase 430 units/L (91-180) H 09/04/20 14:30 Troponin T 0.010 ng/mL (0.00-0.029) 08/28/20 17:27 C-Reactive Protein 1.20 mg/dL (0.00-1.30) 09/04/20 14:30 NT-Pro-B Natriuret Pep 7039 pg/mL (0-900) H 08/28/20 15:07 Total Protein 6.2 g/dL (6.3-8.2) L 09/08/20 05:53 Albumin 2.7 g/dL (3.9-5) L 09/08/20 05:53 Albumin/Globulin Ratio 0.8 % 09/08/20 05:53 Procalcitonin 0.22 ng/mL (<0.15) 08/31/20 15:52 Arterial Blood Glucose 114 mg/dL (65-95) H 09/05/20 12:11 Arterial Blood Ionized Calcium 4.6 mg/dL (4.6-5.3) 09/05/20 12:11 Urine Color Alison (Yellow) 08/28/20 Unknown Urine Turbidity Cloudy (Clear) 08/28/20 Unknown Urine pH 5.0 (5.0-7.0) 08/28/20 Unknown Ur Specific [place] 1.019 (1.003-1.030) 08/28/20 Unknown Urine Protein 100 mg/dl mg/dL (Negative) 08/28/20 Unknown Urine Glucose (UA) Neg mg/dL (Negative) 08/28/20 Unknown Urine Ketones Neg mg/dL (Negative) 08/28/20 Unknown Urine Blood Mod (Negative) 08/28/20 Unknown Urine Nitrite Neg (Negative) 08/28/20 Unknown Urine Bilirubin Neg (Negative) 08/28/20 Unknown Urine Urobilinogen 4.0 mg/dL (<2.0) 08/28/20 Unknown Ur Leukocyte Esterase Mod (Negative) 08/28/20 Unknown Urine WBC (Auto) 65.0 /HPF (0.0-6.0) H 08/28/20 Unknown Urine RBC (Auto) 12.0 /HPF (0.0-6.0) 08/28/20 Unknown Urine Bacteria (Auto) 4+ /HPF (Negative) 08/28/20 Unknown Urine WBC Clumps 2+ /HPF 08/28/20 Unknown Hyaline Casts 20 /LPF 08/28/20 Unknown Urine Mucus 3+ /HPF 08/28/20 Unknown Urine Yeast (Budding) 2+ /HPF 08/28/20 Unknown Coronavirus (PCR) Positive (Negative) A 08/31/20 Unknown Hepatitis A IgM Ab Non-reactive (NonReactive) 08/30/20 10:56 Hep Bs Antigen Non-reactive (Negative) 08/30/20 10:56 Hep B Core IgM Ab Non-reactive (NonReactive) 08/30/20 10:56 Hepatitis C Antibody Non-reactive (NonReactive) 08/30/20 10:56 Kraus/IV: Voiding Method Incontinent Active Medications - Current Medications Current Medications: Generic Name Dose Route Start Last Admin Trade Name Freq PRN Reason Stop Dose Admin Acetaminophen 650 mg 08/28/20 21:49 Acetaminophen 325 Mg Tab PO Q4H PRN Pain MILD(1-3)/Fever >100.5/MOELLER Apixaban 2.5 mg 09/08/20 10:00 09/09/20 09:02 Apixaban 2.5 Mg Tab PO 2.5 mg Q12HR PARIS Administration Protocol Aspirin 81 mg 08/31/20 10:00 09/09/20 09:02 Aspirin Ec 81 Mg Tab PO 81 mg QDAY PARIS Administration Dexamethasone 6 mg 08/31/20 16:00 09/09/20 09:01 Dexamethasone 4 Mg Tab PO 09/09/20 10:01 6 mg DAILY PARIS Administration Digoxin 0.125 mg 08/30/20 10:00 09/08/20 10:55 Digoxin 0.125 Mg Tab PO 0.125 mg DAILY PARIS Administration Famotidine 10 mg 08/28/20 22:00 09/09/20 09:01 Famotidine 10 Mg Tab PO 10 mg BID PARIS Administration Furosemide 20 mg 08/31/20 10:00 09/08/20 10:56 Furosemide 20 Mg Tab PO 20 mg QDAY PARIS Administration Sodium Chloride 1,000 mls @ 100 mls/hr 08/29/20 13:00 09/05/20 23:02 Nacl 0.9% 1000 Ml IV 100 mls/hr DIRECT PARIS Administration REMDESIVIR 100 mg/ Sodium 250 mls @ 500 mls/hr 09/06/20 21:00 09/08/20 21:26 Chloride IV 09/09/20 21:29 500 mls/hr Q24HR@2100 PARIS Administration Lorazepam 0.5 mg 09/02/20 19:23 09/09/20 01:01 Lorazepam 2 Mg/Ml Vial IV 0.5 mg Q6H PRN Administration Agitation Metoprolol Tartrate 50 mg 08/29/20 13:00 09/09/20 06:01 Metoprolol Tartrate 50 Mg Tab PO 50 mg Q8HR PARIS Administration Morphine Sulfate 2 mg 08/28/20 21:49 Morphine 2 Mg/1 Ml Inj IV Q4H PRN Pain, Moderate (4-6) Ondansetron HCl 4 mg 08/28/20 21:49 Ondansetron 4 Mg/2 Ml Inj IV Q8H PRN Nausea And Vomiting Sodium Chloride 10 ml 08/28/20 22:00 09/08/20 21:29 Sodium Chloride 0.9% 10 Ml Flush Syringe IV 10 ml BID PARIS Administration Sodium Chloride 10 ml 08/28/20 21:49 09/05/20 04:06 Sodium Chloride 0.9% 10 Ml Flush Syringe IV 10 ml PRN PRN Administration LINE FLUSH Trazodone HCl 50 mg 08/29/20 22:00 09/08/20 21:30 Trazodone 50 Mg Tab PO 50 mg QHS PARIS Administration Nutrition/Malnutrition Assess - Dietary Evaluation Nutrition/Malnutrition Findings: Nutrition Notes Start: 08/30/20 08:2 4 Freq: Status: Active Protocol: Document 09/07/20 13:51 CW (Rec: 09/07/20 14:00 CW [id number]) Nutrition Notes Initial or Follow up Reassessment Current Diagnosis Acute Kidney Injury,Coronary Artery Disease,Hypertension, Heart Failure Other Pertinent Diagnosis COVID (+), Coumadin Toxicity, Lactic Acidosis, Dementia Current Diet Pureed Diet Labs/Tests BUN 19 Pertinent Medications Lasix Decadron NS 50 mL Height 5 ft 7 in Weight 49.6 kg [place] Body Weight (kg) 61.36 BMI 17.1 Weight change and time frame Weight stable Weight Status Underweight Subjective/Other Information F/U intakes and ONS. Per RN, intake has remained the same and pt drinks 25% of ONS. Pt is undergoing hospice treatment. Will encourage PO intake to comfort level. Percent of energy/protein needs met: 34%/20% Burn Absent Trauma Absent GI Symptoms None Difficulty In Chewing Food Allergy No Current % PO Poor (25-49%) Minimum of two criteria Yes Body Fat Depletion Moderate depletion (severe) Muscle Mass Mild Depletion (non-severe) #1 Nutrition Diagnosis Inadequate oral intake Diagnosis Progress(for reassessment Continues documentation) Is patient on ventilator? No Is Patient Ambulatory and/or Out of Bed Yes REE-([facility]-ambulatory/OOB) [ 1252.719 [id number]] Kcal/Kg value to use for calculation 32 Approximate Energy Requirements Using 1587 kcal/Kg Calculation Used for Recommendations Kcal/kg Additional Notes protein needs: 60 - 74g (1.2 - 1.5 g/kgBW) kcal needs: 1500 - 1900 ml/day Nutrition Intervention Change Diet Order: Continue Pureed diet Add Supplement/Snack (indicate name/kcal Initiate Ensure Enlive TID /protein ) Provides kCal: 1,050 Provides Protein (gm) 60 Goal #1 PO intake that meets at least 75% of kcal needs Anticipated Discharge Needs: Pureed Cardiac diet with ONS PRN Follow-Up By: 09/12/20 Additional Comments F/U for intakes, ONS, and POC
[2020-09-09] MEDS: DIGOXIN 0.125 MG TAB PO SCH (09:33)
[2020-09-09] MEDS: FUROSEMIDE 20 MG TAB PO SCH (09:33)
[2020-09-09] MEDS: traZODone 50 MG TAB PO SCH (21:36)
[2020-09-09] MEDS: REMDESIVIR 100 MG in SODIUM CHLORIDE 0.9% 250ML 250 ML IV SCH (21:37)
[2020-09-10] MEDS: LORazepam 2 MG/ML VIAL IV PRN (01:11)
[2020-09-10] MEDS: SODIUM CHLORIDE 0.9% 1000 ML 1,000 ML IV SCH (06:26)
[2020-09-10] MEDS: METOPROLOL TARTRATE 50 MG TAB PO SCH ×3 (06:29→22:20)
[2020-09-10] MEDS: ASPIRIN EC 81 MG TAB PO SCH (09:15)
[2020-09-10] MEDS: FAMOTIDINE 10 MG TAB PO SCH ×2 (09:16→22:20)
[2020-09-10] MEDS: FUROSEMIDE 20 MG TAB PO SCH (09:16)
[2020-09-10] MEDS: APIXABAN 2.5 MG TAB PO SCH ×2 (09:16→22:20)
[2020-09-10] MEDS: DIGOXIN 0.125 MG TAB PO SCH (09:16)
--- NOTE | 2020-09-10 09:21 | Progress Note ---
Assessment and Plan Assessment and plan: 89-year-old female with history of hypertension, congestive heart failure dementia, atrial fibrillation and aortic valve replacement brought in by her son because of high Coumadin level with INR of 8. Also patient has been falling repeatedly. Further work 2 times per day for 1 week. Patient states that she has weakness in both lower extremities. Patient also more confused secondary to her dementia. No fever or chills. Patient is unable currently communicative because of her progressive dementia. In the emergency room patient was found to be in atrial fibrillation with rapid ventricular rate. CT scan of the head shows no acute abnormality. 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 We will also obtain a CT of the abdomen and pelvis with dialysis opinion discussed with her clinical condition and risk of any surgical intervention he replies "what ever it takes". We will also obtain acute hepatitis panel although doubt that this is the cause. INR is improved 08/31: GI input noted await for MRI of the abdomen to evaluate liver and also MRCP. Will change diet to pured diet. We will also check ammonia level due to intermittent altered sensorium in the setting of elevated liver enzymes. 09/01: Patients son notifed about the covid diagnosis. Patient noted with hypoxia also was started on steroids yesterday ID is consulted today. She is on 4 L of oxygen at this time. On discussion with the son I understand that her breast cancer was diagnosed about a month ago she was deemed not a candidate for chemotherapy but the son states that she was being worked up for surgery. She is quite weak and lethargic for surgery at this time I did make this note to the son although this can change. Ideally we had agreed on discontinuing a nticoagulation but considering active cancer and risk for CVA now superimposed on COVID-19 will likely recommend putting her on low-dose Eliquis will discuss with cardiology on this matter. She is also noted to have hyperkalemia we will discontinue her potassium replacement pills at this time. 09/02: Patient clinically improving. Mental status is improved area of infiltration in the right upper extremity has completely resolved. Pulses are intact. Anticipate discharge on Friday as the long term facility is not accepting admissions over the weekend. Continue to wean oxygen as tolerated 09/03: Patient clinically stable. Continue supportive care, complete steroids, noted leukocytosis secondary to steroids. Continue to monitor. 09/05. Remains on steroids. On 2 L of oxygen. She may need remdesivir given hypoxia. ABG ordered. Discussed with ID 09/06: Blood gas shows hypoxia. Started on remdesivir. 09/07. She is doing well. Discussed with son - patient already has hospice se rvices ([facility]). 09/08. Stable for discharge. Awaiting placement. 09/09. No complaints. Could not be discharged yesterday as authorization is still pending. 09/10. Awaiting insurance authorization. Disposition - Rehab recommendation for SNF on discharge. Continue supportive care Cardiology input noted Continue Diltiazem Agree with cardiology on discontinuing Coumadin/anticoagulation at this time. Continue remdesivir Continue to monitor renal function Apixaban resumed as she has breast cancer and has has risk of DVT with covid infection DVT and GI prophylaxis PT OT evaluation Prognosis is guarded History Interval history: Patient seen and examined at bedside this morning. Sleepy as she got ativan for agitation Dc planning. Awaiting insurance authorization Hospitalist Physical - Physical exam Narrative exam: VITAL SIGNS: Reviewed. GENERAL: Awake HEAD: No signs of head trauma. EYES: Pupils are equal. Extraocular motions intact. MOUTH: Oropharynx is normal. NECK: No adenopathy, no JVD. CHEST: Chest with diminished breath sounds bilaterally. No wheezes, rales, or rhonchi. CARDIAC: normal S1 and S2, without murmurs, gallops, or rubs. ABDOMEN: Soft, non tender and non distended. No rebound or guarding, and no masses palpated. Bowel Sounds normal. MUSCULOSKELETAL: No edema NEUROLOGIC EXAM: Alert. SKIN: No obvious lesions - Constitutional Vitals: Temp Pulse Resp BP Pulse Ox 97.5 F L 66 18 130/90 100 09/10/20 08:46 09/10/20 09:16 09/10/20 08:46 09/10/20 08:46 09/10/20 08:46 HEART Score - HEART Score Age: > 65 Risk factors: > 3 risk factors or hx of atherosclerotic disease Troponin: Troponin T 0.010 ng/mL (0.00-0.029) 08/28/20 17:27 Troponin: < normal limit - Critical Actions Critical Actions: 4-6 pts:12-16.6% risk of adverse cardiac event. Should be admitted Results - Labs CBC & Chem 7: 09/04/20 05:34 09/08/20 05:53 Labs: Laboratory Last Values WBC 8.5 K/mm3 (4.5-11.0) 09/04/20 05:34 RBC 3.47 M/mm3 (3.65-5.03) L 09/04/20 05:34 Hgb 11.9 gm/dl (10.1-14.3) 09/04/20 05:34 Hct 36.1 % (30.3-42.9) 09/04/20 05:34 MCV 104 fl (79-97) H 09/04/20 05:34 MCH 34 pg (28-32) H 09/04/20 05:34 MCHC 33 % (30-34) 09/04/20 05:34 RDW 16.2 % (13.2-15.2) H 09/04/20 05:34 Plt Count 150 K/mm3 (140-440) 09/04/20 05:34 Lymph % (Auto) 17.3 % (13.4-35.0) 08/29/20 02:27 [place] % (Auto) 9.3 % (0.0-7.3) H 08/29/20 02:27 Eos % (Auto) 2.3 % (0.0-4.3) 08/29/20 02:27 Baso % (Auto) 0.7 % (0.0-1.8) 08/29/20 02:27 Lymph # (Auto) 1.2 K/mm3 (1.2-5.4) 08/29/20 02:27 [place] # (Auto) 0.6 K/mm3 (0.0-0.8) 08/29/20 02:27 Eos # (Auto) 0.2 K/mm3 (0.0-0.4) 08/29/20 02:27 Baso # (Auto) 0.0 K/mm3 (0.0-0.1) 08/29/20 02:27 Add Manual Diff Complete 08/28/20 15:07 Total Counted 100 08/28/20 15:07 Seg Neutrophils % 70.4 % (40.0-70.0) H 08/29/20 02:27 Seg Neuts % (Manual) 64.0 % (40.0-70.0) 08/28/20 15:07 Lymphocytes % (Manual) 23.0 % (13.4-35.0) 08/28/20 15:07 Monocytes % (Manual) 10.0 % (0.0-7.3) H 08/28/20 15:07 Eosinophils % (Manual) 2.0 % (0.0-4.3) 08/28/20 15:07 Basophils % (Manual) 1.0 % (0.0-1.8) 08/28/20 15:07 Nucleated RBC % Not Reportable 08/28/20 15:07 Seg Neutrophils # 4.9 K/mm3 (1.8-7.7) 08/29/20 02:27 Seg Neutrophils # Man 3.8 K/mm3 (1.8-7.7) 08/28/20 15:07 Band Neutrophils # 0.0 K/mm3 08/28/20 15:07 Lymphocytes # (Manual) 1.4 K/mm3 (1.2-5.4) 08/28/20 15:07 Abs React Lymphs (Man) 0.0 K/mm3 08/28/20 15:07 Monocytes # (Manual) 0.6 K/mm3 (0.0-0.8) 08/28/20 15:07 Eosinophils # (Manual) 0.1 K/mm3 (0.0-0.4) 08/28/20 15:07 Basophils # (Manual) 0.1 K/mm3 (0.0-0.1) 08/28/20 15:07 Metamyelocytes # 0.0 K/mm3 08/28/20 15:07 Myelocytes # 0.0 K/mm3 08/28/20 15:07 Promyelocytes # 0.0 K/mm3 08/28/20 15:07 Blast Cells # 0.0 K/mm3 08/28/20 15:07 WBC Morphology Not Reportable 08/28/20 15:07 Hypersegmented Neuts Not Reportable 08/28/20 15:07 Hyposegmented Neuts Not Reportable 08/28/20 15:07 Hypogranular Neuts Not Reportable 08/28/20 15:07 Smudge Cells Not Reportable 08/28/20 15:07 Toxic Granulation Not Reportable 08/28/20 15:07 Toxic Vacuolation Not Reportable 08/28/20 15:07 Dohle Bodies Not Reportable 08/28/20 15:07 Pelger-Huet Anomaly Not Reportable 08/28/20 15:07 Heri Rods Not Reportable 08/28/20 15:07 Platelet Estimate Not Reportable 08/28/20 15:07 Clumped Platelets Not Reportable 08/28/20 15:07 Plt Clumps, EDTA Not Reportable 08/28/20 15:07 Large Platelets Not Reportable 08/28/20 15:07 Giant Platelets Not Reportable 08/28/20 15:07 Platelet Satelliting Not Reportable 08/28/20 15:07 Plt Morphology Comment Not Reportable 08/28/20 15:07 RBC Morphology Not Reportable 08/28/20 15:07 Dimorphic RBCs Not Reportable 08/28/20 15:07 Polychromasia Not Reportable 08/28/20 15:07 Hypochromasia Few 08/28/20 15:07 Poikilocytosis Not Reportable 08/28/20 15:07 Anisocytosis Few 08/28/20 15:07 Microcytosis Rare 08/28/20 15:07 Macrocytosis Not Reportable 08/28/20 15:07 Spherocytes Not Reportable 08/28/20 15:07 Pappenheimer Bodies Not Reportable 08/28/20 15:07 Sickle Cells Not Reportable 08/28/20 15:07 Target Cells Not Reportable 08/28/20 15:07 Tear Drop Cells Not Reportable 08/28/20 15:07 Ovalocytes Not Reportable 08/28/20 15:07 Helmet Cells Not Reportable 08/28/20 15:07 Sosa-Mcmullin Bodies Not Reportable 08/28/20 15:07 [place] Rings Not Reportable 08/28/20 15:07 [place] Cells Not Reportable 08/28/20 15:07 Bite Cells Not Reportable 08/28/20 15:07 Crenated Cell Not Reportable 08/28/20 15:07 Elliptocytes Not Reportable 08/28/20 15:07 Acanthocytes (Spur) Not Reportable 08/28/20 15:07 Rouleaux Not Reportable 08/28/20 15:07 Hemoglobin C Crystals Not Reportable 08/28/20 15:07 Schistocytes Not Reportable 08/28/20 15:07 Malaria parasites Not Reportable 08/28/20 15:07 Fercho Bodies Not Reportable 08/28/20 15:07 Hem Pathologist Commnt No 08/28/20 15:07 PT 17.0 Sec. (12.2-14.9) H 09/07/20 15:56 INR 1.39 (0.87-1.13) H 09/07/20 15:56 APTT 48.8 Sec. (24.2-36.6) H 08/28/20 15:07 D-Dimer 3381.97 ng/mlDDU (0-234) H 09/05/20 23:25 ABG pH 7.482 (7.320-7.450) H 09/05/20 12:11 POC ABG pCO2 39.6 mmHg (32.0-48.0) 09/05/20 12:11 ABG pCO2 41.9 mm Hg 08/31/20 21:50 POC ABG pO2 73.7 mmHg (83-108) L 09/05/20 12:11 ABG pO2 139.5 mm Hg (80.0-90.0) H 08/31/20 21:50 POC ABG HCO3 29.0 09/05/20 12:11 ABG HCO3 23.8 mmol/L (20.0-26.0) 08/31/20 21:50 ABG O2 Saturation 95.2 (0-100) 09/05/20 12:11 ABG O2 Content 20.8 (0.0-44) 08/31/20 21:50 POC ABG Base Excess 5.2 09/05/20 12:11 ABG Base Excess -1.4 mmol/L (-2.0-3.0) 08/31/20 21:50 ABG Hemoglobin 12.9 (12.0-17.5) 09/05/20 12:11 ABG Oxyhemoglobin 93.8 (94-98) L 09/05/20 12:11 ABG Carboxyhemoglobin 1.9 % (0.0-5.0) 08/31/20 21:50 ABG Methemoglobin 0.3 (0.0-1.5) 09/05/20 12:11 ABG Sodium 137.4 mmol/L (136.0-145.0) 09/05/20 12:11 ABG Potassium 3.2 mmol/L (3.40-4.50) L 09/05/20 12:11 ABG Chloride 104.0 mmol/L (98-107) 09/05/20 12:11 ABG Glucose 114 mg/dL (65-95) H 09/05/20 12:11 Oxyhemoglobin 96.3 % (95.0-99.0) 08/31/20 21:50 Carboxyhemoglobin 1.2 (0.5-1.5) 09/05/20 12:11 FiO2 28 % 08/31/20 21:50 FiO2 % 21.0 09/05/20 12:11 Sodium 136 mmol/L (137-145) L 09/08/20 05:53 Potassium 3.6 mmol/L (3.6-5.0) 09/08/20 05:53 Chloride 101.2 mmol/L (98-107) 09/08/20 05:53 Carbon Dioxide 26 mmol/L (22-30) 09/08/20 05:53 Anion Gap 12 mmol/L 09/08/20 05:53 BUN 21 mg/dL (7-17) H 09/08/20 05:53 Creatinine 0.5 mg/dL (0.6-1.2) L 09/08/20 05:53 Estimated GFR > 60 ml/min 09/08/20 05:53 BUN/Creatinine Ratio 42 % 09/08/20 05:53 Glucose 94 mg/dL (65-100) 09/08/20 05:53 POC Glucose 169 mg/dL (70-105) H 09/01/20 23:47 Hemoglobin A1c 5.2 % (4-6) 08/29/20 02:27 Lactic Acid 4.70 mmol/L (0.7-2.0) H* 08/28/20 15:07 Calcium 8.3 mg/dL (8.4-10.2) L 09/08/20 05:53 Ferritin 1981.0 ng/mL (10.0-200.0) H 09/04/20 14:30 Total Bilirubin 4.50 mg/dL (0.1-1.2) H 09/08/20 05:53 Direct Bilirubin 1.4 mg/dL (0-0.2) H 08/28/20 15:07 Indirect Bilirubin 1.8 mg/dL 08/28/20 15:07 AST 53 units/L (5-40) H 09/08/20 05:53 ALT 124 units/L (7-56) H 09/08/20 05:53 Alkaline Phosphatase 164 units/L (35-129) H 09/08/20 05:53 Ammonia 29.0 umol/L (25-60) 08/31/20 13:44 Lactate Dehydrogenase 430 units/L (91-180) H 09/04/20 14:30 Troponin T 0.010 ng/mL (0.00-0.029) 08/28/20 17:27 C-Reactive Protein 1.20 mg/dL (0.00-1.30) 09/04/20 14:30 NT-Pro-B Natriuret Pep 7039 pg/mL (0-900) H 08/28/20 15:07 Total Protein 6.2 g/dL (6.3-8.2) L 09/08/20 05:53 Albumin 2.7 g/dL (3.9-5) L 09/08/20 05:53 Albumin/Globulin Ratio 0.8 % 09/08/20 05:53 Procalcitonin 0.22 ng/mL (<0.15) 08/31/20 15:52 Arterial Blood Glucose 114 mg/dL (65-95) H 09/05/20 12:11 Arterial Blood Ionized Calcium 4.6 mg/dL (4.6-5.3) 09/05/20 12:11 Urine Color [place] (Yellow) 08/28/20 Unknown Urine Turbidity Cloudy (Clear) 08/28/20 Unknown Urine pH 5.0 (5.0-7.0) 08/28/20 Unknown Ur Specific [place] 1.019 (1.003-1.030) 08/28/20 Unknown Urine Protein 100 mg/dl mg/dL (Negative) 08/28/20 Unknown Urine Glucose (UA) Neg mg/dL (Negative) 08/28/20 Unknown Urine Ketones Neg mg/dL (Negative) 08/28/20 Unknown Urine Blood Mod (Negative) 08/28/20 Unknown Urine Nitrite Neg (Negative) 08/28/20 Unknown Urine Bilirubin Neg (Negative) 08/28/20 Unknown Urine Urobilinogen 4.0 mg/dL (<2.0) 08/28/20 Unknown Ur Leukocyte Esterase Mod (Negative) 08/28/20 Unknown Urine WBC (Auto) 65.0 /HPF (0.0-6.0) H 08/28/20 Unknown Urine RBC (Auto) 12.0 /HPF (0.0-6.0) 08/28/20 Unknown Urine Bacteria (Auto) 4+ /HPF (Negative) 08/28/20 Unknown Urine WBC Clumps 2+ /HPF 08/28/20 Unknown Hyaline Casts 20 /LPF 08/28/20 Unknown Urine Mucus 3+ /HPF 08/28/20 Unknown Urine Yeast (Budding) 2+ /HPF 08/28/20 Unknown Coronavirus (PCR) Positive (Negative) A 08/31/20 Unknown Hepatitis A IgM Ab Non-reactive (NonReactive) 08/30/20 10:56 Hep Bs Antigen Non-reactive (Negative) 08/30/20 10:56 Hep B Core IgM Ab Non-reactive (NonReactive) 08/30/20 10:56 Hepatitis C Antibody Non-reactive (NonReactive) 08/30/20 10:56 Kraus/IV: Voiding Method Bedpan Active Medications - Current Medications Current Medications: Generic Name Dose Route Start Last Admin Trade Name Freq PRN Reason Stop Dose Admin Acetaminophen 650 mg 08/28/20 21:49 Acetaminophen 325 Mg Tab PO Q4H PRN Pain MILD(1-3)/Fever >100.5/MOELLER Apixaban 2.5 mg 09/08/20 10:00 09/10/20 09:16 Apixaban 2.5 Mg Tab PO 2.5 mg Q12HR PARIS Administration Protocol Aspirin 81 mg 08/31/20 10:00 09/10/20 09:15 Aspirin Ec 81 Mg Tab PO 81 mg QDAY PARIS Administration Digoxin 0.125 mg 08/30/20 10:00 09/10/20 09:16 Digoxin 0.125 Mg Tab PO Not Given DAILY PARIS Famotidine 10 mg 08/28/20 22:00 09/10/20 09:16 Famotidine 10 Mg Tab PO 10 mg BID PARIS Administration Furosemide 20 mg 08/31/20 10:00 09/10/20 09:16 Furosemide 20 Mg Tab PO 20 mg QDAY PAR[facility] Administration Sodium Chloride 1,000 mls @ 100 mls/hr 08/29/20 13:00 09/10/20 06:26 Nacl 0.9% 1000 Ml IV 100 mls/hr DIRECT [place] Administration Lorazepam 0.5 mg 09/02/20 19:23 09/10/20 01:11 Lorazepam 2 Mg/Ml Vial IV 0.5 mg Q6H PRN Administration Agitation Metoprolol Tartrate 50 mg 08/29/20 13:00 09/10/20 06:29 Metoprolol Tartrate 50 Mg Tab PO 50 mg Q8HR [place] Administration Morphine Sulfate 2 mg 08/28/20 21:49 Morphine 2 Mg/1 Ml Inj IV Q4H PRN Pain, Moderate (4-6) Ondansetron HCl 4 mg 08/28/20 21:49 Ondansetron 4 Mg/2 Ml Inj IV Q8H PRN Nausea And Vomiting Sodium Chloride 10 ml 08/28/20 22:00 09/10/20 09:17 Sodium Chloride 0.9% 10 Ml Flush Syringe IV 10 ml BID [place] Administration Sodium Chloride 10 ml 08/28/20 21:49 09/05/20 04:06 Sodium Chloride 0.9% 10 Ml Flush Syringe IV 10 ml PRN PRN Administration LINE FLUSH Trazodone HCl 50 mg 08/29/20 22:00 09/09/20 21:36 Trazodone 50 Mg Tab PO 50 mg QHS [place]IS Administration Nutrition/Malnutrition Assess - Dietary Evaluation Nutrition/Malnutrition Findings: Nutrition Notes Start: 08/30/20 08:24 Freq: Status: Active Protocol: Document 09/07/20 13:51 CW (Rec: 09/07/20 14:00 CW [id number]) Nutrition Notes Initial or Follow up Reassessment Current Diagnosis Acute Kidney Injury,Coronary Artery Disease,Hypertension, Heart Failure Other Pertinent Diagnosis COVID (+), Coumadin Toxicity, Lactic Acidosis, Dementia Current Diet Pureed Diet Labs/Tests BUN 19 Pertinent Medications Lasix Decadron NS 50 mL Height 5 ft 7 in Weight 49.6 kg [place] Body Weight (kg) 61.36 BMI 17.1 Weight change and time frame Weight stable Weight Status Underweight Subjective/Other Information F/U intakes and ONS. Per RN, intake has remained the same and pt drinks 25% of ONS. Pt is undergoing hospice treatment. Will encourage PO intake to comfort level. Percent of energy/protein needs met: 34%/20% Burn Absent Trauma Absent GI Symptoms None Difficulty In Chewing Food Allergy No Current % PO Poor (25-49%) Minimum of two criteria Yes Body Fat Depletion Moderate depletion (severe) Muscle Mass Mild Depletion (non-severe) #1 Nutrition Diagnosis Inadequate oral intake Diagnosis Progress(for reassessment Continues documentation) Is patient on ventilator? No Is Patient Ambulatory and/or Out of Bed Yes REE-(Juab-[place]. Jenc-ambulatory/OOB) [ 1252.719 [id number]] Kcal/Kg value to use for calculation 32 Approximate Energy Requirements Using 1587 kcal/Kg Calculation Used for Recommendations Kcal/kg Additional Notes protein needs: 60 - 74g (1.2 - 1.5 g/kgBW) kcal needs: 1500 - 1900 ml/day Nutrition Intervention Change Diet Order: Continue Pureed diet Add Supplement/Snack (indicate name/kcal Initiate Ensure Enlive TID /protein ) Provides kCal: 1,050 Provides Protein (gm) 60 Goal #1 PO intake that meets at least 75% of kcal needs Anticipated Discharge Needs: Pureed Cardiac diet with ONS PRN Follow-Up By: 09/12/20 Additional Comments F/U for intakes, ONS, and POC
--- NOTE | 2020-09-10 13:52 | Progress Note ---
Assessment and Plan - Patient Problems (1) Chronic atrial fibrillation Current Visit: Yes Status: Acute Plan to address problem: Continue rate control strategy of chronic atrial fibrillation. Patient has been determined a poor risk for long-term oral anticoagulation due to frailty, advanced age and propensity for falls. Subjective Date of service: 09/10/20 Principal diagnosis: abnormal lft Interval history: Patient is comfortable, no acute distress, no cardiac complaints. Objective Vital Signs Temp Pulse Resp BP Pulse Ox 09/10/20 12:06 97.4 F L 58 L 18 129/83 100 09/10/20 09:16 66 09/10/20 08:46 97.5 F L 66 18 130/90 100 09/10/20 06:29 97.4 F L 85 20 142/93 94 09/09/20 23:49 99.0 F 68 18 169/98 99 09/09/20 16:28 60 103/76 09/09/20 16:10 98.6 F 66 20 103/60 98 - Physical Examination General: No Apparent Distress, Cachectic, Other (Frail and elderly) HEENT: Positive: PERRL Neck: Positive: trachea midline Cardiac: Positive: irregularly irregular Lungs: Positive: Decreased Breath Sounds Neuro: Positive: Grossly Intact Abdomen: Positive: Soft Skin: Positive: Clear Extremities: Absent: edema - Imaging and Cardiology EKG: report reviewed (Atrial fibrillation with RVR)
[2020-09-10] MEDS: traZODone 50 MG TAB PO SCH (22:20)
--- NOTE | 2020-09-11 10:12 | Progress Note ---
Assessment and Plan Assessment and plan: 89-year-old female with history of hypertension, congestive heart failure dementia, atrial fibrillation and aortic valve replacement brought in by her son because of high Coumadin level with INR of 8. Also patient has been falling repeatedly. Further work 2 times per day for 1 week. Patient states that she has weakness in both lower extremities. Patient also more confused secondary to her dementia. No fever or chills. Patient is unable currently communicative because of her progressive dementia. In the emergency room patient was found to be in atrial fibrillation with rapid ventricular rate. CT scan of the head shows no acute abnormality. 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 We will also obtain a CT of the abdomen and pelvis with dialysis opinion discussed with her clinical condition and risk of any surgical intervention he replies "what ever it takes". We will also obtain acute hepatitis panel although doubt that this is the cause. INR is improved 08/31: GI input noted await for MRI of the abdomen to evaluate liver and also MRCP. Will change diet to pured diet. We will also check ammonia level due to intermittent altered sensorium in the setting of elevated liver enzymes. 09/01: Patients son notifed about the covid diagnosis. Patient noted with hypoxia also was started on steroids yesterday ID is consulted today. She is on 4 L of oxygen at this time. On discussion with the son I understand that her breast cancer was diagnosed about a month ago she was deemed not a candidate for chemotherapy but the son states that she was being worked up for surgery. She is quite weak and lethargic for surgery at this time I did make this note to the son although this can change. Ideally we had agreed on discontinuing a nticoagulation but considering active cancer and risk for CVA now superimposed on COVID-19 will likely recommend putting her on low-dose Eliquis will discuss with cardiology on this matter. She is also noted to have hyperkalemia we will discontinue her potassium replacement pills at this time. 09/02: Patient clinically improving. Mental status is improved area of infiltration in the right upper extremity has completely resolved. Pulses are intact. Anticipate discharge on Friday as the care home facility is not accepting admissions over the weekend. Continue to wean oxygen as tolerated 09/03: Patient clinically stable. Continue supportive care, complete steroids, noted leukocytosis secondary to steroids. Continue to monitor. 09/05. Remains on steroids. On 2 L of oxygen. She may need remdesivir given hypoxia. ABG ordered. Discussed with ID 09/06: Blood gas shows hypoxia. Started on remdesivir. 09/07. She is doing well. Discussed with son - patient already has hospice se rvices ([facility]). 09/08. Stable for discharge. Awaiting placement. 09/09. No complaints. Could not be discharged yesterday as authorization is still pending. 09/10 - 09/11. Awaiting insurance authorization. Disposition - Rehab recommendation for SNF on discharge. Continue supportive care Cardiology input noted Continue Diltiazem Agree with cardiology on discontinuing Coumadin/anticoagulation at this time. Continue remdesivir Continue to monitor renal function Apixaban resumed as she has breast cancer and has has risk of DVT with covid infection DVT and GI prophylaxis PT OT evaluation Prognosis is guarded History Interval history: Patient seen and examined at bedside this morning. Dc planning. Awaiting insurance authorization Hospitalist Physical - Physical exam Narrative exam: VITAL SIGNS: Reviewed. GENERAL: Awake HEAD: No signs of head trauma. EYES: Pupils are equal. Extraocular motions intact. MOUTH: Oropharynx is normal. NECK: No adenopathy, no JVD. CHEST: Chest with diminished breath sounds bilaterally. No wheezes, rales, or rhonchi. CARDIAC: normal S1 and S2, without murmurs, gallops, or rubs. ABDOMEN: Soft, non tender and non distended. No rebound or guarding, and no masses palpated. Bowel Sounds normal. MUSCULOSKELETAL: No edema NEUROLOGIC EXAM: Alert. SKIN: No obvious lesions - Constitutional Vitals: Temp Pulse Resp BP Pulse Ox 97.9 F 80 18 114/55 92 09/10/20 22:29 09/10/20 22:29 09/10/20 22:29 09/10/20 22:29 09/10/20 22:29 HEART Score - HEART Score Age: > 65 Risk factors: > 3 risk factors or hx of atherosclerotic disease Troponin: Troponin T 0.010 ng/mL (0.00-0.029) 08/28/20 17:27 Troponin: < normal limit - Critical Actions Critical Actions: 4-6 pts:12-16.6% risk of adverse cardiac event. Should be admitted Results - Labs CBC & Chem 7: 09/04/20 05:34 09/08/20 05:53 Labs: Laboratory Last Values WBC 8.5 K/mm3 (4.5-11.0) 09/04/20 05:34 RBC 3.47 M/mm3 (3.65-5.03) L 09/04/20 05:34 Hgb 11.9 gm/dl (10.1-14.3) 09/04/20 05:34 Hct 36.1 % (30.3-42.9) 09/04/20 05:34 MCV 104 fl (79-97) H 09/04/20 05:34 MCH 34 pg (28-32) H 09/04/20 05:34 MCHC 33 % (30-34) 09/04/20 05:34 RDW 16.2 % (13.2-15.2) H 09/04/20 05:34 Plt Count 150 K/mm3 (140-440) 09/04/20 05:34 Lymph % (Auto) 17.3 % (13.4-35.0) 08/29/20 02:27 [place] % (Auto) 9.3 % (0.0-7.3) H 08/29/20 02:27 Eos % (Auto) 2.3 % (0.0-4.3) 08/29/20 02:27 Baso % (Auto) 0.7 % (0.0-1.8) 08/29/20 02:27 Lymph # (Auto) 1.2 K/mm3 (1.2-5.4) 08/29/20 02:27 [place] # (Auto) 0.6 K/mm3 (0.0-0.8) 08/29/20 02:27 Eos # (Auto) 0.2 K/mm3 (0.0-0.4) 08/29/20 02:27 Baso # (Auto) 0.0 K/mm3 (0.0-0.1) 08/29/20 02:27 Add Manual Diff Complete 08/28/20 15:07 Total Counted 100 08/28/20 15:07 Seg Neutrophils % 70.4 % (40.0-70.0) H 08/29/20 02:27 Seg Neuts % (Manual) 64.0 % (40.0-70.0) 08/28/20 15:07 Lymphocytes % (Manual) 23.0 % (13.4-35.0) 08/28/20 15:07 Monocytes % (Manual) 10.0 % (0.0-7.3) H 08/28/20 15:07 Eosinophils % (Manual) 2.0 % (0.0-4.3) 08/28/20 15:07 Basophils % (Manual) 1.0 % (0.0-1.8) 08/28/20 15:07 Nucleated RBC % Not Reportable 08/28/20 15:07 Seg Neutrophils # 4.9 K/mm3 (1.8-7.7) 08/29/20 02:27 Seg Neutrophils # Man 3.8 K/mm3 (1.8-7.7) 08/28/20 15:07 Band Neutrophils # 0.0 K/mm3 08/28/20 15:07 Lymphocytes # (Manual) 1.4 K/mm3 (1.2-5.4) 08/28/20 15:07 Abs React Lymphs (Man) 0.0 K/mm3 08/28/20 15:07 Monocytes # (Manual) 0.6 K/mm3 (0.0-0.8) 08/28/20 15:07 Eosinophils # (Manual) 0.1 K/mm3 (0.0-0.4) 08/28/20 15:07 Basophils # (Manual) 0.1 K/mm3 (0.0-0.1) 08/28/20 15:07 Metamyelocytes # 0.0 K/mm3 08/28/20 15:07 Myelocytes # 0.0 K/mm3 08/28/20 15:07 Promyelocytes # 0.0 K/mm3 08/28/20 15:07 Blast Cells # 0.0 K/mm3 08/28/20 15:07 WBC Morphology Not Reportable 08/28/20 15:07 Hypersegmented Neuts Not Reportable 08/28/20 15:07 Hyposegmented Neuts Not Reportable 08/28/20 15:07 Hypogranular Neuts Not Reportable 08/28/20 15:07 Smudge Cells Not Reportable 08/28/20 15:07 Toxic Granulation Not Reportable 08/28/20 15:07 Toxic Vacuolation Not Reportable 08/28/20 15:07 Dohle Bodies Not Reportable 08/28/20 15:07 Pelger-Huet Anomaly Not Reportable 08/28/20 15:07 Heri Rods Not Reportable 08/28/20 15:07 Platelet Estimate Not Reportable 08/28/20 15:07 Clumped Platelets Not Reportable 08/28/20 15:07 Plt Clumps, EDTA Not Reportable 08/28/20 15:07 Large Platelets Not Reportable 08/28/20 15:07 Giant Platelets Not Reportable 08/28/20 15:07 Platelet Satelliting Not Reportable 08/28/20 15:07 Plt Morphology Comment Not Reportable 08/28/20 15:07 RBC Morphology Not Reportable 08/28/20 15:07 Dimorphic RBCs Not Reportable 08/28/20 15:07 Polychromasia Not Reportable 08/28/20 15:07 Hypochromasia Few 08/28/20 15:07 Poikilocytosis Not Reportable 08/28/20 15:07 Anisocytosis Few 08/28/20 15:07 Microcytosis Rare 08/28/20 15:07 Macrocytosis Not Reportable 08/28/20 15:07 Spherocytes Not Reportable 08/28/20 15:07 Pappenheimer Bodies Not Reportable 08/28/20 15:07 Sickle Cells Not Reportable 08/28/20 15:07 Target Cells Not Reportable 08/28/20 15:07 Tear Drop Cells Not Reportable 08/28/20 15:07 Ovalocytes Not Reportable 08/28/20 15:07 Helmet Cells Not Reportable 08/28/20 15:07 [place] Bodies Not Reportable 08/28/20 15:07 [place] Rings Not Reportable 08/28/20 15:07 Doreen Cells Not Reportable 08/28/20 15:07 Bite Cells Not Reportable 08/28/20 15:07 Crenated Cell Not Reportable 08/28/20 15:07 Elliptocytes Not Reportable 08/28/20 15:07 Acanthocytes (Spur) Not Reportable 08/28/20 15:07 Rouleaux Not Reportable 08/28/20 15:07 Hemoglobin C Crystals Not Reportable 08/28/20 15:07 Schistocytes Not Reportable 08/28/20 15:07 Malaria parasites Not Reportable 08/28/20 15:07 Fercho Bodies Not Reportable 08/28/20 15:07 Hem Pathologist Commnt No 08/28/20 15:07 PT 17.0 Sec. (12.2-14.9) H 09/07/20 15:56 INR 1.39 (0.87-1.13) H 09/07/20 15:56 APTT 48.8 Sec. (24.2-36.6) H 08/28/20 15:07 D-Dimer 3381.97 ng/mlDDU (0-234) H 09/05/20 23:25 ABG pH 7.482 (7.320-7.450) H 09/05/20 12:11 POC ABG pCO2 39.6 mmHg (32.0-48.0) 09/05/20 12:11 ABG pCO2 41.9 mm Hg 08/31/20 21:50 POC ABG pO2 73.7 mmHg (83-108) L 09/05/20 12:11 ABG pO2 139.5 mm Hg (80.0-90.0) H 08/31/20 21:50 POC ABG HCO3 29.0 09/05/20 12:11 ABG HCO3 23.8 mmol/L (20.0-26.0) 08/31/20 21:50 ABG O2 Saturation 95.2 (0-100) 09/05/20 12:11 ABG O2 Content 20.8 (0.0-44) 08/31/20 21:50 POC ABG Base Excess 5.2 09/05/20 12:11 ABG Base Excess -1.4 mmol/L (-2.0-3.0) 08/31/20 21:50 ABG Hemoglobin 12.9 (12.0-17.5) 09/05/20 12:11 ABG Oxyhemoglobin 93.8 (94-98) L 09/05/20 12:11 ABG Carboxyhemoglobin 1.9 % (0.0-5.0) 08/31/20 21:50 ABG Methemoglobin 0.3 (0.0-1.5) 09/05/20 12:11 ABG Sodium 137.4 mmol/L (136.0-145.0) 09/05/20 12:11 ABG Potassium 3.2 mmol/L (3.40-4.50) L 09/05/20 12:11 ABG Chloride 104.0 mmol/L (98-107) 09/05/20 12:11 ABG Glucose 114 mg/dL (65-95) H 09/05/20 12:11 Oxyhemoglobin 96.3 % (95.0-99.0) 08/31/20 21:50 Carboxyhemoglobin 1.2 (0.5-1.5) 09/05/20 12:11 FiO2 28 % 08/31/20 21:50 FiO2 % 21.0 09/05/20 12:11 Sodium 136 mmol/L (137-145) L 09/08/20 05:53 Potassium 3.6 mmol/L (3.6-5.0) 09/08/20 05:53 Chloride 101.2 mmol/L (98-107) 09/08/20 05:53 Carbon Dioxide 26 mmol/L (22-30) 09/08/20 05:53 Anion Gap 12 mmol/L 09/08/20 05:53 BUN 21 mg/dL (7-17) H 09/08/20 05:53 Creatinine 0.5 mg/dL (0.6-1.2) L 09/08/20 05:53 Estimated GFR > 60 ml/min 09/08/20 05:53 BUN/Creatinine Ratio 42 % 09/08/20 05:53 Glucose 94 mg/dL (65-100) 09/08/20 05:53 POC Glucose 169 mg/dL (70-105) H 09/01/20 23:47 Hemoglobin A1c 5.2 % (4-6) 08/29/20 02:27 Lactic Acid 4.70 mmol/L (0.7-2.0) H* 08/28/20 15:07 Calcium 8.3 mg/dL (8.4-10.2) L 09/08/20 05:53 Ferritin 1981.0 ng/mL (10.0-200.0) H 09/04/20 14:30 Total Bilirubin 4.50 mg/dL (0.1-1.2) H 09/08/20 05:53 Direct Bilirubin 1.4 mg/dL (0-0.2) H 08/28/20 15:07 Indirect Bilirubin 1.8 mg/dL 08/28/20 15:07 AST 53 units/L (5-40) H 09/08/20 05:53 ALT 124 units/L (7-56) H 09/08/20 05:53 Alkaline Phosphatase 164 units/L (35-129) H 09/08/20 05:53 Ammonia 29.0 umol/L (25-60) 08/31/20 13:44 Lactate Dehydrogenase 430 units/L (91-180) H 09/04/20 14:30 Troponin T 0.010 ng/mL (0.00-0.029) 08/28/20 17:27 C-Reactive Protein 1.20 mg/dL (0.00-1.30) 09/04/20 14:30 NT-Pro-B Natriuret Pep 7039 pg/mL (0-900) H 08/28/20 15:07 Total Protein 6.2 g/dL (6.3-8.2) L 09/08/20 05:53 Albumin 2.7 g/dL (3.9-5) L 09/08/20 05:53 Albumin/Globulin Ratio 0.8 % 09/08/20 05:53 Procalcitonin 0.22 ng/mL (<0.15) 08/31/20 15:52 Arterial Blood Glucose 114 mg/dL (65-95) H 09/05/20 12:11 Arterial Blood Ionized Calcium 4.6 mg/dL (4.6-5.3) 09/05/20 12:11 Urine Color Alison (Yellow) 08/28/20 Unknown Urine Turbidity Cloudy (Clear) 08/28/20 Unknown Urine pH 5.0 (5.0-7.0) 08/28/20 Unknown Ur Specific Pace 1.019 (1.003-1.030) 08/28/20 Unknown Urine Protein 100 mg/dl mg/dL (Negative) 08/28/20 Unknown Urine Glucose (UA) Neg mg/dL (Negative) 08/28/20 Unknown Urine Ketones Neg mg/dL (Negative) 08/28/20 Unknown Urine Blood Mod (Negative) 08/28/20 Unknown Urine Nitrite Neg (Negative) 08/28/20 Unknown Urine Bilirubin Neg (Negative) 08/28/20 Unknown Urine Urobilinogen 4.0 mg/dL (<2.0) 08/28/20 Unknown Ur Leukocyte Esterase Mod (Negative) 08/28/20 Unknown Urine WBC (Auto) 65.0 /HPF (0.0-6.0) H 08/28/20 Unknown Urine RBC (Auto) 12.0 /HPF (0.0-6.0) 08/28/20 Unknown Urine Bacteria (Auto) 4+ /HPF (Negative) 08/28/20 Unknown Urine WBC Clumps 2+ /HPF 08/28/20 Unknown Hyaline Casts 20 /LPF 08/28/20 Unknown Urine Mucus 3+ /HPF 08/28/20 Unknown Urine Yeast (Budding) 2+ /HPF 08/28/20 Unknown Coronavirus (PCR) Positive (Negative) A 08/31/20 Unknown Hepatitis A IgM Ab Non-reactive (NonReactive) 08/30/20 10:56 Hep Bs Antigen Non-reactive (Negative) 08/30/20 10:56 Hep B Core IgM Ab Non-reactive (NonReactive) 08/30/20 10:56 Hepatitis C Antibody Non-reactive (NonReactive) 08/30/20 10:56 Kraus/IV: Voiding Method Incontinent Active Medications - Current Medications Current Medications: Generic Name Dose Route Start Last Admin Trade Name Freq PRN Reason Stop Dose Admin Acetaminophen 650 mg 08/28/20 21:49 Acetaminophen 325 Mg Tab PO Q4H PRN Pain MILD(1-3)/Fever >100.5/MOELLER Apixaban 2.5 mg 09/08/20 10:00 09/10/20 22:20 Apixaban 2.5 Mg Tab PO Not Given Q12HR [facility] Protocol Aspirin 81 mg 08/31/20 10:00 09/10/20 09:15 Aspirin Ec 81 Mg Tab PO 81 mg QDAY [place] Administration Digoxin 0.125 mg 08/30/20 10:00 09/10/20 09:16 Digoxin 0.125 Mg Tab PO Not Given DAILY [place] Famotidine 10 mg 08/28/20 22:00 09/10/20 22:20 Famotidine 10 Mg Tab PO Not Given BID PARIS Furosemide 20 mg 08/31/20 10:00 09/10/20 09:16 Furosemide 20 Mg Tab PO 20 mg QDAY [place] Administration Sodium Chloride 1,000 mls @ 100 mls/hr 08/29/20 13:00 09/10/20 06:26 Nacl 0.9% 1000 Ml IV 100 mls/hr DIRECT [place] Administration Lorazepam 0.5 mg 09/02/20 19:23 09/10/20 01:11 Lorazepam 2 Mg/Ml Vial IV 0.5 mg Q6H PRN Administration Agitation Metoprolol Tartrate 50 mg 08/29/20 13:00 09/10/20 22:20 Metoprolol Tartrate 50 Mg Tab PO Not Given Q8HR [place] Morphine Sulfate 2 mg 08/28/20 21:49 Morphine 2 Mg/1 Ml Inj IV Q4H PRN Pain, Moderate (4-6) Ondansetron HCl 4 mg 08/28/20 21:49 Ondansetron 4 Mg/2 Ml Inj IV Q8H PRN Nausea And Vomiting Sodium Chloride 10 ml 08/28/20 22:00 09/10/20 23:05 Sodium Chloride 0.9% 10 Ml Flush Syringe IV 10 ml BID [place] Administration Sodium Chloride 10 ml 08/28/20 21:49 09/05/20 04:06 Sodium Chloride 0.9% 10 Ml Flush Syringe IV 10 ml PRN PRN Administration LINE FLUSH Trazodone HCl 50 mg 08/29/20 22:00 09/10/20 22:20 Trazodone 50 Mg Tab PO Not Given QHS [facility] Nutrition/Malnutrition Assess - Dietary Evaluation Nutrition/Malnutrition Findings: Nutrition Notes Start: 08/30/20 08:24 Freq: Status: Active Protocol: Document 09/07/20 13:51 CW (Rec: 09/07/20 14:00 CW [id number]) Nutrition Notes Initial or Follow up Reassessment Current Diagnosis Acute Kidney Injury,Coronary Artery Disease,Hypertension, Heart Failure Other Pertinent Diagnosis COVID (+), Coumadin Toxicity, Lactic Acidosis, Dementia Current Diet Pureed Diet Labs/Tests BUN 19 Pertinent Medications Lasix Decadron NS 50 mL Height 5 ft 7 in Weight 49.6 kg [place] Body Weight (kg) 61.36 BMI 17.1 Weight change and time frame Weight stable Weight Status Underweight Subjective/Other Information F/U intakes and ONS. Per RN, intake has remained the same and pt drinks 25% of ONS. Pt is undergoing hospice treatment. Will encourage PO intake to comfort level. Percent of energy/protein needs met: 34%/20% Burn Absent Trauma Absent GI Symptoms None Difficulty In Chewing Food Allergy No Current % PO Poor (25-49%) Minimum of two criteria Yes Body Fat Depletion Moderate depletion (severe) Muscle Mass Mild Depletion (non-severe) #1 Nutrition Diagnosis Inadequate oral intake Diagnosis Progress(for reassessment Continues documentation) Is patient on ventilator? No Is Patient Ambulatory and/or Out of Bed Yes REE-(Gilchrist-St. Jeor-ambulatory/OOB) [ 1252.719 [id number]] Kcal/Kg value to use for calculation 32 Approximate Energy Requirements Using 1587 kcal/Kg Calculation Used for Recommendations Kcal/kg Additional Notes protein needs: 60 - 74g (1.2 - 1.5 g/kgBW) kcal needs: 1500 - 1900 ml/day Nutrition Intervention Change Diet Order: Continue Pureed diet Add Supplement/Snack (indicate name/kcal Initiate Ensure Enlive TID /protein ) Provides kCal: 1,050 Provides Protein (gm) 60 Goal #1 PO intake that meets at least 75% of kcal needs Anticipated Discharge Needs: Pureed Cardiac diet with ONS PRN Follow-Up By: 09/12/20 Additional Comments F/U for intakes, ONS, and POC
[2020-09-11] MEDS: ASPIRIN EC 81 MG TAB PO SCH (10:39)
[2020-09-11] MEDS: APIXABAN 2.5 MG TAB PO SCH ×2 (10:39→22:51)
[2020-09-11] MEDS: FAMOTIDINE 10 MG TAB PO SCH ×2 (10:40→22:52)
[2020-09-11] MEDS: FUROSEMIDE 20 MG TAB PO SCH (10:40)
--- NOTE | 2020-09-11 10:54 | Progress Note ---
Assessment and Plan - Patient Problems (1) Chronic atrial fibrillation Current Visit: Yes Status: Acute Plan to address problem: Continue rate control strategy of chronic atrial fibrillation. Patient has been determined a poor risk for long-term oral anticoagulation due to frailty, advanced age and propensity for falls. Subjective Date of service: 09/11/20 Principal diagnosis: abnormal lft Interval history: Patient is comfortable, no acute distress, no cardiac complaints. Objective Vital Signs Temp Pulse Resp BP Pulse Ox 09/10/20 22:29 97.9 F 80 18 114/55 92 09/10/20 17:08 98.0 F 56 L 18 104/47 91 09/10/20 16:30 98.4 F 72 92 09/10/20 16:27 107/62 09/10/20 16:25 18 107/62 09/10/20 15:00 107/62 09/10/20 12:06 97.4 F L 58 L 18 129/83 100 - Physical Examination General: No Apparent Distress, Cachectic, Other (Frail and elderly) HEENT: Positive: PERRL Neck: Positive: trachea midline Cardiac: Positive: irregularly irregular Lungs: Positive: Decreased Breath Sounds Neuro: Positive: Grossly Intact Abdomen: Positive: Soft Skin: Positive: Clear Extremities: Absent: edema - Imaging and Cardiology EKG: report reviewed (Atrial fibrillation with RVR)
[2020-09-11] MEDS: DIGOXIN 0.125 MG TAB PO SCH (11:03)
--- NOTE | 2020-09-11 13:35 | Progress Note ---
Assessment and Plan Cultures: Blood culture 08/28/2020 no growth Urine culture 08/28/2020 10-100,000 CFU mixed bacteria A/P: 89-year-old female past medical history hypertension, CHF, dementia, A. fib, prior aortic valve replacement admitted with supratherapeutic INR, found to have COVID-19. #COVID-19: stable on room air. #Acute hypoxemic respiratory failure: resolved #Elevated liver enzymes: Possibly secondary to COVID-19, normal abdominal imaging aside from some hepatic cyst. Negative hepatitis viral panel. MRI shows liver cyst. #Breast cancer: Recent diagnosed, not a candidate for chemotherapy. #Dementia: Acute on chronic altered mental status. #UTI: Urine culture grew 10 200,000 CFU mixed bacteria Recs: -remains stable on room air -completed Remdesivir Will sign off. Please call with questions. Aggie Kelley MD, FACP [facility] ([facility] O: [phone] F: [phone] Subjective Date of service: 09/11/20 Principal diagnosis: abnormal lft Interval history: Afebrile. On room air. Objective - Exam Narrative Exam: Physical Exam (reviewed in chart to minimize risk of transmission) Constitutional: deferred Head, Ears, Nose: deferred Eyes: deferred Neck: deferred Oral: deferred Cardiovascular: deferred Respiratory: deferred GI: deferred Musculoskeletal: deferred Skin: deferred Hem/Lymphatic: deferred Psych: deferred Neurological: deferred - Constitutional Vitals: Vital Signs Temp Pulse Resp BP Pulse Ox 97.6 F 76 20 104/69 100 09/11/20 10:48 09/11/20 11:03 09/11/20 10:48 09/11/20 10:48 09/11/20 10:48 Temperature -Last 24 Hours Temperature 97.6 F Temperature 97.9 F Temperature 98.0 F Temperature 98.4 F - Labs CBC & Chem 7: 09/04/20 05:34 09/08/20 05:53
[2020-09-11] MEDS: METOPROLOL TARTRATE 50 MG TAB PO SCH ×2 (15:00→22:51)
[2020-09-11] MEDS: traZODone 50 MG TAB PO SCH (22:51)
[2020-09-12] MEDS: METOPROLOL TARTRATE 50 MG TAB PO SCH (05:30)
[2020-09-12 10:16] LABS: Alanine Aminotransferase 72 units/L (7-56); Albumin 2.9 g/dL (3.9-5); BUN/Creatinine Ratio 44; Blood Urea Nitrogen 22 mg/dL (7-17); Calcium 8.6 mg/dL (8.4-10.2); Hemolysis Index 131
--- NOTE | 2020-09-12 10:47 | Progress Note ---
Assessment and Plan Severe coagulopathy, INR 10.69 on presentation s/p vitamin K; H&H is stable warfarin discontinued Elevated liver transaminases statin therapy discontinued Hypernatremia Chronic atrial fibrillation, rate control strategy patient has been determined a poor risk for continued long-term oral anticoagulation due to frailty, advanced age and propensity for falls. 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 Will increase metoprolol for suppression of paroxysmal NSVT. Continue GDMT for ischemic cardiomyopathy and coronary artery disease as tolerated. Otherwise, conservative cardiac management. Subjective Date of service: 09/12/20 Principal diagnosis: abnormal lft Interval history: Short burst of NSVT seen on telemetry overnight. It is reported the patient remained asymptomatic. Currently, atrial fibrillation with a well controlled ventricular rate on telemetry. Objective Vital Signs Temp Pulse Resp BP Pulse Ox 09/12/20 05:30 69 118/71 09/12/20 04:43 97.6 F 69 18 118/71 68 L 09/11/20 22:51 85 115/79 09/11/20 11:03 76 09/11/20 10:48 97.6 F 76 20 104/69 100 - Physical Examination Narrative exam: Deferred due to isolation protocol. General: No Apparent Distress, Cachectic, Other (Frail and elderly) Cardiac: Positive: irregularly irregular Extremities: Absent: edema - Labs and Meds Cardiac Enzymes 09/12/20 Range/Units 09:17 AST 51 H (5-40) units/L Comprehensive Metabolic Panel 09/12/20 Range/Units 09:17 Sodium 140 (137-145) mmol/L Potassium 5.0 D (3.6-5.0) mmol/L Chloride 103.9 (98-107) mmol/L Carbon Dioxide 26 (22-30) mmol/L BUN 22 H (7-17) mg/dL Creatinine 0.5 L (0.6-1.2) mg/dL Glucose 91 (65-100) mg/dL Calcium 8.6 (8.4-10.2) mg/dL AST 51 H (5-40) units/L ALT 72 H (7-56) units/L Alkaline Phosphatase 151 H (35-129) units/L Total Protein 5.9 L (6.3-8.2) g/dL Albumin 2.9 L (3.9-5) g/dL
--- NOTE | 2020-09-12 11:53 | Discharge Summary ---
Providers - Providers Date of Admission: 08/28/20 18:30 Date of discharge: 09/12/20 Attending physician: DAVID YEE 08/28/20 21:49 Consult to Physician [CONS] Routine Comment: Consulting Provider: HERMES FREEDMAN Physician Instructions: Reason For Exam: A. fib with RVR 08/29/20 09:04 Physical Therapy Evaluation and Treat [CONS] Routine Comment: Reason For Exam: debility 08/29/20 09:05 Occupational Therapy Evaluate and Treat [CONS] Routine Comment: Reason For Exam: debililty 08/30/20 09:00 Consult to Dietitian/Nutrition [CONS] Routine Physician Instructions: Reason For Exam: Might need soft/puree diet Reason for Consult: Poor oral intake 08/30/20 10:23 Consult to Physician [CONS] Routine Comment: Consulting Provider: HASEEB TORREZ Physician Instructions: Reason For Exam: elevated LFT 09/01/20 12:57 Consult to Physician [CONS] Routine Comment: Consulting Provider: LUIS GONSALES Physician Instructions: Reason For Exam: covid 09/01/20 18:42 Midline [Consult to PICC Line RN] [CONS] Stat Reason For Exam: access for CTA Type Line:: Midline Primary care physician: JULIAN ROJO Hospitalization Condition: Stable Hospital course: 89-year-old female with history of hypertension, congestive heart failure dementia, atrial fibrillation and aortic valve replacement brought in by her son because of high Coumadin level with INR of 8. Also patient has been falling repeatedly. Further work 2 times per day for 1 week. Patient states that she has weakness in both lower extremities. Patient also more confused secondary to her dementia. No fever or chills. Patient is unable currently communicative because of her progressive dementia. In the emergency room patient was found to be in atrial fibrillation with rapid ventricular rate. CT scan of the head shows no acute abnormality. 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 We will also obtain a CT of the abdomen and pelvis with dialysis opinion discussed with her clinical condition and risk of any surgical intervention he replies "what ever it takes". We will also obtain acute hepatitis panel although doubt that this is the cause. INR is improved 08/31: GI input noted await for MRI of the abdomen to evaluate liver and also MRCP. Will change diet to pured diet. We will also check ammonia level due to intermittent altered sensorium in the setting of elevated liver enzymes. 09/01: Patients son notifed about the covid diagnosis. Patient noted with hypoxia also was started on steroids yesterday ID is consulted today. She is on 4 L of oxygen at this time. On discussion with the son I understand that her breast cancer was diagnosed about a month ago she was deemed not a candidate for chemotherapy but the son states that she was being worked up for surgery. She is quite weak and lethargic for surgery at this time I did make this note to the son although this can change. Ideally we had agreed on discontinuing anticoagulation but considering active cancer and risk for CVA now superimposed on COVID-19 will likely recommend putting her on low-dose Eliquis will discuss with cardiology on this matter. She is also noted to have hyperkalemia we will discontinue her potassium replacement pills at this time. 09/02: Patient clinically improving. Mental status is improved area of infiltration in the right upper extremity has completely resolved. Pulses are intact. Anticipate discharge on Friday as the group home facility is not accepting admissions over the weekend. Continue to wean oxygen as tolerated. 09/03: Patient clinically stable. Continue supportive care, complete steroids, noted leukocytosis secondary to steroids. Continue to monitor. 09/05. Remains on steroids. On 2 L of oxygen. She may need remdesivir given hypoxia. ABG ordered. Discussed with ID. Given elevated d-dimer, her atrial fibrillation and history of breast cancer, she has been started on low dose apixaban for now. 09/06: Blood gas shows hypoxia. Started on remdesivir. 09/07. She is doing well. Discussed with son - patient already has hospice services ([facility]). 09/08. Stable for discharge. Awaiting placement. 09/09. No complaints. Could not be discharged yesterday as authorization is still pending. 09/10 - 09/11. Awaiting insurance authorization. Completed remdesivir. 09/12. Has 6 beats nonsustained VT. Her metoprolol has been increased to 100mg BID. She will be discharged as insurance has approved transfer to a facility. Disposition: [id number] SNF W [facility] CERT Final Discharge Diagnosis (Prints w/discharge instructions): COVID -19 pneumonia. Acute hypoxic respiratory failure. Atrial fibrillation with RVR Core Measure Documentation - Palliative Care Palliative Care/ Comfort Measures: Hospice Care - Core Measures Any of the following diagnoses?: none Exam - Physical Exam Narrative exam: VITAL SIGNS: Reviewed. GENERAL: Awake HEAD: No signs of head trauma. EYES: Pupils are equal. Extraocular motions intact. MOUTH: Oropharynx is normal. NECK: No adenopathy, no JVD. CHEST: Chest with diminished breath sounds bilaterally. No wheezes, rales, or rhonchi. CARDIAC: normal S1 and S2, without murmurs, gallops, or rubs. ABDOMEN: Soft, non tender and non distended. No rebound or guarding, and no masses palpated. Bowel Sounds normal. MUSCULOSKELETAL: No edema NEUROLOGIC EXAM: Alert. SKIN: No obvious lesions - Constitutional Vitals: Temp Pulse Resp BP Pulse Ox 97.6 F 69 18 118/71 68 L 09/12/20 04:43 09/12/20 05:30 09/12/20 04:43 09/12/20 05:30 09/12/20 04:43 Plan Additional Instructions: Continue medications as prescribed. Follow up with primary medical doctor Follow up with: JULIAN ROJO JR, MD [Primary Care Provider] - 3-5 Days DAGOBERTO ALEJANDRA MD [Staff Physician] - 7 Days Prescriptions: traZODone [Desyrel] 50 mg PO QHS #30 tablet Apixaban [Eliquis] 2.5 mg PO BID #14 tablet Aspirin EC [Halfprin EC] 81 mg PO QDAY #30 tablet Digoxin [Lanoxin] 0.125 mg PO DAILY #30 tablet Furosemide [Lasix TAB] 20 mg PO QDAY #30 tablet Metoprolol [Lopressor TAB] 50 mg PO Q8HR #90 tablet Nitrofurantoin [place]/M-Cryst [Macrobid CAP] 100 mg PO Q12HR #4 capsule traMADoL [Ultram 50 MG tab] 50 mg PO Q6HR PRN #10 PRN Reason: Pain
[2020-09-12] MEDS: FAMOTIDINE 10 MG TAB PO SCH (12:28)
[2020-09-12] MEDS: APIXABAN 2.5 MG TAB PO SCH (12:28)
[2020-09-12] MEDS: FUROSEMIDE 20 MG TAB PO SCH (12:28)
[2020-09-12] MEDS: ASPIRIN EC 81 MG TAB PO SCH (12:40)
[2020-09-12] MEDS: DIGOXIN 0.125 MG TAB PO SCH (12:52)
[2020-09-12 12:53] VITALS: BP 109/71
[2020-09-12] MEDS ORDERED: METOPROLOL TARTRATE 100 MG TAB PO SCH (22:00)
--- NOTE | 2020-09-15 10:22 | Electrocardiograph Report ---
[facility] Test Date: 2020-09-12 Test Time: 06:58:36 Pat Name: RENY FLEMING Department: Room: A360 1 Gender: F [employer]: [employer]ALIA : [id number] Requested By: ELROY TAVARES Order Number: [id number] Reading MD: Pina Arreola Measurements Intervals [place] Rate: 76 P: MO: QRS: 12 QRSD: 91 T: 135 QT: 384 QTc: 432 Interpretive Statements Atrial fibrillation Anteroseptal infarct, age indeterminate Abnormal T, consider ischemia, lateral leads No previous ECG available for comparison Electronically Signed On 09-15-2020 10:22:21 EDT by Pina Arreola
== END 2020-09-12 17:35 | DRG 177 ==
LOC: ED 14:15 → 4A 18:30 → 3A 08-31 20:53
PROVIDERS: ADMIT Internal Medicine; ATTEND Internal Medicine
PROC: 4A033R1 Measurement of Arterial Saturation, Peripheral, Percutaneous Approach (ICD-10-PCS; 2020-08-31)
PROC: XW033E5 Introduction of Remdesivir Anti-infective into Peripheral Vein, Percutaneous Approach, New Technology Group 5 (ICD-10-PCS; principal; 2020-09-05)
DX: U07.1 COVID-19 (principal); G93.41 Metabolic encephalopathy; N17.0 Acute kidney failure with tubular necrosis; J96.01 Acute respiratory failure with hypoxia; J12.82 Pneumonia due to coronavirus disease 2019; E87.0 Hyperosmolality and hypernatremia; N30.00 Acute cystitis without hematuria; I50.42 Chronic combined systolic (congestive) and diastolic (congestive) heart failure; E87.2 Acidosis; I48.20 Chronic atrial fibrillation, unspecified; D68.9 Coagulation defect, unspecified; I47.2 Ventricular tachycardia; E86.0 Dehydration; I25.10 Atherosclerotic heart disease of native coronary artery without angina pectoris; C50.912 Malignant neoplasm of unspecified site of left female breast; F03.90 Unspecified dementia, unspecified severity, without behavioral disturbance, psychotic disturbance, mood disturbance, and anxiety; E87.5 Hyperkalemia; I11.0 Hypertensive heart disease with heart failure; I25.5 Ischemic cardiomyopathy; T45.515A Adverse effect of anticoagulants, initial encounter; Z95.2 Presence of prosthetic heart valve; Z79.01 Long term (current) use of anticoagulants; Z95.1 Presence of aortocoronary bypass graft; Z85.3 Personal history of malignant neoplasm of breast; Y92.89 Other specified places as the place of occurrence of the external cause
CPT/HCPCS: 36415; 36600; 70450; 71045; 71275; 74176; 74181; 74183; 76705; 80048; 80053; 80074; 80076; 81001; 82140; 82728; 82803; 82805; 82947; 82962; 83036; 83615; 83735; 83880; 84145; 84484; 85007; 85025; 85027; 85379; 85610; 85730; 86140; 87040; 87086; 93005; 94760; 96365; 96375; 96376; G0378; A9575; J0696; J1160; J1650; J1940; J2060; J3430; J3480; J7030; J7040; J8540; Q9967; U0003